=== PATIENT | female | born 1960 | race Caucasian/White ===

== ENCOUNTER 2020-04-25 13:35 | Outpatient (REF) | payer OTHER, SELFPAY ==
[2020-04-25 14:40] LABS: MANUAL DIFF FLAG NO
[2020-04-25 14:44] LABS: Basophils Percent Auto 0.4 % (0-2); Eosinophils Absolute Auto 0.6 X10*3/uL (0.0-0.4); Eosinophils Percent Auto 5.4 % (0-4); Hemoglobin 12.4 g/dl (12.0-16.0); Imm Gran Abs Auto 0.07 X10*3/uL (0.00-0.03); Imm Gran Pct Auto 0.7 % (0.0-0.4); Lymphocytes Absolute Auto 3.4 X10*3/uL (1.2-4.9); Lymphocytes Percent Auto 33.4 % (20-40); Mean Corpuscular HGB Conc 32.6 g/dl (31.0-35.0); Mean Corpuscular Hemoglobin 27.3 pg (27.0-33.0); Mean Corpuscular Volume 83.7 fL (80-98); Mean Platelet Volume 10.7 fL (9.4-12.3); Monocytes Absolute Auto 0.8 X10*3/uL (0.1-1.2); Monocytes Percent Auto 7.5 % (2-11); Neutrophils Absolute Auto 5.4 X10*3/uL (2.0-8.3); Neutrophils Percent Auto 52.6 % (45-73); Platelet Count 410 X10*3/uL (160-400); Red Blood Count 4.54 X10*6/uL (4.20-5.50); Red Cell Distribution Width 13.7 % (11.0-16.0); White Blood Count 10.3 X10*3/uL (4.8-10.8)
[2020-04-25 15:02] LABS: Alanine Aminotransferase 21 U/L (0-31); Albumin Level 4.3 g/dL (3.5-5.0); Alkaline Phosphatase 89 U/L (39-117); Anion Gap 12 (12-20); Aspartate Amino Transferase 20 U/L (5-31); Bilirubin Direct < 0.2 mg/dL (0.0-0.5); Bilirubin Total 0.3 mg/dL (0.0-1.0); Blood Urea Nitrogen 34 mg/dL (9-16); Calcium 9.6 mg/dL (8.4-10.2); Carbon Dioxide 27 mmol/L (22-29); Chloride 108 mmol/L (96-108); Estimated Glomerular Filt Rate 56; Glucose Random 94 mg/dL (60-115); Potassium 4.8 mmol/l (3.3-5.1); Sodium 142 mmol/L (135-145); Total Protein 6.9 g/dL (6.5-8.0)
[2020-04-25 15:09] LABS: Prothrombin Time 12.3 SEC (10.8-13.0)
== END 2020-04-25 13:36 | disposition home or self-care (01) ==
LOC: HO.LAB 13:35
PROVIDERS: PCP Internal Medicine; Visit Provider Physician Assistant
DX: Z01.818 Encounter for other preprocedural examination (principal); E11.65 Type 2 diabetes mellitus with hyperglycemia; I10 Essential (primary) hypertension
CPT/HCPCS: 36415; 80048; 80076; 85025; 85610

== ENCOUNTER 2020-08-11 13:20 | Emergency (ER) | payer OTHER, SELFPAY ==
[2020-08-11 13:28] VITALS: BP 154/72; PULSE 113; RESP 18; TEMP 37.5; O2SAT 97; BMI 32.5
--- NOTE | 2020-08-11 13:37 | XR_ITS ---
EXAMINATION: XR CHEST CLINICAL INFORMATION: COVID exposure COMPARISON: None TECHNIQUE: Frontal view of the chest was obtained. FINDINGS: No significant abnormality is noted involving the heart, lungs, mediastinum, bony thorax or soft tissues. XR/XR chest 1V IMPRESSION: No acute disease within the chest.
[2020-08-11 14:22] LABS: COVID-19 Test Positive (Negative); IDNOW Serial# 9DD0AD1C
--- NOTE | 2020-08-11 14:29 | ED.URI ---
HPI - URI/Sore Throat General Chief Complaint: General Medical Stated Complaint: body aches Time Seen by Provider: 08/11/20 13:36 Source: patient Mode of arrival: ambulatory Limitations: no limitations History of Present Illness HPI Narrative: Patient complaining of running nose body aches malaise tiredness no fever occasional dry cough no shortness of breath for last 3 days patient's brother was positive with COVID last week who visited their house at that time patient mother is also sick Related Data Home Medications Medication Instructions Recorded Confirmed fenofibrate 160 mg tablet 160 mg PO DAILY 05/27/20 05/27/20 folic acid 1 mg tablet 1 mg PO DAILY 05/27/20 05/27/20 gabapentin 600 mg tablet 600 mg PO TID 05/27/20 05/27/20 insulin glargine 100 unit/mL (3 60 unit SUBCUT QAM ml 05/27/20 05/27/20 mL) subcutaneous pen insulin lispro 100 unit/mL 8 unit SUBCUT TID 05/27/20 05/27/20 subcutaneous pen lidocaine HCl 4 % topical cream 1 applic TOPICAL TID 05/27/20 05/27/20 simvastatin 5 mg tablet 5 mg PO DAILY 05/27/20 05/27/20 sulfamethoxazole 800 1 tab PO .COMPLEX 05/27/20 05/27/20 mg-trimethoprim 160 mg tablet Previous Rx's Medication Instructions Recorded omeprazole 20 mg capsule,delayed 20 mg PO DAILY #90 cap 05/10/20 release dulaglutide 1.5 mg/0.5 mL 1.5 mg SUBCUT QWEEK 30 Days #2.5 ml 05/24/20 subcutaneous pen injector flash glucose sensor #2 ea 06/03/20 cholecalciferol (vitamin D3) 125 125 mcg PO DAILY 30 Days #30 cap 07/24/20 mcg (5,000 unit) capsule pregabalin 50 mg capsule 50 mg PO BID #60 cap 08/01/20 Allergies Allergy/AdvReac Type Severity Reaction Status Date / Time metformin [METFORMIN] Allergy Severe DIARRHEA, Verified 05/24/20 09:41 stomach intolerance lisinopril [LISINOPRIL] Allergy Intermediate COUGH Verified 05/24/20 09:41 Review of Systems Review of Systems: Constitutional : No Weight loss, No Fever, No Chills ENT/Mouth : + sore throat, + Rhinorrhea Eyes: No Eye Pain, No Swelling Cardiovascular : No Chest Pain, no palpitations Respiratory : No Cough, No Sputum, no shortness of breath Gastrointestinal : no Nausea, No Vomiting, No Diarrhea, No abdominal Pain, no black stools Genitourinary : No Dysuria, No Urinary Frequency Musculoskeletal : No joint pain, ++ Myalgias, No Joint Swelling Skin : No Skin Lesions, No rash Neuro : No Weakness, No Numbness, No Dizziness, No Headache Psych : No Anxiety/Panic, No Depression Heme/Lymph: No Bruising, No Lymphadenopathy Endocrine : No Polyuria, No Polydipsia All other systems reviewed and are negative [facility] Past Medical History Medical History Degenerative disc disease, lumbar Diabetes type 2, uncontrolled Diabetic neuropathy Fatty liver GERD (gastroesophageal reflux disease) History of seizures Hypercholesterolemia Hypertension Obesity (BMI 30-39.9) Peptic ulcer disease Seronegative rheumatoid arthritis Vitamin D deficiency Surgical History History of lumbar surgery History of tonsillectomy History of tubal ligation Family History Family History Father Diabetes Hypertension Mother Hypertension Cancer Maternal Uncle Myocardial infarction Social History Social History Smoking Status: Never smoker Advance Directives: No Advance Directives Information Provided: No Physical Exam Vital Signs: Vital Signs: Last Vital Signs Temp 99.5 F 08/11/20 13:28 Pulse 113 H 08/11/20 13:28 Resp 18 08/11/20 13:28 BP 154/72 H 08/11/20 13:28 Pulse Ox 97 08/11/20 13:28 Body Mass Index 32.5 Appearance: Alert. Oriented X3. No acute distress. Eyes: Pupils equal, round and reactive to light. ENT: Pharynx normal. Neck: Normal inspection. Neck supple. CVS: Normal heart rate and rhythm. Pulses normal. Respiratory: No respiratory distress. Breath sounds normal. Abdomen: Soft and nontender. Bowel sounds are present, no mass palpable, no CVA tenderness Skin: Skin warm and dry. Normal skin color. Normal skin turgor. Extremities: No lower extremity edema. Neuro: Oriented X 3. No motor deficit. No sensory deficit. MDM - URI/Sore Throat MDM Narrative Medical decision making narrative: Patient with COVID-19 positive chest x-ray negative saturating 97% at room air will discharge patient home on Decadron patient diabetic on insulin advised to keep an eye on the blood sugar Differential Diagnosis Differential diagnosis: Likely upper respiratory infection Medical Records Attestation: I reviewed the patient's medical records. Lab Data Attestation: I reviewed the patient's lab results. Labs: Lab Results 08/11/20 Range/Units 13:45 COVID-19 (TORI) Positive A (Negative) COVID-19 Clin Com See Note Discharge Plan Discharge Prescriptions: No Action omeprazole 20 mg capsule,delayed release(DR/EC) 20 mg PO DAILY Qty: 90 RF: 5 Trulicity 1.5 mg/0.5 mL pen injector 1.5 mg subcut QWEEK 30 Days Qty: 2.5 RF: 3 (DME) FreeStyle Yariel 14 Day Sensor Kit See Rx Instructions .MEDSUPPLY Qty: 2 RF: 6 cholecalciferol (vitamin D3) 125 mcg (5,000 unit) capsule 125 mcg PO DAILY 30 Days Qty: 30 RF: 6 pregabalin [Lyrica] 50 mg capsule 50 mg PO BID Qty: 60 RF: 5 lidocaine HCl 4 % cream 1 applic topical TID RF: 0 folic acid 1 mg tablet 1 mg PO DAILY RF: 0 gabapentin 600 mg tablet 600 mg PO TID RF: 0 Basaglar KwikPen U-100 Insulin 100 unit/mL (3 mL) insulin pen 60 unit subcut QAM RF: 0 simvastatin 5 mg tablet 5 mg PO DAILY RF: 0 fenofibrate 160 mg tablet 160 mg PO DAILY RF: 0 insulin lispro [Admelog SoloStar U-100 Insulin] 100 unit/mL insulin pen 8 unit subcut TID RF: 0 sulfamethoxazole-trimethoprim [Bactrim DS] 800-160 mg tablet 1 tab PO .COMPLEX RF: 0
[2020-08-11] MEDS: dexAMETHasone 2 MG TABLET 10 MG PO (14:50)
== END 2020-08-11 14:55 | disposition home or self-care (01) ==
PROVIDERS: Emergency Provider Internal Medicine; PCP Internal Medicine
DX: U07.1 COVID-19 (principal); M79.10 Myalgia, unspecified site; R09.89 Other specified symptoms and signs involving the circulatory and respiratory systems; Z79.899 Other long term (current) drug therapy; Z79.4 Long term (current) use of insulin
CPT/HCPCS: 36415; 71045; 87635; 99283; J8540

== ENCOUNTER 2020-08-16 10:05 | Inpatient (IN) | payer OTHER, SELFPAY ==
[2020-08-16] VITALS (7 sets, daily range): BP systolic 145–165; BP diastolic 59–74; PULSE 91–93; RESP 16–38; TEMP 36.8–37.2; O2SAT 79–95; BMI 32.9
--- NOTE | ~2020-08-16 | XR_ITS ---
EXAMINATION: XR CHEST CLINICAL INFORMATION: Shortness of breath COMPARISON: Shortness of breath TECHNIQUE: Frontal view of the chest was obtained. FINDINGS: The cardiac silhouette does not appear enlarged. There is lucency seen in the mediastinum questionable for pneumomediastinum. The lung volumes are low. There is diffuse increased attenuation of the lungs suggestive of pneumonitis. There is denser atelectasis or consolidation at the left lung base. This does not appear appreciably changed. There is no pleural effusion. No pneumothorax is seen. Bony structures are unremarkable. XR/XR chest 1V IMPRESSION: Increased lucency in the mediastinum questionable for pneumomediastinum. This could be better evaluated with chest CT if clinically indicated. Low lung volumes. Diffuse increased attenuation of the lungs suggestive of pneumonitis and denser atelectasis or airspace disease at the left lung base. Findings will be communicated by the [place] work flow breaker engineer Alisia Roland.
--- NOTE | ~2020-08-16 | XR_ITS ---
EXAMINATION: XR CHEST CLINICAL INFORMATION: COVID follow-up COMPARISON: Chest radiograph from 08/27/2020 TECHNIQUE: Frontal view of the chest was obtained. FINDINGS: Bilateral low lung volumes. Patchy radiopacities throughout the bilateral lung pow[place] greatest in the bilateral lower lobes, stable from prior imaging. There is bibasilar atelectasis. Cardiac mediastinal silhouette is stable. There is no pleural effusions. Osseous structures are intact. Soft tissues are unremarkable. XR/XR chest 1V IMPRESSION: 1. Bilateral low lung volumes. 2. Patchy radiopacities throughout the bilateral lung powell greatest in the bilateral lower lobes, stable from prior imaging. 3. Bibasilar atelectasis.
--- NOTE | ~2020-08-16 | XR_ITS ---
EXAMINATION: XR CHEST CLINICAL INFORMATION: Tube placement COMPARISON: Same day chest x-ray and chest CT TECHNIQUE: Frontal view of the chest was obtained. FINDINGS: Cardiac silhouette is normal in size. Endotracheal tube terminates approximately 3.9 cm above the level of carmen. Enteric tube projects over the expected location of the stomach. Right-sided jugular catheter is again noted with tip terminating within the right atrium. The lungs are adequately aerated. Patchy bilateral airspace disease is again noted. Pneumomediastinum and extensive subcutaneous emphysema are noted. Small right apical pneumothorax suspected. XR/XR chest 1V IMPRESSION: -Support apparatus in expected orientation. -Suspected small right apical pneumothorax. Evaluation is difficult given extensive pneumomediastinum and subcutaneous emphysema. This Critical Result was discussed with JACKI Leblanc at 8:30 PM on 09/11/2020 and it was ascertained that the content and urgency of the report was understood at the time of direct communication.
--- NOTE | ~2020-08-16 | XR_ITS ---
EXAMINATION: XR CHEST CLINICAL INFORMATION: Pneumomediastinum. COMPARISON: Same-day examination performed at 11:40 AM. TECHNIQUE: Frontal view of the chest was obtained. FINDINGS: Lungs are mildly hypoexpanded, unchanged. No consolidation or pulmonary edema. Streaky bibasilar opacities. No pneumothorax or pleural effusion. Cardiomediastinal silhouette within normal limits. Unchanged degree of pneumomediastinum relative to comparison same day examination. XR/XR chest 1V IMPRESSION: Similar appearance of pneumomediastinum. Streaky bibasilar opacities, likely atelectasis.
--- NOTE | ~2020-08-16 | CT_ITS ---
EXAMINATION: CT CHEST WITHOUT CONTRAST CLINICAL INFORMATION: Follow-up COVID pneumonia COMPARISON: Chest x-ray 09/11/2020, chest x-ray 09/07/2020, CT angiogram of the chest 08/16/2020 TECHNIQUE: Multidetector volumetric CT imaging of the chest was done. Axial MIP volume rendering provided. Sagittal and coronal reformatted images were obtained. This CT examination was performed using dose optimization techniques as appropriate, variously including the following: *Automated exposure control *Adjustment of mA and/or kV according to patient size (this includes techniques or standardized protocols for targeted exams where dose is matched to indication/reason for exam; i.e. extremities or head) *Use of iterative reconstruction technique DLP: 154 mGy-cm FINDINGS: CELL POURER: Endotracheal tube with tip 2 cm above the carmen. Enteric tube descends the esophagus into the stomach. Extensive subcutaneous emphysema seen, left greater than right. LUNGS: Diffuse hazy groundglass opacity is present with more confluent opacity at the lung bases. The findings are more extensive on the current exam, involving the lungs diffusely, with air was more patchy involvement on the prior CT scan 08/16/2020, although the degree of abnormal lung opacity is improved. MEDIASTINUM: There is extensive pneumomediastinum seen involving the anterior, posterior, and superior mediastinum, although this appeared improved between the chest x-rays 09/07/2020 and earlier today. No hilar or mediastinal lymphadenopathy. Normal heart size. PLEURA: There is no pleural effusion. No pleural mass or thickening. AXILLA: Extensive subcutaneous emphysema involving the left greater than right neck, left greater than right shoulders and axilla, anterior chest bilaterally, and left lateral chest wall. No axillary lymphadenopathy. UPPER ABDOMEN: No adrenal mass. OSSEOUS STRUCTURES: Unremarkable. CT/CT chest wo con IMPRESSION: Extensive pneumomediastinum, as described above. On earlier chest x-ray, this appeared improved from prior chest x-ray 09/07/2020. Diffuse groundglass opacity throughout the lungs with more confluent involvement in the lower lobes. The findings are more extensive on the current exams, essentially involving the entirety of the lungs bilaterally, with more patchy involvement on the prior CT 08/16/2020, although the degree of abnormal lung density is improved.
--- NOTE | ~2020-08-16 | XR_ITS ---
EXAMINATION: XR CHEST CLINICAL INFORMATION: Hypoxia COMPARISON: 08/23/2020 TECHNIQUE: Frontal view of the chest was obtained. FINDINGS: Compared with the prior study, there's been worsening of the airspace disease noted previously. The lungs remain hypoexpanded. The heart size is normal. No effusions are seen. XR/XR chest 1V IMPRESSION: Worsening of patchy airspace disease.
--- NOTE | ~2020-08-16 | XR_ITS ---
EXAMINATION: XR CHEST CLINICAL INFORMATION: Endotracheal tube, OG tube, triple-lumen catheter placement COMPARISON: 09/07/2020 TECHNIQUE: Frontal view of the chest was obtained. FINDINGS: The endotracheal tube terminates 2.5 cm above the carmen. Right internal jugular central venous catheter terminates near the cavoatrial junction. Enteric tube terminates in the stomach. Lung volumes are low. Bronchial wall thickening. Bibasilar opacities. No pleural effusion or pneumothorax. The cardiomediastinal silhouette is unchanged in size. Pneumomediastinum noted which decreased from prior. XR/XR chest 1V IMPRESSION: Endotracheal tube terminates 2.5 cm above the carmen. Additional tubes and lines in appropriate position. Decreasing pneumomediastinum. Increased bibasilar opacities which could represent atelectasis or pneumonia.
--- NOTE | ~2020-08-16 | US_ITS ---
EXAMINATION: US VENOUS ULTRASOUND WITH DOPPLER LOWER EXTREMITY, BILATERAL CLINICAL INFORMATION: Rule out DVT COMPARISON: 03/06/2020 TECHNIQUE: Ultrasound of the deep veins is performed from the hip to the calf with compression sonography and color and pulse Doppler assessment. Spectral analysis with color-flow imaging is performed. FINDINGS: RIGHT: There is normal venous compression and respiratory variation and augmented flow. The visualized common femoral vein, superficial femoral vein, profunda femoral vein, popliteal vein, and the trifurcation region shows no evidence of deep venous thrombosis. There is no significant popliteal fossa cyst. LEFT: There is normal venous compression and respiratory variation and augmented flow. The visualized common femoral vein, superficial femoral vein, profunda femoral vein, popliteal vein, and the trifurcation region shows no evidence of deep venous thrombosis. There is no significant popliteal fossa cyst. If the patient's symptoms persist, followup ultrasound in 5 days 7 days might be of value to exclude proximal propagation from a non-visualized calf vein. US/US venous duplex LE BI IMPRESSION: No DVT demonstrated in the bilateral lower extremity.
--- NOTE | ~2020-08-16 | XR_ITS ---
EXAMINATION: XR CHEST CLINICAL INFORMATION: Right apical pneumothorax COMPARISON: 09/11/2020 TECHNIQUE: Frontal view of the chest was obtained. FINDINGS: Endotracheal tube terminates approximately 3 cm above the carmen. Enteric tube terminates in the stomach. Right internal jugular central venous catheter extends near the cavoatrial junction. Cardiac leads overlie the chest. Extensive subcutaneous emphysema of the chest extending into the neck again noted. Lung volumes are low. There is a small right-sided pneumothorax which is decreased from prior. Hazy opacities with small pleural effusions bilaterally. The cardiomediastinal silhouette is unchanged with pneumomediastinum present. XR/XR chest 1V IMPRESSION: Endotracheal tube terminates 3 cm above the carmen. Small right pneumothorax is decreased from prior. Similar appearance of opacities throughout the lungs. Small pleural effusions. Similar pneumomediastinum and subcutaneous emphysema.
--- NOTE | ~2020-08-16 | XR_ITS ---
EXAMINATION: XR CHEST CLINICAL INFORMATION: 60-year-old female patient with Covid 19 pneumonia. COMPARISON: Chest x-rays from August 23 through 09/12/2020. CT the chest on 09/11/2020. (Diffuse lung disease. Pneumomediastinum. TECHNIQUE: AP portable supine view of the chest was obtained. The time of examination was 1:43 PM. FINDINGS: The tip of endotracheal tube is 3 cm above the carmen. The right internal jugular vein central venous catheter terminates near the cavoatrial junction. An enteric tube coils in the stomach. No pneumothorax is seen. The volume of pneumomediastinum and subcutaneous emphysema has decreased since 3 days ago. However, lung volumes are diminished and there is diffuse airspace disease of both lungs secondary to Covid pneumonia. XR/XR chest 1V IMPRESSION: 1. Decrease in the volume of the pneumomediastinum and subcutaneous emphysema. 2. Lungs are less expanded and continue to show diffuse disease due to COVID pneumonia.
--- NOTE | ~2020-08-16 | XR_ITS ---
EXAMINATION: XR CHEST CLINICAL INFORMATION: Covid Pneumonia. COMPARISON: Chest 08/11/2020 TECHNIQUE: Frontal view of the chest was obtained. FINDINGS: There is significant artifact overlying the chest. Recommend repeat chest exam. On this limited exam there are lungs are hypoexpanded with patchy opacity in the right upper lobe and left lower lobe. Heart size and pulmonary vascularity is normal. No gross bony abnormality seen. XR/XR chest 1V IMPRESSION: Limited exam with significant artifact overlying the anterior chest wall. Recommend repeat. Right upper lobe and left lower lobe infiltrates suspected, new since 08/11/2020.
--- NOTE | ~2020-08-16 | XR_ITS ---
EXAMINATION: XR CHEST CLINICAL INFORMATION: Worsening hypoxia. Follow-up pneumomediastinum COMPARISON: Previous chest x-rays most recent 09/04/2020 TECHNIQUE: Frontal view of the chest was obtained. FINDINGS: The cardiac silhouette does not appear enlarged. There is probable pneumomediastinum. This does not appear appreciably changed from most recent exam 09/04/2020. Hilar contours are unremarkable. The lung volumes are low. There is basilar airspace disease, left greater than right. This does not appear appreciably changed. There is no pleural effusion. There is no pneumothorax. Bony structures are unremarkable. XR/XR chest 1V IMPRESSION: No change in pneumomediastinum. Low lung volumes and bibasilar airspace disease, left greater than right.
--- NOTE | ~2020-08-16 | XR_ITS ---
EXAMINATION: XR CHEST CLINICAL INFORMATION: Right apical pneumothorax COMPARISON: Chest x-ray earlier today at 7:41 PM TECHNIQUE: Frontal view of the chest was obtained. FINDINGS: Small right apical pneumothorax appears stable in size. No appreciable interval change in bilateral airspace disease, excessive pneumomediastinum and subcutaneous emphysema. Stable support apparatus. XR/XR chest 1V IMPRESSION: Stable small right apical pneumothorax.
--- NOTE | 2020-08-16 10:19 | CT_ITS ---
EXAMINATION: CT ANGIOGRAM OF THE CHEST WITH AND WITHOUT CONTRAST (CT PULMONARY ANGIOGRAM FOR PE) CLINICAL INFORMATION: Reason for Exam SOB COMPARISON: None TECHNIQUE: Prior to contrast administration, noncontrast localization images were obtained. Subsequently, multidetector volumetric imaging was performed from the thoracic inlet to below the diaphragms following the administration of 80 mL Omnipaque 350 intravenous contrast. No contrast reaction reported Sagittal, coronal, and MIP oblique sagittal reformatted images were obtained on the CT workstation, uploaded to PACS, and reviewed. This CT examination was performed using dose optimization techniques as appropriate, variously including the following: *Automated exposure control *Adjustment of mA and/or kV according to patient size (this includes techniques or standardized protocols for targeted exams where dose is matched to indication/reason for exam; i.e. extremities or head) *Use of iterative reconstruction technique Total exam dose-length product 303 mGy-cm FINDINGS: QUALITY OF STUDY/CONTRAST BOLUS: Satisfactory. PULMONARY ARTERIES: No central or segmental pulmonary emboli. THORACIC AORTA: No aneurysm or dissection. LUNG: Extensive bilateral groundglass opacities seen throughout upper , lower lobes, right middle lobe and lingula likely related to: Infection. PLEURA: No pleural effusion or pneumothorax. MEDIASTINUM: Normal heart size. No pericardial effusion. No hilar or mediastinal lymphadenopathy. No evidence of septal bowing or right heart strain. CHEST WALL/AXILLA: No axillary or internal mammary lymphadenopathy. OSSEOUS STRUCTURES: No lytic or sclerotic process seen. UPPER ABDOMEN: The liver is diffusely attenuated. No focal lesion seen. Visualized spleen, pancreas and bilateral adrenal glands are unremarkable. Gallbladder is not completely visualized. No reflux of contrast into the hepatic veins to suggest elevated right heart pressures. CT/CT angio chest PE protocol IMPRESSION: No evidence of PE. No evidence of aortic dissection. Diffuse extensive bilateral infiltrates likely related to Covid disease. VTE: negative
--- NOTE | 2020-08-16 10:20 | ECG_ITS ---
Test Reason : SOB Blood Pressure : / mmHG Vent. Rate : 093 BPM Atrial Rate : 093 BPM P-R Int : 120 ms QRS Dur : 120 ms QT Int : 392 ms P-R-T Axes : 058 -44 100 degrees QTc Int : 487 ms Normal sinus rhythm Left axis deviation Left ventricular hypertrophy with QRS widening and repolarization abnormality Abnormal ECG When compared with ECG of 06-NOV-2016 14:34, QRS duration has increased Referred By: Mohan Sibley Electronically Signed By:Cheo Gaston
--- NOTE | 2020-08-16 10:30 | ED.SOB ---
HPI - SOB/Dyspnea General Chief Complaint: Dyspnea Stated Complaint: sob Time Seen by Provider: 08/16/20 10:19 Source: patient Mode of arrival: ambulatory Limitations: no limitations History of Present Illness HPI Narrative: Pleasant 60-year-old female with history of insulin-dependent diabetes, diabetic neuropathy, fatty liver, gastroesophageal reflux disease remote history of seizures, hypertension, hypercholesteremia RA and degenerative disc disease and surgical history of lumbar spine surgery, tonsillectomy, tubal ligation whom reports she was diagnosed with COVID-19 on 08/11/2020 here at this facility at this time she had mild URI symptoms she has been home on steroids on which she was placed on the last visit however she has had progressively worsening shortness of breath at home checked her oxygen and was 84%. She denies any history of respiratory problems in the past no diagnosis of asthma or COPD. She does report she is feels shortness of breath initially was just on exertion and now at rest as well. Upon arrival 87 % on room air improved to 92% on 3 L. MD elicited complaint: shortness of breath and cough Context: recent illness Severity: severe Exacerbating factors: exertion Relieving factors: rest Associated symptoms: cough Related Data Home oxygen amount: none Home Medications Medication Instructions Recorded Confirmed fenofibrate 160 mg tablet 160 mg PO DAILY 05/27/20 08/16/20 folic acid 1 mg tablet 5 mg PO DAILY 05/27/20 08/16/20 gabapentin 600 mg tablet 600 mg PO TID 05/27/20 08/16/20 insulin glargine 100 unit/mL (3 60 unit SUBCUT BEDTIME ml 05/27/20 08/16/20 mL) subcutaneous pen insulin lispro 100 unit/mL 5 unit SUBCUT TIDAC 05/27/20 08/16/20 subcutaneous pen simvastatin 5 mg tablet 5 mg PO BEDTIME 05/27/20 08/16/20 cyclobenzaprine 10 mg PO BID PRN 08/16/20 08/16/20 hydroxychloroquine 200 mg PO BID 08/16/20 08/16/20 omeprazole 20 mg PO DAILY@0630 08/16/20 08/16/20 sulfamethoxazole-trimethoprim 1 tab PO MOWEFR@1000 08/16/20 08/16/20 [Bactrim] Previous Rx's Medication Instructions Recorded dulaglutide 1.5 mg/0.5 mL 1.5 mg SUBCUT QWEEK 30 Days #2.5 ml 05/24/20 subcutaneous pen injector flash glucose sensor #2 ea 06/03/20 cholecalciferol (vitamin D3) 125 125 mcg PO DAILY 30 Days #30 cap 07/24/20 mcg (5,000 unit) capsule pregabalin 50 mg capsule 50 mg PO BID #60 cap 08/01/20 dexamethasone [Decadron] 6 mg PO DAILY #7 tab 08/11/20 Allergies Allergy/AdvReac Type Severity Reaction Status Date / Time metformin [METFORMIN] Allergy Severe DIARRHEA, Verified 05/24/20 09:41 stomach intolerance lisinopril [LISINOPRIL] Allergy Intermediate COUGH Verified 05/24/20 09:41 Review of Systems Review of Systems: Constitutional: No Weight loss, No Fever, + Chills, No Night Sweats ENT/Mouth: No Hearing loss, No Ear Pain, No Nasal Congestion, No Sinus Pain, No Hoarseness, No sore throat, No Rhinorrhea, No Swallowing Difficulty Eyes: No Eye Pain, No Swelling, No Redness, No Foreign Body, No Discharge, No Vision Changes Cardiovascular: No Chest Pain, No SOB, No Dyspnea on Exertion, No Orthopnea, No Edema, No Palpitations Respiratory: + Cough, No Sputum, + Wheezing, No Dyspnea Gastrointestinal: No Nausea, No Vomiting, No Diarrhea, No Constipation, No abdominal Pain, No Hematochezia, No Melena Genitourinary: no irregular bleeding, No Dysuria, No Urinary Frequency, No Hematuria, No Urinary Incontinence, No Urgency, No Flank Pain Musculoskeletal: No joint pain, + Myalgias, No Joint Swelling Skin: No Skin Lesions, No rash Neuro: No Weakness, No Numbness, No Paresthesias, No Loss of Consciousness, No Dizziness, No Headache Psych: No Social Issues Heme/Lymph: No Bruising, No Bleeding,No Lymphadenopathy Endocrine: No Polyuria, No Polydipsia, No Temperature Intolerance Yes all other systems are reviewed and are negative [facility] Past Medical History Medical History Degenerative disc disease, lumbar Diabetes type 2, uncontrolled Diabetic neuropathy Fatty liver GERD (gastroesophageal reflux disease) History of seizures Hypercholesterolemia Hypertension Obesity (BMI 30-39.9) Peptic ulcer disease Seronegative rheumatoid arthritis Vitamin D deficiency Surgical History History of lumbar surgery History of tonsillectomy History of tubal ligation Family History Family History Father Diabetes Hypertension Mother Hypertension Cancer Maternal Uncle Myocardial infarction Social History Social History Smoking Status: Never smoker Smoked in Last 30 Days: No Use of substances other than those prescribed or required for medical reasons: No Advance Directives: No Advance Directives Information Provided: No Physical Exam Vital Signs: Vital Signs: Last Vital Signs Temp 98.9 F 08/16/20 10:08 Pulse 91 08/16/20 13:46 Resp 20 08/16/20 10:08 BP 165/59 H 08/16/20 10:08 Pulse Ox 87 L 08/16/20 10:08 Body Mass Index 32.9 Reviewed Const: Other: Bedside due to 86% on room air improved almost immediately to 93% on 3 L Does not use oxygen at home General: cooperative, in distress mild and respiratory and anxious; No intoxicated appearing Nutritional Appearance: average body habitus Orientation/consciousness: patient oriented x3 HENMT: Head: Yes normal to inspection Ears: hearing grossly normal bilaterally Eyes: General: appearance normal, both eyes and all related structures Visual Hudson: normal visual hudson by confrontation Neck: Neck: Yes normal visual inspection, No positive Brudzinski's sign, No positive Kernig's sign and No tender Thyroid: Thyroid normal Chest: Chest palpation & inspection: normal inspection of the chest Resp: Effort & Inspection: normal respiratory effort Auscultation: wheezes right upper and posterior Cardio: Jugular venous distension: no JVD GI: Inspection: Yes normal to inspection Percussion: Yes normal to percussion Auscultation: normal bowel sounds : General: Yes no CVA tenderness Back/Spine/Pelvis: Back: no CVA tenderness Skin: General skin exam: no rashes or lesions noted Neuro: General: patient oriented x3 Extrem: General: Yes normal to inspection Course Course Course Narrative: 1030 In review 52-year-old female with extensive history as noted above diagnosed with COVID-19 on 08/11/2020 (4 days ago) at this time stable oxygen level at 97% chest x-ray negative was discharged home with Decadron has had progressively worsening symptoms now hypoxic reporting shortness of breath worsening with exertion. No complaint of chest pain does feel short of breath even at rest now. Pulse ox checked at home was in the low 80s here 87% upon arrival improved to 93% on 2 L. labs including COVID stratification labs EKG ordered. Will treat with nebs, dexamethasone and supplemental oxygen. Will require admission. Reevaluation(s) Reevaluation #1: UA positive nitrate however she is asymptomatic will hold off on antibiotics and sent for culture. MDM - SOB/Dyspnea MDM Narrative Medical decision making narrative: In review 52-year-old female with above history positive COVID diagnosis 4 days ago worsening symptoms positive hypoxia on Decadron at home resulting in the significant leukocytosis otherwise CTA is negative for acute pulmonary embolism findings consistent with COVID pneumonia. Requiring supplemental oxygen stable with nasal oxygen at this time. Case discussed with hospitalist for admission. Differential Diagnosis Differential diagnosis: Likely pneumonia (COVID-19) and pulmonary embolism; Unlikely acute exacerbation of chronic obstructive airways disease, congestive heart failure, asthma with exacerbation, pleural effusion, sleep apnea and anemia Medical Records Attestation: I reviewed the patient's medical records. Medical records narrative: Patient was seen in the emergency room on the 08/11/2020 (4 days ago) Lab Data Attestation: I reviewed the patient's lab results. Result diagrams: 08/16/20 11:07 08/16/20 11:07 Labs: Lab Results 08/16/20 08/16/20 08/16/20 Range/Units 11:07 11:07 11:07 WBC 23.5 H (4.8-10.8) X10*3/uL RBC 4.75 (4.20-5.50) X10*6/uL Hgb 12.9 (12.0-16.0) g/dl Hct 39.0 (37-47) % MCV 82.1 (80-98) fL MCH 27.2 (27.0-33.0) pg MCHC 33.1 (31.0-35.0) g/dl RDW 15.9 (11.0-16.0) % Plt Count 292 D (160-400) X10*3/uL MPV 11.0 (9.4-12.3) fL Immature Gran % (Auto) 1.0 H (0.0-0.4) % Neut % (Auto) 94.3 H (45-73) % Lymph % (Auto) 2.8 L (20-40) % [place] % (Auto) 1.5 L (2-11) % Eos % (Auto) 0.2 (0-4) % Baso % (Auto) 0.2 (0-2) % Lymph # (Auto) 0.7 L (1.2-4.9) X10*3/uL [place] # (Auto) 0.4 (0.1-1.2) X10*3/uL Eos # (Auto) 0.1 (0.0-0.4) X10*3/uL Baso # (Auto) 0.0 (0.0-0.2) X10*3/uL Abs Immat Gran (auto) 0.24 H (0.00-0.03) X10*3/uL Absolute Neuts (auto) 22.2 H (2.0-8.3) X10*3/uL Absolute Nucleated RBC 0.000 (0.0-0.012) X10*3/uL Nucleated RBC % (auto) 0.0 (0.0-0.2) /100WBC Smear Tech's Comments VERIFIED PT 13.6 H (10.8-13.0) SEC INR 1.1 (0.9-1.1) APTT 29.7 (24.1-38.0) SEC D-Dimer 637 NG/ML Sodium 139 (135-145) mmol/L Potassium 4.5 (3.3-5.1) mmol/L Chloride 103 (96-108) mmol/L Carbon Dioxide 25 (22-29) mmol/L Anion Gap 16 (12-20) BUN 34 H (9-16) mg/dL Creatinine 1.18 (0.5-1.4) mg/dL Estim Creat Clear Calc 51.4 Estimated GFR 47 Random Glucose 381 H* (60-115) mg/dL Lactic Acid (0.5-2.0) mmol/L Calcium 8.7 D (8.4-10.2) mg/dL Ferritin (10-250) ng/mL Total Bilirubin 0.6 (0.0-1.0) mg/dL AST 19 (5-31) U/L ALT 21 (0-31) U/L Alkaline Phosphatase 84 (39-117) U/L Lactate Dehydrogenase 330 H (122-220) U/L Troponin I High Sens (<3.5-17.0) ng/L C-Reactive Protein 32.05 H (< or = 0.50) mg/dL Total Protein 6.5 (6.5-8.0) g/dL Albumin 3.7 (3.5-5.0) g/dL Specimen Comment Urine Color Urine Appearance Urine pH (5.0-8.0) Ur Specific [place] (1.005-1.025) Urine Protein (NEG-TRACE) MG/DL Urine Glucose (UA) (NEG) MG/DL Urine Ketones (NEG) MG/DL Urine Blood (NEG) Urine Nitrite (NEG) Ur Leukocyte Esterase (NEG) Urine RBC (0) /HPF Urine WBC (0-4) /HPF Ur Squamous Epith Cells /LPF Urine Bacteria /LPF 08/16/20 08/16/20 08/16/20 Range/Units 11:07 11:07 11:07 WBC (4.8-10.8) X10*3/uL RBC (4.20-5.50) X10*6/uL Hgb (12.0-16.0) g/dl Hct (37-47) % MCV (80-98) fL MCH (27.0-33.0) pg MCHC (31.0-35.0) g/dl RDW (11.0-16.0) % Plt Count (160-400) X10*3/uL MPV (9.4-12.3) fL Immature Gran % (Auto) (0.0-0.4) % Neut % (Auto) (45-73) % Lymph % (Auto) (20-40) % [place] % (Auto) (2-11) % Eos % (Auto) (0-4) % Baso % (Auto) (0-2) % Lymph # (Auto) (1.2-4.9) X10*3/uL [place] # (Auto) (0.1-1.2) X10*3/uL Eos # (Auto) (0.0-0.4) X10*3/uL Baso # (Auto) (0.0-0.2) X10*3/uL Abs Immat Gran (auto) (0.00-0.03) X10*3/uL Absolute Neuts (auto) (2.0-8.3) X10*3/uL Absolute Nucleated RBC (0.0-0.012) X10*3/uL Nucleated RBC % (auto) (0.0-0.2) /100WBC Smear Tech's Comments PT (10.8-13.0) SEC INR (0.9-1.1) APTT (24.1-38.0) SEC D-Dimer NG/ML Sodium (135-145) mmol/L Potassium (3.3-5.1) mmol/L Chloride (96-108) mmol/L Carbon Dioxide (22-29) mmol/L Anion Gap (12-20) BUN (9-16) mg/dL Creatinine (0.5-1.4) mg/dL Estim Creat Clear Calc Estimated GFR Random Glucose (60-115) mg/dL Lactic Acid 1.7 (0.5-2.0) mmol/L Calcium (8.4-10.2) mg/dL Ferritin 438 H (10-250) ng/mL Total Bilirubin (0.0-1.0) mg/dL AST (5-31) U/L ALT (0-31) U/L Alkaline Phosphatase (39-117) U/L Lactate Dehydrogenase (122-220) U/L Troponin I High Sens 3.6 (<3.5-17.0) ng/L C-Reactive Protein (< or = 0.50) mg/dL Total Protein (6.5-8.0) g/dL Albumin (3.5-5.0) g/dL Specimen Comment Urine Color Urine Appearance Urine pH (5.0-8.0) Ur Specific [place] (1.005-1.025) Urine Protein (NEG-TRACE) MG/DL Urine Glucose (UA) (NEG) MG/DL Urine Ketones (NEG) MG/DL Urine Blood (NEG) Urine Nitrite (NEG) Ur Leukocyte Esterase (NEG) Urine RBC (0) /HPF Urine WBC (0-4) /HPF Ur Squamous Epith Cells /LPF Urine Bacteria /LPF 08/16/20 08/16/20 Range/Units 13:33 14:10 WBC (4.8-10.8) X10*3/uL RBC (4.20-5.50) X10*6/uL Hgb (12.0-16.0) g/dl Hct (37-47) % MCV (80-98) fL MCH (27.0-33.0) pg MCHC (31.0-35.0) g/dl RDW (11.0-16.0) % Plt Count (160-400) X10*3/uL MPV (9.4-12.3) fL Immature Gran % (Auto) (0.0-0.4) % Neut % (Auto) (45-73) % Lymph % (Auto) (20-40) % [place] % (Auto) (2-11) % Eos % (Auto) (0-4) % Baso % (Auto) (0-2) % Lymph # (Auto) (1.2-4.9) X10*3/uL [place] # (Auto) (0.1-1.2) X10*3/uL Eos # (Auto) (0.0-0.4) X10*3/uL Baso # (Auto) (0.0-0.2) X10*3/uL Abs Immat Gran (auto) (0.00-0.03) X10*3/uL Absolute Neuts (auto) (2.0-8.3) X10*3/uL Absolute Nucleated RBC (0.0-0.012) X10*3/uL Nucleated RBC % (auto) (0.0-0.2) /100WBC Smear Tech's Comments PT (10.8-13.0) SEC INR (0.9-1.1) APTT (24.1-38.0) SEC D-Dimer NG/ML Sodium (135-145) mmol/L Potassium (3.3-5.1) mmol/L Chloride (96-108) mmol/L Carbon Dioxide (22-29) mmol/L Anion Gap (12-20) BUN (9-16) mg/dL Creatinine (0.5-1.4) mg/dL Estim Creat Clear Calc Estimated GFR Random Glucose (60-115) mg/dL Lactic Acid (0.5-2.0) mmol/L Calcium (8.4-10.2) mg/dL Ferritin (10-250) ng/mL Total Bilirubin (0.0-1.0) mg/dL AST (5-31) U/L ALT (0-31) U/L Alkaline Phosphatase (39-117) U/L Lactate Dehydrogenase (122-220) U/L Troponin I High Sens (<3.5-17.0) ng/L C-Reactive Protein (< or = 0.50) mg/dL Total Protein (6.5-8.0) g/dL Albumin (3.5-5.0) g/dL Specimen Comment DELAY Urine Color YELLOW Urine Appearance HAZY Urine pH 6.0 (5.0-8.0) Ur Specific [place] 1.025 (1.005-1.025) Urine Protein TRACE (NEG-TRACE) MG/DL Urine Glucose (UA) >=1000 H (NEG) MG/DL Urine Ketones 15 (NEG) MG/DL Urine Blood 1+ H (NEG) Urine Nitrite POS H (NEG) Ur Leukocyte Esterase NEG (NEG) Urine RBC 0-2 (0) /HPF Urine WBC 1-4 (0-4) /HPF Ur Squamous Epith Cells TRACE /LPF Urine Bacteria 2+ /LPF Imaging Data CTA chest PE: Radiologist's impression: [address] Scan ReportSigned Patient: Nathalia No#: [id number]: 2Acct:[id number]/Sex: 60 / FADM Date: 08/16/20Loc: ED[facility] Dr: Ordering Physician: Mohan Sibley NP Date of Service: 08/16/20 Procedure(s): CT angio chest PE protocol Accession Number(s): [id number] cc: Mohan Sibley PUBLIC HEALTH SERVICE OFFICER~ EXAMINATION: CT ANGIOGRAM OF THE CHEST WITH AND WITHOUT CONTRAST (CT PULMONARY ANGIOGRAM FOR PE) CLINICAL INFORMATION: Reason for Exam SOB COMPARISON: None TECHNIQUE: Prior to contrast administration, noncontrast localization images were obtained. Subsequently, multidetector volumetric imaging was performed from the thoracic inlet to below the diaphragms following the administration of 80 mL Omnipaque 350 intravenous contrast. No contrast reaction reported Sagittal, coronal, and MIP oblique sagittal reformatted images were obtained on the CT workstation, uploaded to PACS, and reviewed. This CT examination was performed using dose optimization techniques as appropriate, variously including the following: *Automated exposure control *Adjustment of mA and/or kV according to patient size (this includes techniques or standardized protocols for targeted exams where dose is matched to indication/reason for exam; i.e. extremities or head) *Use of iterative reconstruction technique Total exam dose-length product 303 mGy-cm FINDINGS: QUALITY OF STUDY/CONTRAST BOLUS: Satisfactory. PULMONARY ARTERIES: No central or segmental pulmonary emboli. THORACIC AORTA: No aneurysm or dissection. LUNG: Extensive bilateral groundglass opacities seen throughout upper , lower lobes, right middle lobe and lingula likely related to: Infection. PLEURA: No pleural effusion or pneumothorax. MEDIASTINUM: Normal heart size. No pericardial effusion. No hilar or mediastinal lymphadenopathy. No evidence of septal bowing or right heart strain. CHEST WALL/AXILLA: No axillary or internal mammary lymphadenopathy. OSSEOUS STRUCTURES: No lytic or sclerotic process seen. UPPER ABDOMEN: The liver is diffusely attenuated. No focal lesion seen. Visualized spleen, pancreas and bilateral adrenal glands are unremarkable. Gallbladder is not completely visualized. No reflux of contrast into the hepatic veins to suggest elevated right heart pressures. CT/CT angio chest PE protocol IMPRESSION: No evidence of PE. No evidence of aortic dissection. Diffuse extensive bilateral infiltrates likely related to Covid disease. 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 Utility Operator: [facility] ECG Data Interpretation: Normal sinus rhythm Left axis deviation Left ventricular hypertrophy with QRS widening and repolarization abnormality Abnormal ECG When compared with ECG of 06-NOV-2016 14:34, QRS duration has increased Non-specific change in ST segment in Lateral leads Discharge Plan Discharge Clinical Impression: COVID-19, Respiratory failure with hypoxia Patient Disposition: Admitted As Inpatient Prescriptions: No Action Trulicity 1.5 mg/0.5 mL pen injector 1.5 mg subcut QWEEK 30 Days Qty: 2.5 RF: 3 (DME) FreeStyle Yariel 14 Day Sensor Kit See Rx Instructions .MEDSUPPLY Qty: 2 RF: 6 cholecalciferol (vitamin D3) 125 mcg (5,000 unit) capsule 125 mcg PO DAILY 30 Days Qty: 30 RF: 6 pregabalin [Lyrica] 50 mg capsule 50 mg PO BID Qty: 60 RF: 5 dexamethasone [Decadron] 6 mg tablet 6 mg PO DAILY Qty: 7 RF: 0 cyclobenzaprine 10 mg Tablet 10 mg PO BID PRN (Reason: Muscle Spasm) RF: 0 sulfamethoxazole-trimethoprim [Bactrim] 400-80 mg Tablet 1 tab PO MOWEFR@1000 RF: 0 hydroxychloroquine 200 mg Tablet 200 mg PO BID RF: 0 omeprazole 20 mg capsule,delayed release(DR/EC) 20 mg PO DAILY@0630 RF: 0 folic acid 1 mg tablet 5 mg PO DAILY RF: 0 gabapentin 600 mg tablet 600 mg PO TID RF: 0 Basaglar KwikPen U-100 Insulin 100 unit/mL (3 mL) insulin pen 60 unit subcut BEDTIME RF: 0 simvastatin 5 mg tablet 5 mg PO BEDTIME RF: 0 fenofibrate 160 mg tablet 160 mg PO DAILY RF: 0 insulin lispro [Admelog SoloStar U-100 Insulin] 100 unit/mL insulin pen 5 unit subcut TIDAC RF: 0
[2020-08-16] MEDS: Albuterol Sulfate 90 MCG 8 GM INHALER 4 PUFF INHALE (10:54)
[2020-08-16 11:15] LABS: Basophils Percent Auto 0.2 % (0-2); Eosinophils Absolute Auto 0.1 X10*3/uL (0.0-0.4); Eosinophils Percent Auto 0.2 % (0-4); Hemoglobin 12.9 g/dl (12.0-16.0); Imm Gran Abs Auto 0.24 X10*3/uL (0.00-0.03); Lymphocytes Absolute Auto 0.7 X10*3/uL (1.2-4.9); Lymphocytes Percent Auto 2.8 % (20-40); MANUAL DIFF FLAG SCAN; Mean Corpuscular HGB Conc 33.1 g/dl (31.0-35.0); Mean Corpuscular Hemoglobin 27.2 pg (27.0-33.0); Mean Corpuscular Volume 82.1 fL (80-98); Monocytes Absolute Auto 0.4 X10*3/uL (0.1-1.2); Monocytes Percent Auto 1.5 % (2-11); Neutrophils Absolute Auto 22.2 X10*3/uL (2.0-8.3); Neutrophils Percent Auto 94.3 % (45-73); Platelet Count 292 X10*3/uL (160-400); Red Blood Count 4.75 X10*6/uL (4.20-5.50); Red Cell Distribution Width 15.9 % (11.0-16.0); SCAN SMEAR FLAG 1; White Blood Count 23.5 X10*3/uL (4.8-10.8)
[2020-08-16] MEDS: 0.9 % Sodium Chloride 500 ML IV (11:16)
[2020-08-16] MEDS: dexAMETHasone sod phosphate 4 MG/ML VIAL 6 MG IVPUSH (11:16)
[2020-08-16] MEDS: Magnesium Sulfate/H2O 2 GM/50 ML PIGGYBACK IV (11:16)
--- NOTE | 2020-08-16 11:19 | PC.NURSE ---
Quoc crabtree at [phone] for updates.
[2020-08-16 11:27] LABS: INTERNATIONAL NORM RATIO 1.1 (0.9-1.1); Prothrombin Time 13.6 SEC (10.8-13.0)
[2020-08-16 11:30] LABS: D Dimer 637 NG/ML; Partial Thromboplastin Time 29.7 SEC (24.1-38.0)
[2020-08-16 11:35] LABS: SLIDE REVIEW VERIFIED
[2020-08-16 11:41] LABS: Lactic Acid 1.7 mmol/L (0.5-2.0)
[2020-08-16 11:53] LABS: Troponin-I High Sensitivity 3.6 ng/L (<3.5-17.0)
[2020-08-16 12:04] LABS: Alanine Aminotransferase 21 U/L (0-31); Albumin Level 3.7 g/dL (3.5-5.0); Alkaline Phosphatase 84 U/L (39-117); Anion Gap 16 (12-20); Aspartate Amino Transferase 19 U/L (5-31); Bilirubin Total 0.6 mg/dL (0.0-1.0); Blood Urea Nitrogen 34 mg/dL (9-16); C Reactive Protein 32.05 mg/dL (< or = 0.50); Calcium 8.7 mg/dL (8.4-10.2); Carbon Dioxide 25 mmol/L (22-29); Chloride 103 mmol/L (96-108); Creatinine Clr Calc Pharmacy 51.4; Estimated Glomerular Filt Rate 47; Glucose Random 381 mg/dL (60-115); Lactate Dehydrogenase 330 U/L (122-220); Potassium 4.5 mmol/L (3.3-5.1); Sodium 139 mmol/L (135-145); Total Protein 6.5 g/dL (6.5-8.0)
[2020-08-16 12:07] LABS: Ferritin 438 ng/mL (10-250)
[2020-08-16] MEDS: iohexoL 350 MG/ML 100 ML INFUS..BTL 65 ML IV (13:09)
[2020-08-16 13:41] LABS: Glucose Urine UA >=1000 MG/DL (NEG); Leukocyte Esterase Urine NEG (NEG); Nitrite Urine POS (NEG); Specific Gravity - Urine 1.025 (1.005-1.025); UACC Culture Trigger YES; Urine Blood 1+ (NEG); Urine Ketones 15 MG/DL (NEG); Urine Protein TRACE MG/DL (NEG-TRACE)
[2020-08-16] MEDS: Albuterol Sulfate (0.083%) 2.5 MG/3 ML VIAL.NEB 5 MG INHALE (13:42)
[2020-08-16 13:52] LABS: Appearance Urine HAZY; Color Urine YELLOW
[2020-08-16 13:53] LABS: Bacteria Urine 2+ /LPF; RBC Urine 0-2 /HPF (0); Squamous Epithelial Cell Urine TRACE /LPF; UACC CULT YES
[2020-08-16 14:11] LABS: Delay - Chemistry DELAY
--- NOTE | 2020-08-16 14:37 | PM.IMHP ---
History of Present Illness Date of Service: 08/16/20 <JACKI Han - Last Filed: 08/16/20 14:56> Chief Complaint: shortness of breath <JACKI Han - Last Filed: 08/16/20 14:56> This is a 60-year-old female with a history of diabetes, rheumatoid arthritis on hydroxychloroquine, recent diagnosis of coronavirus who presents to the emergency department with worsening shortness of breath. She began having symptoms of shortness of breath at rest 1 week ago. She was evaluated in the emergency department on August 11 and diagnosed with coronavirus. She was not hypoxic and therefore was discharged home with Decadron. She has been taking her decadron daily. She reports beginning to have shortness of breath on exertion yesterday. She has been having ongoing dry cough. Her daughter has been checking her oxygen saturation and today was in the 80s so she came to the emergency department. She was documented to be 87% on room air on arrival. Her CTA showed diffuse bilateral infiltrates. Given hypoxia, the deceision was made to admit her for further management. <JACKI Han - Last Filed: 08/16/20 14:56> Review of Systems Review of Systems: Yes all other systems are reviewed and are negative <JACKI Han - Last Filed: 08/16/20 14:56> Cardiovascular: Cardiovascular: Denies chest pain and Denies palpitations <JACKI Han - Last Filed: 08/16/20 14:56> Gastrointestinal: Gastrointestinal: Denies abdominal pain <JACKI Han - Last Filed: 08/16/20 14:56> Endocrine: Endocrine: Denies palpitations <JACKI Han - Last Filed: 08/16/20 14:56> [facility]LY [facility] Medical History: Medical History Degenerative disc disease, lumbar Diabetes type 2, uncontrolled Diabetic neuropathy Fatty liver GERD (gastroesophageal reflux disease) History of seizures Hypercholesterolemia Hypertension Obesity (BMI 30-39.9) Peptic ulcer disease Seronegative rheumatoid arthritis Vitamin D deficiency <JACKI Han Last Filed: 08/16/20 14:56> Functional capacity: independent ambulation <JACKI Han - Last Filed: 08/16/20 14:56> Family History: Family History Father Diabetes Hypertension Mother Hypertension Cancer Maternal Uncle Myocardial infarction <JACKI Han - Last Filed: 08/16/20 14:56> Surgical History: Surgical History History of lumbar surgery History of tonsillectomy History of tubal ligation <JACKI Han - Last Filed: 08/16/20 14:56> Social History: Social History Smoking Status: Never smoker Smoked in Last 30 Days: No Use of substances other than those prescribed or required for medical reasons: No Advance Directives: No Advance Directives Information Provided: No <JACKI Han - Last Filed: 08/16/20 14:56> Meds Allergies/Adverse reactions: Allergies Allergy/AdvReac Type Severity Reaction Status Date / Time metformin [METFORMIN] Allergy Severe DIARRHEA, Verified 05/24/20 09:41 stomach intolerance lisinopril [LISINOPRIL] Allergy Intermediate COUGH Verified 05/24/20 09:41 <JACKI Han - Last Filed: 08/16/20 14:56> Home medications: Home Medications Medication Instructions Recorded Confirmed Type fenofibrate 160 mg tablet 160 mg PO DAILY 05/27/20 08/16/20 History folic acid 1 mg tablet 5 mg PO DAILY 05/27/20 08/16/20 History gabapentin 600 mg tablet 600 mg PO TID 05/27/20 08/16/20 History insulin glargine 100 unit/mL (3 60 unit SUBCUT BEDTIME ml 05/27/20 08/16/20 History mL) subcutaneous pen insulin lispro 100 unit/mL 5 unit SUBCUT TIDAC 05/27/20 08/16/20 History subcutaneous pen simvastatin 5 mg tablet 5 mg PO BEDTIME 05/27/20 08/16/20 History cyclobenzaprine 10 mg PO BID PRN 08/16/20 08/16/20 History hydroxychloroquine 200 mg PO BID 08/16/20 08/16/20 History omeprazole 20 mg PO DAILY@0630 08/16/20 08/16/20 History sulfamethoxazole-trimethoprim 1 tab PO MOWEFR@1000 08/16/20 08/16/20 History [Bactrim] <JACKI Han - Last Filed: 08/16/20 14:56> Physical Exam Vital Signs and Narrative: Vital Signs: Last Vital Signs Temp 98.9 F 08/16/20 10:08 Pulse 91 08/16/20 13:46 Resp 20 08/16/20 10:08 BP 165/59 H 08/16/20 10:08 Pulse Ox 87 L 08/16/20 10:08 Body Mass Index 32.9 <JACKI Han - Last Filed: 08/16/20 14:56> Const: General: alert and awake <JACKI Han - Last Filed: 08/16/20 14:56> Nutritional Appearance: well nourished <JACKI Han - Last Filed: 08/16/20 14:56> Orientation/consciousness: patient oriented x3 <JACKI Han - Last Filed: 08/16/20 14:56> HENMT: Head: Yes normocephalic and Yes atraumatic <JACKI Han - Last Filed: 08/16/20 14:56> Eyes: Sclerae: sclerae normal <JACKI Han - Last Filed: 08/16/20 14:56> Chest: Chest palpation & inspection: normal inspection of the chest <JACKI Han Last Filed: 08/16/20 14:56> Resp: Effort & Inspection: tachypneic <JACKI Han - Last Filed: 08/16/20 14:56> Cardio: Rate: regular rate <JACKI Han Last Filed: 08/16/20 14:56> Rhythm: regular rhythm <JACKI Han Last Filed: 08/16/20 14:56> GI: Palpation (GI): Soft to palpation and nontender <JACKI Han - Last Filed: 08/16/20 14:56> Skin: General skin exam: no rashes or lesions noted <JACKI Han - Last Filed: 08/16/20 14:56> Neuro: General: patient oriented x3 <JACKI Han - Last Filed: 08/16/20 14:56> Cranial nerves: Yes CN's II-XII intact bilaterally and Yes Bilaterally intact EOM present <JACKI Han - Last Filed: 08/16/20 14:56> Extrem: General: Yes normal to inspection <JACKI Han - Last Filed: 08/16/20 14:56> Results Labs CBC and Chem 7: : 08/17/20 06:20 08/17/20 06:20 <JACKI Han - Last Filed: 08/16/20 14:56> Labs: Laboratory Results - last 24 hr 08/16/20 08/16/20 08/16/20 11:07 11:07 11:07 MCV 82.1 MCH 27.2 MCHC 33.1 RDW 15.9 Plt Count 292 D MPV 11.0 Immature Gran % (Auto) 1.0 H Neut % (Auto) 94.3 H Lymph % (Auto) 2.8 L [place] % (Auto) 1.5 L Eos % (Auto) 0.2 Baso % (Auto) 0.2 Lymph # (Auto) 0.7 L [place] # (Auto) 0.4 Eos # (Auto) 0.1 Baso # (Auto) 0.0 Abs Immat Gran (auto) 0.24 H Absolute Neuts (auto) 22.2 H Absolute Nucleated RBC 0.000 Nucleated RBC % (auto) 0.0 Smear Tech's Comments VERIFIED PT 13.6 H INR 1.1 APTT 29.7 D-Dimer 637 Anion Gap 16 Estim Creat Clear Calc 51.4 Estimated GFR 47 Random Glucose 381 H* Lactic Acid Calcium 8.7 D Ferritin Total Bilirubin 0.6 AST 19 ALT 21 Alkaline Phosphatase 84 Lactate Dehydrogenase 330 H Troponin I High Sens C-Reactive Protein 32.05 H Total Protein 6.5 Albumin 3.7 Specimen Comment Urine Color Urine Appearance Urine pH Ur Specific [place] Urine Protein Urine Glucose (UA) Urine Ketones Urine Blood Urine Nitrite Ur Leukocyte Esterase Urine RBC Urine WBC Ur Squamous Epith Cells Urine Bacteria 08/16/20 08/16/20 08/16/20 11:07 11:07 11:07 MCV MCH MCHC RDW Plt Count MPV Immature Gran % (Auto) Neut % (Auto) Lymph % (Auto) [place] % (Auto) Eos % (Auto) Baso % (Auto) Lymph # (Auto) [place] # (Auto) Eos # (Auto) Baso # (Auto) Abs Immat Gran (auto) Absolute Neuts (auto) Absolute Nucleated RBC Nucleated RBC % (auto) Smear Tech's Comments PT INR APTT D-Dimer Anion Gap Estim Creat Clear Calc Estimated GFR Random Glucose Lactic Acid 1.7 Calcium Ferritin 438 H Total Bilirubin AST ALT Alkaline Phosphatase Lactate Dehydrogenase Troponin I High Sens 3.6 C-Reactive Protein Total Protein Albumin Specimen Comment Urine Color Urine Appearance Urine pH Ur Specific [place] Urine Protein Urine Glucose (UA) Urine Ketones Urine Blood Urine Nitrite Ur Leukocyte Esterase Urine RBC Urine WBC Ur Squamous Epith Cells Urine Bacteria 08/16/20 08/16/20 13:33 14:10 MCV MCH MCHC RDW Plt Count MPV Immature Gran % (Auto) Neut % (Auto) Lymph % (Auto) [place] % (Auto) Eos % (Auto) Baso % (Auto) Lymph # (Auto) [place] # (Auto) Eos # (Auto) Baso # (Auto) Abs Immat Gran (auto) Absolute Neuts (auto) Absolute Nucleated RBC Nucleated RBC % (auto) Smear Tech's Comments PT INR APTT D-Dimer Anion Gap Estim Creat Clear Calc Estimated GFR Random Glucose Lactic Acid Calcium Ferritin Total Bilirubin AST ALT Alkaline Phosphatase Lactate Dehydrogenase Troponin I High Sens C-Reactive Protein Total Protein Albumin Specimen Comment DELAY Urine Color YELLOW Urine Appearance HAZY Urine pH 6.0 Ur Specific [place] 1.025 Urine Protein TRACE Urine Glucose (UA) >=1000 H Urine Ketones 15 Urine Blood 1+ H Urine Nitrite POS H Ur Leukocyte Esterase NEG Urine RBC 0-2 Urine WBC 1-4 Ur Squamous Epith Cells TRACE Urine Bacteria 2+ <JACKI Han - Last Filed: 08/16/20 14:56> Imaging Radiologist's Impressions: Impressions Chest CTA 08/16/20 10:19 IMPRESSION: No evidence of PE. No evidence of aortic dissection. Diffuse extensive bilateral infiltrates likely related to Covid disease. VTE: negative <JACKI Han - Last Filed: 08/16/20 14:56> Assessment and Plan (1) COVID-19: Problem details: July 2020 <JACKI Han - Last Filed: 08/16/20 14:56> Status: Acute <JACKI Han - Last Filed: 08/16/20 14:56> (2) Respiratory failure with hypoxia: Qualifiers: Chronicity: acute Qualified Code(s): J96.01 - Acute respiratory failure with hypoxia <JACKI Han - Last Filed: 08/16/20 14:56> Status: Acute <JACKI Han - Last Filed: 08/16/20 14:56> This is a 52-year-old with history of diabetes neuropathy hypertension, dyslipidemia rheumatoid arthritis on hydroxychloroquine, recently diagnosed with COVID-19 who presents with shortness of breath found to be hypoxic Acute respiratory failure with hypoxia COVID-19 pneumonia -supplemental oxygen as needed -dexamethasone -ID consult Diabetes BS uncontrolled, likely r/t dexamthasone Trulicity is non formulary Continue dose of Lantus -SSI, POCs RA Continue hydroxychloroquine h/o MRSA infection continue bactrim prophylaxis HLD Continue statin, Lofibra Neuropathy Continue pregabalin, gabapentin DVT prophylaxis-Lovenox Code status-full code This case was discussed with Dr. Sierra <JACKI Han - Last Filed: 08/16/20 14:56>
[2020-08-16 15:20] LABS: Procalcitonin 0.56 ng/mL
--- NOTE | 2020-08-16 17:08 | PM.EVENT ---
Event Note Date of Service: 08/17/20 Event Note: Patient seen and examined: Patient has respiration symptom 5-7 days as per patient, still feels short of breath and tired. Decided to come to the hospital. Denies any chest pain but still short of breath and cough. This patient is seen and examined with APC. Lab imaging, EKG reviewed. Patient has lymphopenia,ldh , crp elevated Chest imaging shows pulmonary infiltrates? COVID Procalcitonin level elevated. Physical exam: Cvs: rrr, [id number] , no murmur res: far air entry ,no rhonchii or wheezing abd: no rebound or guarding ,nt, bs present. ext pulses present , no cyanosis neuro: axo3 , nonfocal. assessment and plan coordinated in APCs note, Agree with the plan in addition: Acute hypoxemic respiratory failure secondary to COVID infection,? Elevated procalcitonin level question some superimposed bacterial infection Will start dexamethasone back IV, added azithromycin and ceftriaxone because elevated cup procalcitonin level Oxygen support Id evaluation-for need of remdesivir.
[2020-08-16] MEDS: cefTRIAXone sodium 1 GM in 0.9 % Sodium Chloride 50 ML IV (17:50)
[2020-08-16] MEDS: Gabapentin 600 MG TABLET PO ×2 (17:51→20:42)
[2020-08-16] MEDS: Azithromycin 500 MG in 0.9 % Sodium Chloride 250 ML 125 MG IV (17:51)
[2020-08-16] MEDS: Enoxaparin Sodium 40 MG/0.4 ML SYRINGE SUBCUT (17:51)
[2020-08-16 18:00] LABS: Glucose, Whole Blood 392 mg/dL (60-115)
[2020-08-16] MEDS: Insulin Lispro 100 UNIT/ML 3 ML VIAL SUBCUT ×3 (18:01→21:01)
[2020-08-16] MEDS: 0.9 % Sodium Chloride Flush 3 ML SYRINGE IVFLUSH (18:03)
--- NOTE | 2020-08-16 19:59 | PC.NURSE ---
Pt frequently desating to mid 80s on 4-5L via nasal cannula, RT at bedside to attempt venti mask, pt unable to bring sats up- non rebreather placed. Dr. Hess aware of pts current status. Also plan for IV hydration.
[2020-08-16] MEDS: Insulin Glargine,Hum.rec.anlog 100 UNIT/ML 10 ML VIAL 60 UNIT SUBCUT (20:06)
[2020-08-16] MEDS: Hydroxychloroquine Sulfate 200 MG TABLET PO (20:41)
[2020-08-16] MEDS: Pregabalin 50 MG CAPSULE PO (20:41)
[2020-08-16] MEDS: Atorvastatin Calcium 10 MG TABLET 5 MG PO (20:41)
--- NOTE | 2020-08-16 20:48 | PC.NURSE ---
Pt medicated per SEP. Pt noted to desat to 79% while taking medications. Pt reports SOB with an type of extertion, tachypneic @ 33-38 respirations/min. Pt recovering quickly, O2 increased to 96%. Continue to monitor.
--- NOTE | 2020-08-16 21:02 | PC.NURSE ---
POC 311, medicated with Humalog 8 units per sliding scale.
[2020-08-16 21:04] LABS: Glucose, Whole Blood 318 mg/dL (60-115)
[2020-08-16 21:04] LABS: Glucose, Whole Blood 311 mg/dL (60-115)
[2020-08-17] VITALS (23 sets, daily range): BP systolic 113–159; BP diastolic 39–76; PULSE 73–100; RESP 16–38; TEMP 36.7–37.9; O2SAT 84–95
[2020-08-17] MEDS: 0.9 % Sodium Chloride Flush 3 ML SYRINGE IVFLUSH ×3 (00:13→23:46)
[2020-08-17] MEDS: Acetaminophen 325 MG TABLET 650 MG PO ×2 (00:26→19:21)
[2020-08-17] MEDS: ondansetron HCL 4 MG/2 ML VIAL IVPUSH (00:26)
--- NOTE | 2020-08-17 02:40 | PC.NURSE ---
Addendum entered by Aisha Alfonso 08/17/20 02:50: pt repositioned and NRB placed on top of highflow. Original Note: witnessed desat on highflow to high 70's low 80s. Hospitalist aware. RT aware. plan for stat abg, possible bipap.
--- NOTE | 2020-08-17 03:03 | PC.NURSE ---
pt is now maxed out on highflow and NRB. Pt remains tachypenic with rate in 30s.
[2020-08-17 03:06] LABS: Pt Ventilation O2% 100%
--- NOTE | 2020-08-17 03:13 | PC.NURSE ---
pt repositioned again. per rt, monitor for spo2 to be consistently under 85%. Dried blood noted on rt nare.
[2020-08-17 03:36] LABS: ABG PCO2 34 mmHg (32-45); HCO3 ABG 24 mmol/L (22-26); PO2 ABG 56 mmHg (83-108)
[2020-08-17 03:37] LABS: Base Excess ABG 0.9; pH ABG 7.46 (7.35-7.45)
[2020-08-17 06:21] LABS: Glucose, Whole Blood 140 mg/dL (60-115)
[2020-08-17 06:25] LABS: Basophils Absolute Auto 0.1 X10*3/uL (0.0-0.2); Basophils Percent Auto 0.2 % (0-2); Eosinophils Absolute Auto 0.1 X10*3/uL (0.0-0.4); Eosinophils Percent Auto 0.2 % (0-4); Hematocrit 37.5 % (37-47); Hemoglobin 12.6 g/dl (12.0-16.0); Imm Gran Abs Auto 0.55 X10*3/uL (0.00-0.03); Imm Gran Pct Auto 2.4 % (0.0-0.4); Lymphocytes Absolute Auto 1.5 X10*3/uL (1.2-4.9); Lymphocytes Percent Auto 6.4 % (20-40); MANUAL DIFF FLAG SCAN; Mean Corpuscular HGB Conc 33.6 g/dl (31.0-35.0); Mean Corpuscular Hemoglobin 27.5 pg (27.0-33.0); Mean Corpuscular Volume 81.7 fL (80-98); Mean Platelet Volume 10.5 fL (9.4-12.3); Monocytes Absolute Auto 0.7 X10*3/uL (0.1-1.2); Monocytes Percent Auto 3.1 % (2-11); Neutrophils Absolute Auto 20.1 X10*3/uL (2.0-8.3); Neutrophils Percent Auto 87.7 % (45-73); Platelet Count 355 X10*3/uL (160-400); Red Blood Count 4.59 X10*6/uL (4.20-5.50); Red Cell Distribution Width 16.2 % (11.0-16.0); SCAN SMEAR FLAG 1
[2020-08-17 06:50] LABS: SLIDE REVIEW VERIFIED
[2020-08-17 06:51] LABS: Anion Gap 15 (12-20); Blood Urea Nitrogen 34 mg/dL (9-16); Calcium 8.2 mg/dL (8.4-10.2); Carbon Dioxide 22 mmol/L (22-29); Chloride 108 mmol/L (96-108); Creatinine Clr Calc Pharmacy 72.3; Estimated Glomerular Filt Rate > 60; Glucose Random 129 mg/dL (60-115); Potassium 4.7 mmol/L (3.3-5.1); Sodium 140 mmol/L (135-145)
[2020-08-17] MEDS: Cyclobenzaprine HCl 10 MG TABLET PO (07:26)
--- NOTE | 2020-08-17 07:30 | PC.NURSE ---
pt alert and oriented, skin pwd, respirations even and unlabored, ls clear. pt assisted on the bed michel and urinated a medium amount, pt does get winded with slight movement pt is currently running on high flow o2 and non-rebreather as well, satting at 93%, the high flow straps adjusted and the non-rebreather taken off pt is sating at 91% with just the kelly flow pt also reporting lower neck pain that travels to her back, given her flexeril prn, pain at 10/10, ns on the monitor
[2020-08-17] MEDS: Pregabalin 50 MG CAPSULE PO (08:26)
[2020-08-17] MEDS: Gabapentin 600 MG TABLET PO ×2 (08:26→15:53)
[2020-08-17] MEDS: Cholecalciferol (Vitamin D3) 25 MCG TABLET 125 MCG PO (08:26)
[2020-08-17] MEDS: Hydroxychloroquine Sulfate 200 MG TABLET PO (08:27)
[2020-08-17] MEDS: Folic Acid 1 MG TABLET 5 MG PO (08:27)
--- NOTE | 2020-08-17 11:33 | PC.NURSE ---
pt resting comfortably on the her left sided, satting anywhere form 91-95% on the high flow, pt also reports that her pain in the neck and back improved
[2020-08-17 11:41] LABS: Glucose, Whole Blood 213 mg/dL (60-115)
[2020-08-17] MEDS: Insulin Lispro 100 UNIT/ML 3 ML VIAL SUBCUT ×4 (11:54→22:22)
--- NOTE | 2020-08-17 11:58 | PC.NURSE ---
called [facility] to give report but awaiting a call back
[2020-08-17] MEDS: Remdesivir 200 MG in 0.9 % Sodium Chloride 210 ML 105 MG IV (13:28)
--- NOTE | 2020-08-17 13:55 | HO.PM.IMPN ---
Subjective Subjective Date of Service: 08/17/20 Interval History: Acute hypoxemic respiratory failure sec to COVID Review of Systems Patient is progressively short of breath and overnight oxygen demand went to 15 L, Denies any chest pain or abdominal pain or nausea vomiting or fever or chills Physical Exam Vital Signs: Vital Signs: Last Vital Signs Temp 98.2 F 08/17/20 06:23 Pulse 74 08/17/20 11:31 Resp 16 08/17/20 11:31 BP 113/39 L 08/17/20 11:31 Pulse Ox 95 08/17/20 11:31 Body Mass Index 32.9 Physical exam: Constitutional: Not in acute distress. Cvs: rrr, [id number] , no murmur res: diminshed breath sounds , no wheezin abd: no rebound or guarding ,nt, bs present. ext pulses present , no cyanosis neuro: axo3 , nonfocal. Objective Data Current Medications Generic Name Dose Route Start Last Admin Trade Name Freq PRN Reason Stop Dose Admin Acetaminophen 650 mg 08/16/20 17:07 08/17/20 00:26 Acetaminophen 325 Mg Tablet PO 650 mg Q6H PRN Administration Pain, Mild (Pain Scale 1-3) Atorvastatin Calcium 5 mg 08/16/20 21:00 08/16/20 20:41 Atorvastatin Calcium 10 Mg Tablet PO 5 mg BEDTIME MARTELL Administration Cyclobenzaprine HCl 10 mg 08/16/20 17:07 08/17/20 07:26 Cyclobenzaprine Hcl 10 Mg Tablet PO 10 mg BID PRN Administration Muscle Spasm Dexamethasone Sodium Phosphate 6 mg 08/17/20 09:00 08/17/20 08:25 Dexamethasone Sod Phosphate/Pf 10 Mg/Ml Vial IVPUSH 6 mg DAILY MARTELL Administration Docusate Sodium 100 mg 08/16/20 17:07 Docusate Sodium 100 Mg Capsule PO DAILY PRN Constipation Enoxaparin Sodium 40 mg 08/16/20 18:00 08/16/20 17:51 Enoxaparin Sodium 40 Mg/0.4 Ml Syringe SUBCUT 40 mg Q24H MARTELL Administration Fenofibrate 160 mg 08/17/20 09:00 Fenofibrate 160 Mg Tablet PO DAILY MARTELL Folic Acid 5 mg 08/17/20 09:00 08/17/20 08:27 Folic Acid 1 Mg Tablet PO 5 mg DAILY MARTELL Administration Gabapentin 600 mg 08/16/20 17:07 08/17/20 08:26 Gabapentin 600 Mg Tablet PO 600 mg TID [facility], [facility]1983 Administration Ceftriaxone Sodium 1 gm/ 50 mls @ 100 mls/hr 08/16/20 18:00 08/16/20 18:20 Sodium Chloride IV Infused Q24H MARTELL Infusion Azithromycin 500 mg/ Sodium 250 mls @ 125 mls/hr 08/16/20 18:00 08/16/20 20:04 Chloride IV Infused Q24H MARTELL Infusion Remdesivir 200 mg/ Sodium 210 mls @ 105 mls/hr 08/17/20 12:00 08/17/20 13:28 Chloride IV 08/17/20 13:59 105 mls/hr ONCE@1200 MARTELL Administration Remdesivir 100 mg/ Sodium 230 mls @ 115 mls/hr 08/18/20 12:00 Chloride IV 08/21/20 13:59 Q24H [facility], [facility]1983 Insulin Glargine 60 unit 08/16/20 21:00 08/16/20 20:06 Insulin Glargine,Hum.Rec.Anlog 100 Unit/Ml 10 Ml Vial SUBCUT 60 unit BEDTIME [facility]1983 Administration Insulin Human Lispro 5 unit 08/16/20 17:07 08/17/20 11:56 Insulin Lispro 100 Unit/Ml 3 Ml Vial SUBCUT Not Given TIDAC [facility]1983 Insulin Human Lispro 0 unit 08/16/20 17:07 08/17/20 11:54 Insulin Lispro 100 Unit/Ml 3 Ml Vial SUBCUT 4 unit QIDACHS [facility]1983 Administration Protocol Non-Formulary Medication 1.5 mg 08/16/20 17:07 Dulaglutide [Trulicity] SUBCUT Fr [facility] Omeprazole 20 mg 08/17/20 06:30 08/17/20 06:00 Omeprazole 20 Mg Capsule.Dr PO Not Given DAILY@0630 [facility] Ondansetron HCl 4 mg 08/16/20 17:07 08/17/20 00:26 Ondansetron Hcl 4 Mg/2 Ml Vial IVPUSH 4 mg Q8H PRN Administration Nausea and Vomiting Pharmacy Consult 1 each 08/16/20 10:22 Consult Rx Perform Med Rec MISCELLANE ONCE PRN Consult order Pharmacy Consult 1 each 08/16/20 13:46 Consult Rx Perform Med Rec MISCELLANE ONCE PRN Consult order Pregabalin 50 mg 08/16/20 21:00 08/17/20 08:26 Pregabalin 50 Mg Capsule PO 50 mg BID MARTELL Administration Sodium Chloride 3 ml 08/16/20 17:07 08/17/20 11:35 0.9 % Sodium Chloride Flush 3 Ml Syringe IVFLUSH Not Given QSHIFT [facility] Trimethoprim/Sulfamethoxazole 1 tab 08/19/20 10:00 Sulfamethox/Trimeth 400/80 1 Tab Tablet PO MOWEFR@1000 MARTELL Vitamin D 125 mcg 08/17/20 09:00 08/17/20 08:26 Cholecalciferol (Vitamin D3) 25 Mcg Tablet PO 125 mcg DAILY MARTELL Administration Labs CBC & Chem 7: 08/17/20 06:20 08/17/20 06:20 Microbiology Microbiology Results: Microbiology 08/16/20 11:07 Blood - Venous Blood Culture - Preliminary No growth after 24 hours. 08/16/20 Unknown Urine clean catch - Clean Catch Midstream Urine Culture - Preliminary Gram negative cathy Assessment and Plan (1) Respiratory failure with hypoxia: Status: Acute (2) COVID-19: Problem details: July 2020 Status: Acute Assessment and Plan: 52-year-old with history of diabetes neuropathy hypertension, dyslipidemia rheumatoid arthritis on hydroxychloroquine, recently diagnosed with COVID-19 who presents with shortness of breath found to be hypoxic 1.Acute respiratory failure with hypoxia COVID-19 pneumonia supplemental oxygen as needed,dexamethasone ID consult for remdesvir 2.Diabetes: fs 200's BS uncontrolled, likely r/t dexamthasone Trulicity is non formulary Continue dose of Lantus,SSI, POCs 3.RA:hold hydroxychloroquine, since on dexamethasone. 4.h/o MRSA infection:continue bactrim prophylaxis 5.HLD:Continue statin, Lofibra 6.Neuropathy:Continue pregabalin, gabapentin
--- NOTE | 2020-08-17 15:23 | PC.NURSE ---
PT ARRIVED ON UNIT AT 1410. ORIENTED TO UNIT. ALERT AND IN NO DISTRESS. HIFLO O2 MAINTAINED.
[2020-08-17 16:58] LABS: Glucose, Whole Blood 263 mg/dL (60-115)
[2020-08-17] MEDS: Enoxaparin Sodium 40 MG/0.4 ML SYRINGE SUBCUT (18:06)
[2020-08-17] MEDS: cefTRIAXone sodium 1 GM in 0.9 % Sodium Chloride 50 ML IV (18:06)
[2020-08-17] MEDS: Azithromycin 500 MG in 0.9 % Sodium Chloride 250 ML 125 MG IV (18:37)
[2020-08-17 20:22] LABS: Glucose, Whole Blood 298 mg/dL (60-115)
--- NOTE | 2020-08-17 21:10 | P.CNID_ITS ---
History of Present Illness Data of Consult Service Date: 08/17/20 Requesting physician: Darren Sierra Primary Care Provider: MD RADHIKA Mckenzie Reason for consult: shortness of breath She presents to hospital with shortnessof breath for last 3 days She had symptoms of URI and cough for last 7 days and diagnosed 08/11 COVID She was given Prednisone ,has shortness of breath and oxygen in 80s I had seen her before for spinal infection in past Review of Systems Cardiovascular: Cardiovascular: Reports dyspnea Respiratory: Respiratory: Reports dyspnea PMFSH Past Medical History Medical History Degenerative disc disease, lumbar Diabetes type 2, uncontrolled Diabetic neuropathy Fatty liver GERD (gastroesophageal reflux disease) History of seizures Hypercholesterolemia Hypertension Obesity (BMI 30-39.9) Peptic ulcer disease Seronegative rheumatoid arthritis Vitamin D deficiency Functional capacity: independent ambulation Family History Family History Father Diabetes Hypertension Mother Hypertension Cancer Maternal Uncle Myocardial infarction Surgical History Surgical History History of lumbar surgery History of tonsillectomy History of tubal ligation Social History Social History Household Members: Family Housing: Apartment Smoking Status: Never smoker Smoked in Last 30 Days: No Second Hand Smoke Exposure: No Use of substances other than those prescribed or required for medical reasons: No Currently Displaying Signs/Symptoms of Drug Intoxication Withdrawal: No Have you been hit, kicked, punched, or otherwise hurt by someone within the past year? If so, by whom?: No Do you feel safe in your current relationship?: Yes Is there a partner from a previous relationship who is making you feel unsafe now?: No Advance Directives: No Advance Directives Information Provided: No Do you have thoughts of harming others: None Do you have a plan to hurt others: No Plan Meds Allergies Allergy/AdvReac Type Severity Reaction Status Date / Time metformin [METFORMIN] Allergy Severe DIARRHEA, Verified 05/24/20 09:41 stomach intolerance lisinopril [LISINOPRIL] Allergy Intermediate COUGH Verified 05/24/20 09:41 Home Medications Medication Instructions Recorded Confirmed Type fenofibrate 160 mg tablet 160 mg PO DAILY 05/27/20 08/16/20 History folic acid 1 mg tablet 5 mg PO DAILY 05/27/20 08/16/20 History gabapentin 600 mg tablet 600 mg PO TID 05/27/20 08/16/20 History insulin glargine 100 unit/mL (3 60 unit SUBCUT BEDTIME ml 05/27/20 08/16/20 His tory mL) subcutaneous pen insulin lispro 100 unit/mL 5 unit SUBCUT TIDAC 05/27/20 08/16/20 History subcutaneous pen simvastatin 5 mg tablet 5 mg PO BEDTIME 05/27/20 08/16/20 History cyclobenzaprine 10 mg PO BID PRN 08/16/20 08/16/20 History hydroxychloroquine 200 mg PO BID 08/16/20 08/16/20 History omeprazole 20 mg PO DAILY@0630 08/16/20 08/16/20 History sulfamethoxazole-trimethoprim 1 tab PO MOWEFR@1000 08/16/20 08/16/20 History [Bactrim] Physical Exam Vital Signs: Vital Signs: Last Vital Signs Temp 98.6 F 08/17/20 21:03 Pulse 85 08/17/20 21:03 Resp 26 H 08/17/20 21:03 BP 150/76 H 08/17/20 21:03 Pulse Ox 90 L 08/17/20 19:13 Body Mass Index 32.9 Const: General: cooperative Orientation/consciousness: patient oriented x3 HENMT: Head: Yes normal to inspection Mouth: Normal oral and palatal mucosa present Resp: Effort & Inspection: normal respiratory effort Cardio: Rate: regular rate GI: Palpation (GI): Soft to palpation and nontender Skin: General skin exam: no rashes or lesions noted Neuro: General: patient oriented x3 Assessment and Plan (1) Respiratory failure with hypoxia: Qualifiers: Chronicity: acute Qualified Code(s): J96.01 - Acute respiratory failure with hypoxia Problem details: She has COVID diagnosed within a week She has some oxygen requirements and is now on high flow She has no signs of secondary infection Status: Acute Would continue Dexamethasone Remdesivir per protocol Supportive oxygen (2) COVID-19: Problem details: July 2020 Status: Acute Results Labs CBC & Chem 7: 08/17/20 06:20 08/17/20 06:20 Labs: Short CBC 08/17/20 Range/Units 06:20 WBC 23.0 H (4.8-10.8) X10*3/uL Hgb 12.6 (12.0-16.0) g/dl Hct 37.5 (37-47) % Plt Count 355 (160-400) X10*3/uL BMP 08/17/20 06:20 Sodium 140 Potassium 4.7 Chloride 108 Carbon Dioxide 22 BUN 34 H Creatinine 0.84 Calcium 8.2 L Microbiology Microbiology Results: Microbiology 08/16/20 11:11 Blood - Venous Blood Culture - Preliminary No growth after 24 hours. 08/16/20 11:07 Blood - Venous Blood Culture - Preliminary No growth after 24 hours. 08/16/20 Unknown Urine clean catch - Clean Catch Midstream Urine Culture - Preliminary Gram negative cathy
[2020-08-17] MEDS: Insulin Glargine,Hum.rec.anlog 100 UNIT/ML 10 ML VIAL 60 UNIT SUBCUT (22:21)
[2020-08-17] MEDS: Albuterol Sulfate 90 MCG 8 GM INHALER 1 PUFF INHALE (23:37)
[2020-08-18] VITALS (32 sets, daily range): BP systolic 132–171; BP diastolic 46–92; PULSE 53–89; RESP 19–40; TEMP 37.3–37.8; O2SAT 27–97
--- NOTE | 2020-08-18 00:10 | PC.NURSE ---
REMAINS HYPOXIC ON 100%NRB MASK AND HI-BALDEV CANNULA 100% O2/60 L/M...AWAKE...STATES I'M OK ...TACHYPNEIC..RR 36-38..LUNGS DIMINISHED...SAO2 82-83%..NSR...HOSPITALIST PAGED...RT PAGED PER AND PLACED ON BIPAP 100% O2..SAO2 IMPROVED TO 93-94%..REMAINS RR 34-38...TRANSFERRED TO ICU FOR BIPAP THERAPY
--- NOTE | 2020-08-18 00:23 | PC.RT ---
pt placed on cpap due to SATS decreasing throughout the night. pt was on HFNC maxed out with SATs 80-85%. transferred to icu placed on cpap of 10 , 100% with improvement
--- NOTE | 2020-08-18 00:26 | P.EN_ITS ---
Event Note Date of Service: 08/18/20 Event Note: The patient is 60-year-old female with a history of rheumatoid art hritis, insulin-dependent diabetes, diabetic neuropathy, fatty liver, gastroesophageal reflux disease remote history of seizures, hypertension, hypercholesteremia, and degenerative disc disease and surgical history of lumbar spine surgery, tonsillectomy, tubal ligation who was diagnosed on 08/11/2020 with COVID-19, later requiring hospitalization on 08/16/2020. She has been started on dexamethasone. ID following patient, she will be started on Remdesivir today. Since arrival to hospital oxygen requirement increasing, with overnight oxygenation dropping to high 70s and low 80s on 100% highflow/ nonrebreather. She required transfer to ICU for CPAP support Plan CPAP ABGs cont dexamethasone and remdesivir wean off high FI02 as tolerated
[2020-08-18 01:24] LABS: Pt Ventilation O2% 100%
[2020-08-18 01:28] LABS: ABG PCO2 39 mmHg (32-45); pH ABG 7.39 (7.35-7.45)
[2020-08-18 01:29] LABS: Base Excess ABG -0.4; HCO3 ABG 24 mmol/L (22-26)
[2020-08-18 01:30] LABS: PO2 ABG 48 mmHg (83-108)
[2020-08-18] MEDS: fentaNYL citrate/PF 100 MCG/2 ML VIAL 25 MCG IVPUSH (02:53)
--- NOTE | 2020-08-18 04:26 | PC.NURSE ---
PT TO ICU AT APPROX 0000. PT STARTED ON CPAP 10/100%. RR 30s. NO INCREASED WOB OR C/O SOB. FENTANYL IVP 25 MCG X1 WITH SOME EFFECT. STATES FEELS OK. PT A&OX4. TMAX 99.9 CORE. NSR ON TELE. HR 70-80s. SBP WNL. LS DIMINSHED. REVELES INSERTED. SKIN INTACT. PT AWARE OF PLAN OF CARE. WILL TITRATE CPAP TOLERATED.
[2020-08-18 05:17] LABS: MANUAL DIFF FLAG NO
[2020-08-18 05:19] LABS: Basophils Absolute Auto 0.1 X10*3/uL (0.0-0.2); Basophils Percent Auto 0.2 % (0-2); Hematocrit 36.3 % (37-47); Hemoglobin 12.2 g/dl (12.0-16.0); Imm Gran Abs Auto 0.58 X10*3/uL (0.00-0.03); Imm Gran Pct Auto 2.6 % (0.0-0.4); Lymphocytes Absolute Auto 1.6 X10*3/uL (1.2-4.9); Lymphocytes Percent Auto 6.9 % (20-40); Mean Corpuscular HGB Conc 33.6 g/dl (31.0-35.0); Mean Corpuscular Hemoglobin 27.1 pg (27.0-33.0); Mean Corpuscular Volume 80.5 fL (80-98); Mean Platelet Volume 10.5 fL (9.4-12.3); Monocytes Percent Auto 4.5 % (2-11); Neutrophils Absolute Auto 19.4 X10*3/uL (2.0-8.3); Neutrophils Percent Auto 85.8 % (45-73); Platelet Count 380 X10*3/uL (160-400); Red Blood Count 4.51 X10*6/uL (4.20-5.50); Red Cell Distribution Width 16.1 % (11.0-16.0); White Blood Count 22.5 X10*3/uL (4.8-10.8)
[2020-08-18 05:57] LABS: Alanine Aminotransferase 24 U/L (0-31); Albumin Level 3.3 g/dL (3.5-5.0); Alkaline Phosphatase 89 U/L (39-117); Anion Gap 16 (12-20); Aspartate Amino Transferase 43 U/L (5-31); Bilirubin Direct 0.2 mg/dL (0.0-0.5); Bilirubin Total 0.2 mg/dL (0.0-1.0); Blood Urea Nitrogen 34 mg/dL (9-16); Calcium 8.3 mg/dL (8.4-10.2); Carbon Dioxide 22 mmol/L (22-29); Chloride 105 mmol/L (96-108); Creatinine Clr Calc Pharmacy 75.8; Estimated Glomerular Filt Rate > 60; Glucose Random 100 mg/dL (60-115); Magnesium 2.5 mg/dL (1.6-2.6); Phosphorus 3.2 mg/dL (2.7-4.5); Potassium 4.8 mmol/L (3.3-5.1); Sodium 138 mmol/L (135-145); Total Protein 5.8 g/dL (6.5-8.0)
[2020-08-18 06:30] LABS: Base Excess VBG 4.4 mmol/L; HCO3 VBG 29 mmol/L; PCO2 VBG 43 mmHg; PO2 VBG 116 mmHg; pH VBG 7.43 (7.32-7.43)
[2020-08-18] MEDS: 0.9 % Sodium Chloride Flush 3 ML SYRINGE IVFLUSH ×3 (07:30→22:42)
[2020-08-18] MEDS: Pregabalin 50 MG CAPSULE PO ×2 (07:30→20:35)
[2020-08-18 07:44] LABS: Glucose, Whole Blood 111 mg/dL (60-115)
--- NOTE | 2020-08-18 10:44 | PM.CCPN ---
Subjective Subjective Date of Service: 08/18/20 Interval History: ICU day 1 for acute hypoxic respiratory failure. 60-year-old lady with underlying history of diabetes mellitus, rheumatoid arthritis on hydroxychloroquine, hypertension positive for coronavirus on 08/11/2020 requiring admission for dyspnea and hypoxia on 08/16/2020. Hospital course complicated by progressive hypoxic respiratory failure requiring initiation of CPAP support on 08/18/2020 and transfer to intensive care unit. Physical Exam Vital Signs: Vital Signs: Last Vital Signs Temp 99.9 F 08/18/20 07:59 Pulse 79 08/18/20 10:00 Resp 33 H 08/18/20 10:00 BP 164/82 H 08/18/20 10:00 Pulse Ox 95 08/18/20 10:00 Body Mass Index 32.9 Const: General: no acute distress, alert and awake Eyes: Sclerae: sclerae normal EOM: EOMs intact bilaterally Neck: Neck: Yes no lymphadenopathy, Yes trachea midline and Yes supple Resp: Effort & Inspection: normal respiratory effort (On CPAP) and no respiratory distress Auscultation: crackles (Mild diffuse bilateral) Cardio: Rate: regular rate Rhythm: regular rhythm Heart sounds: no gallops, no murmurs and no rubs GI: Palpation (GI): Soft to palpation and Other GI palpation findings present ( Nontender) Auscultation: normal bowel sounds Extrem: General: Yes no pedal edema, No clubbing and No cyanosis Objective Data Labs CBC & Chem 7: 08/18/20 05:10 08/18/20 05:10 Labs: Laboratory Results - last 24 hr 08/17/20 08/17/20 08/17/20 10:32 11:32 16:52 WBC RBC Hgb Hct MCV MCH MCHC RDW Plt Count MPV Immature Gran % (Auto) Neut % (Auto) Lymph % (Auto) [place] % (Auto) Eos % (Auto) Baso % (Auto) Lymph # (Auto) [place] # (Auto) Eos # (Auto) Baso # (Auto) Abs Immat Gran (auto) Absolute Neuts (auto) Absolute Nucleated RBC Nucleated RBC % (auto) ABG pH ABG pCO2 ABG pO2 ABG HCO3 ABG O2 Saturation ABG Base Excess VBG pH VBG pCO2 VBG pO2 VBG HCO3 VBG O2 Saturation VBG Base Excess Oxygen Given Sodium Potassium Chloride Carbon Dioxide Anion Gap BUN Creatinine Estim Creat Clear Calc Estimated GFR POC Glucose 213 H 263 H Random Glucose Calcium Phosphorus Magnesium Total Bilirubin Direct Bilirubin AST ALT Alkaline Phosphatase Total Protein Albumin Blood Type A Positive Antibody Screen NEGATIVE 08/17/20 08/18/20 08/18/20 20:17 01:16 05:10 WBC RBC Hgb Hct MCV MCH MCHC RDW Plt Count MPV Immature Gran % (Auto) Neut % (Auto) Lymph % (Auto) [place] % (Auto) Eos % (Auto) Baso % (Auto) Lymph # (Auto) [place] # (Auto) Eos # (Auto) Baso # (Auto) Abs Immat Gran (auto) Absolute Neuts (auto) Absolute Nucleated RBC Nucleated RBC % (auto) ABG pH 7.39 ABG pCO2 39 ABG pO2 48 L* ABG HCO3 24 ABG O2 Saturation 70.0 ABG Base Excess -0.4 VBG pH VBG pCO2 VBG pO2 VBG HCO3 VBG O2 Saturation VBG Base Excess Oxygen Given 100% Sodium 138 Potassium 4.8 Chloride 105 Carbon Dioxide 22 Anion Gap 16 BUN 34 H Creatinine 0.80 Estim Creat Clear Calc 75.8 Estimated GFR > 60 POC Glucose 298 H Random Glucose 100 Calcium 8.3 L Phosphorus 3.2 Magnesium 2.5 Total Bilirubin 0.2 Direct Bilirubin 0.2 AST 43 H D ALT 24 Alkaline Phosphatase 89 Total Protein 5.8 L Albumin 3.3 L Blood Type Antibody Screen 08/18/20 08/18/20 08/18/20 05:10 05:10 05:11 WBC 22.5 H RBC 4.51 Hgb 12.2 Hct 36.3 L MCV 80.5 MCH 27.1 MCHC 33.6 RDW 16.1 H Plt Count 380 MPV 10.5 Immature Gran % (Auto) 2.6 H Neut % (Auto) 85.8 H Lymph % (Auto) 6.9 L [place] % (Auto) 4.5 Eos % (Auto) 0.0 Baso % (Auto) 0.2 Lymph # (Auto) 1.6 [place] # (Auto) 1.0 Eos # (Auto) 0.0 Baso # (Auto) 0.1 Abs Immat Gran (auto) 0.58 H Absolute Neuts (auto) 19.4 H Absolute Nucleated RBC 0.000 Nucleated RBC % (auto) 0.0 ABG pH ABG pCO2 ABG pO2 ABG HCO3 ABG O2 Saturation ABG Base Excess VBG pH 7.43 VBG pCO2 43 VBG pO2 116 VBG HCO3 29 VBG O2 Saturation 97.0 VBG Base Excess 4.4 Oxygen Given Sodium Potassium Chloride Carbon Dioxide Anion Gap BUN Creatinine Estim Creat Clear Calc Estimated GFR POC Glucose Random Glucose Calcium Phosphorus Cancelled Magnesium Cancelled Total Bilirubin Direct Bilirubin AST ALT Alkaline Phosphatase Total Protein Albumin Blood Type Antibody Screen 08/18/20 07:33 WBC RBC Hgb Hct MCV MCH MCHC RDW Plt Count MPV Immature Gran % (Auto) Neut % (Auto) Lymph % (Auto) [place] % (Auto) Eos % (Auto) Baso % (Auto) Lymph # (Auto) [place] # (Auto) Eos # (Auto) Baso # (Auto) Abs Immat Gran (auto) Absolute Neuts (auto) Absolute Nucleated RBC Nucleated RBC % (auto) ABG pH ABG pCO2 ABG pO2 ABG HCO3 ABG O2 Saturation ABG Base Excess VBG pH VBG pCO2 VBG pO2 VBG HCO3 VBG O2 Saturation VBG Base Excess Oxygen Given Sodium Potassium Chloride Carbon Dioxide Anion Gap BUN Creatinine Estim Creat Clear Calc Estimated GFR POC Glucose 111 Random Glucose Calcium Phosphorus Magnesium Total Bilirubin Direct Bilirubin AST ALT Alkaline Phosphatase Total Protein Albumin Blood Type Antibody Screen Microbiology Microbiology Results: Microbiology 08/16/20 Unknown Urine clean catch - Clean Catch Midstream Urine Culture - Preliminary Escherichia coli 08/16/20 11:11 Blood - Venous Blood Culture - Preliminary No growth after 24 hours. 08/16/20 11:07 Blood - Venous Blood Culture - Preliminary No growth after 24 hours. Progress Note: A&P Assessment and plan (1) Respiratory failure with hypoxia: Status: Acute Assessment and Plan: Assessment: 60-year-old lady with underlying rheumatoid arthritis on hydroxychloroquine and diabetes mellitus admitted with acute hypoxic respiratory failure secondary to COVID-19 related ARDS now requiring CPAP support Plan: Neuro: No acute issues. Cardiac: No acute issues. Pulmonary: Acute hypoxic respiratory failure secondary to COVID-19 ARDS. Continue with CPAP support. Renal: No acute issues. Endo: No acute issues. Underlying history of diabetes mellitus. GI: No acute issues. ID: COVID-19 related viral sepsis with end-organ dysfunction present on admission. Continue with dexamethasone and remdesevir. Heme/Onc: No acute issues. Psych: No acute issues. Miscellaneous: No acute issues. Prophylaxis: Lovenox Diet: Diabetic Critical care time spent: 45 minutes (2) COVID-19: Status: Acute (3) Diabetes type 2, uncontrolled: Status: Acute (4) Hypertension: Status: Acute (5) ARDS (adult respiratory distress syndrome): Status: Acute Time Spent With Patient Total time spent with greater than 50% in coordination of care (as documented) at patient's floor/unit and/or counseling patient:: 0 Critical Care Time 45 minutes
[2020-08-18] MEDS: Insulin Lispro 100 UNIT/ML 3 ML VIAL SUBCUT ×3 (11:22→20:42)
[2020-08-18 11:28] LABS: Glucose, Whole Blood 202 mg/dL (60-115)
[2020-08-18] MEDS: Remdesivir 100 MG in 0.9 % Sodium Chloride 230 ML 115 MG IV (11:53)
[2020-08-18] MEDS: amLODIPine Besylate 10 MG TABLET PO (13:11)
--- NOTE | 2020-08-18 13:17 | MHC.CM.PN ---
Pt is in ICU on CPAP support and unable to participate in CM assessment. Calls placed to pt's spouse Eulogio at [phone] and dtr Mayelin at [phone] to obtain information: message left for both requesting call back. CM will await callback from family to assist with D/C planning needs
[2020-08-18] MEDS: Enoxaparin Sodium 40 MG/0.4 ML SYRINGE SUBCUT (16:56)
[2020-08-18] MEDS: Acetaminophen 325 MG TABLET 650 MG PO (16:56)
[2020-08-18 17:12] LABS: Glucose, Whole Blood 196 mg/dL (60-115)
[2020-08-18] MEDS: Insulin Glargine,Hum.rec.anlog 100 UNIT/ML 10 ML VIAL 60 UNIT SUBCUT (20:35)
[2020-08-18] MEDS: Atorvastatin Calcium 10 MG TABLET 5 MG PO (20:35)
[2020-08-18 20:46] LABS: Glucose, Whole Blood 284 mg/dL (60-115)
[2020-08-18] MEDS: Calcium Carbonate 750 MG TAB.CHEW PO (22:42)
[2020-08-19] VITALS (24 sets, daily range): BP systolic 110–154; BP diastolic 32–95; PULSE 75–96; RESP 20–35; TEMP 36.6–38; O2SAT 90–100; BMI 32.9
[2020-08-19 05:42] LABS: Hematocrit 39.5 % (37-47); Hemoglobin 13.3 g/dl (12.0-16.0); Mean Corpuscular HGB Conc 33.7 g/dl (31.0-35.0); Mean Corpuscular Hemoglobin 27.1 pg (27.0-33.0); Mean Corpuscular Volume 80.4 fL (80-98); Mean Platelet Volume 10.4 fL (9.4-12.3); Platelet Count 408 X10*3/uL (160-400); Red Blood Count 4.91 X10*6/uL (4.20-5.50); Red Cell Distribution Width 16.1 % (11.0-16.0); White Blood Count 18.5 X10*3/uL (4.8-10.8)
[2020-08-19 05:44] LABS: Base Excess VBG 8.4 mmol/L; HCO3 VBG 34 mmol/L; PCO2 VBG 52 mmHg; PO2 VBG 44 mmHg; pH VBG 7.42 (7.32-7.43)
[2020-08-19 06:00] LABS: Band Neutrophils Percent 3 % (3-5); Lymphocytes Absolute Manual 0.9 X10*3/uL (0.6-4.8); Lymphocytes Percent Manual 5 % (20-40); Metamyelocytes Absolute 0.2 X10*3/uL; Metamyelocytes Percent 1 %; Monocytes Absolute Manual 0.9 X10*3/uL (0.0-1.2); Monocytes Percent Manual 5 % (2-11); Neutrophils Absolute Manual 16.5 X10*3/uL (2.2-7.9); Neutrophils Percent Manual 86 % (45-73)
[2020-08-19 06:01] LABS: Toxic Granulation PRESENT; Toxic Vacuolation PRESENT
[2020-08-19 06:03] LABS: Microcytosis 1+; Platelet Estimate NORMAL (NORMAL); Platelet Morphology Comment NORMAL; RBC Morphology NOTED
[2020-08-19 06:14] LABS: Albumin Level 3.3 g/dL (3.5-5.0); Anion Gap 14 (12-20); Blood Urea Nitrogen 31 mg/dL (9-16); Calcium 8.8 mg/dL (8.4-10.2); Carbon Dioxide 27 mmol/L (22-29); Chloride 100 mmol/L (96-108); Creatinine Clr Calc Pharmacy 75.8; Estimated Glomerular Filt Rate > 60; Glucose Random 130 mg/dL (60-115); Magnesium 2.4 mg/dL (1.6-2.6); Potassium 4.8 mmol/L (3.3-5.1); Sodium 136 mmol/L (135-145)
[2020-08-19] MEDS: 0.9 % Sodium Chloride Flush 3 ML SYRINGE IVFLUSH ×2 (07:20→14:11)
[2020-08-19 07:26] LABS: Glucose, Whole Blood 126 mg/dL (60-115)
[2020-08-19] MEDS: amLODIPine Besylate 10 MG TABLET PO (08:00)
[2020-08-19] MEDS: Fenofibrate 160 MG TABLET PO (08:01)
[2020-08-19] MEDS: Pregabalin 50 MG CAPSULE PO (08:01)
[2020-08-19] MEDS: acetaZOLAMIDE sodium 500 MG VIAL IVPUSH (08:28)
[2020-08-19] MEDS: ondansetron HCL 4 MG/2 ML VIAL IVPUSH (08:28)
[2020-08-19] MEDS: Insulin Lispro 100 UNIT/ML 3 ML VIAL SUBCUT ×4 (11:16→22:18)
[2020-08-19] MEDS: Cholecalciferol (Vitamin D3) 25 MCG TABLET 50 MCG PO (11:19)
[2020-08-19] MEDS: Thiamine HCL 100 MG TABLET 200 MG PO ×2 (11:19→22:16)
[2020-08-19] MEDS: Famotidine 20 MG TABLET 40 MG PO ×2 (11:19→22:16)
[2020-08-19 11:21] LABS: Glucose, Whole Blood 245 mg/dL (60-115)
[2020-08-19] MEDS: Remdesivir 100 MG in 0.9 % Sodium Chloride 230 ML IV (11:32)
--- NOTE | 2020-08-19 13:19 | PM.CCPN ---
Subjective Subjective Date of Service: 08/19/20 Interval History: Mrs. No was admitted to the ICU yesterday for treatment of hypoxemic respiratory failure requiring CPAP because of COVID pneumonia. The patient is a 60-year-old female with history of insulin-dependent diabetes, diabetic neuropathy, fatty liver, gastroesophageal reflux disease, remote history of seizures, hypertension, hypercholesteremia, RA on hydroxychloroquine, degenerative disc disease, and surgical history of lumbar spine surgery, tonsillectomy, and tubal ligation. She has no prior history of respiratory disease. She was diagnosed with COVID-19 on 08/11/2020 at this facility after first becoming symptomatic on approximately August 08. She presented to the hospital on August 16 with shortness of breath and cough, with hypoxemia. Sat was 84% on room air. COVID biomarkers were mildly positive. Creatinine was 1.18. Chest CT showed bilateral ground-glass infiltrates classic for COVID pneumonia. She was admitted to Medicine and treated with Decadron. Her FiO2 requirement escalated rapidly to include high-flow and non-rebreather face mask. Her sats dropped further, and early yesterday morning she was placed on CPAP and transferred to the ICU. Her creatinine was down to 0.8. Remdesivir was added yesterday. Yesterday afternoon her FiO2 requirement came down, and early this morning her sats began to increase progressively. At 8am this morning, her sat was 100% on 80% CPAP, with a minute volume of about 14 L. peripheral venous blood gas this morning showed 7.42/52/+8. We switch her over to high-flow nasal cannula, and on 60L/65%, the sat is 95%. See vital signs below. She?s been having low grade temps throughout (99.9-100.3?). She?s sitting in the bedside chair and ate breakfast and lunch today. She?s engrossed in watching the television. She tells me that she much prefers the high-flow nasal cannula; the CPAP nasal pillows that she was on made her bloated. She has no JVD, a normal expiratory phase, and trivial peripheral edema, if any. LABORATORY DATA: As below. MICROBIOLOGY: Note that her urine culture was positive for E coli, but her urinalysis was negative, so her culture is regarded as a contaminant. IMPRESSION: 1. Bilateral COVID pneumonia. This morning I changed her Decadron to Solu-Medrol 40 mg bid, and added Pepcid, thiamine, vitamin-D, vitamin-C, and zinc to her tx regimen. She will continue on her course of remdesivir. I would suggest discussing with Dr. Bloom whether to give her 5 or 10 days. I will also order follow-up COVID biomarkers for tomorrow morning. 2. Hypoxemic respiratory failure. Secondary to above. We would suggest ordering a venous blood gas daily with her usual morning labs to follow her pCO2. 3. Acute kidney injury. Improved. 4. Diabetes. She?s on Lantus + sliding scale insulin. 5. Metabolic alkalosis. I?ve written her for three doses of Diamox. 6. Antibiotic prophylaxis. She regularly takes Bactrim 3x/week. We?ve continued that. 7. Anticoagulation: We have her on just standard dose Lovenox DVT prophylaxis. Time 342[address]. Physical Exam Vital Signs: Vital Signs: Last Vital Signs Temp 100.2 F 08/19/20 13:00 Pulse 88 08/19/20 13:00 Resp 29 H 08/19/20 13:00 BP 120/62 08/19/20 13:00 Pulse Ox 95 08/19/20 13:00 Body Mass Index 32.9 Objective Data Labs CBC & Chem 7: 08/19/20 05:26 08/19/20 05:26 Labs: Laboratory Results - last 24 hr 08/18/20 08/18/20 08/19/20 17:03 20:39 05:26 WBC 18.5 H RBC 4.91 Hgb 13.3 Hct 39.5 MCV 80.4 MCH 27.1 MCHC 33.7 RDW 16.1 H Plt Count 408 H MPV 10.4 Immature Gran % (Auto) Cancelled Neut % (Auto) Cancelled Lymph % (Auto) Cancelled Childress % (Auto) Cancelled Eos % (Auto) Cancelled Baso % (Auto) Cancelled Lymph # (Auto) Cancelled Childress # (Auto) Cancelled Eos # (Auto) Cancelled Baso # (Auto) Cancelled Abs Immat Gran (auto) Cancelled Absolute Neuts (auto) Cancelled Absolute Nucleated RBC 0.000 Nucleated RBC % (auto) 0.0 Neutrophils % (Manual) 86 H Band Neutrophils % 3 Lymphocytes % (Manual) 5 L Monocytes % (Manual) 5 Metamyelocytes % 1 Abs Neuts (Manual) 16.5 H Lymphocytes # (Manual) 0.9 Monocytes # (Manual) 0.9 Metamyelocytes # 0.2 Toxic Granulation PRESENT Toxic Vacuolation PRESENT Platelet Estimate NORMAL Plt Morphology Comment NORMAL RBC Morphology NOTED Microcytosis 1+ VBG pH VBG pCO2 VBG pO2 VBG HCO3 VBG O2 Saturation VBG Base Excess Sodium Potassium Chloride Carbon Dioxide Anion Gap BUN Creatinine Estim Creat Clear Calc Estimated GFR POC Glucose 196 H 284 H Random Glucose Calcium Phosphorus Magnesium Albumin 08/19/20 08/19/20 08/19/20 05:26 05:26 07:13 WBC RBC Hgb Hct MCV MCH MCHC RDW Plt Count MPV Immature Gran % (Auto) Neut % (Auto) Lymph % (Auto) Childress % (Auto) Eos % (Auto) Baso % (Auto) Lymph # (Auto) Childress # (Auto) Eos # (Auto) Baso # (Auto) Abs Immat Gran (auto) Absolute Neuts (auto) Absolute Nucleated RBC Nucleated RBC % (auto) Neutrophils % (Manual) Band Neutrophils % Lymphocytes % (Manual) Monocytes % (Manual) Metamyelocytes % Abs Neuts (Manual) Lymphocytes # (Manual) Monocytes # (Manual) Metamyelocytes # Toxic Granulation Toxic Vacuolation Platelet Estimate Plt Morphology Comment RBC Morphology Microcytosis VBG pH 7.42 VBG pCO2 52 VBG pO2 44 VBG HCO3 34 VBG O2 Saturation 67.0 VBG Base Excess 8.4 Sodium 136 Potassium 4.8 Chloride 100 Carbon Dioxide 27 Anion Gap 14 BUN 31 H Creatinine 0.80 Estim Creat Clear Calc 75.8 Estimated GFR > 60 POC Glucose 126 H Random Glucose 130 H Calcium 8.8 D Phosphorus 4.0 Magnesium 2.4 Albumin 3.3 L 08/19/20 11:14 WBC RBC Hgb Hct MCV MCH MCHC RDW Plt Count MPV Immature Gran % (Auto) Neut % (Auto) Lymph % (Auto) Childress % (Auto) Eos % (Auto) Baso % (Auto) Lymph # (Auto) Childress # (Auto) Eos # (Auto) Baso # (Auto) Abs Immat Gran (auto) Absolute Neuts (auto) Absolute Nucleated RBC Nucleated RBC % (auto) Neutrophils % (Manual) Band Neutrophils % Lymphocytes % (Manual) Monocytes % (Manual) Metamyelocytes % Abs Neuts (Manual) Lymphocytes # (Manual) Monocytes # (Manual) Metamyelocytes # Toxic Granulation Toxic Vacuolation Platelet Estimate Plt Morphology Comment RBC Morphology Microcytosis VBG pH VBG pCO2 VBG pO2 VBG HCO3 VBG O2 Saturation VBG Base Excess Sodium Potassium Chloride Carbon Dioxide Anion Gap BUN Creatinine Estim Creat Clear Calc Estimated GFR POC Glucose 245 H Random Glucose Calcium Phosphorus Magnesium Albumin Microbiology Microbiology Results: Microbiology 08/16/20 Unknown Urine clean catch - Clean Catch Midstream Urine Culture - Final Escherichia coli 08/16/20 11:11 Blood - Venous Blood Culture - Preliminary No growth after 48 hours. 08/16/20 11:07 Blood - Venous Blood Culture - Preliminary No growth after 48 hours. Progress Note: A&P Time Spent With Patient Time: Total time spent is greater than 50% in coordination of care (as documented) at patient's floor/unit and/or counseling patient: Total time spent with greater than 50% in coordination of care (as documented) at patient's floor/unit and/or counseling patient:: 0
[2020-08-19] MEDS: Gabapentin 600 MG TABLET PO ×2 (14:11→22:17)
[2020-08-19] MEDS: Zinc Sulfate 220 MG CAPSULE PO (14:11)
[2020-08-19] MEDS: Ascorbic Acid 500 MG TABLET 1000 MG PO ×2 (14:11→22:17)
[2020-08-19 17:06] LABS: Glucose, Whole Blood 331 mg/dL (60-115)
[2020-08-19] MEDS: Enoxaparin Sodium 40 MG/0.4 ML SYRINGE SUBCUT (17:14)
[2020-08-19 20:44] LABS: Glucose, Whole Blood 319 mg/dL (60-115)
[2020-08-19] MEDS: Atorvastatin Calcium 10 MG TABLET 5 MG PO (22:17)
[2020-08-19] MEDS: acetaZOLAMIDE 250 MG TABLET 500 MG PO (22:17)
[2020-08-19] MEDS: Insulin Glargine,Hum.rec.anlog 100 UNIT/ML 10 ML VIAL 60 UNIT SUBCUT (22:18)
[2020-08-20] VITALS (16 sets, daily range): BP systolic 128–166; BP diastolic 62–78; PULSE 81–88; RESP 18–20; TEMP 36.4–36.9; O2SAT 90–99
[2020-08-20] MEDS: 0.9 % Sodium Chloride Flush 3 ML SYRINGE IVFLUSH ×4 (00:11→21:03)
[2020-08-20] MEDS: ondansetron HCL 4 MG/2 ML VIAL IVPUSH (01:17)
[2020-08-20] MEDS: Calcium Carbonate 750 MG TAB.CHEW PO (06:22)
[2020-08-20 06:24] LABS: Base Excess VBG -2.3 mmol/L; HCO3 VBG 22 mmol/L; Hematocrit 40.9 % (37-47); Hemoglobin 13.4 g/dl (12.0-16.0); Mean Corpuscular HGB Conc 32.8 g/dl (31.0-35.0); Mean Corpuscular Hemoglobin 26.6 pg (27.0-33.0); Mean Corpuscular Volume 81.2 fL (80-98); Mean Platelet Volume 10.7 fL (9.4-12.3); PCO2 VBG 37 mmHg; PO2 VBG 53 mmHg; Platelet Count 428 X10*3/uL (160-400); Red Blood Count 5.04 X10*6/uL (4.20-5.50); Red Cell Distribution Width 16.3 % (11.0-16.0); pH VBG 7.37 (7.32-7.43)
[2020-08-20] MEDS: Docusate Sodium 100 MG CAPSULE PO (06:26)
[2020-08-20 06:32] LABS: D Dimer 834 NG/ML
[2020-08-20 06:59] LABS: Alanine Aminotransferase 21 U/L (0-31); Albumin Level 3.4 g/dL (3.5-5.0); Alkaline Phosphatase 100 U/L (39-117); Anion Gap 15 (12-20); Aspartate Amino Transferase 21 U/L (5-31); Bilirubin Total 0.3 mg/dL (0.0-1.0); Blood Urea Nitrogen 40 mg/dL (9-16); C Reactive Protein 7.54 mg/dL (< or = 0.50); Calcium 8.5 mg/dL (8.4-10.2); Carbon Dioxide 20 mmol/L (22-29); Chloride 103 mmol/L (96-108); Estimated Glomerular Filt Rate > 60; Glucose Random 177 mg/dL (60-115); Magnesium 2.4 mg/dL (1.6-2.6); Sodium 134 mmol/L (135-145); Total Protein 6.1 g/dL (6.5-8.0)
[2020-08-20 07:11] LABS: Ferritin 1210 ng/mL (10-250)
[2020-08-20 07:14] LABS: Procalcitonin 0.21 ng/mL
[2020-08-20 07:58] LABS: Atypical Lymph Absolute Manual 0.4 x10*3/uL; Atypical Lymphs Percent Manual 2 % (0-6); Band Neutrophils Percent 4 % (3-5); Lymphocytes Absolute Manual 1.8 X10*3/uL (0.6-4.8); Lymphocytes Percent Manual 9 % (20-40); Metamyelocytes Absolute 0.6 X10*3/uL; Metamyelocytes Percent 3 %; Monocytes Absolute Manual 0.6 X10*3/uL (0.0-1.2); Monocytes Percent Manual 3 % (2-11); Neutrophils Absolute Manual 16.4 X10*3/uL (2.2-7.9); Neutrophils Percent Manual 78 % (45-73); Promyelocytes Absolute 0.2 X10*3/uL; Promyelocytes Percent 1 %
[2020-08-20 08:00] LABS: Platelet Estimate INCREASED (NORMAL); Platelet Morphology Comment NORMAL; RBC Morphology NORMAL
[2020-08-20 08:02] LABS: Glucose, Whole Blood 173 mg/dL (60-115)
[2020-08-20] MEDS: Insulin Lispro 100 UNIT/ML 3 ML VIAL SUBCUT ×7 (08:17→21:04)
[2020-08-20] MEDS: Fenofibrate 160 MG TABLET PO (08:18)
[2020-08-20] MEDS: acetaZOLAMIDE 250 MG TABLET 500 MG PO ×2 (08:18→21:02)
[2020-08-20] MEDS: amLODIPine Besylate 10 MG TABLET PO (08:18)
[2020-08-20] MEDS: Famotidine 20 MG TABLET 40 MG PO ×2 (08:18→21:02)
[2020-08-20] MEDS: Folic Acid 1 MG TABLET 5 MG PO (08:18)
[2020-08-20] MEDS: Thiamine HCL 100 MG TABLET 200 MG PO ×2 (08:18→21:03)
[2020-08-20] MEDS: Ascorbic Acid 500 MG TABLET 1000 MG PO ×3 (08:18→21:01)
[2020-08-20] MEDS: Gabapentin 600 MG TABLET PO ×3 (08:19→21:01)
[2020-08-20] MEDS: Cholecalciferol (Vitamin D3) 25 MCG TABLET 50 MCG PO (08:19)
[2020-08-20] MEDS: Zinc Sulfate 220 MG CAPSULE PO (08:19)
--- NOTE | 2020-08-20 10:35 | MHC.CM.PN ---
CM spoke with patient's Eulogio r/t patient COVID+. Eulogio reports patient is independent, lives with him and patient's mom who she cares for. Patient does not have a HCP and declines filling one out today. Discussed discharge plan, home no services. will provide transport on discharge. CM will continue to follow patient for discharge needs.
[2020-08-20 11:34] LABS: Glucose, Whole Blood 204 mg/dL (60-115)
[2020-08-20 12:14] LABS: Estimated Average Glucose 235 mg/dL; Hemoglobin A1c % 9.8 %
[2020-08-20] MEDS: Remdesivir 100 MG in 0.9 % Sodium Chloride 230 ML 115 MG IV (12:30)
--- NOTE | 2020-08-20 13:22 | HO.PM.IMPN ---
Subjective Subjective Date of Service: 08/20/20 Interval History: less dyspneic but still requiring fiO2 100% @ 50 Lpm via HFNC T 100.4 yesterday afternoon; afebrile since no chest pain no CASTANEDA Physical Exam Vital Signs: Vital Signs: Last Vital Signs Temp 97.6 F 08/20/20 11:14 Pulse 86 08/20/20 11:14 Resp 20 08/20/20 11:48 BP 144/66 H 08/20/20 11:14 Pulse Ox 97 08/20/20 11:14 Body Mass Index 32.9 Gen: in no acute distress HEENT: sclera anicteric, moist mucus membranes Neck: supple Lungs: no respiratory distress, auscultation deferred due to COVID-19 Heart: normal peripheral pulses Abd: soft, non-tender, non-distended Ext: no cyanosis, clubbing, or edema Skin: warm/well-perfused Neuro: alert and oriented x3, no focal findings Psych: appropriate affect Objective Data Current Medications Generic Name Dose Route Start Last Admin Trade Name Freq PRN Reason Stop Dose Admin Acetaminophen 650 mg 08/16/20 17:07 08/18/20 16:56 Acetaminophen 325 Mg Tablet PO 650 mg Q6H PRN Administration Pain, Mild (Pain Scale 1-3) Acetazolamide 500 mg 08/19/20 21:00 08/20/20 08:18 Acetazolamide 250 Mg Tablet PO 08/20/20 21:01 500 mg BID MARTELL Administration Amlodipine Besylate 10 mg 08/18/20 13:15 08/20/20 08:18 Amlodipine Besylate 10 Mg Tablet PO 10 mg DAILY MARTELL Administration Protocol Ascorbic Acid 1,000 mg 08/19/20 15:00 08/20/20 08:18 Ascorbic Acid 500 Mg Tablet PO 1,000 mg TID MARTELL Administration Atorvastatin Calcium 5 mg 08/16/20 21:00 08/19/20 22:17 Atorvastatin Calcium 10 Mg Tablet PO 5 mg BEDTIME MARTELL Administration Calcium Carbonate 750 mg 08/18/20 22:04 08/20/20 06:22 Calcium Carbonate 750 Mg Tab.Chew PO 750 mg Q6H PRN Administration Heartburn Docusate Sodium 100 mg 08/16/20 17:07 08/20/20 06:26 Docusate Sodium 100 Mg Capsule PO 100 mg DAILY PRN Administration Constipation Enoxaparin Sodium 40 mg 08/16/20 18:00 08/19/20 17:14 Enoxaparin Sodium 40 Mg/0.4 Ml Syringe SUBCUT 40 mg Q24H MARTELL Administration Famotidine 40 mg 08/19/20 11:00 08/20/20 08:18 Famotidine 20 Mg Tablet PO 40 mg BID MARTELL Administration Fenofibrate 160 mg 08/17/20 09:00 08/20/20 08:18 Fenofibrate 160 Mg Tablet PO 160 mg DAILY MARTELL Administration Folic Acid 5 mg 08/17/20 09:00 08/20/20 08:18 Folic Acid 1 Mg Tablet PO 5 mg DAILY MARTELL Administration Gabapentin 600 mg 08/16/20 17:07 08/20/20 08:19 Gabapentin 600 Mg Tablet PO 600 mg TID MARTELL Administration Remdesivir 100 mg/ Sodium 230 mls @ 115 mls/hr 08/18/20 12:00 08/20/20 12:30 Chloride IV 08/21/20 13:59 115 mls/hr Q24H MARTELL Administration Insulin Glargine 60 unit 08/16/20 21:00 08/19/20 22:18 Insulin Glargine,Hum.Rec.Anlog 100 Unit/Ml 10 Ml Vial SUBCUT 60 unit BEDTIME MARTELL Administration Insulin Human Lispro 5 unit 08/16/20 17:07 08/20/20 11:53 Insulin Lispro 100 Unit/Ml 3 Ml Vial SUBCUT 5 unit TIDAC MARTELL Administration Insulin Human Lispro 0 unit 08/16/20 17:07 08/20/20 11:53 Insulin Lispro 100 Unit/Ml 3 Ml Vial SUBCUT 4 unit QIDACHS MARTELL Administration Protocol Methylprednisolone Sodium Succinate 40 mg 08/19/20 20:00 08/20/20 08:17 Methylprednisolone Sod Succ/Pf 40 Mg/Ml Vial IVPUSH 40 mg Q12H MARTELL Administration Ondansetron HCl 4 mg 08/16/20 17:07 08/20/20 01:17 Ondansetron Hcl 4 Mg/2 Ml Vial IVPUSH 4 mg Q8H PRN Administration Nausea and Vomiting Sodium Chloride 3 ml 08/16/20 17:07 08/20/20 08:17 0.9 % Sodium Chloride Flush 3 Ml Syringe IVFLUSH 3 ml QSHIFT MARTELL Administration Thiamine HCl 200 mg 08/19/20 11:00 08/20/20 08:18 Thiamine Hcl 100 Mg Tablet PO 200 mg BID MARTELL Administration Trimethoprim/Sulfamethoxazole 1 tab 08/19/20 10:00 08/19/20 08:03 Sulfamethox/Trimeth 400/80 1 Tab Tablet PO 1 tab MOWEFR@1000 MARTELL Administration Vitamin D 50 mcg 08/19/20 11:00 08/20/20 08:19 Cholecalciferol (Vitamin D3) 25 Mcg Tablet PO 50 mcg DAILY MARTELL Administration Zinc Sulfate 220 mg 08/19/20 14:05 08/20/20 08:19 Zinc Sulfate 220 Mg Capsule PO 220 mg DAILY MARTELL Administration Labs CBC & Chem 7: 08/20/20 06:11 08/20/20 06:11 Microbiology Microbiology Results: Microbiology 08/16/20 Unknown Urine clean catch - Clean Catch Midstream Urine Culture - Final Escherichia coli 08/16/20 11:11 Blood - Venous Blood Culture - Preliminary No growth after 48 hours. 08/16/20 11:07 Blood - Venous Blood Culture - Preliminary No growth after 48 hours. Assessment and Plan (1) Respiratory failure with hypoxia: Status: Acute (2) COVID-19: Status: Acute Assessment and Plan: hospital d#5 52yo F with DM2, HTN, dyslipidemia, RA on hydroxychloroquine diagosed with COVID-19 08/11/20, onset of symptoms 08/08/20 admitted for hypoxic respiratory failure, stepped up to ICU 08/17 and downgraded 08/19, did not require intubation # acute hypoxic resp failure - HFNC, wean O2 as tolerated # COVID-19 pneumonia - remdesivir d#09/20 - changed from dexamethasone to methylprednisolone 08/19/20 - on famotidine, thiamine, vit D, vit C, and Zn started in ICU as part of EVMS regimen # CATHY - resolved # ESBL in urine - colonizer, not infection (no pyuria) # metabolic alkalosis - acetazolamide # HTN - amlodipine # dyslipidemia - continue statin + fenofibrate # DM neuropathy - continue gabapentin # DM2 - Lantus + correction-dose Humalog # RA - hydroxychloroquine. # hx MRSA infection SMX/TMP tiw prophylaxis # VTE ppx - LMWH
[2020-08-20 16:31] LABS: Glucose, Whole Blood 225 mg/dL (60-115)
[2020-08-20] MEDS: Enoxaparin Sodium 40 MG/0.4 ML SYRINGE SUBCUT (16:53)
[2020-08-20 20:31] LABS: Glucose, Whole Blood 209 mg/dL (60-115)
[2020-08-20] MEDS: Atorvastatin Calcium 10 MG TABLET 5 MG PO (21:02)
[2020-08-20] MEDS: Insulin Glargine,Hum.rec.anlog 100 UNIT/ML 10 ML VIAL 60 UNIT SUBCUT (21:03)
[2020-08-21] VITALS (14 sets, daily range): BP systolic 117–147; BP diastolic 56–80; PULSE 77–102; RESP 18–20; TEMP 36.4–36.8; O2SAT 93–98
[2020-08-21 06:22] LABS: Base Excess VBG -5.8 mmol/L; HCO3 VBG 19 mmol/L; PCO2 VBG 39 mmHg; PO2 VBG 31 mmHg
[2020-08-21 07:10] LABS: Hemoglobin 13.5 g/dl (12.0-16.0); Mean Corpuscular HGB Conc 32.9 g/dl (31.0-35.0); Mean Corpuscular Hemoglobin 26.8 pg (27.0-33.0); Mean Corpuscular Volume 81.5 fL (80-98); Mean Platelet Volume 10.7 fL (9.4-12.3); Platelet Count 436 X10*3/uL (160-400); Red Blood Count 5.03 X10*6/uL (4.20-5.50); Red Cell Distribution Width 16.3 % (11.0-16.0); White Blood Count 25.6 X10*3/uL (4.8-10.8)
[2020-08-21 07:19] LABS: Blood Urea Nitrogen 38 mg/dL (9-16); Carbon Dioxide 18 mmol/L (22-29); Estimated Glomerular Filt Rate > 60; Glucose Random 161 mg/dL (60-115); Potassium 4.2 mmol/L (3.3-5.1); Sodium 136 mmol/L (135-145)
[2020-08-21 07:21] LABS: Anion Gap 16 (12-20); Chloride 106 mmol/L (96-108)
[2020-08-21 07:57] LABS: Glucose, Whole Blood 142 mg/dL (60-115)
[2020-08-21] MEDS: 0.9 % Sodium Chloride Flush 3 ML SYRINGE IVFLUSH ×3 (08:00→21:49)
[2020-08-21] MEDS: Cholecalciferol (Vitamin D3) 25 MCG TABLET 50 MCG PO (08:07)
[2020-08-21] MEDS: Fenofibrate 160 MG TABLET PO (08:07)
[2020-08-21] MEDS: Gabapentin 600 MG TABLET PO (08:07)
[2020-08-21] MEDS: amLODIPine Besylate 10 MG TABLET PO (08:07)
[2020-08-21] MEDS: Zinc Sulfate 220 MG CAPSULE PO (08:07)
[2020-08-21] MEDS: Folic Acid 1 MG TABLET 5 MG PO (08:08)
[2020-08-21] MEDS: Ascorbic Acid 500 MG TABLET 1000 MG PO (08:08)
[2020-08-21] MEDS: Famotidine 20 MG TABLET 40 MG PO ×2 (08:08→22:11)
[2020-08-21] MEDS: Thiamine HCL 100 MG TABLET 200 MG PO (08:08)
[2020-08-21 09:57] LABS: Band Neutrophils Percent 1 % (3-5); Lymphocytes Absolute Manual 0.8 X10*3/uL (0.6-4.8); Lymphocytes Percent Manual 3 % (20-40); Metamyelocytes Absolute 0.3 X10*3/uL; Metamyelocytes Percent 1 %; Monocytes Absolute Manual 1.5 X10*3/uL (0.0-1.2); Monocytes Percent Manual 6 % (2-11); Myelocytes Absolute 0.3 X10*/uL; Myelocytes Percent 1 %; Neutrophils Absolute Manual 22.8 X10*3/uL (2.2-7.9); Neutrophils Percent Manual 88 % (45-73)
[2020-08-21 09:58] LABS: RBC Morphology NORMAL; Toxic Granulation PRESENT
[2020-08-21 09:59] LABS: Platelet Estimate INCREASED (NORMAL); Platelet Morphology Comment NORMAL
--- NOTE | 2020-08-21 11:02 | PC.NURSE ---
PT HAVING TROUBLE SWALLOWING PILLS. PREFERS MEDS CRUSHED WITH PUDDING. DOES NOT HAVE ANY TISSUE WITH CHEWING OR SWALLOWING FOOD OR BEVERAGES. WILL CONTINUE TO MONITOR.
[2020-08-21 11:15] LABS: Glucose, Whole Blood 229 mg/dL (60-115)
[2020-08-21] MEDS: Insulin Lispro 100 UNIT/ML 3 ML VIAL SUBCUT ×5 (11:40→23:03)
[2020-08-21] MEDS: Remdesivir 100 MG in 0.9 % Sodium Chloride 230 ML 115 MG IV (11:40)
--- NOTE | 2020-08-21 12:37 | HO.PM.IMPN ---
Subjective Subjective Date of Service: 08/21/20 Interval History: fever resolved dyspnea improved at rest but still quite severe with minimal exertion no chest pain Physical Exam Vital Signs: Vital Signs: Last Vital Signs Temp 98.2 F 08/21/20 11:46 Pulse 90 08/21/20 11:46 Resp 18 08/21/20 11:46 BP 136/65 08/21/20 11:46 Pulse Ox 93 08/21/20 11:46 Body Mass Index 32.9 Gen: in no acute distress HEENT: sclera anicteric, moist mucus membranes Neck: supple Lungs: no respiratory distress, auscultation deferred due to COVID-19 Heart: normal peripheral pulses Abd: soft, non-tender, non-distended Ext: no cyanosis, clubbing, or edema Skin: warm/well-perfused Neuro: alert and oriented x3, no focal findings Psych: appropriate affect Objective Data Current Medications Generic Name Dose Route Start Last Admin Trade Name Freq PRN Reason Stop Dose Admin Acetaminophen 650 mg 08/16/20 17:07 08/18/20 16:56 Acetaminophen 325 Mg Tablet PO 650 mg Q6H PRN Administration Pain, Mild (Pain Scale 1-3) Amlodipine Besylate 10 mg 08/18/20 13:15 08/21/20 08:07 Amlodipine Besylate 10 Mg Tablet PO 10 mg DAILY MARTELL Administration Protocol Ascorbic Acid 1,000 mg 08/19/20 15:00 08/21/20 08:08 Ascorbic Acid 500 Mg Tablet PO 1,000 mg TID MARTELL Administration Atorvastatin Calcium 5 mg 08/16/20 21:00 08/20/20 21:02 Atorvastatin Calcium 10 Mg Tablet PO 5 mg BEDTIME MARTELL Administration Calcium Carbonate 750 mg 08/18/20 22:04 08/20/20 06:22 Calcium Carbonate 750 Mg Tab.Chew PO 750 mg Q6H PRN Administration Heartburn Docusate Sodium 100 mg 08/16/20 17:07 08/20/20 06:26 Docusate Sodium 100 Mg Capsule PO 100 mg DAILY PRN Administration Constipation Enoxaparin Sodium 40 mg 08/16/20 18:00 08/20/20 16:53 Enoxaparin Sodium 40 Mg/0.4 Ml Syringe SUBCUT 40 mg Q24H MARTELL Administration Famotidine 40 mg 08/19/20 11:00 08/21/20 08:08 Famotidine 20 Mg Tablet PO 40 mg BID MARTELL Administration Fenofibrate 160 mg 08/17/20 09:00 08/21/20 08:07 Fenofibrate 160 Mg Tablet PO 160 mg DAILY MARTELL Administration Folic Acid 5 mg 08/17/20 09:00 08/21/20 08:08 Folic Acid 1 Mg Tablet PO 5 mg DAILY MARTELL Administration Gabapentin 600 mg 08/16/20 17:07 08/21/20 08:07 Gabapentin 600 Mg Tablet PO 600 mg TID MARTELL Administration Remdesivir 100 mg/ Sodium 230 mls @ 115 mls/hr 08/18/20 12:00 08/21/20 11:40 Chloride IV 08/21/20 13:59 115 mls/hr Q24H MARTELL Administration Insulin Glargine 60 unit 08/16/20 21:00 08/20/20 21:03 Insulin Glargine,Hum.Rec.Anlog 100 Unit/Ml 10 Ml Vial SUBCUT 60 unit BEDTIME MARTELL Administration Insulin Human Lispro 5 unit 08/16/20 17:07 08/21/20 11:40 Insulin Lispro 100 Unit/Ml 3 Ml Vial SUBCUT 5 unit TIDAC MARTELL Administration Insulin Human Lispro 0 unit 08/16/20 17:07 08/21/20 11:40 Insulin Lispro 100 Unit/Ml 3 Ml Vial SUBCUT 4 unit QIDACHS [facility] Administration Protocol Methylprednisolone Sodium Succinate 40 mg 08/19/20 20:00 08/21/20 08:07 Methylprednisolone Sod Succ/Pf 40 Mg/Ml Vial IVPUSH 40 mg Q12H MARTELL Administration Ondansetron HCl 4 mg 08/16/20 17:07 08/20/20 01:17 Ondansetron Hcl 4 Mg/2 Ml Vial IVPUSH 4 mg Q8H PRN Administration Nausea and Vomiting Sodium Chloride 3 ml 08/16/20 17:07 08/21/20 08:00 0.9 % Sodium Chloride Flush 3 Ml Syringe IVFLUSH 3 ml QSHIFT [facility] Administration Thiamine HCl 200 mg 08/19/20 11:00 08/21/20 08:08 Thiamine Hcl 100 Mg Tablet PO 200 mg BID MARTELL Administration Trimethoprim/Sulfamethoxazole 1 tab 08/19/20 10:00 08/21/20 09:49 Sulfamethox/Trimeth 400/80 1 Tab Tablet PO 1 tab MOWEFR@1000 MARTELL Administration Vitamin D 50 mcg 08/19/20 11:00 08/21/20 08:07 Cholecalciferol (Vitamin D3) 25 Mcg Tablet PO 50 mcg DAILY MARTELL Administration Zinc Sulfate 220 mg 08/19/20 14:05 08/21/20 08:07 Zinc Sulfate 220 Mg Capsule PO 220 mg DAILY MARTELL Administration Labs CBC & Chem 7: 08/21/20 06:09 08/21/20 06:09 Labs: Laboratory Results - last 24 hr 08/20/20 08/20/20 08/21/20 16:22 20:18 06:09 WBC 25.6 H RBC 5.03 Hgb 13.5 Hct 41.0 MCV 81.5 MCH 26.8 L MCHC 32.9 RDW 16.3 H Plt Count 436 H MPV 10.7 Immature Gran % (Auto) Cancelled Neut % (Auto) Cancelled Lymph % (Auto) Cancelled Bell % (Auto) Cancelled Eos % (Auto) Cancelled Baso % (Auto) Cancelled Lymph # (Auto) Cancelled Bell # (Auto) Cancelled Eos # (Auto) Cancelled Baso # (Auto) Cancelled Abs Immat Gran (auto) Cancelled Absolute Neuts (auto) Cancelled Absolute Nucleated RBC 0.000 Nucleated RBC % (auto) 0.0 Neutrophils % (Manual) 88 H Band Neutrophils % 1 L Lymphocytes % (Manual) 3 L Monocytes % (Manual) 6 Metamyelocytes % 1 Myelocytes % 1 Abs Neuts (Manual) 22.8 H Lymphocytes # (Manual) 0.8 Monocytes # (Manual) 1.5 H Metamyelocytes # 0.3 Myelocytes # 0.3 Toxic Granulation PRESENT Platelet Estimate INCREASED Plt Morphology Comment NORMAL RBC Morphology NORMAL VBG pH VBG pCO2 VBG pO2 VBG HCO3 VBG O2 Saturation VBG Base Excess Sodium Potassium Chloride Carbon Dioxide Anion Gap BUN Creatinine Estim Creat Clear Calc Estimated GFR POC Glucose 225 H 209 H Random Glucose Calcium 08/21/20 08/21/20 08/21/20 06:09 06:09 07:44 WBC RBC Hgb Hct MCV MCH MCHC RDW Plt Count MPV Immature Gran % (Auto) Neut % (Auto) Lymph % (Auto) Bell % (Auto) Eos % (Auto) Baso % (Auto) Lymph # (Auto) Bell # (Auto) Eos # (Auto) Baso # (Auto) Abs Immat Gran (auto) Absolute Neuts (auto) Absolute Nucleated RBC Nucleated RBC % (auto) Neutrophils % (Manual) Band Neutrophils % Lymphocytes % (Manual) Monocytes % (Manual) Metamyelocytes % Myelocytes % Abs Neuts (Manual) Lymphocytes # (Manual) Monocytes # (Manual) Metamyelocytes # Myelocytes # Toxic Granulation Platelet Estimate Plt Morphology Comment RBC Morphology VBG pH 7.30 L VBG pCO2 39 VBG pO2 31 VBG HCO3 19 VBG O2 Saturation 38.0 VBG Base Excess -5.8 Sodium 136 Potassium 4.2 Chloride 106 Carbon Dioxide 18 L Anion Gap 16 BUN 38 H Creatinine 0.82 Estim Creat Clear Calc 74.0 Estimated GFR > 60 POC Glucose 142 H Random Glucose 161 H Calcium 8.0 L 08/21/20 11:09 WBC RBC Hgb Hct MCV MCH MCHC RDW Plt Count MPV Immature Gran % (Auto) Neut % (Auto) Lymph % (Auto) Bell % (Auto) Eos % (Auto) Baso % (Auto) Lymph # (Auto) Bell # (Auto) Eos # (Auto) Baso # (Auto) Abs Immat Gran (auto) Absolute Neuts (auto) Absolute Nucleated RBC Nucleated RBC % (auto) Neutrophils % (Manual) Band Neutrophils % Lymphocytes % (Manual) Monocytes % (Manual) Metamyelocytes % Myelocytes % Abs Neuts (Manual) Lymphocytes # (Manual) Monocytes # (Manual) Metamyelocytes # Myelocytes # Toxic Granulation Platelet Estimate Plt Morphology Comment RBC Morphology VBG pH VBG pCO2 VBG pO2 VBG HCO3 VBG O2 Saturation VBG Base Excess Sodium Potassium Chloride Carbon Dioxide Anion Gap BUN Creatinine Estim Creat Clear Calc Estimated GFR POC Glucose 229 H Random Glucose Calcium Microbiology Microbiology Results: Microbiology 08/16/20 Unknown Urine clean catch - Clean Catch Midstream Urine Culture - Final Escherichia coli 08/16/20 11:11 Blood - Venous Blood Culture - Preliminary No growth after 48 hours. 08/16/20 11:07 Blood - Venous Blood Culture - Preliminary No growth after 48 hours. Assessment and Plan (1) Respiratory failure with hypoxia: Status: Acute (2) COVID-19: Status: Acute Assessment and Plan: hospital d#6 52yo F with DM2, HTN, dyslipidemia, RA on hydroxychloroquine diagosed with COVID-19 08/11/20, onset of symptoms 08/08/20 admitted for hypoxic respiratory failure, stepped up to ICU 08/17 and downgraded 08/19, did not require intubation # acute hypoxic resp failure - HFNC currently on 60Lpm + fiO2 100%, wean O2 as tolerated, encouraged awake proning # COVID-19 pneumonia - remdesivir d#4/ - changed from dexamethasone to methylprednisolone 08/19/20, taper - on famotidine, thiamine, vit D, vit C, and Zn started in ICU as part of EVMS regimen # CATHY - resolved # ESBL in urine - colonizer, not infection (no pyuria) # metabolic alkalosis - resolved s/p acetazolamide # HTN - amlodipine # dyslipidemia - continue statin + fenofibrate # DM neuropathy - continue gabapentin # DM2 - Lantus + correction-dose Humalog # RA - hydroxychloroquine. # hx MRSA infection - continue SMX/TMP tiw prophylaxis from home # VTE ppx - LMWH I updated the pt's spouse Eulogio by phone [phone]
[2020-08-21 16:16] LABS: Glucose, Whole Blood 253 mg/dL (60-115)
[2020-08-21] MEDS: Enoxaparin Sodium 40 MG/0.4 ML SYRINGE SUBCUT (17:51)
[2020-08-21 17:53] LABS: Strep Pneumo Ag urine Not Detected (Not Detected)
[2020-08-21 20:41] LABS: Glucose, Whole Blood 183 mg/dL (60-115)
[2020-08-22] VITALS (12 sets, daily range): BP systolic 126–155; BP diastolic 65–84; PULSE 84–106; RESP 18–28; TEMP 36.6–37.2; O2SAT 90–98
[2020-08-22 06:12] LABS: Hematocrit 43.1 % (37-47); Hemoglobin 14.1 g/dl (12.0-16.0); Mean Corpuscular HGB Conc 32.7 g/dl (31.0-35.0); Mean Corpuscular Hemoglobin 26.8 pg (27.0-33.0); Mean Corpuscular Volume 81.8 fL (80-98); Mean Platelet Volume 11.1 fL (9.4-12.3); Platelet Count 353 X10*3/uL (160-400); Red Blood Count 5.27 X10*6/uL (4.20-5.50); White Blood Count 22.3 X10*3/uL (4.8-10.8)
[2020-08-22 06:20] LABS: D Dimer 922 NG/ML
[2020-08-22 06:37] LABS: Alanine Aminotransferase 19 U/L (0-31); Albumin Level 3.2 g/dL (3.5-5.0); Alkaline Phosphatase 95 U/L (39-117); Anion Gap 18 (12-20); Aspartate Amino Transferase 25 U/L (5-31); Bilirubin Total 0.5 mg/dL (0.0-1.0); Blood Urea Nitrogen 38 mg/dL (9-16); C Reactive Protein 8.81 mg/dL (< or = 0.50); Calcium 8.3 mg/dL (8.4-10.2); Carbon Dioxide 14 mmol/L (22-29); Chloride 109 mmol/L (96-108); Creatinine Clr Calc Pharmacy 80.9; Estimated Glomerular Filt Rate > 60; Glucose Random 142 mg/dL (60-115); Potassium 4.5 mmol/L (3.3-5.1); Sodium 136 mmol/L (135-145)
[2020-08-22 07:24] LABS: Band Neutrophils Percent 3 % (3-5); Lymphocytes Absolute Manual 1.8 X10*3/uL (0.6-4.8); Lymphocytes Percent Manual 8 % (20-40); Metamyelocytes Absolute 0.4 X10*3/uL; Metamyelocytes Percent 2 %; Monocytes Absolute Manual 1.1 X10*3/uL (0.0-1.2); Monocytes Percent Manual 5 % (2-11); Myelocytes Absolute 0.2 X10*/uL; Myelocytes Percent 1 %; Neutrophils Absolute Manual 18.7 X10*3/uL (2.2-7.9); Neutrophils Percent Manual 81 % (45-73)
[2020-08-22 07:25] LABS: Platelet Estimate NORMAL (NORMAL); Platelet Morphology Comment NORMAL; RBC Morphology NORMAL
[2020-08-22 08:18] LABS: Lactate Dehydrogenase 610 U/L (122-220)
[2020-08-22 08:36] LABS: Ferritin 687 ng/mL (10-250)
[2020-08-22 08:56] LABS: Glucose, Whole Blood 158 mg/dL (60-115)
--- NOTE | 2020-08-22 09:13 | HO.PM.IMPN ---
Subjective Subjective Date of Service: 08/22/20 Interval History: dyspnea slightly improved still on FiO2 100%, flow rate down to 40 Lpm no chest pain no fever Physical Exam Vital Signs: Vital Signs: Last Vital Signs Temp 97.9 F 08/22/20 08:00 Pulse 89 08/22/20 08:00 Resp 26 H 08/22/20 08:00 BP 136/66 08/22/20 08:00 Pulse Ox 96 08/22/20 08:00 Body Mass Index 32.9 Gen: in no acute distress HEENT: sclera anicteric, moist mucus membranes Neck: supple Lungs: no respiratory distress, auscultation deferred due to COVID-19 Heart: normal peripheral pulses Abd: soft, obese, non-tender, non-distended Ext: no cyanosis, clubbing, or edema Skin: warm/well-perfused Neuro: alert and oriented x3, no focal findings Psych: appropriate affect Objective Data Current Medications Generic Name Dose Route Start Last Admin Trade Name Freq PRN Reason Stop Dose Admin Acetaminophen 650 mg 08/16/20 17:07 08/18/20 16:56 Acetaminophen 325 Mg Tablet PO 650 mg Q6H PRN Administration Pain, Mild (Pain Scale 1-3) Amlodipine Besylate 10 mg 08/18/20 13:15 08/21/20 08:07 Amlodipine Besylate 10 Mg Tablet PO 10 mg DAILY MARTELL Administration Protocol Ascorbic Acid 1,000 mg 08/19/20 15:00 08/21/20 22:11 Ascorbic Acid 500 Mg Tablet PO Not Given TID MARTELL Atorvastatin Calcium 5 mg 08/16/20 21:00 08/21/20 22:11 Atorvastatin Calcium 10 Mg Tablet PO Not Given BEDTIME MARTELL Calcium Carbonate 750 mg 08/18/20 22:04 08/20/20 06:22 Calcium Carbonate 750 Mg Tab.Chew PO 750 mg Q6H PRN Administration Heartburn Docusate Sodium 100 mg 08/16/20 17:07 08/20/20 06:26 Docusate Sodium 100 Mg Capsule PO 100 mg DAILY PRN Administration Constipation Enoxaparin Sodium 40 mg 08/16/20 18:00 08/21/20 17:51 Enoxaparin Sodium 40 Mg/0.4 Ml Syringe SUBCUT 40 mg Q24H MARTELL Administration Famotidine 40 mg 08/19/20 11:00 08/21/20 22:11 Famotidine 20 Mg Tablet PO 40 mg BID MARTELL Administration Fenofibrate 160 mg 08/17/20 09:00 08/21/20 08:07 Fenofibrate 160 Mg Tablet PO 160 mg DAILY [facility] Administration Folic Acid 5 mg 08/17/20 09:00 08/21/20 08:08 Folic Acid 1 Mg Tablet PO 5 mg DAILY MARTELL Administration Gabapentin 600 mg 08/16/20 17:07 08/21/20 22:24 Gabapentin 600 Mg Tablet PO Not Given TID [facility] Insulin Glargine 60 unit 08/16/20 21:00 08/21/20 22:55 Insulin Glargine,Hum.Rec.Anlog 100 Unit/Ml 10 Ml Vial SUBCUT Not Given BEDTIME [facility] Insulin Human Lispro 5 unit 08/16/20 17:07 08/21/20 16:40 Insulin Lispro 100 Unit/Ml 3 Ml Vial SUBCUT 5 unit TIDAC [facility] Administration Insulin Human Lispro 0 unit 08/16/20 17:07 08/21/20 23:03 Insulin Lispro 100 Unit/Ml 3 Ml Vial SUBCUT 2 unit QIDACHS [facility] Administration Protocol Methylprednisolone Sodium Succinate 40 mg 08/19/20 20:00 08/21/20 21:48 Methylprednisolone Sod Succ/Pf 40 Mg/Ml Vial IVPUSH 40 mg Q12H MARTELL Administration Ondansetron HCl 4 mg 08/16/20 17:07 08/20/20 01:17 Ondansetron Hcl 4 Mg/2 Ml Vial IVPUSH 4 mg Q8H PRN Administration Nausea and Vomiting Sodium Chloride 3 ml 08/16/20 17:07 08/21/20 21:49 0.9 % Sodium Chloride Flush 3 Ml Syringe IVFLUSH 3 ml QSHIFT [facility] Administration Thiamine HCl 200 mg 08/19/20 11:00 08/21/20 22:24 Thiamine Hcl 100 Mg Tablet PO Not Given BID [facility] Trimethoprim/Sulfamethoxazole 1 tab 08/19/20 10:00 08/21/20 09:49 Sulfamethox/Trimeth 400/80 1 Tab Tablet PO 1 tab MOWEFR@1000 [facility] Administration Vitamin D 50 mcg 08/19/20 11:00 08/21/20 08:07 Cholecalciferol (Vitamin D3) 25 Mcg Tablet PO 50 mcg DAILY [facility] Administration Zinc Sulfate 220 mg 08/19/20 14:05 02/03/21 08:07 Zinc Sulfate 220 Mg Capsule PO 220 mg DAILY MARTELL Administration Labs CBC & Chem 7: 08/22/20 05:28 08/22/20 05:28 Labs: Laboratory Results - last 24 hr 08/16/20 08/21/20 08/21/20 13:33 06:09 11:09 WBC RBC Hgb Hct MCV MCH MCHC RDW Plt Count MPV Immature Gran % (Auto) Neut % (Auto) Lymph % (Auto) [place] % (Auto) Eos % (Auto) Baso % (Auto) Lymph # (Auto) [place] # (Auto) Eos # (Auto) Baso # (Auto) Abs Immat Gran (auto) Absolute Neuts (auto) Absolute Nucleated RBC Nucleated RBC % (auto) Neutrophils % (Manual) 88 H Band Neutrophils % 1 L Lymphocytes % (Manual) 3 L Monocytes % (Manual) 6 Metamyelocytes % 1 Myelocytes % 1 Abs Neuts (Manual) 22.8 H Lymphocytes # (Manual) 0.8 Monocytes # (Manual) 1.5 H Metamyelocytes # 0.3 Myelocytes # 0.3 Toxic Granulation PRESENT Platelet Estimate INCREASED Plt Morphology Comment NORMAL RBC Morphology NORMAL D-Dimer Sodium Potassium Chloride Carbon Dioxide Anion Gap BUN Creatinine Estim Creat Clear Calc Estimated GFR POC Glucose 229 H Random Glucose Calcium Ferritin Total Bilirubin AST ALT Alkaline Phosphatase Lactate Dehydrogenase C-Reactive Protein Total Protein Albumin Ur Strep pneumoniae Ag Not Detected 08/21/20 08/21/20 08/22/20 16:09 20:34 05:28 WBC 22.3 H RBC 5.27 Hgb 14.1 Hct 43.1 MCV 81.8 MCH 26.8 L MCHC 32.7 RDW 16.0 Plt Count 353 MPV 11.1 Immature Gran % (Auto) Cancelled Neut % (Auto) Cancelled Lymph % (Auto) Cancelled [place] % (Auto) Cancelled Eos % (Auto) Cancelled Baso % (Auto) Cancelled Lymph # (Auto) Cancelled [place] # (Auto) Cancelled Eos # (Auto) Cancelled Baso # (Auto) Cancelled Abs Immat Gran (auto) Cancelled Absolute Neuts (auto) Cancelled Absolute Nucleated RBC 0.000 Nucleated RBC % (auto) 0.0 Neutrophils % (Manual) 81 H Band Neutrophils % 3 Lymphocytes % (Manual) 8 L Monocytes % (Manual) 5 Metamyelocytes % 2 Myelocytes % 1 Abs Neuts (Manual) 18.7 H Lymphocytes # (Manual) 1.8 Monocytes # (Manual) 1.1 Metamyelocytes # 0.4 Myelocytes # 0.2 Toxic Granulation Platelet Estimate NORMAL Plt Morphology Comment NORMAL RBC Morphology NORMAL D-Dimer Sodium Potassium Chloride Carbon Dioxide Anion Gap BUN Creatinine Estim Creat Clear Calc Estimated GFR POC Glucose 253 H 183 H Random Glucose Calcium Ferritin Total Bilirubin AST ALT Alkaline Phosphatase Lactate Dehydrogenase C-Reactive Protein Total Protein Albumin Ur Strep pneumoniae Ag 08/22/20 08/22/20 08/22/20 05:28 05:28 08:22 WBC RBC Hgb Hct MCV MCH MCHC RDW Plt Count MPV Immature Gran % (Auto) Neut % (Auto) Lymph % (Auto) [place] % (Auto) Eos % (Auto) Baso % (Auto) Lymph # (Auto) [place] # (Auto) Eos # (Auto) Baso # (Auto) Abs Immat Gran (auto) Absolute Neuts (auto) Absolute Nucleated RBC Nucleated RBC % (auto) Neutrophils % (Manual) Band Neutrophils % Lymphocytes % (Manual) Monocytes % (Manual) Metamyelocytes % Myelocytes % Abs Neuts (Manual) Lymphocytes # (Manual) Monocytes # (Manual) Metamyelocytes # Myelocytes # Toxic Granulation Platelet Estimate Plt Morphology Comment RBC Morphology D-Dimer 922 Sodium 136 Potassium 4.5 Chloride 109 H Carbon Dioxide 14 L Anion Gap 18 BUN 38 H Creatinine 0.75 Estim Creat Clear Calc 80.9 Estimated GFR > 60 POC Glucose 158 H Random Glucose 142 H Calcium 8.3 L Ferritin 687 H Total Bilirubin 0.5 AST 25 ALT 19 Alkaline Phosphatase 95 Lactate Dehydrogenase 610 H C-Reactive Protein 8.81 H Total Protein 6.0 L Albumin 3.2 L Ur Strep pneumoniae Ag Microbiology Microbiology Results: Microbiology 08/16/20 11:11 Blood - Venous Blood Culture - Final No growth after 5 days. 08/16/20 11:07 Blood - Venous Blood Culture - Final No growth after 5 days. 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 diagnosed with COVID-19 08/11/20 [onset of symptoms 08/08] admitted 08/16 for hypoxic respiratory failure, stepped up to ICU 08/17 and downgraded 08/19, did not require intubation # acute hypoxic resp failure - HFNC- currently on 40Lpm + fiO2 100%, wean O2 as tolerated, encouraged awake proning # COVID-19 pneumonia - completed 5d of remdesivir - changed from dexamethasone to methylprednisolone 08/19/20, decrease 40mg q24h to 40mg q12h today - continue famotidine, thiamine, vit D, vit C, and Zn started in ICU [EVMS regimen] # metabolic acidosis - check ABG + urine anion gap; consult Nephrology; was likely due to the acetazolamide she got in ICU for metabolic alkalosis # CATHY - resolved, SCr 1.61->0.75 # ESBL in urine - colonizer, not infection (no pyuria) # HTN - amlodipine # dyslipidemia - continue statin + fenofibrate # DM neuropathy - continue gabapentin # DM2, A1c 9.8 - Lantus + correction-dose Humalog # RA - hydroxychloroquine. # hx MRSA infection - continue SMX/TMP tiw prophylaxis from home # VTE ppx - LMWH
[2020-08-22 09:19] LABS: Procalcitonin 0.06 ng/mL
[2020-08-22] MEDS: Insulin Lispro 100 UNIT/ML 3 ML VIAL SUBCUT ×7 (09:25→22:00)
[2020-08-22] MEDS: Gabapentin 600 MG TABLET PO ×2 (09:26→14:38)
[2020-08-22] MEDS: Famotidine 20 MG TABLET 40 MG PO ×2 (09:26→22:01)
[2020-08-22] MEDS: 0.9 % Sodium Chloride Flush 3 ML SYRINGE IVFLUSH ×3 (09:26→22:02)
[2020-08-22] MEDS: Ascorbic Acid 500 MG TABLET 1000 MG PO ×2 (09:26→14:38)
[2020-08-22] MEDS: Thiamine HCL 100 MG TABLET 200 MG PO (09:26)
[2020-08-22] MEDS: Cholecalciferol (Vitamin D3) 25 MCG TABLET 50 MCG PO (09:26)
[2020-08-22] MEDS: amLODIPine Besylate 10 MG TABLET PO (09:27)
[2020-08-22] MEDS: Fenofibrate 160 MG TABLET PO (09:27)
[2020-08-22] MEDS: Zinc Sulfate 220 MG CAPSULE PO (09:27)
[2020-08-22] MEDS: Folic Acid 1 MG TABLET 5 MG PO (09:28)
[2020-08-22 10:25] LABS: Base Excess VBG -7.7 mmol/L; HCO3 VBG 16 mmol/L; PCO2 VBG 30 mmHg; PO2 VBG 66 mmHg; pH VBG 7.34 (7.32-7.43)
[2020-08-22 11:34] LABS: Glucose, Whole Blood 229 mg/dL (60-115)
[2020-08-22 16:16] LABS: Creatinine Urine 94.59 mg/dL; Potassium Urine Random 58.8 mmol/L
[2020-08-22 16:22] LABS: Glucose, Whole Blood 254 mg/dL (60-115)
[2020-08-22] MEDS: Enoxaparin Sodium 40 MG/0.4 ML SYRINGE SUBCUT (17:12)
--- NOTE | 2020-08-22 17:53 | P.CONNP_ITS ---
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 Nephrology has been consulted to assist in her clinical care. Review of Systems Review of Systems Yes all other systems are reviewed and are negative PMFSH Past Medical History Medical History Degenerative disc disease, lumbar Diabetes type 2, uncontrolled Diabetic neuropathy Fatty liver GERD (gastroesophageal reflux disease) History of seizures Hypercholesterolemia Hypertension Obesity (BMI 30-39.9) Peptic ulcer disease Seronegative rheumatoid arthritis Vitamin D deficiency Functional capacity: independent ambulation Family History Family History Father Diabetes Hypertension Mother Hypertension Cancer Maternal Uncle Myocardial infarction Surgical History Surgical History History of lumbar surgery History of tonsillectomy History of tubal ligation Social History Social History Household Members: Family Housing: Apartment Smoking Status: Never smoker Smoked in Last 30 Days: No Second Hand Smoke Exposure: No Use of substances other than those prescribed or required for medical reasons: No Currently Displaying Signs/Symptoms of Drug Intoxication Withdrawal: No Have you been hit, kicked, punched, or otherwise hurt by someone within the past year? If so, by whom?: No Do you feel safe in your current relationship?: Yes Is there a partner from a previous relationship who is making you feel unsafe n ow?: No Advance Directives: No Advance Directives Information Provided: No Do you have thoughts of harming others: None Do you have a plan to hurt others: No Plan service: No Current occupational status: disabled Meds Allergies Allergy/AdvReac Type Severity Reaction Status Date / Time metformin [METFORMIN] Allergy Severe DIARRHEA, Verified 05/24/20 09:41 stomach intolerance lisinopril [LISINOPRIL] Allergy Intermediate COUGH Verified 05/24/20 09:41 Home Medications Medication Instructions Recorded Confirmed Type fenofibrate 160 mg tablet 160 mg PO DAILY 05/27/20 08/16/20 History folic acid 1 mg tablet 5 mg PO DAILY 05/27/20 08/16/20 History gabapentin 600 mg tablet 600 mg PO TID 05/27/20 08/16/20 History insulin glargine 100 unit/mL (3 60 unit SUBCUT BEDTIME ml 05/27/20 08/16/20 History mL) subcutaneous pen insulin lispro 100 unit/mL 5 unit SUBCUT TIDAC 05/27/20 08/16/20 History subcutaneous pen simvastatin 5 mg tablet 5 mg PO BEDTIME 05/27/20 08/16/20 History cyclobenzaprine 10 mg PO BID PRN 08/16/20 08/16/20 History hydroxychloroquine 200 mg PO BID 08/16/20 08/16/20 History omeprazole 20 mg PO DAILY@0630 08/16/20 08/16/20 History sulfamethoxazole-trimethoprim 1 tab PO MOWEFR@1000 08/16/20 08/16/20 History [Bactrim] Physical Exam Vital Signs: Last Vital Signs Temp 97.9 F 08/22/20 15:36 Pulse 95 08/22/20 15:36 Resp 22 H 08/22/20 15:36 BP 126/65 08/22/20 15:36 Pulse Ox 90 L 08/22/20 15:36 Body Mass Index 32.9 Const General: cooperative Neck Neck: Yes supple Resp Auscultation: diminished lung sounds Cardio Rate: regular rate GI Palpation (GI): Soft to palpation Neuro General: moves all extremities Results Lab Results Result Diagrams: 08/22/20 05:28 08/22/20 05:28 Lab results: Chemistry 08/20/20 08/21/20 08/22/20 06:11 06:09 05:28 Sodium 134 L 136 136 Potassium 4.0 4.2 4.5 Carbon Dioxide 20 L 18 L 14 L BUN 40 H 38 H 38 H Creatinine 0.92 0.82 0.75 Calcium 8.5 8.0 L 8.3 L Hematology 08/20/20 08/21/20 08/22/20 06:11 06:09 05:28 WBC 20.0 H 25.6 H 22.3 H Hgb 13.4 13.5 14.1 Plt Count 428 H 436 H 353 Urine Studies 08/22/20 Unknown Urine Creatinine 94.59 Assessment and Plan (1) Metabolic acidosis: Problem details: Likely multifactorial check Arterial Blood Gas likely due to the acetazolamide she got in ICU May need urine studies Continue supportive care for now Labs AM. Shall F/U closely Status: Acute
[2020-08-22 19:59] LABS: Glucose, Whole Blood 403 mg/dL (60-115)
[2020-08-22] MEDS: Insulin Glargine,Hum.rec.anlog 100 UNIT/ML 10 ML VIAL 60 UNIT SUBCUT (21:59)
[2020-08-22] MEDS: Atorvastatin Calcium 10 MG TABLET 5 MG PO (22:00)
[2020-08-23] VITALS (14 sets, daily range): BP systolic 131–169; BP diastolic 61–79; PULSE 85–120; RESP 20–36; TEMP 35.6–37.1; O2SAT 88–98
[2020-08-23] MEDS: Acetaminophen 325 MG TABLET 650 MG PO (04:02)
[2020-08-23 06:11] LABS: Basophils Absolute Auto 0.1 X10*3/uL (0.0-0.2); Basophils Percent Auto 0.3 % (0-2); Eosinophils Absolute Auto 0.1 X10*3/uL (0.0-0.4); Eosinophils Percent Auto 0.4 % (0-4); Hematocrit 43.6 % (37-47); Hemoglobin 14.4 g/dl (12.0-16.0); Imm Gran Abs Auto 1.03 X10*3/uL (0.00-0.03); Imm Gran Pct Auto 3.2 % (0.0-0.4); Lymphocytes Absolute Auto 2.6 X10*3/uL (1.2-4.9); Lymphocytes Percent Auto 8.2 % (20-40); MANUAL DIFF FLAG SCAN; Mean Corpuscular Hemoglobin 26.9 pg (27.0-33.0); Mean Corpuscular Volume 81.5 fL (80-98); Mean Platelet Volume 11.8 fL (9.4-12.3); Monocytes Absolute Auto 1.1 X10*3/uL (0.1-1.2); Monocytes Percent Auto 3.4 % (2-11); Neutrophils Absolute Auto 27.1 X10*3/uL (2.0-8.3); Neutrophils Percent Auto 84.5 % (45-73); Platelet Count 351 X10*3/uL (160-400); Red Blood Count 5.35 X10*6/uL (4.20-5.50); Red Cell Distribution Width 16.4 % (11.0-16.0); SCAN SMEAR FLAG 1
[2020-08-23 06:23] LABS: White Blood Count 32.1 X10*3/uL (4.8-10.8)
[2020-08-23 06:35] LABS: SLIDE REVIEW VERIFIED
[2020-08-23 06:42] LABS: Anion Gap 19 (12-20); Blood Urea Nitrogen 39 mg/dL (9-16); Calcium 8.6 mg/dL (8.4-10.2); Carbon Dioxide 18 mmol/L (22-29); Chloride 107 mmol/L (96-108); Creatinine Clr Calc Pharmacy 78.8; Estimated Glomerular Filt Rate > 60; Glucose Random 96 mg/dL (60-115); Potassium 4.1 mmol/L (3.3-5.1); Sodium 140 mmol/L (135-145)
[2020-08-23] MEDS: 0.9 % Sodium Chloride Flush 3 ML SYRINGE IVFLUSH ×3 (07:53→23:49)
[2020-08-23] MEDS: Famotidine 20 MG TABLET 40 MG PO (08:00)
[2020-08-23 08:11] LABS: Glucose, Whole Blood 56 mg/dL (60-115)
[2020-08-23 08:15] LABS: Glucose, Whole Blood 48 mg/dL (60-115)
[2020-08-23 08:55] LABS: Glucose, Whole Blood 124 mg/dL (60-115)
--- NOTE | 2020-08-23 11:30 | PM.PNNEP ---
Subjective Subjective Date of Service: 08/23/20 Interval history: Events noted; All recent data reviewed Physical Exam Vital Signs: Vital Signs: Last Vital Signs Temp 96.8 F 08/23/20 08:00 Pulse 106 H 08/23/20 08:00 Resp 24 H 08/23/20 08:48 BP 149/72 H 08/23/20 08:00 Pulse Ox 98 08/23/20 08:00 Body Mass Index 32.9 Const: General: cooperative Neck: Neck: Yes supple Resp: Auscultation: diminished lung sounds Cardio: Rate: regular rate GI: Palpation (GI): Soft to palpation Neuro: General: moves all extremities Objective Data Labs CBC & Chem 7: 08/23/20 05:31 08/23/20 05:31 Labs: Laboratory Results - last 24 hr 08/22/20 08/22/20 08/22/20 11:25 15:40 19:42 WBC RBC Hgb Hct MCV MCH MCHC RDW Plt Count MPV Immature Gran % (Auto) Neut % (Auto) Lymph % (Auto) [place] % (Auto) Eos % (Auto) Baso % (Auto) Lymph # (Auto) [place] # (Auto) Eos # (Auto) Baso # (Auto) Abs Immat Gran (auto) Absolute Neuts (auto) Absolute Nucleated RBC Nucleated RBC % (auto) Smear Tech's Comments Sodium Potassium Chloride Carbon Dioxide Anion Gap BUN Creatinine Estim Creat Clear Calc Estimated GFR POC Glucose 229 H 254 H 403 H* Random Glucose Calcium Ur Random Sodium Ur Random Potassium Urine Creatinine 08/22/20 08/23/20 08/23/20 Unknown 05:31 05:31 WBC 32.1 H* RBC 5.35 Hgb 14.4 Hct 43.6 MCV 81.5 MCH 26.9 L MCHC 33.0 RDW 16.4 H Plt Count 351 MPV 11.8 Immature Gran % (Auto) 3.2 H Neut % (Auto) 84.5 H Lymph % (Auto) 8.2 L [place] % (Auto) 3.4 Eos % (Auto) 0.4 Baso % (Auto) 0.3 Lymph # (Auto) 2.6 [place] # (Auto) 1.1 Eos # (Auto) 0.1 Baso # (Auto) 0.1 Abs Immat Gran (auto) 1.03 H Absolute Neuts (auto) 27.1 H Absolute Nucleated RBC 0.000 Nucleated RBC % (auto) 0.0 Smear Tech's Comments VERIFIED Sodium 140 Potassium 4.1 Chloride 107 Carbon Dioxide 18 L Anion Gap 19 BUN 39 H Creatinine 0.77 Estim Creat Clear Calc 78.8 Estimated GFR > 60 POC Glucose Random Glucose 96 Calcium 8.6 Ur Random Sodium 68.0 Ur Random Potassium 58.8 Urine Creatinine 94.59 08/23/20 08/23/20 08/23/20 07:36 08:07 08:51 WBC RBC Hgb Hct MCV MCH MCHC RDW Plt Count MPV Immature Gran % (Auto) Neut % (Auto) Lymph % (Auto) [place] % (Auto) Eos % (Auto) Baso % (Auto) Lymph # (Auto) [place] # (Auto) Eos # (Auto) Baso # (Auto) Abs Immat Gran (auto) Absolute Neuts (auto) Absolute Nucleated RBC Nucleated RBC % (auto) Smear Tech's Comments Sodium Potassium Chloride Carbon Dioxide Anion Gap BUN Creatinine Estim Creat Clear Calc Estimated GFR POC Glucose 48 L* 56 L* 124 H Random Glucose Calcium Ur Random Sodium Ur Random Potassium Urine Creatinine Microbiology Microbiology Results: Microbiology 08/16/20 11:11 Blood - Venous Blood Culture - Final No growth after 5 days. 08/16/20 11:07 Blood - Venous Blood Culture - Final No growth after 5 days. 08/16/20 Unknown Urine clean catch - Clean Catch Midstream Urine Culture - Final Escherichia coli Assessment & Plan Assessment and plan (1) Metabolic acidosis: Problem details: Likely multifactorial likely due to the acetazolamide she got in ICU Acidosis improving Continue supportive care for now Shall sign off follow up Status: Acute Time Spent With Patient Time: Total time spent is greater than 50% in coordination of care (as documented) at patient's floor/unit and/or counseling patient:
[2020-08-23] MEDS: Insulin Lispro 100 UNIT/ML 3 ML VIAL SUBCUT ×3 (11:48→21:00)
[2020-08-23 12:22] LABS: Glucose, Whole Blood 201 mg/dL (60-115)
[2020-08-23 15:45] LABS: Estimated Average Glucose 232 mg/dL; Hemoglobin A1c % 9.7 %
[2020-08-23 16:36] LABS: Glucose, Whole Blood 313 mg/dL (60-115)
[2020-08-23] MEDS: Enoxaparin Sodium 40 MG/0.4 ML SYRINGE SUBCUT (17:09)
--- NOTE | 2020-08-23 18:26 | HO.PM.IMPN ---
Subjective Subjective Date of Service: 08/24/20 Interval History: Respiratory failure secondary to COVID Review of Systems Still short of breath high-flow Denies any nausea vomiting or abdominal pain or any complaints fever chills Physical Exam Vital Signs: Vital Signs: Last Vital Signs Temp 97.7 F 08/23/20 15:56 Pulse 91 08/23/20 15:56 Resp 22 H 08/23/20 15:56 BP 156/72 H 08/23/20 15:56 Pulse Ox 90 L 08/23/20 15:56 Body Mass Index 32.9 Physical exam: Cvs: rrr, [id number] , no murmur res: Fair air entry, slightly diminished at bases ,no rhonchii or wheezing abd: no rebound or guarding ,nt, bs present. ext pulses present , no cyanosis neuro: axo3 , nonfocal. Objective Data Current Medications Generic Name Dose Route Start Last Admin Trade Name Freq PRN Reason Stop Dose Admin Acetaminophen 650 mg 08/16/20 17:07 08/23/20 04:02 Acetaminophen 325 Mg Tablet PO 650 mg Q6H PRN Administration Pain, Mild (Pain Scale 1-3) Amlodipine Besylate 10 mg 08/18/20 13:15 08/23/20 07:54 Amlodipine Besylate 10 Mg Tablet PO Not Given DAILY [facility] Protocol Ascorbic Acid 1,000 mg 08/19/20 15:00 08/23/20 13:54 Ascorbic Acid 500 Mg Tablet PO Not Given TID [facility] Atorvastatin Calcium 5 mg 08/16/20 21:00 08/22/20 22:00 Atorvastatin Calcium 10 Mg Tablet PO 5 mg BEDTIME MARTELL Administration Calcium Carbonate 750 mg 08/18/20 22:04 08/20/20 06:22 Calcium Carbonate 750 Mg Tab.Chew PO 750 mg Q6H PRN Administration Heartburn Docusate Sodium 100 mg 08/16/20 17:07 08/20/20 06:26 Docusate Sodium 100 Mg Capsule PO 100 mg DAILY PRN Administration Constipation Enoxaparin Sodium 40 mg 08/16/20 18:00 08/23/20 17:09 Enoxaparin Sodium 40 Mg/0.4 Ml Syringe SUBCUT 40 mg Q24H MARTELL Administration Famotidine 40 mg 08/19/20 11:00 08/23/20 08:00 Famotidine 20 Mg Tablet PO 40 mg BID MARTELL Administration Fenofibrate 160 mg 08/17/20 09:00 08/23/20 07:55 Fenofibrate 160 Mg Tablet PO Not Given DAILY [facility] Folic Acid 5 mg 08/17/20 09:00 08/23/20 07:55 Folic Acid 1 Mg Tablet PO Not Given DAILY [facility] Gabapentin 600 mg 08/16/20 17:07 08/23/20 13:54 Gabapentin 600 Mg Tablet PO Not Given TID [facility] Insulin Glargine 60 unit 08/16/20 21:00 08/22/20 21:59 Insulin Glargine,Hum.Rec.Anlog 100 Unit/Ml 10 Ml Vial SUBCUT 60 unit BEDTIME [facility] Administration Insulin Human Lispro 0 unit 08/16/20 17:07 08/23/20 17:08 Insulin Lispro 100 Unit/Ml 3 Ml Vial SUBCUT 8 unit QIDACHS [facility] Administration Protocol Methylprednisolone Sodium Succinate 40 mg 08/22/20 09:30 08/23/20 08:00 Methylprednisolone Sod Succ/Pf 40 Mg/Ml Vial IVPUSH 40 mg Q24H MARTELL Administration Ondansetron HCl 4 mg 08/16/20 17:07 08/20/20 01:17 Ondansetron Hcl 4 Mg/2 Ml Vial IVPUSH 4 mg Q8H PRN Administration Nausea and Vomiting Sodium Chloride 3 ml 08/16/20 17:07 08/23/20 17:08 0.9 % Sodium Chloride Flush 3 Ml Syringe IVFLUSH 3 ml QSHIFT [facility] Administration Thiamine HCl 200 mg 08/19/20 11:00 08/23/20 07:55 Thiamine Hcl 100 Mg Tablet PO Not Given BID [facility] Trimethoprim/Sulfamethoxazole 1 tab 08/19/20 10:00 08/23/20 07:56 Sulfamethox/Trimeth 400/80 1 Tab Tablet PO Not Given MOWEFR@1000 [facility] Vitamin D 50 mcg 08/19/20 11:00 08/23/20 07:55 Cholecalciferol (Vitamin D3) 25 Mcg Tablet PO Not Given DAILY [facility] Zinc Sulfate 220 mg 08/19/20 14:05 08/23/20 07:55 Zinc Sulfate 220 Mg Capsule PO Not Given DAILY [facility] Labs CBC & Chem 7: 08/24/20 09:18 08/23/20 05:31 Microbiology Microbiology Results: Microbiology 08/16/20 11:11 Blood - Venous Blood Culture - Final No growth after 5 days. 08/16/20 11:07 Blood - Venous Blood Culture - Final No growth after 5 days. 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 acute hypoxic resp failure - HFNC- currently on 40Lpm + fiO2 100%, wean O2 as tolerated, encouraged awake proning Chest x-ray shows some infiltrates on right side/left lower lobe Added Percocet on a level Patient has elevated leukocytosis question since the beginning probably related to steroids use now getting more higher level leukocytosis was 32 today but no fever no other new events Add procalcitonin level d/w Id -recomended to add zosyn until procalcitonin results 2.COVID-19 pneumonia - completed 5d of remdesivir - changed from dexamethasone to methylprednisolone 08/19/20, decrease 40mg q24h to 40mg q12h today - continue famotidine, thiamine, vit D, vit C, and Zn started in ICU [EVMS regimen] 3. metabolic acidosis - check ABG + urine anion gap; consult Nephrology; was likely due to the acetazolamide she got in ICU for metabolic alkalosis # CATHY - resolved, SCr 1.61->0.75 # ESBL in urine - colonizer, not infection (no pyuria) # HTN - amlodipine # dyslipidemia - continue statin + fenofibrate # DM neuropathy - continue gabapentin # DM2, A1c 9.8 - Lantus + correction-dose Humalog # RA - hydroxychloroquine. # hx MRSA infection - continue SMX/TMP tiw prophylaxis from home # VTE ppx - LMWH (2) Respiratory failure with hypoxia: Status: Acute
[2020-08-23 20:16] LABS: Glucose, Whole Blood 232 mg/dL (60-115)
[2020-08-23] MEDS: Piperacillin Sodium/Tazobactam 3.375 GM in 0.9 % Sodium Chloride 50 ML IV (20:56)
[2020-08-23 22:14] LABS: Procalcitonin 0.15 ng/mL
[2020-08-24] VITALS (12 sets, daily range): BP systolic 136–166; BP diastolic 66–74; PULSE 75–109; RESP 18–22; TEMP 36.1–36.9; O2SAT 87–97
[2020-08-24] MEDS: Piperacillin Sodium/Tazobactam 3.375 GM in 0.9 % Sodium Chloride 50 ML IV ×4 (03:10→20:02)
[2020-08-24 07:22] LABS: Glucose, Whole Blood 107 mg/dL (60-115)
[2020-08-24] MEDS: Cholecalciferol (Vitamin D3) 25 MCG TABLET 50 MCG PO (08:13)
[2020-08-24] MEDS: Folic Acid 1 MG TABLET 5 MG PO (08:14)
[2020-08-24] MEDS: Famotidine 20 MG TABLET 40 MG PO ×2 (08:16→20:01)
[2020-08-24] MEDS: Zinc Sulfate 220 MG CAPSULE PO (08:16)
[2020-08-24] MEDS: Gabapentin 600 MG TABLET PO ×3 (08:16→20:01)
[2020-08-24] MEDS: Thiamine HCL 100 MG TABLET 200 MG PO ×2 (08:17→19:59)
[2020-08-24] MEDS: Fenofibrate 160 MG TABLET PO (08:17)
[2020-08-24] MEDS: amLODIPine Besylate 10 MG TABLET PO (08:18)
[2020-08-24] MEDS: 0.9 % Sodium Chloride Flush 3 ML SYRINGE IVFLUSH ×3 (08:19→20:05)
[2020-08-24 09:44] LABS: Hematocrit 35.4 % (37-47); Hemoglobin 12.3 g/dl (12.0-16.0); Mean Corpuscular HGB Conc 34.7 g/dl (31.0-35.0); Mean Corpuscular Hemoglobin 27.5 pg (27.0-33.0); Mean Platelet Volume 10.5 fL (9.4-12.3); Platelet Count 426 X10*3/uL (160-400); Red Blood Count 4.48 X10*6/uL (4.20-5.50); Red Cell Distribution Width 15.8 % (11.0-16.0)
[2020-08-24 10:07] LABS: White Blood Count 30.8 X10*3/uL (4.8-10.8)
[2020-08-24 11:16] LABS: Glucose, Whole Blood 219 mg/dL (60-115)
[2020-08-24] MEDS: Ascorbic Acid 500 MG TABLET 1000 MG PO ×3 (11:16→20:12)
[2020-08-24] MEDS: Insulin Lispro 100 UNIT/ML 3 ML VIAL SUBCUT ×3 (13:00→21:17)
[2020-08-24] MEDS: Calcium Carbonate 750 MG TAB.CHEW PO (15:00)
--- NOTE | 2020-08-24 15:10 | P.PNIM_ITS ---
Subjective Subjective Date of Service: 08/25/20 Interval History: Acute hypoxemic respiratory failure secondary to COVID infection Review of Systems Patient sats are lingering around 90s, but still speaking fine and denies any new complaints No chest pain or abdominal pain or urinary complaints. Physical Exam Vital Signs: Vital Signs: Last Vital Signs Temp 97.6 F 08/24/20 12:00 Pulse 102 H 08/24/20 12:00 Resp 20 08/24/20 12:00 BP 141/66 H 08/24/20 12:00 Pulse Ox 90 L 08/24/20 12:00 Body Mass Index 32.9 Physical exam: Constitutional: Not in good distress Cvs: rrr, [id number] , no murmur res: fair air netry , slightly diminshed at bases ,no rhonchii or wheezing abd: no rebound or guarding ,nt, bs present. ext pulses present , no cyanosis neuro: axo3 , nonfocal. Objective Data Current Medications Generic Name Dose Route Start Last Admin Trade Name Freq PRN Reason Stop Dose Admin Acetaminophen 650 mg 08/16/20 17:07 08/23/20 04:02 Acetaminophen 325 Mg Tablet PO 650 mg Q6H PRN Administration Pain, Mild (Pain Scale 1-3) Amlodipine Besylate 10 mg 08/18/20 13:15 08/24/20 08:18 Amlodipine Besylate 10 Mg Tablet PO 10 mg DAILY [facility]TE[facility] Administration Protocol Ascorbic Acid 1,000 mg 08/19/20 15:00 08/24/20 11:16 Ascorbic Acid 500 Mg Tablet PO 1,000 mg TID [facility]TE[facility] Administration Atorvastatin Calcium 5 mg 08/16/20 21:00 08/23/20 21:04 Atorvastatin Calcium 10 Mg Tablet PO Not Given BEDTIME MARTELL Calcium Carbonate 750 mg 08/18/20 22:04 08/24/20 15:00 Calcium Carbonate 750 Mg Tab.Chew PO 750 mg Q6H PRN Administration Heartburn Docusate Sodium 100 mg 08/16/20 17:07 08/20/20 06:26 Docusate Sodium 100 Mg Capsule PO 100 mg DAILY PRN Administration Constipation Enoxaparin Sodium 40 mg 08/16/20 18:00 08/23/20 17:09 Enoxaparin Sodium 40 Mg/0.4 Ml Syringe SUBCUT 40 mg Q24H [facility] Administration Famotidine 40 mg 08/19/20 11:00 08/24/20 08:16 Famotidine 20 Mg Tablet PO 40 mg BID MARTE[facility] Administration Fenofibrate 160 mg 08/17/20 09:00 08/24/20 08:17 Fenofibrate 160 Mg Tablet PO 160 mg DAILY MARTE[facility] Administration Folic Acid 5 mg 08/17/20 09:00 08/24/20 08:14 Folic Acid 1 Mg Tablet PO 5 mg DAILY MARTE[facility] Administration Gabapentin 600 mg 08/16/20 17:07 08/24/20 08:16 Gabapentin 600 Mg Tablet PO 600 mg TID [facility] Administration Piperacillin Sod/Tazobactam 50 mls @ 100 mls/hr 08/23/20 21:00 08/24/20 12:40 Sod 3.375 gm/ Sodium Chloride IV Infused Q6H [facility] Infusion Insulin Glargine 60 unit 08/16/20 21:00 08/22/20 21:59 Insulin Glargine,Hum.Rec.Anlog 100 Unit/Ml 10 Ml Vial SUBCUT 60 unit BEDTIME [facility] Administration Insulin Human Lispro 0 unit 08/16/20 17:07 08/24/20 13:00 Insulin Lispro 100 Unit/Ml 3 Ml Vial SUBCUT 2 unit QIDACHS [facility] Administration Protocol Methylprednisolone Sodium Succinate 40 mg 08/22/20 09:30 08/24/20 08:17 Methylprednisolone Sod Succ/Pf 40 Mg/Ml Vial IVPUSH 40 mg Q24H MARTELL Administration Ondansetron HCl 4 mg 08/16/20 17:07 08/20/20 01:17 Ondansetron Hcl 4 Mg/2 Ml Vial IVPUSH 4 mg Q8H PRN Administration Nausea and Vomiting Sodium Chloride 3 ml 08/16/20 17:07 08/24/20 08:19 0.9 % Sodium Chloride Flush 3 Ml Syringe IVFLUSH 3 ml QSHIFT [facility] Administration Thiamine HCl 200 mg 08/19/20 11:00 08/24/20 08:17 Thiamine Hcl 100 Mg Tablet PO 200 mg BID [facility] Administration Trimethoprim/Sulfamethoxazole 1 tab 08/19/20 10:00 08/23/20 07:56 Sulfamethox/Trimeth 400/80 1 Tab Tablet PO Not Given MOWEFR@1000 [facility] Vitamin D 50 mcg 08/19/20 11:00 08/24/20 08:13 Cholecalciferol (Vitamin D3) 25 Mcg Tablet PO 50 mcg DAILY MARTELL Administration Zinc Sulfate 220 mg 08/19/20 14:05 08/24/20 08:16 Zinc Sulfate 220 Mg Capsule PO 220 mg DAILY MARTELL Administration Labs CBC & Chem 7: 08/25/20 06:25 08/25/20 06:25 Microbiology Microbiology Results: Microbiology 08/16/20 11:11 Blood - Venous Blood Culture - Final No growth after 5 days. 08/16/20 11:07 Blood - Venous Blood Culture - Final No growth after 5 days. 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 acute hypoxic resp failure HFNC- currently on 40Lpm + fiO2 100%, wean O2 as tolerated, encouraged awake proning 08/23/20:Chest x-ray shows some infiltrates on right side/left lower lobe Patient has elevated leukocytosis question since the beginning probably related to steroids use now getting more higher level leukocytosis was 32 today but no fever no other new events Procalcitonin level is 0.15 leucocytosis seems improving slowly to 27 d/w Id -recomended to continue zosyn until Id follow up. 2.COVID-19 pneumonia completed 5d of remdesivir,changed from dexamethasone to methylprednisolone 08/19/20- 40mg q24h continue famotidine, thiamine, vit D, vit C, and Zn started in ICU [EVMS regimen] 3. metabolic acidosis: check ABG + urine anion gap which is resolved -was likely due to the acetazolamide she got in ICU for metabolic alkalosis 4. CATHY- resolved, SCr 1.61->0.75 4. ESBL in urine thought to be - colonizer, not infection (no pyuria) 5.HTN- continue amlodipine. 6. dyslipidemia- continue statin + fenofibrate 7. DM neuropathy- continue gabapentin 8. DM2, A1c 9.8- Lantus + correction-dose Humalog 9. RA:- hydroxychloroquine. 10. hx MRSA infection- continue SMX/TMP tiw prophylaxis from home
[2020-08-24 16:48] LABS: Glucose, Whole Blood 306 mg/dL (60-115)
[2020-08-24] MEDS: Enoxaparin Sodium 40 MG/0.4 ML SYRINGE SUBCUT (17:12)
[2020-08-24 19:07] LABS: Legionella Ag Urine Not Detected (Not Detected)
[2020-08-24] MEDS: Atorvastatin Calcium 10 MG TABLET 5 MG PO (19:59)
[2020-08-24 20:45] LABS: Glucose, Whole Blood 308 mg/dL (60-115)
[2020-08-25] VITALS (15 sets, daily range): BP systolic 132–159; BP diastolic 61–72; PULSE 82–96; RESP 12–26; TEMP 36.1–36.6; O2SAT 88–95
[2020-08-25] MEDS: Piperacillin Sodium/Tazobactam 3.375 GM in 0.9 % Sodium Chloride 50 ML IV ×4 (03:15→20:53)
[2020-08-25 06:56] LABS: Hematocrit 37.4 % (37-47); Hemoglobin 12.4 g/dl (12.0-16.0); Mean Corpuscular HGB Conc 33.2 g/dl (31.0-35.0); Mean Corpuscular Hemoglobin 27.1 pg (27.0-33.0); Mean Corpuscular Volume 81.7 fL (80-98); Platelet Count 401 X10*3/uL (160-400); Red Blood Count 4.58 X10*6/uL (4.20-5.50); Red Cell Distribution Width 15.8 % (11.0-16.0); White Blood Count 27.1 X10*3/uL (4.8-10.8)
[2020-08-25 07:24] LABS: Anion Gap 15 (12-20); Blood Urea Nitrogen 40 mg/dL (9-16); Carbon Dioxide 25 mmol/L (22-29); Chloride 104 mmol/L (96-108); Creatinine Clr Calc Pharmacy 76.8; Estimated Glomerular Filt Rate > 60; Glucose Random 153 mg/dL (60-115); Potassium 4.2 mmol/L (3.3-5.1); Sodium 140 mmol/L (135-145)
[2020-08-25 08:27] LABS: Glucose, Whole Blood 134 mg/dL (60-115)
[2020-08-25] MEDS: Gabapentin 600 MG TABLET PO ×3 (09:07→20:54)
[2020-08-25] MEDS: Folic Acid 1 MG TABLET 5 MG PO (09:07)
[2020-08-25] MEDS: Famotidine 20 MG TABLET 40 MG PO ×2 (09:07→20:54)
[2020-08-25] MEDS: Cholecalciferol (Vitamin D3) 25 MCG TABLET 50 MCG PO (09:07)
[2020-08-25] MEDS: Thiamine HCL 100 MG TABLET 200 MG PO ×2 (09:07→20:53)
[2020-08-25] MEDS: 0.9 % Sodium Chloride Flush 3 ML SYRINGE IVFLUSH ×2 (09:07→15:40)
[2020-08-25] MEDS: Ascorbic Acid 500 MG TABLET 1000 MG PO ×3 (09:07→20:54)
[2020-08-25] MEDS: Zinc Sulfate 220 MG CAPSULE PO (09:07)
[2020-08-25] MEDS: amLODIPine Besylate 10 MG TABLET PO (09:07)
[2020-08-25] MEDS: Fenofibrate 160 MG TABLET PO (09:09)
[2020-08-25 11:50] LABS: Glucose, Whole Blood 259 mg/dL (60-115)
[2020-08-25] MEDS: Insulin Lispro 100 UNIT/ML 3 ML VIAL SUBCUT ×3 (11:56→20:54)
--- NOTE | 2020-08-25 14:34 | P.PNIM_ITS ---
Subjective Subjective Date of Service: 08/25/20 Interval History: Acute hypoxemic respiratory failure secondary to COVID infection. Review of Systems Says shortness of breath is slowly improving day-by-day. Denies any chest pain or nausea or vomiting or fever chills Physical Exam Vital Signs: Vital Signs: Last Vital Signs Temp 97.2 F 08/25/20 11:25 Pulse 96 08/25/20 11:25 Resp 12 08/25/20 11:25 BP 136/65 08/25/20 11:25 Pulse Ox 88 L 08/25/20 11:25 Body Mass Index 32.9 Physical exam: Constitutional: Not in good distress Cvs: rrr, [id number] , no murmur res: fair air netry , slightly diminshed at bases ,no rhonchii or wheezing abd: no rebound or guarding ,nt, bs present. ext pulses present , no cyanosis neuro: axo3 , nonfocal. Objective Data Current Medications Generic Name Dose Route Start Last Admin Trade Name Freq PRN Reason Stop Dose Admin Acetaminophen 650 mg 08/16/20 17:07 08/23/20 04:02 Acetaminophen 325 Mg Tablet PO 650 mg Q6H PRN Administration Pain, Mild (Pain Scale 1-3) Amlodipine Besylate 10 mg 08/18/20 13:15 08/25/20 09:07 Amlodipine Besylate 10 Mg Tablet PO 10 mg DAILY MARTELL Administration Protocol Ascorbic Acid 1,000 mg 08/19/20 15:00 08/25/20 09:07 Ascorbic Acid 500 Mg Tablet PO 1,000 mg TID MARTELL Administration Atorvastatin Calcium 5 mg 08/16/20 21:00 08/24/20 19:59 Atorvastatin Calcium 10 Mg Tablet PO 5 mg BEDTIME MARTELL Administration Calcium Carbonate 750 mg 08/18/20 22:04 08/24/20 15:00 Calcium Carbonate 750 Mg Tab.Chew PO 750 mg Q6H PRN Administration Heartburn Docusate Sodium 100 mg 08/16/20 17:07 08/20/20 06:26 Docusate Sodium 100 Mg Capsule PO 100 mg DAILY PRN Administration Constipation Enoxaparin Sodium 40 mg 08/16/20 18:00 08/24/20 17:12 Enoxaparin Sodium 40 Mg/0.4 Ml Syringe SUBCUT 40 mg Q24H MARTELL Administration Famotidine 40 mg 08/19/20 11:00 08/25/20 09:07 Famotidine 20 Mg Tablet PO 40 mg BID MARTELL Administration Fenofibrate 160 mg 08/17/20 09:00 08/25/20 09:09 Fenofibrate 160 Mg Tablet PO 160 mg DAILY MARTELL Administration Folic Acid 5 mg 08/17/20 09:00 08/25/20 09:07 Folic Acid 1 Mg Tablet PO 5 mg DAILY [facility] Administration Gabapentin 600 mg 08/16/20 17:07 08/25/20 09:07 Gabapentin 600 Mg Tablet PO 600 mg TID [facility] Administration Piperacillin Sod/Tazobactam 50 mls @ 100 mls/hr 08/23/20 21:00 08/25/20 10:25 Sod 3.375 gm/ Sodium Chloride IV Infused Q6H [facility] Infusion Insulin Glargine 60 unit 08/16/20 21:00 08/22/20 21:59 Insulin Glargine,Hum.Rec.Anlog 100 Unit/Ml 10 Ml Vial SUBCUT 60 unit BEDTIME [facility] Administration Insulin Human Lispro 0 unit 08/16/20 17:07 08/25/20 11:56 Insulin Lispro 100 Unit/Ml 3 Ml Vial SUBCUT 6 unit QIDACHS [facility] Administration Protocol Methylprednisolone Sodium Succinate 40 mg 08/22/20 09:30 08/25/20 09:06 Methylprednisolone Sod Succ/Pf 40 Mg/Ml Vial IVPUSH 40 mg Q24H [facility]TE[facility] Administration Ondansetron HCl 4 mg 08/16/20 17:07 08/20/20 01:17 Ondansetron Hcl 4 Mg/2 Ml Vial IVPUSH 4 mg Q8H PRN Administration Nausea and Vomiting Sodium Chloride 3 ml 08/16/20 17:07 08/25/20 09:07 0.9 % Sodium Chloride Flush 3 Ml Syringe IVFLUSH 3 ml QSHIFT [facility] Administration Thiamine HCl 200 mg 08/19/20 11:00 08/25/20 09:07 Thiamine Hcl 100 Mg Tablet PO 200 mg BID [facility] Administration Trimethoprim/Sulfamethoxazole 1 tab 08/19/20 10:00 08/23/20 07:56 Sulfamethox/Trimeth 400/80 1 Tab Tablet PO Not Given MOWEFR@1000 [facility] Vitamin D 50 mcg 08/19/20 11:00 08/25/20 09:07 Cholecalciferol (Vitamin D3) 25 Mcg Tablet PO 50 mcg DAILY [facility] Administration Zinc Sulfate 220 mg 08/19/20 14:05 08/25/20 09:07 Zinc Sulfate 220 Mg Capsule PO 220 mg DAILY [facility]TELL Administration Labs CBC & Chem 7: 08/25/20 06:25 08/25/20 06:25 Microbiology Microbiology Results: Microbiology 08/16/20 11:11 Blood - Venous Blood Culture - Final No growth after 5 days. 08/16/20 11:07 Blood - Venous Blood Culture - Final No growth after 5 days. 08/16/20 Unknown Urine clean catch - Clean Catch Midstream Urine Culture - Final Escherichia coli Assessment and Plan (1) Respiratory failure with hypoxia: Status: Acute (2) COVID-19: Status: Acute Assessment and Plan: hospital day#10. 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 acute hypoxic resp failure HFNC- currently on 40Lpm + fiO2 100%, wean O2 as tolerated, encouraged awake proning 08/23/20:Chest x-ray shows some infiltrates on right side/left lower lobe Patient has elevated leukocytosis question since the beginning probably related to steroids use now getting more higher level leukocytosis was 32 today but no fever no other new events Procalcitonin level is 0.15 leucocytosis seems improving slowly d/w Id -recomended to continue zosyn until Id follow up. 2.COVID-19 pneumonia completed 5d of remdesivir,changed from dexamethasone to methylprednisolone 08/19/20- 40mg q24h continue famotidine, thiamine, vit D, vit C, and Zn started in ICU [EVMS regimen] 3. metabolic acidosis: check ABG + urine anion gap which is resolved -was likely due to the acetazolamide she got in ICU for metabolic alkalosis 4. CATHY- resolved, SCr 1.61->0.75 4. ESBL in urine thought to be - colonizer, not infection (no pyuria) 5.HTN- continue amlodipine. 6. dyslipidemia- continue statin + fenofibrate 7. DM neuropathy- continue gabapentin 8. DM2, A1c 9.8- Lantus + correction-dose Humalog 9. RA:- hydroxychloroquine. 10. hx MRSA infection- continue SMX/TMP tiw prophylaxis from home
[2020-08-25 16:32] LABS: Glucose, Whole Blood 270 mg/dL (60-115)
[2020-08-25] MEDS: Enoxaparin Sodium 40 MG/0.4 ML SYRINGE SUBCUT (17:06)
[2020-08-25 20:28] LABS: Glucose, Whole Blood 367 mg/dL (60-115)
[2020-08-25] MEDS: Atorvastatin Calcium 10 MG TABLET 5 MG PO (20:53)
[2020-08-26] VITALS (13 sets, daily range): BP systolic 120–158; BP diastolic 56–71; PULSE 79–93; RESP 18–22; TEMP 36.1–37.1; O2SAT 90–96
[2020-08-26] MEDS: 0.9 % Sodium Chloride Flush 3 ML SYRINGE IVFLUSH ×3 (00:33→17:45)
[2020-08-26] MEDS: Acetaminophen 325 MG TABLET 650 MG PO (04:23)
[2020-08-26] MEDS: Piperacillin Sodium/Tazobactam 3.375 GM in 0.9 % Sodium Chloride 50 ML IV ×4 (04:24→22:27)
[2020-08-26 07:19] LABS: Glucose, Whole Blood 164 mg/dL (60-115)
[2020-08-26] MEDS: Cholecalciferol (Vitamin D3) 25 MCG TABLET 50 MCG PO (09:34)
[2020-08-26] MEDS: Folic Acid 1 MG TABLET 5 MG PO (09:34)
[2020-08-26] MEDS: Ascorbic Acid 500 MG TABLET 1000 MG PO ×3 (09:34→22:19)
[2020-08-26] MEDS: Fenofibrate 160 MG TABLET PO (09:34)
[2020-08-26] MEDS: Famotidine 20 MG TABLET 40 MG PO ×2 (09:34→22:29)
[2020-08-26] MEDS: Gabapentin 600 MG TABLET PO ×3 (09:35→22:28)
[2020-08-26] MEDS: Zinc Sulfate 220 MG CAPSULE PO (09:35)
[2020-08-26] MEDS: Thiamine HCL 100 MG TABLET 200 MG PO ×2 (09:35→22:20)
[2020-08-26] MEDS: amLODIPine Besylate 10 MG TABLET PO (09:36)
[2020-08-26 11:15] LABS: Glucose, Whole Blood 281 mg/dL (60-115)
[2020-08-26] MEDS: Insulin Lispro 100 UNIT/ML 3 ML VIAL SUBCUT ×3 (12:01→22:27)
--- NOTE | 2020-08-26 14:22 | MHC.CLN ---
F/U PO INTAKE 75% AVG DIET RX: 1500DM-APPOPRIATE PT RECEIVES GLUCERNA BID TO INCREASE KCALS FOLLOWING
[2020-08-26 16:52] LABS: Glucose, Whole Blood 289 mg/dL (60-115)
--- NOTE | 2020-08-26 17:01 | HO.PM.IMPN ---
Subjective Subjective Date of Service: 08/26/20 Interval History: Acute hypoxemic respiratory failure secondary to COVID infection. Review of Systems Still feels somewhat short of breath but with little exertion or movement sats are fluctuating in 80s Denies any denies any chest pain or abdominal pain or nausea or vomiting or fever or chills. Physical Exam Vital Signs: Vital Signs: Last Vital Signs Temp 98 F 08/26/20 10:52 Pulse 86 08/26/20 10:52 Resp 22 H 08/26/20 16:04 BP 127/64 08/26/20 16:00 Pulse Ox 94 08/26/20 16:00 Body Mass Index 32.9 Physical exam: Constitutional: Not in acute distress HEENT: Eyes: Anicteric, no discharge. Neck: Supple. Cvs: rrr, [id number] , no murmur res: Diminished breath sounds at bases, few rhonchi otherwise no wheezing or rales abd: no rebound or guarding ,nt, bs present. ext pulses present , no cyanosis neuro: axo3 , nonfocal. Objective Data Current Medications Generic Name Dose Route Start Last Admin Trade Name Freq PRN Reason Stop Dose Admin Acetaminophen 650 mg 08/16/20 17:07 08/26/20 04:23 Acetaminophen 325 Mg Tablet PO 650 mg Q6H PRN Administration Pain, Mild (Pain Scale 1-3) Amlodipine Besylate 10 mg 08/18/20 13:15 08/26/20 09:36 Amlodipine Besylate 10 Mg Tablet PO 10 mg DAILY MARTELL Administration Protocol Ascorbic Acid 1,000 mg 08/19/20 15:00 08/26/20 09:34 Ascorbic Acid 500 Mg Tablet PO 1,000 mg TID MARTELL Administration Atorvastatin Calcium 5 mg 08/16/20 21:00 08/25/20 20:53 Atorvastatin Calcium 10 Mg Tablet PO 5 mg BEDTIME MARTELL Administration Calcium Carbonate 750 mg 08/18/20 22:04 08/24/20 15:00 Calcium Carbonate 750 Mg Tab.Chew PO 750 mg Q6H PRN Administration Heartburn Docusate Sodium 100 mg 08/16/20 17:07 08/20/20 06:26 Docusate Sodium 100 Mg Capsule PO 100 mg DAILY PRN Administration Constipation Enoxaparin Sodium 40 mg 08/16/20 18:00 08/25/20 17:06 Enoxaparin Sodium 40 Mg/0.4 Ml Syringe SUBCUT 40 mg Q24H MARTELL Administration Famotidine 40 mg 08/19/20 11:00 08/26/20 09:34 Famotidine 20 Mg Tablet PO 40 mg BID MARTELL Administration Fenofibrate 160 mg 08/17/20 09:00 08/26/20 09:34 Fenofibrate 160 Mg Tablet PO 160 mg DAILY MARTELL Administration Folic Acid 5 mg 08/17/20 09:00 08/26/20 09:34 Folic Acid 1 Mg Tablet PO 5 mg DAILY MARTELL Administration Gabapentin 600 mg 08/16/20 17:07 08/26/20 09:35 Gabapentin 600 Mg Tablet PO 600 mg TID MARTELL Administration Piperacillin Sod/Tazobactam 50 mls @ 100 mls/hr 08/23/20 21:00 08/26/20 10:05 Sod 3.375 gm/ Sodium Chloride IV Infused Q6H [facility] Infusion Insulin Glargine 60 unit 08/16/20 21:00 08/22/20 21:59 Insulin Glargine,Hum.Rec.Anlog 100 Unit/Ml 10 Ml Vial SUBCUT 60 unit BEDTIME [facility] Administration Insulin Human Lispro 0 unit 08/16/20 17:07 08/26/20 12:01 Insulin Lispro 100 Unit/Ml 3 Ml Vial SUBCUT 6 unit QIDACHS [facility]TELL Administration Protocol Methylprednisolone Sodium Succinate 40 mg 08/22/20 09:30 08/26/20 09:34 Methylprednisolone Sod Succ/Pf 40 Mg/Ml Vial IVPUSH 40 mg Q24H [facility]TELL Administration Ondansetron HCl 4 mg 08/16/20 17:07 08/20/20 01:17 Ondansetron Hcl 4 Mg/2 Ml Vial IVPUSH 4 mg Q8H PRN Administration Nausea and Vomiting Sodium Chloride 3 ml 08/16/20 17:07 08/26/20 09:33 0.9 % Sodium Chloride Flush 3 Ml Syringe IVFLUSH 3 ml QSHIFT [facility]TELL Administration Thiamine HCl 200 mg 08/19/20 11:00 08/26/20 09:35 Thiamine Hcl 100 Mg Tablet PO 200 mg BID MARTELL Administration Vitamin D 50 mcg 08/19/20 11:00 08/26/20 09:34 Cholecalciferol (Vitamin D3) 25 Mcg Tablet PO 50 mcg DAILY [facility]TELL Administration Zinc Sulfate 220 mg 08/19/20 14:05 08/26/20 09:35 Zinc Sulfate 220 Mg Capsule PO 220 mg DAILY [facility]TELL Administration Labs CBC & Chem 7: 08/25/20 06:25 08/25/20 06:25 Microbiology Microbiology Results: Microbiology 08/16/20 11:11 Blood - Venous Blood Culture - Final No growth after 5 days. 08/16/20 11:07 Blood - Venous Blood Culture - Final No growth after 5 days. 08/16/20 Unknown Urine clean catch - Clean Catch Midstream Urine Culture - Final Escherichia coli Assessment and Plan (1) Respiratory failure with hypoxia: Status: Acute (2) COVID-19: Status: Acute Assessment and Plan: hospital day#10. 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 acute hypoxic resp failure: 08/23/20:Chest x-ray shows some infiltrates on right side/left lower lobe Patient has elevated leukocytosis question since the beginning probably related to steroids use now getting more higher level leukocytosis was 32 today but no fever no other new events Procalcitonin level is 0.15 leucocytosis seems improving slowly also on zosyn -due to above new infiltrate ID following. Patient saturation was still fluctuating low in 80s so will check ABG -icu is aware 2.COVID-19 pneumonia completed 5d of remdesivir,changed from dexamethasone to methylprednisolone 08/19/20- 40mg q24h continue famotidine, thiamine, vit D, vit C, and Zn started in ICU [EVMS regimen] Icu saw -will add abg /venous dupplex added . 3. CATHY- resolved, SCr 1.61->0.75 4. ESBL in urine thought to be - colonizer, not infection (no pyuria) 5.HTN- continue amlodipine. 6. dyslipidemia- continue statin + fenofibrate 7. DM neuropathy- continue gabapentin 8. DM2, A1c 9.8- Lantus + correction-dose Humalog 9. RA:- hydroxychloroquine. 10. hx MRSA infection- continue SMX/TMP tiw prophylaxis from home
[2020-08-26 17:30] LABS: Pt Ventilation O2% 100%
[2020-08-26 17:36] LABS: ABG PCO2 35 mmHg (32-45); Base Excess ABG 5.4; HCO3 ABG 28 mmol/L (22-26); PO2 ABG 58 mmHg (83-108)
[2020-08-26] MEDS: Enoxaparin Sodium 40 MG/0.4 ML SYRINGE SUBCUT (17:46)
[2020-08-26 20:44] LABS: Glucose, Whole Blood 296 mg/dL (60-115)
[2020-08-26] MEDS: Atorvastatin Calcium 10 MG TABLET 5 MG PO (22:20)
[2020-08-27] VITALS (15 sets, daily range): BP systolic 131–139; BP diastolic 61–68; PULSE 75–99; RESP 18–24; TEMP 35.9–36.9; O2SAT 88–95
[2020-08-27] MEDS: 0.9 % Sodium Chloride Flush 3 ML SYRINGE IVFLUSH ×3 (02:28→15:38)
[2020-08-27] MEDS: Piperacillin Sodium/Tazobactam 3.375 GM in 0.9 % Sodium Chloride 50 ML IV ×4 (04:32→20:59)
[2020-08-27] MEDS: Enoxaparin Sodium 40 MG/0.4 ML SYRINGE SUBCUT ×2 (04:34→16:59)
[2020-08-27 08:26] LABS: Glucose, Whole Blood 128 mg/dL (60-115)
[2020-08-27] MEDS: Folic Acid 1 MG TABLET 5 MG PO (09:39)
[2020-08-27] MEDS: amLODIPine Besylate 10 MG TABLET PO (09:39)
[2020-08-27] MEDS: Thiamine HCL 100 MG TABLET 200 MG PO ×2 (09:39→21:00)
[2020-08-27] MEDS: Cholecalciferol (Vitamin D3) 25 MCG TABLET 50 MCG PO (09:39)
[2020-08-27] MEDS: Ascorbic Acid 500 MG TABLET 1000 MG PO ×3 (09:39→21:00)
[2020-08-27] MEDS: Fenofibrate 160 MG TABLET PO (09:39)
[2020-08-27] MEDS: Zinc Sulfate 220 MG CAPSULE PO (09:39)
[2020-08-27] MEDS: Gabapentin 600 MG TABLET PO ×3 (09:39→21:00)
[2020-08-27] MEDS: Famotidine 20 MG TABLET 40 MG PO ×2 (09:54→21:00)
[2020-08-27] MEDS: methylPREDNISolone Sod Succ/PF 125 MG/2 ML VIAL IVPUSH (09:55)
[2020-08-27 11:34] LABS: Glucose, Whole Blood 314 mg/dL (60-115)
[2020-08-27] MEDS: Insulin Lispro 100 UNIT/ML 3 ML VIAL SUBCUT ×3 (12:00→21:00)
--- NOTE | 2020-08-27 15:50 | HO.PM.IMPN ---
Subjective Subjective Date of Service: 08/27/20 Interval History: Acute hypoxemic respiratory failure secondary to COVID infection. Review of Systems Patient is still short intermittent, but still can speak in full sentences, Denies any cough or fever or nausea or vomiting or abdominal pain. Denies any diarrhea Physical Exam Vital Signs: Vital Signs: Last Vital Signs Temp 98.1 F 08/27/20 12:00 Pulse 98 08/27/20 12:00 Resp 20 08/27/20 15:09 BP 139/65 08/27/20 12:00 Pulse Ox 92 08/27/20 12:00 Body Mass Index 32.9 Physical exam: Constitutional: Seems comfortable, some short of sob but still answer questions. Cvs: rrr, [id number] , no murmur res: clear to auscultation ,no rhonchii or wheezing abd: no rebound or guarding ,nt, bs present. ext pulses present , no cyanosis neuro: axo3 , nonfocal. Objective Data Current Medications Generic Name Dose Route Start Last Admin Trade Name Freq PRN Reason Stop Dose Admin Acetaminophen 650 mg 08/16/20 17:07 08/26/20 04:23 Acetaminophen 325 Mg Tablet PO 650 mg Q6H PRN Administration Pain, Mild (Pain Scale 1-3) Amlodipine Besylate 10 mg 08/18/20 13:15 08/27/20 09:39 Amlodipine Besylate 10 Mg Tablet PO 10 mg DAILY MARTELL Administration Protocol Ascorbic Acid 1,000 mg 08/19/20 15:00 08/27/20 14:05 Ascorbic Acid 500 Mg Tablet PO 1,000 mg TID MARTELL Administration Atorvastatin Calcium 5 mg 08/16/20 21:00 08/26/20 22:20 Atorvastatin Calcium 10 Mg Tablet PO 5 mg BEDTIME [facility]TELL Administration Calcium Carbonate 750 mg 08/18/20 22:04 08/24/20 15:00 Calcium Carbonate 750 Mg Tab.Chew PO 750 mg Q6H PRN Administration Heartburn Docusate Sodium 100 mg 08/16/20 17:07 08/20/20 06:26 Docusate Sodium 100 Mg Capsule PO 100 mg DAILY PRN Administration Constipation Doxycycline Hyclate 100 mg 08/27/20 10:00 08/27/20 09:56 Doxycycline Hyclate 100 Mg Tablet PO 100 mg Q12H MARTELL Administration Enoxaparin Sodium 40 mg 08/26/20 18:00 08/27/20 04:34 Enoxaparin Sodium 40 Mg/0.4 Ml Syringe SUBCUT 40 mg Q12H MARTELL Administration Famotidine 40 mg 08/19/20 11:00 08/27/20 09:54 Famotidine 20 Mg Tablet PO 40 mg BID MARTELL Administration Fenofibrate 160 mg 08/17/20 09:00 08/27/20 09:39 Fenofibrate 160 Mg Tablet PO 160 mg DAILY MARTELL Administration Folic Acid 5 mg 08/17/20 09:00 08/27/20 09:39 Folic Acid 1 Mg Tablet PO 5 mg DAILY MARTELL Administration Gabapentin 600 mg 08/16/20 17:07 08/27/20 14:05 Gabapentin 600 Mg Tablet PO 600 mg TID MARTELL Administration Guaifenesin/Dextromethorphan 2 tab 08/27/20 09:45 08/27/20 09:55 Guaifenesin Dm 600/30 1 Tab Tab.Er.12h PO Not Given BID MARTELL Piperacillin Sod/Tazobactam 50 mls @ 100 mls/hr 08/23/20 21:00 08/27/20 14:38 Sod 3.375 gm/ Sodium Chloride IV Infused Q6H [facility] Infusion Insulin Glargine 60 unit 08/16/20 21:00 08/22/20 21:59 Insulin Glargine,Hum.Rec.Anlog 100 Unit/Ml 10 Ml Vial SUBCUT 60 unit BEDTIME [facility] Administration Insulin Human Lispro 0 unit 08/16/20 17:07 08/27/20 12:00 Insulin Lispro 100 Unit/Ml 3 Ml Vial SUBCUT 8 unit QIDACHS [facility] Administration Protocol Methylprednisolone Sodium Succinate 40 mg 08/22/20 09:30 08/27/20 09:40 Methylprednisolone Sod Succ/Pf 40 Mg/Ml Vial IVPUSH 40 mg Q24H [facility] Administration Ondansetron HCl 4 mg 08/16/20 17:07 08/20/20 01:17 Ondansetron Hcl 4 Mg/2 Ml Vial IVPUSH 4 mg Q8H PRN Administration Nausea and Vomiting Sodium Chloride 3 ml 08/16/20 17:07 08/27/20 15:38 0.9 % Sodium Chloride Flush 3 Ml Syringe IVFLUSH 3 ml QSHIFT [facility]TE[facility] Administration Thiamine HCl 200 mg 08/19/20 11:00 08/27/20 09:39 Thiamine Hcl 100 Mg Tablet PO 200 mg BID [facility] Administration Vitamin D 50 mcg 08/19/20 11:00 08/27/20 09:39 Cholecalciferol (Vitamin D3) 25 Mcg Tablet PO 50 mcg DAILY [facility] Administration Zinc Sulfate 220 mg 08/19/20 14:05 08/27/20 09:39 Zinc Sulfate 220 Mg Capsule PO 220 mg DAILY [facility] Administration Labs CBC & Chem 7: 08/25/20 06:25 08/25/20 06:25 Microbiology Microbiology Results: Microbiology 08/16/20 11:11 Blood - Venous Blood Culture - Final No growth after 5 days. 08/16/20 11:07 Blood - Venous Blood Culture - Final No growth after 5 days. 08/16/20 Unknown Urine clean catch - Clean Catch Midstream Urine Culture - Final Escherichia coli Assessment and Plan (1) COVID-19: Status: Acute Assessment and Plan: hospital day#11. 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 acute hypoxic resp failure/covid. 08/23/20:Chest x-ray shows some infiltrates on right side/left lower lobe Patient has elevated leukocytosis question since the beginning probably related to steroids use now getting more higher level leukocytosis was 32 today but no fever no other new events Procalcitonin level is 0.15 leucocytosis seems improving slowly venous dupplex lower ext neg also on zosyn day 4 ,added dxyxyline ,moniter procalcitonin levels pulm and Id following Discussed with ICU- we will continue to monitor -under recommended to continue current management, if patient condition worsen we will recall ICU. 2.COVID-19 pneumonia completed 5d of remdesivir,changed from dexamethasone to methylprednisolone 08/19/20- 40mg q24h continue famotidine, thiamine, vit D, vit C, and Zn started in ICU [EVMS regimen], lovenox 40 mg q12. 3. CATHY- resolved, SCr 1.61->0.75 4. ESBL in urine thought to be - colonizer, not infection (no pyuria) 5.HTN- continue amlodipine. 6. dyslipidemia- continue statin + fenofibrate 7. DM neuropathy- continue gabapentin 8. DM2, A1c 9.8- Lantus + correction-dose Humalog 9. RA:- hydroxychloroquine. 10. hx MRSA infection- continue SMX/TMP tiw prophylaxis from home (2) Respiratory failure with hypoxia: Status: Acute
[2020-08-27 16:53] LABS: Glucose, Whole Blood 285 mg/dL (60-115)
--- NOTE | 2020-08-27 19:14 | CONS_ITS ---
DATE OF SERVICE: 08/27/2020 CHIEF COMPLAINT: Shortness of breath. HISTORY OF PRESENT ILLNESS: Mrs. No is a 60-year-old woman with a known history of diabetes, rheumatoid arthritis, on hydroxychloroquine, who apparently was in her usual state of health until recently when she started developing worsening shortness of breath sometime in the end of July. Therefore, she came to the ER and she was tested for COVID back in August 11, which was positive for COVID-19 infection. The patient was able to be discharged home with supportive care. However, she continued getting worse. She had been taking Decadron at home. She presented back to the ER with more shortness of breath and cough, and was found to be hypoxic on arrival. CT scan of the chest demonstrated extensive bilateral airspace disease. The patient was requiring high doses of oxygen via high-flow and also non-rebreather. Infectious Disease did evaluate the patient. She was treated with remdesivir and was given 1 unit of convalescent plasma. However, her oxygen requirements continued to be high. She was evaluated by the Intensive Care Unit and she was subsequently transferred, requiring CPAP support. She completed the dexamethasone, remdesivir, and was subsequently transferred back to the floor on high-flow and also non-rebreather. The patient is still with minimal activity. The patient has significant shortness of breath. Significant hypoxia. She did have a D-dimer that was elevated in the 800s. Therefore, her Lovenox was increased to twice a day . The patient also was placed on Zosyn for suspicion of a superimposed bacterial infection. She continues to have a cough, difficult to expectorate the phlegm. REVIEW OF SYSTEMS: Ten systems reviewed. The patient is feeling very short of breath, complains of a cough. Denies any cardiac symptoms. Denies any GI or symptoms. Complains of musculoskeletal weakness. Denies any rashes. The rest of the 10-organ system is negative. She is sad with all the circumstances. PAST MEDICAL HISTORY: Diabetes, fatty liver, GERD, history of seizures, hypercholesterolemia, hypertension, obesity, peptic ulcer disease, rheumatoid arthritis, vitamin D deficiency. ALLERGIES: PLEASE REFER TO THE [facility] FOR THE FULL LIST, WHICH INCLUDES METFORMIN AND LISINOPRIL. MEDICATIONS: She again completed Decadron, completed remdesivir, and received 1 dose of convalescent plasma. Currently, she is on Zosyn, gabapentin, lisinopril, Zofran, Lipitor, folate, thiamine, zinc, Solu-Medrol 40 mg q.24, Lovenox 40 mg b.i.d. PHYSICAL EXAMINATION: VITAL SIGNS: Stable, saturating 94% on high-flow and also non-rebreather. GENERAL: Pleasant lady, in no acute distress. She is sad at times. HEENT: Pupils equal and react to light. Oropharynx clear. NECK: Supple. LUNGS: Fine crackles bilaterally. Clarence up consistent with some degree of pulmonary fibrosis. CARDIAC: Regular rhythm and regular rate. ABDOMEN: Positive bowel sounds. Soft. EXTREMITIES: No clubbing or cyanosis. LABORATORY DATA: Her white count is increased to 27.1, platelet count 401. Microbiology, E coli from the urine. IMAGING STUDIES: Last chest x-ray was from August 23, 2020, which I personally reviewed, demonstrating what appears to be very fine reticulonodular opacities consistent with pulmonary fibrosis, and lower extremity Dopplers are negative. CTA also reviewed demonstrating airspace disease, and her blood gas was last done 08/26/2020 with a pH 7.5, pCO2 of 35, pO2 of 58 consistent with hypoxic respiratory failure along with hyperventilation secondary to her hypoxia. ASSESSMENT: Mrs. No is a 60-year-old woman, now with acute respiratory failure after a bout with COVID-19 infection. IMPRESSION: 1. Acute hypoxic respiratory failure as stated above, now appears to be developing more of a pulmonary fibrosis which is more like proliferative phase of the acute respiratory distress syndrome. Mainly affecting her lower lung zones primarily where gas exchange occurs. This is causing significant V/Q mismatch and significant physiological space. 2. Pneumonia. 3. COVID-19 infection, status post remdesivir, Decadron, and convalescent plasma. Unfortunately, she has developed significant complications due to the severe inflammation of the lung parenchyma. RECOMMENDATIONS: 1. Give 1 dose of Solu-Medrol 125 mg IV x1. Continue with Solu-Medrol 40 mg daily. 2. We will add doxycycline for post viral bacterial infections to cover staph and strep a little better. She is being treated with Zosyn for the E coli. 3. Mucinex for cough expectorant and also for suppression. 4. We will check SARS CoV-2 antibiotics to see if she is already mounting a response, got to be careful especially since she has received so much steroids that it may have hindered her ability to mount the immune response. We will continue monitoring her progress closely. Further recommendations based on forthcoming data. MD RANDI Witt/CORNEL / [phone]
[2020-08-27] MEDS: Atorvastatin Calcium 10 MG TABLET 5 MG PO (21:00)
[2020-08-27] MEDS: guaiFENesin DM 600/30 1 TAB TAB.ER.12H 2 TAB PO (21:00)
[2020-08-27] MEDS: Nystatin Powder 15 GM BOTTLE 1 APPL TOPICAL (21:00)
[2020-08-27] MEDS: Insulin Glargine,Hum.rec.anlog 100 UNIT/ML 10 ML VIAL 60 UNIT SUBCUT (21:01)
[2020-08-27 21:18] LABS: Glucose, Whole Blood 348 mg/dL (60-115)
[2020-08-28] VITALS (12 sets, daily range): BP systolic 135–147; BP diastolic 61–70; PULSE 74–122; RESP 15–28; TEMP 36.2–37; O2SAT 90–97
[2020-08-28] MEDS: 0.9 % Sodium Chloride Flush 3 ML SYRINGE IVFLUSH ×4 (01:02→20:56)
[2020-08-28] MEDS: Piperacillin Sodium/Tazobactam 3.375 GM in 0.9 % Sodium Chloride 50 ML IV ×2 (03:23→09:40)
[2020-08-28] MEDS: Enoxaparin Sodium 40 MG/0.4 ML SYRINGE SUBCUT (05:15)
[2020-08-28 06:25] LABS: Hemoglobin 12.4 g/dl (12.0-16.0); Mean Corpuscular HGB Conc 32.6 g/dl (31.0-35.0); Mean Corpuscular Hemoglobin 27.2 pg (27.0-33.0); Mean Corpuscular Volume 83.3 fL (80-98); Mean Platelet Volume 11.2 fL (9.4-12.3); Platelet Count 330 X10*3/uL (160-400); Red Blood Count 4.56 X10*6/uL (4.20-5.50); Red Cell Distribution Width 14.8 % (11.0-16.0); White Blood Count 16.8 X10*3/uL (4.8-10.8)
[2020-08-28] MEDS: Acetaminophen 325 MG TABLET 650 MG PO (06:28)
[2020-08-28 06:54] LABS: Anion Gap 17 (12-20); Blood Urea Nitrogen 37 mg/dL (9-16); Calcium 8.3 mg/dL (8.4-10.2); Carbon Dioxide 27 mmol/L (22-29); Chloride 100 mmol/L (96-108); Creatinine Clr Calc Pharmacy 89.3; Estimated Glomerular Filt Rate > 60; Glucose Random 138 mg/dL (60-115); Potassium 4.8 mmol/L (3.3-5.1); Sodium 139 mmol/L (135-145)
--- NOTE | 2020-08-28 07:30 | CA_ITS ---
Transthoracic Echocardiogram Patient (Last, First, Middle): Leidy No, Gender: Female Date of : 1960 Age: 60 Procedure Date: 08/28/2020 Procedure Type: Transthoracic Echocardiogram Location: [facility] Height: 152.4 cm Weight: 81.65 kg BSA: 1.78 m2 Heart Rate: bpm BP: 143 / 67 mmHg Half Sole Fitter: Referring MD: Puneet Lincoln MD Symptoms: PE ?pulmonary hypertyension Study Quality: Technically Difficult due to limited window ECG Rhythm: Sinus Conclusions: - The left ventricular systolic function is normal. The visually estimated ejection fraction is between 55-60%. - No obvious valvular pathology seen on this study. - The right ventricular systolic pressure is 36 mmHg. Mild pulmonary hypertension is present. Findings Left Ventricle Normal left ventricular cavity size. There is normal left ventricular wall thickness. The left ventricular systolic function is normal. The visually estimated ejection fraction is between 55-60%. There is no evidence of regional wall motion abnormalities. Diastolic function is normal for age. Right Ventricle Normal right ventricular cavity size and systolic function. Atria Both atria are normal in size. Aortic Valve The aortic valve was not well visualized. There is no aortic valve stenosis. There is no aortic valve regurgitation. Mitral Valve The mitral valve appears normal. There is trace mitral valve regurgitation. There is no mitral valve stenosis. Pulmonic Valve The pulmonic valve was not well visualized. Tricuspid Valve There is trace tricuspid valve regurgitation. The right ventricular systolic pressure is 36 mmHg. Mild pulmonary hypertension is present. Great Vessels The aorta was not well visualized. Venous The inferior vena cava is normal in size and collapses greater than 50% with inspiration. Pericardium/Pleural There is no evidence of pericardial effusion. Prior Study Comparison No prior study available for comparison. Recommendations, Care & Conclusions No obvious valvular pathology seen on this study. Measurements 2D Linear Measurements IVSd: 0.83 0.6-0.9/0.6-1.0 cm LVIDd: 3.51 3.9-5.3/4.2-5.9 cm LVIDd Index: 1.97 2.4-3.2/2.2-3.1 cm/m2 LVIDs: 2.32 2.0-3.6 cm LVPWd: 0.80 0.7-1.1 cm LA Diam: 2.50 2.7-3.8/3.0-4.0 cm LAIDs Index: 1.40 1.5-2.3 cm/m2 LV Mass: 96.17 67-162/88-224 g LV Mass Index: 54.03 43-95/49-115 g/m2 LVOT Diam: 2.00 3.0+(-)1.3 cm Mitral Valve MV Pk E: 0.79 MV PK A: 0.71 MV Decel Time: 151.00 E/A: 1.10 E'Lateral: 7.25 E'Medial: 9.77 E/E' Med: 8.00 E/E' Lat: 10.80 PHT: 44.00 MVA PHT: 5.00 Decel [place]: 5.19 Aortic Valve AoV Pk [place]: 1.42 AoV Mn [place]: 0.93 AoV VTI: 0.30 AoV Pk Grad: 8.00 Aov Mn Grad: 4.00 MARTINEZ Cont.VTI: 1.89 LVOT LVOT Pk [place]: 0.89 LVOT Mn [place]: 0.57 LVOT VTI: 0.18 LVOT Pk Grad: 3.00 LVOT Mn Grad: 2.00 LVOT Diam: 2.00 LVOT Area: 3.14 Diastolic Function MV Pk E: 0.79 MV Pk A: 0.71 E/A: 1.10 E'Medial: 9.77 E/E' Med: 8.00 E' Laterial: 7.25 E/E' Lat: 10.80 Tricuspid Valve TR Pk [place]: 2.81 TR Pk Grad: 32.00 RA Press: 3.00 RVSP: 36.00 Updated in Other Vendor System with Status of Final David Escudero MD electronically signed on 08/28/2020 12:39:34 PM with status of Final
[2020-08-28 08:35] LABS: SARS COV2 IgG Positive (Negative)
[2020-08-28 08:37] LABS: Glucose, Whole Blood 158 mg/dL (60-115)
[2020-08-28] MEDS: Folic Acid 1 MG TABLET 5 MG PO (09:36)
[2020-08-28] MEDS: Famotidine 20 MG TABLET 40 MG PO (09:37)
[2020-08-28] MEDS: Cholecalciferol (Vitamin D3) 25 MCG TABLET 50 MCG PO (09:37)
[2020-08-28] MEDS: guaiFENesin DM 600/30 1 TAB TAB.ER.12H 2 TAB PO ×2 (09:37→20:56)
[2020-08-28] MEDS: Thiamine HCL 100 MG TABLET 200 MG PO (09:37)
[2020-08-28] MEDS: Fenofibrate 160 MG TABLET PO (09:37)
[2020-08-28] MEDS: Zinc Sulfate 220 MG CAPSULE PO (09:37)
[2020-08-28] MEDS: Gabapentin 600 MG TABLET PO ×3 (09:38→20:57)
[2020-08-28] MEDS: amLODIPine Besylate 10 MG TABLET PO (09:38)
[2020-08-28] MEDS: Nystatin Powder 15 GM BOTTLE 1 APPL TOPICAL ×2 (09:40→21:01)
--- NOTE | 2020-08-28 09:53 | PM.PNPUL ---
Subjective Subjective Date of Service: 08/28/20 Interval history: The patient was seen on exam. Using the high-flow in addition to the non-rebreather. Still having issues with expectoration. She is going to try to keep the non-rebreather off to avoid dryness of the mucous. The patient was started on Mucinex. Her chest x-ray demonstrated some airspace disease but also some areas of lucency bringing up the question of pneumomediastinum. Therefore waiting for the final read on the x-ray. If is still not clear then a follow-up CT scan of the chest should be done. In addition to that we will wait for an echocardiogram. The patient has antibodies are present suggesting that she now has the neutralize antibodies. She is currently on Solu-Medrol 40 mg in received pulse dose yesterday of 125 mg. Objective Data Labs CBC & Chem 7: 08/28/20 05:17 08/28/20 05:17 Labs: Laboratory Results - last 24 hr 08/27/20 08/27/20 08/27/20 09:45 11:26 16:45 WBC RBC Hgb Hct MCV MCH MCHC RDW Plt Count MPV Absolute Nucleated RBC Nucleated RBC % (auto) Sodium Potassium Chloride Carbon Dioxide Anion Gap BUN Creatinine Estim Creat Clear Calc Estimated GFR POC Glucose 314 H 285 H Random Glucose Calcium SARS-CoV-2 IgG Ab Positive 08/27/20 08/28/20 08/28/20 20:33 05:17 05:17 WBC 16.8 H RBC 4.56 Hgb 12.4 Hct 38.0 MCV 83.3 MCH 27.2 MCHC 32.6 RDW 14.8 Plt Count 330 MPV 11.2 Absolute Nucleated RBC 0.000 Nucleated RBC % (auto) 0.0 Sodium 139 Potassium 4.8 Chloride 100 Carbon Dioxide 27 Anion Gap 17 BUN 37 H Creatinine 0.68 Estim Creat Clear Calc 89.3 Estimated GFR > 60 POC Glucose 348 H Random Glucose 138 H Calcium 8.3 L SARS-CoV-2 IgG Ab 08/28/20 08:30 WBC RBC Hgb Hct MCV MCH MCHC RDW Plt Count MPV Absolute Nucleated RBC Nucleated RBC % (auto) Sodium Potassium Chloride Carbon Dioxide Anion Gap BUN Creatinine Estim Creat Clear Calc Estimated GFR POC Glucose 158 H Random Glucose Calcium SARS-CoV-2 IgG Ab Microbiology Microbiology Results: Microbiology 08/16/20 11:11 Blood - Venous Blood Culture - Final No growth after 5 days. 08/16/20 11:07 Blood - Venous Blood Culture - Final No growth after 5 days. 08/16/20 Unknown Urine clean catch - Clean Catch Midstream Urine Culture - Final Escherichia coli Review of Systems Constitutional: Denies night sweats Denies change in voice, Denies mouth pain, Reports nasal congestion, Reports nasal discharge and Denies tongue swelling Cardiovascular: Denies chest pain and Reports dyspnea on exertion Respiratory: Reports chest congestion, Reports cough and Reports dyspnea on exertion Gastrointestinal: Denies abdominal pain Musculoskeletal: Denies no additional musculoskeletal complaints Hematologic/Lymphatic: Denies easy bleeding Allergic/Immunologic: Denies tongue swelling Physical Exam Vital Signs: Vital Signs: Last Vital Signs Temp 98.6 F 08/28/20 08:00 Pulse 122 H 08/28/20 08:00 Resp 20 08/28/20 08:00 BP 135/61 08/28/20 08:00 Pulse Ox 94 08/28/20 08:00 Body Mass Index 32.9 Const: General: alert HENMT: General nose exam: Abnormal external nose present and Nasal discharge present Neck: Neck: Yes normal visual inspection, Yes full ROM and Yes no lymphadenopathy Chest: Chest palpation & inspection: normal inspection of the chest Resp: Auscultation: rales and diminished lung sounds Cardio: Rate: regular rate Rhythm: regular rhythm Heart sounds: S1 normal heart sound present and S2 normal heart sound present GI: Palpation (GI): Soft to palpation and nontender Auscultation: normal bowel sounds Assessment and Plan Assessment and plan (1) ARDS (adult respiratory distress syndrome): Status: Acute (2) Respiratory failure with hypoxia: Status: Acute (3) COVID-19: Status: Acute Assessment and Plan: Switch to p.o. prednisone 40 mg daily Awaiting echocardiogram I waiting chest x-ray read. Consider CT scan of the chest to assess for no mediastinal Complete 10 days of doxycycline. Did talk to Respiratory regarding getting her a flutter valve for CPT. Wean off from the non-rebreather continue high-flow to minimize dryness of mucus. Consider bronchoscopy for therapeutic cleaning if no better. Time Spent With Patient Time: Total time spent is greater than 50% in coordination of care (as documented) at patient's floor/unit and/or counseling patient: Time with patient: 15 - 24 minutes
--- NOTE | 2020-08-28 10:47 | HO.PM.IMPN ---
Subjective Subjective Date of Service: 08/28/20 Interval History: seen and examined slight improvement, but still significant NICOLE ROS General - no fevers or chills Cardiovascular - no chest pain Respiratory - +SOB, +COUGH Abdominal- no abdominal pain, nausea, vomiting, diarrhea Physical Exam Vital Signs: Vital Signs: Last Vital Signs Temp 98.6 F 08/28/20 08:00 Pulse 122 H 08/28/20 08:00 Resp 20 08/28/20 08:00 BP 135/61 08/28/20 08:00 Pulse Ox 94 08/28/20 08:00 Body Mass Index 32.9 Const: Other: General - ill appearing Cardiovascular - regular rate and rhythm, S1-S2 Lungs - dim sounds, tachypnea with min exertion, o2 stable on HFNC + 100% NRBM Abdomen - soft, nontender, no rebound or guarding Extremities - no edema bilaterally Neuro - awake and alert, no focal deficits Objective Data Current Medications Generic Name Dose Route Start Last Admin Trade Name Freq PRN Reason Stop Dose Admin Acetaminophen 650 mg 08/16/20 17:07 08/28/20 06:28 Acetaminophen 325 Mg Tablet PO 650 mg Q6H PRN Administration Pain, Mild (Pain Scale 1-3) Amlodipine Besylate 10 mg 08/18/20 13:15 08/28/20 09:38 Amlodipine Besylate 10 Mg Tablet PO 10 mg DAILY MARTELL Administration Protocol Ascorbic Acid 1,000 mg 08/19/20 15:00 08/28/20 09:41 Ascorbic Acid 500 Mg Tablet PO Not Given TID MARTELL Atorvastatin Calcium 5 mg 08/16/20 21:00 08/27/20 21:00 Atorvastatin Calcium 10 Mg Tablet PO 5 mg BEDTIME MARTELL Administration Calcium Carbonate 750 mg 08/18/20 22:04 08/24/20 15:00 Calcium Carbonate 750 Mg Tab.Chew PO 750 mg Q6H PRN Administration Heartburn Docusate Sodium 100 mg 08/16/20 17:07 08/20/20 06:26 Docusate Sodium 100 Mg Capsule PO 100 mg DAILY PRN Administration Constipation Doxycycline Hyclate 100 mg 08/27/20 10:00 08/28/20 09:38 Doxycycline Hyclate 100 Mg Tablet PO 100 mg Q12H MARTELL Administration Enoxaparin Sodium 40 mg 08/26/20 18:00 08/28/20 05:15 Enoxaparin Sodium 40 Mg/0.4 Ml Syringe SUBCUT 40 mg Q12H MARTELL Administration Famotidine 40 mg 08/19/20 11:00 08/28/20 09:37 Famotidine 20 Mg Tablet PO 40 mg BID MARTELL Administration Fenofibrate 160 mg 08/17/20 09:00 08/28/20 09:37 Fenofibrate 160 Mg Tablet PO 160 mg DAILY MARTELL Administration Folic Acid 5 mg 08/17/20 09:00 08/28/20 09:36 Folic Acid 1 Mg Tablet PO 5 mg DAILY MARTELL Administration Gabapentin 600 mg 08/16/20 17:07 08/28/20 09:38 Gabapentin 600 Mg Tablet PO 600 mg TID MARTELL Administration Guaifenesin/Dextromethorphan 2 tab 08/27/20 09:45 08/28/20 09:37 Guaifenesin Dm 600/30 1 Tab Tab.Er.12h PO 2 tab BID MARTELL Administration Piperacillin Sod/Tazobactam 50 mls @ 100 mls/hr 08/23/20 21:00 08/28/20 10:11 Sod 3.375 gm/ Sodium Chloride IV Infused Q6H MARTELL Infusion Insulin Glargine 60 unit 08/16/20 21:00 08/27/20 21:01 Insulin Glargine,Hum.Rec.Anlog 100 Unit/Ml 10 Ml Vial SUBCUT 60 unit BEDTIME MARTELL Administration Insulin Human Lispro 0 unit 08/16/20 17:07 08/28/20 09:14 Insulin Lispro 100 Unit/Ml 3 Ml Vial SUBCUT Not Given QIDACHS [facility] Protocol Methylprednisolone Sodium Succinate 40 mg 08/22/20 09:30 08/28/20 09:40 Methylprednisolone Sod Succ/Pf 40 Mg/Ml Vial IVPUSH 40 mg Q24H MARTELL Administration Nystatin 1 appl 08/27/20 21:00 08/28/20 09:40 Nystatin Powder 15 Gm Bottle TOPICAL 1 appl BID MARTELL Administration Ondansetron HCl 4 mg 08/16/20 17:07 08/20/20 01:17 Ondansetron Hcl 4 Mg/2 Ml Vial IVPUSH 4 mg Q8H PRN Administration Nausea and Vomiting Sodium Chloride 3 ml 08/16/20 17:07 08/28/20 09:38 0.9 % Sodium Chloride Flush 3 Ml Syringe IVFLUSH 3 ml QSHIFT MARTELL Administration Thiamine HCl 200 mg 08/19/20 11:00 08/28/20 09:37 Thiamine Hcl 100 Mg Tablet PO 200 mg BID MARTELL Administration Vitamin D 50 mcg 08/19/20 11:00 08/28/20 09:37 Cholecalciferol (Vitamin D3) 25 Mcg Tablet PO 50 mcg DAILY MARTELL Administration Zinc Sulfate 220 mg 08/19/20 14:05 08/28/20 09:37 Zinc Sulfate 220 Mg Capsule PO 220 mg DAILY MARTELL Administration Labs CBC & Chem 7: 08/28/20 05:17 08/28/20 05:17 Microbiology Microbiology Results: Microbiology 08/16/20 11:11 Blood - Venous Blood Culture - Final No growth after 5 days. 08/16/20 11:07 Blood - Venous Blood Culture - Final No growth after 5 days. 08/16/20 Unknown Urine clean catch - Clean Catch Midstream Urine Culture - Final Escherichia coli Assessment and Plan (1) COVID-19: Status: Acute Assessment and Plan: This is a 60-year-old female who is admitted for 1. Severe COVID-19 causing acute respiratory failure with hypoxia Completed course of remdesivir. On Solu-Medrol 40 mg daily On empiric doxycycline - day#2, for superimposed bacterial (per Pulm recs), cmpleted 5d of zosyn, will d/c zoysn 2. CATHY with Metabolic Acidosis resolved 3. ESBL in Urine colonized, no symptoms / infection 4. HTN norvasc 5. DM sliding scale + lantus 6.HLD statin 7. 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
--- NOTE | 2020-08-28 11:45 | PC.NURSE ---
Patient oxygen sat reading 40-50% with NRB and HFNC, patient found to have HFNC tubing detached from nasal piece. Tubing reconnected and oxygen sat slowly increasing to mid to high 80s, speaking full sentences with MD at bedside. Respiratory care contacted for new HFNC piece.
[2020-08-28 12:11] LABS: Glucose, Whole Blood 251 mg/dL (60-115)
[2020-08-28] MEDS: Insulin Lispro 100 UNIT/ML 3 ML VIAL SUBCUT ×3 (12:24→20:58)
--- NOTE | 2020-08-28 13:47 | MHC.CM.PN ---
Patient is on IV solu-medrol and O2 at 60 liters with FIO2 of 100% high flow and NRB mask for +COVID. Discharge plan is home no services. will provide transport.
[2020-08-28 16:11] LABS: Glucose, Whole Blood 248 mg/dL (60-115)
[2020-08-28 19:56] LABS: Glucose, Whole Blood 283 mg/dL (60-115)
[2020-08-28] MEDS: Atorvastatin Calcium 10 MG TABLET 5 MG PO (20:57)
[2020-08-28] MEDS: Insulin Glargine,Hum.rec.anlog 100 UNIT/ML 10 ML VIAL 60 UNIT SUBCUT (20:59)
[2020-08-29] VITALS (11 sets, daily range): BP systolic 132–156; BP diastolic 66–78; PULSE 93–114; RESP 18–24; TEMP 36.1–36.9; O2SAT 88–95
[2020-08-29 07:17] LABS: Glucose, Whole Blood 49 mg/dL (60-115)
[2020-08-29 07:44] LABS: Glucose, Whole Blood 61 mg/dL (60-115)
[2020-08-29 08:45] LABS: Glucose, Whole Blood 95 mg/dL (60-115)
--- NOTE | 2020-08-29 09:25 | PM.PNPUL ---
Subjective Subjective Date of Service: 08/29/20 Interval history: The patient was seen on exam. This morning she did have a hypoglycemic episode. She did get her flutter valve and she has been using the CPT. She had a good day yesterday. Her oxygen requirements are still high. Her echo demonstrated mild pulmonary hypertension. She will be given Lasix today. If no improvement her respiratory status and hypoxia will trial sildenafil. Objective Data Labs CBC & Chem 7: 08/28/20 05:17 08/28/20 05:17 Labs: Laboratory Results - last 24 hr 08/28/20 08/28/20 08/28/20 12:08 16:04 19:47 POC Glucose 251 H 248 H 283 H 08/29/20 08/29/20 08/29/20 07:05 07:36 08:37 POC Glucose 49 L* 61 95 Microbiology Microbiology Results: Microbiology 08/16/20 11:11 Blood - Venous Blood Culture - Final No growth after 5 days. 08/16/20 11:07 Blood - Venous Blood Culture - Final No growth after 5 days. 08/16/20 Unknown Urine clean catch - Clean Catch Midstream Urine Culture - Final Escherichia coli Review of Systems Constitutional: Denies night sweats Denies change in voice, Denies mouth pain, Reports nasal congestion, Reports nasal discharge and Denies tongue swelling Cardiovascular: Denies chest pain and Reports dyspnea on exertion Respiratory: Reports chest congestion, Reports cough and Reports dyspnea on exertion Gastrointestinal: Denies abdominal pain Musculoskeletal: Denies no additional musculoskeletal complaints Hematologic/Lymphatic: Denies easy bleeding Allergic/Immunologic: Denies tongue swelling Physical Exam Vital Signs: Vital Signs: Last Vital Signs Temp 98 F 08/29/20 07:03 Pulse 94 08/29/20 07:03 Resp 22 H 08/29/20 07:39 BP 156/73 H 08/29/20 07:03 Pulse Ox 94 08/29/20 07:03 Body Mass Index 32.9 Const: General: alert HENMT: General nose exam: Abnormal external nose present and Nasal discharge present Neck: Neck: Yes normal visual inspection, Yes full ROM and Yes no lymphadenopathy Chest: Chest palpation & inspection: normal inspection of the chest Resp: Auscultation: rales and diminished lung sounds Cardio: Rate: regular rate and tachycardic Rhythm: regular rhythm Heart sounds: S1 normal heart sound present and S2 normal heart sound present GI: Palpation (GI): Soft to palpation and nontender Auscultation: normal bowel sounds Assessment and Plan Assessment and plan (1) ARDS (adult respiratory distress syndrome): Status: Acute (2) Respiratory failure with hypoxia: Status: Acute (3) COVID-19: Status: Acute (4) Pulmonary hypertension: Status: Acute Assessment and Plan: Switch Solu-Medrol to prednisone CPT with flutter valve Lasix as tolerated Consider sildenafil if no better with hypoxia Time Spent With Patient Time: Total time spent is greater than 50% in coordination of care (as documented) at patient's floor/unit and/or counseling patient: Time with patient: 15 - 24 minutes
[2020-08-29] MEDS: 0.9 % Sodium Chloride Flush 3 ML SYRINGE IVFLUSH ×3 (09:43→21:03)
[2020-08-29] MEDS: Enoxaparin Sodium 40 MG/0.4 ML SYRINGE SUBCUT (09:43)
[2020-08-29] MEDS: guaiFENesin DM 600/30 1 TAB TAB.ER.12H 2 TAB PO (09:44)
[2020-08-29] MEDS: Famotidine 20 MG TABLET 40 MG PO (09:44)
[2020-08-29] MEDS: Fenofibrate 160 MG TABLET PO (09:45)
[2020-08-29] MEDS: Folic Acid 1 MG TABLET 5 MG PO (09:46)
[2020-08-29] MEDS: Gabapentin 600 MG TABLET PO ×2 (09:46→21:01)
[2020-08-29] MEDS: amLODIPine Besylate 10 MG TABLET PO (09:46)
[2020-08-29] MEDS: Furosemide 20 MG/2 ML VIAL IVPUSH (09:47)
[2020-08-29] MEDS: Nystatin Powder 15 GM BOTTLE 1 APPL TOPICAL ×2 (09:47→21:03)
--- NOTE | 2020-08-29 10:22 | HO.PM.IMPN ---
Subjective Subjective Date of Service: 08/29/20 Interval History: seen and examined tired today reports she was feeling better yesterday ROS General - no fevers or chills Cardiovascular - no chest pain Respiratory - +SOB, +COUGH Abdominal- no abdominal pain, nausea, vomiting, diarrhea Physical Exam Vital Signs: Vital Signs: Last Vital Signs Temp 98 F 08/29/20 07:03 Pulse 94 08/29/20 09:46 Resp 22 H 08/29/20 07:39 BP 156/73 H 08/29/20 09:46 Pulse Ox 94 08/29/20 07:03 Body Mass Index 32.9 Const: Other: General - ill appearing Cardiovascular - regular rate and rhythm, S1-S2 Lungs - dim sounds, tachypnea with min exertion, o2 stable on HFNC + 100% NRBM Abdomen - soft, nontender, no rebound or guarding Extremities - no edema bilaterally Neuro - awake and alert, no focal deficits Objective Data Current Medications Generic Name Dose Route Start Last Admin Trade Name Freq PRN Reason Stop Dose Admin Acetaminophen 650 mg 08/16/20 17:07 08/28/20 06:28 Acetaminophen 325 Mg Tablet PO 650 mg Q6H PRN Administration Pain, Mild (Pain Scale 1-3) Amlodipine Besylate 10 mg 08/18/20 13:15 08/29/20 09:46 Amlodipine Besylate 10 Mg Tablet PO 10 mg DAILY [facility] Administration Protocol Atorvastatin Calcium 5 mg 08/16/20 21:00 08/28/20 20:57 Atorvastatin Calcium 10 Mg Tablet PO 5 mg BEDTIME [facility] Administration Calcium Carbonate 750 mg 08/18/20 22:04 08/24/20 15:00 Calcium Carbonate 750 Mg Tab.Chew PO 750 mg Q6H PRN Administration Heartburn Docusate Sodium 100 mg 08/16/20 17:07 08/20/20 06:26 Docusate Sodium 100 Mg Capsule PO 100 mg DAILY PRN Administration Constipation Doxycycline Hyclate 100 mg 08/27/20 10:00 08/29/20 09:45 Doxycycline Hyclate 100 Mg Tablet PO 100 mg Q12H [facility] Administration Enoxaparin Sodium 40 mg 08/29/20 09:00 08/29/20 09:43 Enoxaparin Sodium 40 Mg/0.4 Ml Syringe SUBCUT 40 mg Q24H [facility] Administration Famotidine 40 mg 08/29/20 09:00 08/29/20 09:44 Famotidine 20 Mg Tablet PO 40 mg DAILY [facility] Administration Fenofibrate 160 mg 08/17/20 09:00 08/29/20 09:45 Fenofibrate 160 Mg Tablet PO 160 mg DAILY [facility] Administration Folic Acid 5 mg 08/17/20 09:00 08/29/20 09:46 Folic Acid 1 Mg Tablet PO 5 mg DAILY [facility] Administration Gabapentin 600 mg 08/16/20 17:07 08/29/20 09:46 Gabapentin 600 Mg Tablet PO 600 mg TID [facility] Administration Guaifenesin/Dextromethorphan 2 tab 08/27/20 09:45 08/29/20 09:44 Guaifenesin Dm 600/30 1 Tab Tab.Er.12h PO 2 tab BID [facility] Administration Insulin Glargine 40 unit 08/29/20 21:00 Insulin Glargine,Hum.Rec.Anlog 100 Unit/Ml 10 Ml Vial SUBCUT BEDTIME [facility] Insulin Human Lispro 0 unit 08/16/20 17:07 08/29/20 07:47 Insulin Lispro 100 Unit/Ml 3 Ml Vial SUBCUT Not Given QIDACHS [facility] Protocol Methylprednisolone Sodium Succinate 40 mg 08/22/20 09:30 08/29/20 09:47 Methylprednisolone Sod Succ/Pf 40 Mg/Ml Vial IVPUSH 40 mg Q24H [facility] Administration Nystatin 1 appl 08/27/20 21:00 08/29/20 09:47 Nystatin Powder 15 Gm Bottle TOPICAL 1 appl BID [facility] Administration Ondansetron HCl 4 mg 08/16/20 17:07 08/20/20 01:17 Ondansetron Hcl 4 Mg/2 Ml Vial IVPUSH 4 mg Q8H PRN Administration Nausea and Vomiting Sodium Chloride 3 ml 08/16/20 17:07 08/29/20 09:43 0.9 % Sodium Chloride Flush 3 Ml Syringe IVFLUSH 3 ml QSHIFT [facility] Administration Labs CBC & Chem 7: 08/28/20 05:17 08/28/20 05:17 Microbiology Microbiology Results: Microbiology 08/16/20 11:11 Blood - Venous Blood Culture - Final No growth after 5 days. 08/16/20 11:07 Blood - Venous Blood Culture - Final No growth after 5 days. 08/16/20 Unknown Urine clean catch - Clean Catch Midstream Urine Culture - Final Escherichia coli Assessment and Plan (1) COVID-19: Status: Acute Assessment and Plan: This is a 60-year-old female who is admitted for 1. Severe COVID-19 causing acute respiratory failure with hypoxia O2 requirements still significant -- Max settings on HFNC + 100% NRMB Completed course of remdesivir change to po prenidonse On empiric doxycycline - day#3, for superimposed bacterial (per Pulm recs) will give empiric lasix and if no improvement, may need sildenafil Pulm input appreciated 2. CATHY with Metabolic Acidosis resolved 3. ESBL in Urine colonized, no symptoms / infection 4. HTN norvasc 5. DM sliding scale + lantus 6.HLD statin 7. History of MRSA infection on bactrim pptx, continue Full Code DVT pptx, lovenox
[2020-08-29 11:16] LABS: Glucose, Whole Blood 115 mg/dL (60-115)
[2020-08-29 16:28] LABS: Glucose, Whole Blood 153 mg/dL (60-115)
[2020-08-29 20:31] LABS: Glucose, Whole Blood 306 mg/dL (60-115)
[2020-08-29] MEDS: Atorvastatin Calcium 10 MG TABLET 5 MG PO (21:01)
[2020-08-29] MEDS: Calcium Carbonate 750 MG TAB.CHEW PO (21:01)
[2020-08-29] MEDS: guaiFENesin DM 100/10/5 ML 5 ML SYRUP PO (21:01)
[2020-08-29] MEDS: Insulin Glargine,Hum.rec.anlog 100 UNIT/ML 10 ML VIAL 40 UNIT SUBCUT (21:03)
[2020-08-30] VITALS (15 sets, daily range): BP systolic 127–153; BP diastolic 63–83; PULSE 67–118; RESP 18–24; TEMP 36–37.4; O2SAT 86–98
[2020-08-30 06:05] LABS: Glucose, Whole Blood 153 mg/dL (60-115)
[2020-08-30 06:19] LABS: Hematocrit 40.8 % (37-47); Hemoglobin 13.5 g/dl (12.0-16.0); Mean Corpuscular HGB Conc 33.1 g/dl (31.0-35.0); Mean Corpuscular Hemoglobin 27.3 pg (27.0-33.0); Mean Corpuscular Volume 82.6 fL (80-98); Mean Platelet Volume 11.8 fL (9.4-12.3); Platelet Count 315 X10*3/uL (160-400); Red Blood Count 4.94 X10*6/uL (4.20-5.50); White Blood Count 16.1 X10*3/uL (4.8-10.8)
[2020-08-30 06:35] LABS: Anion Gap 16 (12-20); Blood Urea Nitrogen 36 mg/dL (9-16); Calcium 8.7 mg/dL (8.4-10.2); Carbon Dioxide 28 mmol/L (22-29); Chloride 99 mmol/L (96-108); Estimated Glomerular Filt Rate > 60; Glucose Random 171 mg/dL (60-115); Potassium 4.7 mmol/L (3.3-5.1); Sodium 138 mmol/L (135-145)
[2020-08-30] MEDS: predniSONE 20 MG TABLET 40 MG PO (08:55)
[2020-08-30] MEDS: Calcium Carbonate 750 MG TAB.CHEW PO (08:56)
[2020-08-30] MEDS: amLODIPine Besylate 10 MG TABLET PO (08:56)
[2020-08-30] MEDS: Famotidine 20 MG TABLET 40 MG PO (08:56)
[2020-08-30] MEDS: Nystatin Powder 15 GM BOTTLE 1 APPL TOPICAL ×2 (08:57→20:19)
[2020-08-30] MEDS: 0.9 % Sodium Chloride Flush 3 ML SYRINGE IVFLUSH ×3 (08:57→23:49)
[2020-08-30 09:32] LABS: Glucose, Whole Blood 122 mg/dL (60-115)
--- NOTE | 2020-08-30 09:48 | PM.PNPUL ---
Subjective Subjective Date of Service: 08/30/20 Interval history: The patient was seen on exam. She responded well to the diuretic yesterday. She still having some dyspepsia issues. Seems like her oxygen is a little better today. She was able to be off the non-rebreather and on the 100% high-flow she maintain a pulse ox between 89-85%. Objective Data Labs CBC & Chem 7: 08/30/20 05:19 08/30/20 05:19 Labs: Laboratory Results - last 24 hr 08/29/20 08/29/20 08/29/20 11:02 16:20 19:54 WBC RBC Hgb Hct MCV MCH MCHC RDW Plt Count MPV Absolute Nucleated RBC Nucleated RBC % (auto) Sodium Potassium Chloride Carbon Dioxide Anion Gap BUN Creatinine Estim Creat Clear Calc Estimated GFR POC Glucose 115 153 H 306 H Random Glucose Calcium 08/30/20 08/30/20 08/30/20 05:19 05:19 05:59 WBC 16.1 H RBC 4.94 Hgb 13.5 Hct 40.8 MCV 82.6 MCH 27.3 MCHC 33.1 RDW 15.0 Plt Count 315 MPV 11.8 Absolute Nucleated RBC 0.000 Nucleated RBC % (auto) 0.0 Sodium 138 Potassium 4.7 Chloride 99 Carbon Dioxide 28 Anion Gap 16 BUN 36 H Creatinine 0.66 Estim Creat Clear Calc 92.0 Estimated GFR > 60 POC Glucose 153 H Random Glucose 171 H Calcium 8.7 08/30/20 08:10 WBC RBC Hgb Hct MCV MCH MCHC RDW Plt Count MPV Absolute Nucleated RBC Nucleated RBC % (auto) Sodium Potassium Chloride Carbon Dioxide Anion Gap BUN Creatinine Estim Creat Clear Calc Estimated GFR POC Glucose 122 H Random Glucose Calcium Microbiology Microbiology Results: Microbiology 08/16/20 11:11 Blood - Venous Blood Culture - Final No growth after 5 days. 08/16/20 11:07 Blood - Venous Blood Culture - Final No growth after 5 days. 08/16/20 Unknown Urine clean catch - Clean Catch Midstream Urine Culture - Final Escherichia coli Review of Systems Constitutional: Denies night sweats Denies change in voice, Denies mouth pain, Reports nasal congestion and Reports nasal discharge Cardiovascular: Denies chest pain Respiratory: Reports cough Gastrointestinal: Denies abdominal pain Musculoskeletal: Denies no additional musculoskeletal complaints Denies Neuro-related abnormal movements Physical Exam Vital Signs: Vital Signs: Last Vital Signs Temp 98.7 F 08/30/20 08:00 Pulse 101 H 08/30/20 08:56 Resp 24 H 08/30/20 08:43 BP 127/65 08/30/20 08:56 Pulse Ox 92 08/30/20 08:00 Body Mass Index 32.9 Const: General: alert HENMT: General nose exam: Abnormal external nose present and Nasal discharge present Eyes: Pupils: Equal, round and reactive pupils present Neck: Neck: Yes normal visual inspection, Yes full ROM and Yes no lymphadenopathy Chest: Chest palpation & inspection: normal inspection of the chest Resp: Auscultation: diminished lung sounds Cardio: Rate: regular rate Rhythm: regular rhythm Heart sounds: S1 normal heart sound present and S2 normal heart sound present GI: Palpation (GI): Soft to palpation and nontender Auscultation: normal bowel sounds : General: Yes no CVA tenderness Back/Spine/Pelvis: Back: no CVA tenderness Skin: General skin exam: rashes and/or lesions noted Neuro: Cranial nerves: Yes Equal, round and reactive pupils present Assessment and Plan Assessment and plan (1) Pulmonary hypertension: Status: Acute (2) ARDS (adult respiratory distress syndrome): Status: Acute (3) Respiratory failure with hypoxia: Status: Acute (4) COVID-19: Status: Acute Assessment and Plan: Titrate Oxygen down to keep pox >87% Additional lasix today PO prednisone CPT with flutter valve Consider Sildenafil Time Spent With Patient Time: Total time spent is greater than 50% in coordination of care (as documented) at patient's floor/unit and/or counseling patient: Time with patient: 15 - 24 minutes
[2020-08-30] MEDS: Furosemide 20 MG/2 ML VIAL IVPUSH (10:22)
[2020-08-30] MEDS: Enoxaparin Sodium 40 MG/0.4 ML SYRINGE SUBCUT (10:28)
[2020-08-30 11:15] LABS: Glucose, Whole Blood 188 mg/dL (60-115)
--- NOTE | 2020-08-30 13:02 | HO.PM.IMPN ---
Subjective Subjective Date of Service: 08/30/20 Interval History: seen and examined better this AM, less tired ROS General - no fevers or chills Cardiovascular - no chest pain Respiratory - +SOB, +COUGH Abdominal- no abdominal pain, nausea, vomiting, diarrhea Physical Exam Vital Signs: Vital Signs: Last Vital Signs Temp 99.3 F 08/30/20 11:54 Pulse 112 H 08/30/20 11:54 Resp 20 08/30/20 12:24 BP 141/69 H 08/30/20 11:54 Pulse Ox 92 08/30/20 11:54 Body Mass Index 32.9 Const: Other: General - ill appearing although less so compared to yesterday Cardiovascular - regular rate and rhythm, S1-S2 Lungs - rales at bases, no tachypnea at rest; sats high 80s on HFNC Abdomen - soft, nontender, no rebound or guarding Extremities - no edema bilaterally Neuro - awake and alert, no focal deficits Objective Data Current Medications Generic Name Dose Route Start Last Admin Trade Name Freq PRN Reason Stop Dose Admin Acetaminophen 650 mg 08/16/20 17:07 08/28/20 06:28 Acetaminophen 325 Mg Tablet PO 650 mg Q6H PRN Administration Pain, Mild (Pain Scale 1-3) Amlodipine Besylate 10 mg 08/18/20 13:15 08/30/20 08:56 Amlodipine Besylate 10 Mg Tablet PO 10 mg DAILY [facility] Administration Protocol Atorvastatin Calcium 5 mg 08/16/20 21:00 08/29/20 21:01 Atorvastatin Calcium 10 Mg Tablet PO 5 mg BEDTIME [facility] Administration Calcium Carbonate 750 mg 08/18/20 22:04 08/30/20 08:56 Calcium Carbonate 750 Mg Tab.Chew PO 750 mg Q6H PRN Administration Heartburn Docusate Sodium 100 mg 08/16/20 17:07 08/20/20 06:26 Docusate Sodium 100 Mg Capsule PO 100 mg DAILY PRN Administration Constipation Doxycycline Hyclate 100 mg 08/27/20 10:00 08/30/20 08:55 Doxycycline Hyclate 100 Mg Tablet PO 100 mg Q12H [facility] Administration Enoxaparin Sodium 40 mg 08/29/20 09:00 08/30/20 10:28 Enoxaparin Sodium 40 Mg/0.4 Ml Syringe SUBCUT 40 mg Q24H [facility] Administration Famotidine 40 mg 08/29/20 09:00 08/30/20 08:56 Famotidine 20 Mg Tablet PO 40 mg DAILY [facility] Administration Fenofibrate 160 mg 08/17/20 09:00 08/30/20 09:17 Fenofibrate 160 Mg Tablet PO Not Given DAILY [facility] Folic Acid 5 mg 08/17/20 09:00 08/30/20 09:17 Folic Acid 1 Mg Tablet PO Not Given DAILY [facility] Gabapentin 600 mg 08/16/20 17:07 08/30/20 09:18 Gabapentin 600 Mg Tablet PO Not Given TID [facility] Guaifenesin/Dextromethorphan 5 ml 08/29/20 20:31 08/29/20 21:01 Guaifenesin Dm 100/10/5 Ml 5 Ml Syrup PO 5 ml Q6H PRN Administration Cough Insulin Glargine 40 unit 08/29/20 21:00 08/29/20 21:03 Insulin Glargine,Hum.Rec.Anlog 100 Unit/Ml 10 Ml Vial SUBCUT 40 unit BEDTIME [facility] Administration Insulin Human Lispro 0 unit 08/16/20 17:07 08/30/20 11:33 Insulin Lispro 100 Unit/Ml 3 Ml Vial SUBCUT Not Given QIDACHS [facility] Protocol Nystatin 1 appl 08/27/20 21:00 08/30/20 08:57 Nystatin Powder 15 Gm Bottle TOPICAL 1 appl BID [facility] Administration Ondansetron HCl 4 mg 08/16/20 17:07 08/20/20 01:17 Ondansetron Hcl 4 Mg/2 Ml Vial IVPUSH 4 mg Q8H PRN Administration Nausea and Vomiting Prednisone 40 mg 08/30/20 09:00 08/30/20 08:55 Prednisone 20 Mg Tablet PO 40 mg DAILY [facility] Administration Sodium Chloride 3 ml 08/16/20 17:07 08/30/20 08:57 0.9 % Sodium Chloride Flush 3 Ml Syringe IVFLUSH 3 ml QSHIFT [facility] Administration Labs CBC & Chem 7: 08/30/20 05:19 08/30/20 05:19 Microbiology Microbiology Results: Microbiology 08/16/20 11:11 Blood - Venous Blood Culture - Final No growth after 5 days. 08/16/20 11:07 Blood - Venous Blood Culture - Final No growth after 5 days. 08/16/20 Unknown Urine clean catch - Clean Catch Midstream Urine Culture - Final Escherichia coli Assessment and Plan (1) COVID-19: Status: Acute Assessment and Plan: This is a 60-year-old female who is admitted for 1. Severe COVID-19 causing acute respiratory failure with hypoxia O2 requirements still significant but improved; off NRMB, tolerating 100% HFNC Completed course of remdesivir Steriods: decadron initailly, then IV solu-medrol for about a week, now on prednisone po 40mg day #1 On empiric doxycycline - day#4, for superimposed bacterial (per Pulm recs) IV lasix 20mg x 1 Pulm input appreciated 2. CATHY with Metabolic Acidosis resolved 3. ESBL in Urine colonized, no symptoms / infection 4. HTN norvasc 5. DM sliding scale + lantus 6.HLD statin 7. History of MRSA infection on bactrim pptx - on hold for now Full Code DVT pptx, lovenox
--- NOTE | 2020-08-30 13:50 | MHC.CM.PN ---
Patient continues to require O2 at 55 liters with FIO2 of 100% via NRB mask for +COVID. Echo shows mild pulmonary HTN. Discharge plan is home no services. will provide transport.
[2020-08-30 16:52] LABS: Glucose, Whole Blood 271 mg/dL (60-115)
[2020-08-30] MEDS: Insulin Lispro 100 UNIT/ML 3 ML VIAL SUBCUT ×2 (17:14→20:18)
[2020-08-30 20:12] LABS: Glucose, Whole Blood 299 mg/dL (60-115)
[2020-08-30] MEDS: Atorvastatin Calcium 10 MG TABLET 5 MG PO (20:17)
[2020-08-30] MEDS: Gabapentin 600 MG TABLET PO (20:17)
[2020-08-30] MEDS: Insulin Glargine,Hum.rec.anlog 100 UNIT/ML 10 ML VIAL 40 UNIT SUBCUT (20:18)
[2020-08-31] VITALS (11 sets, daily range): BP systolic 129–142; BP diastolic 66–68; PULSE 97–118; RESP 18–24; TEMP 35.9–36.6; O2SAT 90–97
[2020-08-31 07:39] LABS: Glucose, Whole Blood 64 mg/dL (60-115)
[2020-08-31] MEDS: Famotidine 20 MG TABLET 40 MG PO (07:39)
[2020-08-31] MEDS: Fenofibrate 160 MG TABLET PO (07:39)
[2020-08-31] MEDS: predniSONE 20 MG TABLET 40 MG PO (07:39)
[2020-08-31] MEDS: Gabapentin 600 MG TABLET PO ×3 (07:40→20:39)
[2020-08-31] MEDS: Folic Acid 1 MG TABLET 5 MG PO (07:41)
[2020-08-31] MEDS: amLODIPine Besylate 10 MG TABLET PO (07:42)
[2020-08-31] MEDS: 0.9 % Sodium Chloride Flush 3 ML SYRINGE IVFLUSH ×2 (07:49→15:14)
[2020-08-31] MEDS: Enoxaparin Sodium 40 MG/0.4 ML SYRINGE SUBCUT (07:49)
[2020-08-31] MEDS: Nystatin Powder 15 GM BOTTLE 1 APPL TOPICAL ×2 (09:21→20:47)
[2020-08-31 11:24] LABS: Glucose, Whole Blood 166 mg/dL (60-115)
[2020-08-31] MEDS: polyethylene glycoL 3350 17 GM POWD.PACK PO (11:25)
--- NOTE | 2020-08-31 14:41 | HO.PM.IMPN ---
Subjective Subjective Date of Service: 08/31/20 Interval History: seen and examined feels about the same reports constipation ROS General - no fevers or chills Cardiovascular - no chest pain Respiratory - +SOB, +COUGH Abdominal- no abdominal pain, nausea, vomiting, diarrhea Physical Exam Vital Signs: Vital Signs: Last Vital Signs Temp 97.3 F 08/31/20 12:00 Pulse 107 H 08/31/20 12:00 Resp 24 H 08/31/20 12:00 BP 134/68 08/31/20 12:00 Pulse Ox 91 L 08/31/20 12:00 Body Mass Index 32.9 Const: Other: General - ill appearing although less so compared to yesterday Cardiovascular - regular rate and rhythm, S1-S2 Lungs - rales at bases, no tachypnea at rest; sats high 80s on HFNC Abdomen - soft, nontender, no rebound or guarding Extremities - no edema bilaterally Neuro - awake and alert, no focal deficits Objective Data Current Medications Generic Name Dose Route Start Last Admin Trade Name Freq PRN Reason Stop Dose Admin Acetaminophen 650 mg 08/16/20 17:07 08/28/20 06:28 Acetaminophen 325 Mg Tablet PO 650 mg Q6H PRN Administration Pain, Mild (Pain Scale 1-3) Amlodipine Besylate 10 mg 08/18/20 13:15 08/31/20 07:42 Amlodipine Besylate 10 Mg Tablet PO 10 mg DAILY [facility] Administration Protocol Atorvastatin Calcium 5 mg 08/16/20 21:00 08/30/20 20:17 Atorvastatin Calcium 10 Mg Tablet PO 5 mg BEDTIME [facility] Administration Calcium Carbonate 750 mg 08/18/20 22:04 08/30/20 08:56 Calcium Carbonate 750 Mg Tab.Chew PO 750 mg Q6H PRN Administration Heartburn Docusate Sodium 100 mg 08/16/20 17:07 08/20/20 06:26 Docusate Sodium 100 Mg Capsule PO 100 mg DAILY PRN Administration Constipation Doxycycline Hyclate 100 mg 08/27/20 10:00 08/31/20 07:47 Doxycycline Hyclate 100 Mg Tablet PO 100 mg Q12H [facility] Administration Enoxaparin Sodium 40 mg 08/29/20 09:00 08/31/20 07:49 Enoxaparin Sodium 40 Mg/0.4 Ml Syringe SUBCUT 40 mg Q24H [facility] Administration Famotidine 40 mg 08/29/20 09:00 08/31/20 07:39 Famotidine 20 Mg Tablet PO 40 mg DAILY [facility] Administration Fenofibrate 160 mg 08/17/20 09:00 08/31/20 07:39 Fenofibrate 160 Mg Tablet PO 160 mg DAILY [facility] Administration Folic Acid 5 mg 08/17/20 09:00 08/31/20 07:41 Folic Acid 1 Mg Tablet PO 5 mg DAILY [facility] Administration Gabapentin 600 mg 08/16/20 17:07 08/31/20 07:40 Gabapentin 600 Mg Tablet PO 600 mg TID [facility] Administration Guaifenesin/Dextromethorphan 5 ml 08/29/20 20:31 08/29/20 21:01 Guaifenesin Dm 100/10/5 Ml 5 Ml Syrup PO 5 ml Q6H PRN Administration Cough Insulin Glargine 40 unit 08/29/20 21:00 08/30/20 20:18 Insulin Glargine,Hum.Rec.Anlog 100 Unit/Ml 10 Ml Vial SUBCUT 40 unit BEDTIME [facility] Administration Insulin Human Lispro 0 unit 08/16/20 17:07 08/31/20 11:23 Insulin Lispro 100 Unit/Ml 3 Ml Vial SUBCUT Not Given QIDACHS [facility] Protocol Nystatin 1 appl 08/27/20 21:00 08/31/20 09:21 Nystatin Powder 15 Gm Bottle TOPICAL 1 appl BID [facility] Administration Ondansetron HCl 4 mg 08/16/20 17:07 08/20/20 01:17 Ondansetron Hcl 4 Mg/2 Ml Vial IVPUSH 4 mg Q8H PRN Administration Nausea and Vomiting Polyethylene Glycol 17 gm 08/31/20 11:15 08/31/20 11:25 Polyethylene Glycol 3350 17 Gm Powd.Pack PO 17 gm DAILY [facility] Administration Prednisone 40 mg 08/30/20 09:00 08/31/20 07:39 Prednisone 20 Mg Tablet PO 40 mg DAILY [facility] Administration Sodium Chloride 3 ml 08/16/20 17:07 08/31/20 07:49 0.9 % Sodium Chloride Flush 3 Ml Syringe IVFLUSH 3 ml QSHIFT [facility] Administration Labs CBC & Chem 7: 08/30/20 05:19 08/30/20 05:19 Microbiology Microbiology Results: Microbiology 08/16/20 11:11 Blood - Venous Blood Culture - Final No growth after 5 days. 08/16/20 11:07 Blood - Venous Blood Culture - Final No growth after 5 days. 08/16/20 Unknown Urine clean catch - Clean Catch Midstream Urine Culture - Final Escherichia coli Assessment and Plan (1) COVID-19: Status: Acute Assessment and Plan: This is a 60-year-old female who is admitted for 1. Severe COVID-19 causing acute respiratory failure with hypoxia O2 requirements still significant but improved; off NRMB - requires it for exertion, tolerating 100% HFNC Completed course of remdesivir Steroids: decadron initailly (? 1-2 days), then IV solu-medrol for about a week, now on prednisone po 40mg day #2 On empiric doxycycline - day#5, for superimposed bacterial (per Pulm recs) Pulm input appreciated repeat cxr tomorrow with labs 2. CATHY with Metabolic Acidosis resolved 3. ESBL in Urine colonized, no symptoms / infection 4. HTN norvasc 5. DM sliding scale + lantus 6.HLD statin 7. History of MRSA infection on bactrim pptx - on hold for now Full Code DVT pptx, lovenox
[2020-08-31] MEDS: Nystatin Oral Susp 500,000 UNIT/5 ML ORAL.SUSP 500000 UNIT PO ×2 (16:05→20:39)
[2020-08-31 16:09] LABS: Glucose, Whole Blood 298 mg/dL (60-115)
[2020-08-31] MEDS: Insulin Lispro 100 UNIT/ML 3 ML VIAL SUBCUT ×2 (16:41→20:39)
[2020-08-31 20:07] LABS: Glucose, Whole Blood 302 mg/dL (60-115)
[2020-08-31] MEDS: Atorvastatin Calcium 10 MG TABLET 5 MG PO (20:38)
[2020-08-31] MEDS: Insulin Glargine,Hum.rec.anlog 100 UNIT/ML 10 ML VIAL 40 UNIT SUBCUT (20:39)
[2020-09-01] VITALS (12 sets, daily range): BP systolic 122–142; BP diastolic 61–80; PULSE 104–123; RESP 18–24; TEMP 36.2–37.2; O2SAT 89–96
[2020-09-01] MEDS: 0.9 % Sodium Chloride Flush 3 ML SYRINGE IVFLUSH ×3 (00:42→16:00)
[2020-09-01 06:38] LABS: Hematocrit 42.1 % (37-47); Hemoglobin 13.7 g/dl (12.0-16.0); Mean Corpuscular HGB Conc 32.5 g/dl (31.0-35.0); Mean Corpuscular Hemoglobin 27.3 pg (27.0-33.0); Mean Platelet Volume 10.4 fL (9.4-12.3); Platelet Count 525 X10*3/uL (160-400); Red Blood Count 5.01 X10*6/uL (4.20-5.50); Red Cell Distribution Width 15.1 % (11.0-16.0); White Blood Count 20.1 X10*3/uL (4.8-10.8)
[2020-09-01 07:19] LABS: Anion Gap 17 (12-20); Blood Urea Nitrogen 39 mg/dL (9-16); C Reactive Protein 7.35 mg/dL (< or = 0.50); Calcium 9.2 mg/dL (8.4-10.2); Carbon Dioxide 31 mmol/L (22-29); Chloride 99 mmol/L (96-108); Creatinine Clr Calc Pharmacy 86.7; Estimated Glomerular Filt Rate > 60; Glucose Random 52 mg/dL (60-115); Potassium 4.4 mmol/L (3.3-5.1); Sodium 143 mmol/L (135-145)
[2020-09-01 07:28] LABS: Glucose, Whole Blood 64 mg/dL (60-115)
--- NOTE | 2020-09-01 09:08 | HO.PM.IMPN ---
Subjective Subjective Date of Service: 09/01/20 Interval History: seen and examined reports she had a good day yesterday but complaining of sore throat / dysphagia from trus ROS General - no fevers or chills Cardiovascular - no chest pain Respiratory - +SOB, +COUGH Abdominal- no abdominal pain, nausea, vomiting, diarrhea Physical Exam Vital Signs: Vital Signs: Last Vital Signs Temp 98 F 09/01/20 04:00 Pulse 123 H 09/01/20 04:00 Resp 18 09/01/20 07:37 BP 130/66 09/01/20 04:00 Pulse Ox 93 09/01/20 04:00 Body Mass Index 32.9 Const: Other: General - ill appearing although less so compared to yesterday HEENT - trush on tounge, posterior pharynx unable to be visualized Cardiovascular - regular rate and rhythm, S1-S2 Lungs - rales at bases, no tachypnea at rest; sats high 80s on HFNC Abdomen - soft, nontender, no rebound or guarding Extremities - no edema bilaterally Neuro - awake and alert, no focal deficits Objective Data Current Medications Generic Name Dose Route Start Last Admin Trade Name Freq PRN Reason Stop Dose Admin Acetaminophen 650 mg 08/16/20 17:07 08/28/20 06:28 Acetaminophen 325 Mg Tablet PO 650 mg Q6H PRN Administration Pain, Mild (Pain Scale 1-3) Amlodipine Besylate 10 mg 08/18/20 13:15 08/31/20 07:42 Amlodipine Besylate 10 Mg Tablet PO 10 mg DAILY [facility] Administration Protocol Atorvastatin Calcium 5 mg 08/16/20 21:00 08/31/20 20:38 Atorvastatin Calcium 10 Mg Tablet PO 5 mg BEDTIME [facility] Administration Calcium Carbonate 750 mg 08/18/20 22:04 08/30/20 08:56 Calcium Carbonate 750 Mg Tab.Chew PO 750 mg Q6H PRN Administration Heartburn Docusate Sodium 100 mg 08/16/20 17:07 08/20/20 06:26 Docusate Sodium 100 Mg Capsule PO 100 mg DAILY PRN Administration Constipation Doxycycline Hyclate 100 mg 08/27/20 10:00 08/31/20 20:46 Doxycycline Hyclate 100 Mg Tablet PO 09/06/20 09:59 100 mg Q12H [facility] Administration Enoxaparin Sodium 40 mg 08/29/20 09:00 08/31/20 07:49 Enoxaparin Sodium 40 Mg/0.4 Ml Syringe SUBCUT 40 mg Q24H [facility] Administration Famotidine 40 mg 08/29/20 09:00 08/31/20 07:39 Famotidine 20 Mg Tablet PO 40 mg DAILY [facility] Administration Fenofibrate 160 mg 08/17/20 09:00 08/31/20 07:39 Fenofibrate 160 Mg Tablet PO 160 mg DAILY [facility] Administration Folic Acid 5 mg 08/17/20 09:00 08/31/20 07:41 Folic Acid 1 Mg Tablet PO 5 mg DAILY [facility] Administration Gabapentin 600 mg 08/16/20 17:07 08/31/20 20:39 Gabapentin 600 Mg Tablet PO 600 mg TID [facility] Administration Guaifenesin/Dextromethorphan 5 ml 08/29/20 20:31 08/29/20 21:01 Guaifenesin Dm 100/10/5 Ml 5 Ml Syrup PO 5 ml Q6H PRN Administration Cough Insulin Glargine 40 unit 08/29/20 21:00 08/31/20 20:39 Insulin Glargine,Hum.Rec.Anlog 100 Unit/Ml 10 Ml Vial SUBCUT 40 unit BEDTIME [facility] Administration Insulin Human Lispro 0 unit 08/16/20 17:07 08/31/20 20:39 Insulin Lispro 100 Unit/Ml 3 Ml Vial SUBCUT 8 unit QIDACHS [facility] Administration Protocol Nystatin 1 appl 08/27/20 21:00 08/31/20 20:47 Nystatin Powder 15 Gm Bottle TOPICAL 1 appl BID [facility] Administration Nystatin 500,000 unit 08/31/20 17:00 08/31/20 20:39 Nystatin Oral Susp 500,000 Unit/5 Ml Oral.Susp PO 500,000 unit QID [facility] Administration Protocol Ondansetron HCl 4 mg 08/16/20 17:07 08/20/20 01:17 Ondansetron Hcl 4 Mg/2 Ml Vial IVPUSH 4 mg Q8H PRN Administration Nausea and Vomiting Polyethylene Glycol 17 gm 08/31/20 11:15 08/31/20 11:25 Polyethylene Glycol 3350 17 Gm Powd.Pack PO 17 gm DAILY [facility] Administration Prednisone 40 mg 08/30/20 09:00 08/31/20 07:39 Prednisone 20 Mg Tablet PO 40 mg DAILY [facility] Administration Sodium Chloride 3 ml 08/16/20 17:07 09/01/20 00:42 0.9 % Sodium Chloride Flush 3 Ml Syringe IVFLUSH 3 ml QSHIFT [facility] Administration Labs CBC & Chem 7: 09/01/20 05:43 09/01/20 05:43 Microbiology Microbiology Results: Microbiology 08/16/20 11:11 Blood - Venous Blood Culture - Final No growth after 5 days. 08/16/20 11:07 Blood - Venous Blood Culture - Final No growth after 5 days. 08/16/20 Unknown Urine clean catch - Clean Catch Midstream Urine Culture - Final Escherichia coli Assessment and Plan (1) COVID-19: Status: Acute Assessment and Plan: This is a 60-year-old female who is admitted for 1. Severe COVID-19 causing acute respiratory failure with hypoxia O2: Tolerating HFNC at max setting at rest. Requires NRMB with exertion. Will decrease FiO2 on the HFNC down to 90% this AM and see how she does. Completed course of remdesivir Steroids: decadron initailly (? 1-2 days), then IV solu-medrol for about a week, now on prednisone po 40mg day #3 -- will start taper 30mg x 3 day starting tomorrow Doxy day 12/26 Pulm input appreciated repeat cxr this AM stable 2. CATHY with Metabolic Acidosis resolved 3. ESBL in Urine colonized, no symptoms / infection 4. HTN norvasc 5. DM sliding scale + lantus 6.HLD statin 7. History of MRSA infection on bactrim pptx - on hold for now 8. Oropharyngeal candidiasis some improvement with nystatin -- continue po/iv fluconazole if not improved Full Code DVT pptx, lovenox
[2020-09-01 09:44] LABS: Procalcitonin 0.05 ng/mL
[2020-09-01] MEDS: Gabapentin 600 MG TABLET PO (10:14)
[2020-09-01] MEDS: Nystatin Oral Susp 500,000 UNIT/5 ML ORAL.SUSP 500000 UNIT PO ×4 (10:14→20:54)
[2020-09-01] MEDS: Enoxaparin Sodium 40 MG/0.4 ML SYRINGE SUBCUT (10:14)
[2020-09-01] MEDS: amLODIPine Besylate 10 MG TABLET PO (10:14)
[2020-09-01] MEDS: Folic Acid 1 MG TABLET 5 MG PO (10:14)
[2020-09-01 10:15] LABS: B Type Natriuretic Peptide < 10 pg/mL (<100)
[2020-09-01] MEDS: Nystatin Powder 15 GM BOTTLE 1 APPL TOPICAL ×2 (10:15→21:01)
[2020-09-01] MEDS: polyethylene glycoL 3350 17 GM POWD.PACK PO (10:15)
[2020-09-01] MEDS: Famotidine 20 MG TABLET 40 MG PO (10:15)
[2020-09-01] MEDS: predniSONE 20 MG TABLET 40 MG PO (10:15)
[2020-09-01] MEDS: Fenofibrate 160 MG TABLET PO (10:15)
[2020-09-01 10:45] LABS: Glucose, Whole Blood 109 mg/dL (60-115)
[2020-09-01 11:42] LABS: Glucose, Whole Blood 131 mg/dL (60-115)
[2020-09-01] MEDS: Mag&Al/Sim/Diphenhyd/Lidocaine 10 ML ORAL.SUSP PO (16:00)
[2020-09-01] MEDS: Fluconazole in NaCl,Iso-Osm 400 MG/200 ML PIGGYBACK 100 MG IV (16:00)
[2020-09-01 16:08] LABS: Glucose, Whole Blood 250 mg/dL (60-115)
[2020-09-01] MEDS: Insulin Lispro 100 UNIT/ML 3 ML VIAL SUBCUT ×2 (16:46→20:54)
[2020-09-01 20:21] LABS: Glucose, Whole Blood 330 mg/dL (60-115)
[2020-09-01] MEDS: Insulin Glargine,Hum.rec.anlog 100 UNIT/ML 10 ML VIAL 40 UNIT SUBCUT (20:54)
[2020-09-02] VITALS (11 sets, daily range): BP systolic 128–153; BP diastolic 69–80; PULSE 98–112; RESP 17–24; TEMP 36.1–36.9; O2SAT 89–97
[2020-09-02] MEDS: 0.9 % Sodium Chloride Flush 3 ML SYRINGE IVFLUSH ×5 (00:08→22:00)
[2020-09-02 06:48] LABS: D Dimer 497 NG/ML
[2020-09-02 06:53] LABS: Hematocrit 39.2 % (37-47); Hemoglobin 12.7 g/dl (12.0-16.0); Mean Corpuscular HGB Conc 32.4 g/dl (31.0-35.0); Mean Corpuscular Hemoglobin 27.3 pg (27.0-33.0); Mean Corpuscular Volume 84.1 fL (80-98); Mean Platelet Volume 10.3 fL (9.4-12.3); Platelet Count 451 X10*3/uL (160-400); Red Blood Count 4.66 X10*6/uL (4.20-5.50); White Blood Count 14.3 X10*3/uL (4.8-10.8)
[2020-09-02 07:12] LABS: Glucose, Whole Blood 62 mg/dL (60-115)
[2020-09-02 07:22] LABS: Alanine Aminotransferase 24 U/L (0-31); Albumin Level 3.2 g/dL (3.5-5.0); Alkaline Phosphatase 98 U/L (39-117); Anion Gap 14 (12-20); Aspartate Amino Transferase 22 U/L (5-31); Bilirubin Direct 0.3 mg/dL (0.0-0.5); Bilirubin Total 0.6 mg/dL (0.0-1.0); Blood Urea Nitrogen 31 mg/dL (9-16); Calcium 8.8 mg/dL (8.4-10.2); Carbon Dioxide 31 mmol/L (22-29); Chloride 101 mmol/L (96-108); Creatinine Clr Calc Pharmacy 90.6; Estimated Glomerular Filt Rate > 60; Potassium 4.2 mmol/L (3.3-5.1); Sodium 142 mmol/L (135-145); Total Protein 5.7 g/dL (6.5-8.0)
[2020-09-02 07:51] LABS: Glucose Random 57 mg/dL (60-115)
[2020-09-02] MEDS: polyethylene glycoL 3350 17 GM POWD.PACK PO (09:01)
[2020-09-02] MEDS: Enoxaparin Sodium 40 MG/0.4 ML SYRINGE SUBCUT (09:01)
[2020-09-02] MEDS: Gabapentin 600 MG TABLET PO (09:02)
[2020-09-02] MEDS: Famotidine 20 MG TABLET 40 MG PO (09:02)
[2020-09-02] MEDS: amLODIPine Besylate 10 MG TABLET PO (09:02)
[2020-09-02] MEDS: Nystatin Oral Susp 500,000 UNIT/5 ML ORAL.SUSP 500000 UNIT PO ×2 (09:02→13:16)
[2020-09-02] MEDS: predniSONE 10 MG TABLET 30 MG PO (09:02)
[2020-09-02] MEDS: Fenofibrate 160 MG TABLET PO (09:03)
[2020-09-02] MEDS: Nystatin Powder 15 GM BOTTLE 1 APPL TOPICAL (09:18)
[2020-09-02 11:04] LABS: Glucose, Whole Blood 111 mg/dL (60-115)
[2020-09-02] MEDS: Fluconazole in NaCl,Iso-Osm 200 MG/100 ML PIGGYBACK 100 MG IV (13:16)
[2020-09-02] MEDS: Mag&Al/Sim/Diphenhyd/Lidocaine 10 ML ORAL.SUSP PO ×2 (13:17→19:36)
--- NOTE | 2020-09-02 13:53 | P.PNIM_ITS ---
Subjective Subjective Date of Service: 09/02/20 Interval History: seen and examined respiratory issues stable now with mouth / throat pain ROS General - no fevers or chills Cardiovascular - no chest pain Respiratory - +SOB, +COUGH Abdominal- no abdominal pain, nausea, vomiting, diarrhea Physical Exam Vital Signs: Vital Signs: Last Vital Signs Temp 98.4 F 09/02/20 11:49 Pulse 103 H 09/02/20 11:49 Resp 19 09/02/20 11:49 BP 132/80 09/02/20 11:49 Pulse Ox 89 L 09/02/20 11:49 Body Mass Index 32.9 Const: Other: General - ill appearing although less so compared to yesterday HEENT - trush on tounge, posterior pharynx unable to be visualized Cardiovascular - regular rate and rhythm, S1-S2 Lungs - rales at bases, no tachypnea at rest; sats high 80s on HFNC Abdomen - soft, nontender, no rebound or guarding Extremities - no edema bilaterally Neuro - awake and alert, no focal deficits HENMT: Other: Objective Data Current Medications Generic Name Dose Route Start Last Admin Trade Name Freq PRN Reason Stop Dose Admin Acetaminophen 650 mg 08/16/20 17:07 08/28/20 06:28 Acetaminophen 325 Mg Tablet PO 650 mg Q6H PRN Administration Pain, Mild (Pain Scale 1-3) Amlodipine Besylate 10 mg 08/18/20 13:15 09/02/20 09:02 Amlodipine Besylate 10 Mg Tablet PO 10 mg DAILY MARTELL Administration Protocol Atorvastatin Calcium 5 mg 08/16/20 21:00 09/01/20 20:57 Atorvastatin Calcium 10 Mg Tablet PO Not Given BEDTIME MARTELL Calcium Carbonate 750 mg 08/18/20 22:04 08/30/20 08:56 Calcium Carbonate 750 Mg Tab.Chew PO 750 mg Q6H PRN Administration Heartburn Docusate Sodium 100 mg 08/16/20 17:07 08/20/20 06:26 Docusate Sodium 100 Mg Capsule PO 100 mg DAILY PRN Administration Constipation Doxycycline Hyclate 100 mg 08/27/20 10:00 09/02/20 09:03 Doxycycline Hyclate 100 Mg Tablet PO 09/06/20 09:59 100 mg Q12H MARTELL Administration Enoxaparin Sodium 40 mg 08/29/20 09:00 09/02/20 09:01 Enoxaparin Sodium 40 Mg/0.4 Ml Syringe SUBCUT 40 mg Q24H MARTELL Administration Famotidine 40 mg 08/29/20 09:00 09/02/20 09:02 Famotidine 20 Mg Tablet PO 40 mg DAILY MARTELL Administration Fenofibrate 160 mg 08/17/20 09:00 09/02/20 09:03 Fenofibrate 160 Mg Tablet PO 160 mg DAILY MARTELL Administration Folic Acid 5 mg 08/17/20 09:00 09/02/20 09:15 Folic Acid 1 Mg Tablet PO Not Given DAILY MARTELL Gabapentin 600 mg 08/16/20 17:07 09/02/20 09:02 Gabapentin 600 Mg Tablet PO 600 mg TID MARTELL Administration Guaifenesin/Dextromethorphan 5 ml 08/29/20 20:31 08/29/20 21:01 Guaifenesin Dm 100/10/5 Ml 5 Ml Syrup PO 5 ml Q6H PRN Administration Cough Fluconazole 200 mg in 100 mls @ 100 mls/hr 09/02/20 13:00 09/02/20 13:16 Diflucan IV 100 mls/hr Q24H MARTELL Administration Insulin Glargine 40 unit 08/29/20 21:00 09/01/20 20:54 Insulin Glargine,Hum.Rec.Anlog 100 Unit/Ml 10 Ml Vial SUBCUT 40 unit BEDTIME MARTELL Administration Insulin Human Lispro 0 unit 08/16/20 17:07 09/02/20 13:26 Insulin Lispro 100 Unit/Ml 3 Ml Vial SUBCUT Not Given QIDACHS [facility] Protocol Lidocaine/Diphenhydr/Alum/Mg/Simeth 10 ml 09/01/20 13:02 09/02/20 13:17 Mag&Al/Sim/Diphenhyd/Lidocaine 10 Ml Oral.Susp PO 10 ml Q4H PRN Administration mouth pain Protocol Nystatin 1 appl 08/27/20 21:00 09/02/20 09:18 Nystatin Powder 15 Gm Bottle TOPICAL 1 appl BID MARTELL Administration Ondansetron HCl 4 mg 08/16/20 17:07 08/20/20 01:17 Ondansetron Hcl 4 Mg/2 Ml Vial IVPUSH 4 mg Q8H PRN Administration Nausea and Vomiting Polyethylene Glycol 17 gm 08/31/20 11:15 09/02/20 09:01 Polyethylene Glycol 3350 17 Gm Powd.Pack PO 17 gm DAILY MARTELL Administration Prednisone 30 mg 09/02/20 09:00 09/02/20 09:02 Prednisone 10 Mg Tablet PO 09/04/20 09:01 30 mg DAILY MARTELL Administration Sodium Chloride 3 ml 08/16/20 17:07 09/02/20 09:01 0.9 % Sodium Chloride Flush 3 Ml Syringe IVFLUSH 3 ml QSHIFT MARTELL Administration Labs CBC & Chem 7: 09/02/20 05:29 09/02/20 05:29 Microbiology Microbiology Results: Microbiology 08/16/20 11:11 Blood - Venous Blood Culture - Final No growth after 5 days. 08/16/20 11:07 Blood - Venous Blood Culture - Final No growth after 5 days. 08/16/20 Unknown Urine clean catch - Clean Catch Midstream Urine Culture - Final Escherichia coli Assessment and Plan (1) COVID-19: Status: Acute Assessment and Plan: This is a 60-year-old female who is admitted for 1. Severe COVID-19 causing acute respiratory failure with hypoxia O2: Tolerating HFNC at max setting at rest. Requires NRMB with exertion. Will decrease FiO2 on the HFNC down to 90% this AM and see how she does. Completed course of remdesivir Steroids: decadron initially (? 1-2 days), then IV solu-medrol for about a week, started 40mg -- tapering by 10mg q3d (currently on 30mg - day #1) Doxy day 7/10 Pulm input appreciated repeat cxr this AM stable 2. Oropharyngeal candidiasis has dysphagia -- suspect has esophgeal Fluonzole IV day 2 empiric acyclovir for herpes coverage - acyclovir IV 5mg/kg -- day #1 d/w ID 3. CATHY with Metabolic Acidosis resolved 4. ESBL in Urine colonized, no symptoms / infection 5. HTN norvasc 6. DM sliding scale + lantus 7.HLD statin 8. History of MRSA infection on bactrim pptx - on hold for now (on doxy) Full Code DVT pptx, lovenox
--- NOTE | 2020-09-02 14:14 | MHC.CLN ---
F/U PO INTAKE 25-50% DIET RX: 1500DM-APPOPRIATE PT RECEIVES GLUCERNA BID TO INCREASE KCALS FOLLOWING
[2020-09-02 16:12] LABS: Glucose, Whole Blood 187 mg/dL (60-115)
[2020-09-02] MEDS: DEXTROSE 5% IV (19:36)
[2020-09-02] MEDS: ACYCLOVIR SODIUM IV (19:36)
[2020-09-02 20:20] LABS: Glucose, Whole Blood 206 mg/dL (60-115)
[2020-09-02] MEDS: guaiFENesin DM 100/10/5 ML 5 ML SYRUP PO (22:00)
[2020-09-03] VITALS (13 sets, daily range): BP systolic 133–149; BP diastolic 64–103; PULSE 102–121; RESP 18–26; TEMP 36.1–37.2; O2SAT 91–98
[2020-09-03 05:28] LABS: Glucose, Whole Blood 163 mg/dL (60-115)
[2020-09-03] MEDS: DEXTROSE 5% IV ×4 (05:32→22:38)
[2020-09-03] MEDS: ACYCLOVIR SODIUM IV ×4 (05:32→22:38)
--- NOTE | 2020-09-03 05:39 | PC.NURSE ---
THIS LUGGAGE LINER ASSIGNED TO ASSIST WITH PATIENT MEDICATION PASS, ACYCLOVIR IV ORDERED FOR 0400, HOWEVER, PROMPT COMES UP OF BEING DISCONTINUED AND DO YOU WANT TO CONTINUE. ORDER IS STILL ACTIVE AND PREVIOUS DAY 1600 DOSE OMITTED AND GIVEN AT 2049, PHARMACY WAS CALLED TO ADJUST TIMES AND NOW SHOWING WITH OLD BARCODE ITS PREMIXED BUT STILL ACTIVE. NIGHT PHARMACY WAS CALLED BY THIS LUGGAGE LINER AND FEMALE WORKER CLARIFIED STILL ACTIVE, DOSE VERIFIED , AND OKAY TO ADMINISTER AT THIS TIME. MAY APPEAR SCHEDULED AND ALSO UNSCHEDULED BUT ONLY ONE DOSE OF 250MG ADMINISTERED. NIGHT PHARMACIST WILL WORK TO CORRECT FOR NEXT SCAN
[2020-09-03 07:11] LABS: Glucose, Whole Blood 184 mg/dL (60-115)
[2020-09-03] MEDS: Folic Acid 1 MG TABLET 5 MG PO (08:52)
[2020-09-03] MEDS: amLODIPine Besylate 10 MG TABLET PO (08:53)
[2020-09-03] MEDS: Fenofibrate 160 MG TABLET PO (08:53)
[2020-09-03] MEDS: Gabapentin 600 MG TABLET PO ×3 (08:54→19:43)
[2020-09-03] MEDS: Famotidine 20 MG TABLET 40 MG PO (08:54)
[2020-09-03] MEDS: Enoxaparin Sodium 40 MG/0.4 ML SYRINGE SUBCUT (08:55)
[2020-09-03] MEDS: predniSONE 10 MG TABLET 30 MG PO (08:58)
[2020-09-03] MEDS: polyethylene glycoL 3350 17 GM POWD.PACK PO (08:58)
--- NOTE | 2020-09-03 09:56 | HO.PM.IMPN ---
Subjective Subjective Date of Service: 09/03/20 Interval History: Seen in follow-up focal related respiratory failure, prolonged hospitalization and remained hypoxic on high-flow as well as non-rebreather. Her primary concern at this point however is a soreness in the mouth therapy to be Alana. Review of Systems Gen: no fever HEENT: Mouth soreness Resp: no sob, no cough CV: no chest, no NICOLE, no leg edema GI: No n/v, no abd pain Neuro: No confusion Physical Exam Vital Signs: Vital Signs: Last Vital Signs Temp 97.1 F 09/03/20 07:37 Pulse 112 H 09/03/20 08:53 Resp 22 H 09/03/20 08:21 BP 137/64 09/03/20 08:53 Pulse Ox 97 09/03/20 07:37 Body Mass Index 32.9 Const: Other: General - ill appearing although less so compared to yesterday HEENT - trush on tounge, posterior pharynx unable to be visualized--see pictures from 09/02--Dr. rea note Cardiovascular - regular rate and rhythm, S1-S2 Lungs - rales at bases, no tachypnea at rest; sats high 80s on HFNC Abdomen - soft, nontender, no rebound or guarding Extremities - no edema bilaterally Neuro - awake and alert, no focal deficits Orientation/consciousness: patient oriented x3 Neuro: General: patient oriented x3 Objective Data Current Medications Generic Name Dose Route Start Last Admin Trade Name Freq PRN Reason Stop Dose Admin Acetaminophen 650 mg 08/16/20 17:07 08/28/20 06:28 Acetaminophen 325 Mg Tablet PO 650 mg Q6H PRN Administration Pain, Mild (Pain Scale 1-3) Amlodipine Besylate 10 mg 08/18/20 13:15 09/03/20 08:53 Amlodipine Besylate 10 Mg Tablet PO 10 mg DAILY MARTELL Administration Protocol Atorvastatin Calcium 5 mg 08/16/20 21:00 09/02/20 22:06 Atorvastatin Calcium 10 Mg Tablet PO Not Given BEDTIME [facility] Calcium Carbonate 750 mg 08/18/20 22:04 08/30/20 08:56 Calcium Carbonate 750 Mg Tab.Chew PO 750 mg Q6H PRN Administration Heartburn Docusate Sodium 100 mg 08/16/20 17:07 08/20/20 06:26 Docusate Sodium 100 Mg Capsule PO 100 mg DAILY PRN Administration Constipation Doxycycline Hyclate 100 mg 08/27/20 10:00 09/03/20 08:55 Doxycycline Hyclate 100 Mg Tablet PO 09/06/20 09:59 100 mg Q12H MARTELL Administration Enoxaparin Sodium 40 mg 08/29/20 09:00 09/03/20 08:55 Enoxaparin Sodium 40 Mg/0.4 Ml Syringe SUBCUT 40 mg Q24H MARTELL Administration Famotidine 40 mg 08/29/20 09:00 09/03/20 08:54 Famotidine 20 Mg Tablet PO 40 mg DAILY MARTELL Administration Fenofibrate 160 mg 08/17/20 09:00 09/03/20 08:53 Fenofibrate 160 Mg Tablet PO 160 mg DAILY MARTELL Administration Folic Acid 5 mg 08/17/20 09:00 09/03/20 08:52 Folic Acid 1 Mg Tablet PO 5 mg DAILY MARTELL Administration Gabapentin 600 mg 08/16/20 17:07 09/03/20 08:54 Gabapentin 600 Mg Tablet PO 600 mg TID [facility] Administration Guaifenesin/Dextromethorphan 5 ml 08/29/20 20:31 09/02/20 22:00 Guaifenesin Dm 100/10/5 Ml 5 Ml Syrup PO 5 ml Q6H PRN Administration Cough Fluconazole 200 mg in 100 mls @ 100 mls/hr 09/02/20 13:00 09/02/20 14:29 Diflucan IV Infused Q24H [facility] Infusion Acyclovir Sodium 250 mg/ 105 mls @ 110.012 mls/hr 09/03/20 04:00 09/03/20 06:44 Dextrose IV Infused Q8H [facility] Infusion Insulin Glargine 40 unit 08/29/20 21:00 09/02/20 22:00 Insulin Glargine,Hum.Rec.Anlog 100 Unit/Ml 10 Ml Vial SUBCUT Not Given BEDTIME [facility] Insulin Human Lispro 0 unit 08/16/20 17:07 09/03/20 08:52 Insulin Lispro 100 Unit/Ml 3 Ml Vial SUBCUT Not Given QIDACHS [facility] Protocol Lidocaine/Diphenhydr/Alum/Mg/Simeth 10 ml 09/01/20 13:02 09/02/20 19:36 Mag&Al/Sim/Diphenhyd/Lidocaine 10 Ml Oral.Susp PO 10 ml Q4H PRN Administration mouth pain Protocol Nystatin 1 appl 08/27/20 21:00 09/02/20 22:23 Nystatin Powder 15 Gm Bottle TOPICAL Not Given BID MARTELL Ondansetron HCl 4 mg 08/16/20 17:07 08/20/20 01:17 Ondansetron Hcl 4 Mg/2 Ml Vial IVPUSH 4 mg Q8H PRN Administration Nausea and Vomiting Polyethylene Glycol 17 gm 08/31/20 11:15 09/03/20 08:58 Polyethylene Glycol 3350 17 Gm Powd.Pack PO 17 gm DAILY MARTELL Administration Prednisone 30 mg 09/02/20 09:00 09/03/20 08:58 Prednisone 10 Mg Tablet PO 09/04/20 09:01 30 mg DAILY MARTELL Administration Sodium Chloride 3 ml 08/16/20 17:07 09/02/20 22:00 0.9 % Sodium Chloride Flush 3 Ml Syringe IVFLUSH 3 ml QSHIFT MARTELL Administration Labs CBC & Chem 7: 09/02/20 05:29 09/02/20 05:29 Microbiology Microbiology Results: Microbiology 08/16/20 11:11 Blood - Venous Blood Culture - Final No growth after 5 days. 08/16/20 11:07 Blood - Venous Blood Culture - Final No growth after 5 days. 08/16/20 Unknown Urine clean catch - Clean Catch Midstream Urine Culture - Final Escherichia coli Assessment and Plan (1) COVID-19: Status: Acute Assessment and Plan: Hosp D#18, 60-year-old female here with acute hypoxic respiratory failure due to Covid-19 1. Severe COVID-19 with persistent acute hypoxic resp failure and remains on high flow, and NRB O2: Tolerating HFNC at max setting at rest. Requires NRMB with exertion. [place] off O2 as much as possible and tolerable. Completed course of remdesivir Steroids: decadron initially ( 1-2 days), then IV solu-medrol for about a week, started 40mg -- tapering by 10mg q3d (currently on 30mg - day #2) Doxy day 8 Pulm input appreciated repeat cxr this AM stabl 2. Oropharyngeal candidiasis has dysphagia -- suspect has esophgeal Fluonzole IV day 2 empiric acyclovir for herpes coverage - acyclovir IV 5mg/kg -- day #2 Magic mouth wash for comfort d/w ID 3. CATHY with Metabolic Acidosis--Resolved resolved 4. ESBL in Urine colonized, no symptoms / infection 5. HTN--controlled Continue Norvasc 6. DM sliding scale + lantus 7.HLD statin 8. Stage 2, pressure Ulcer, frequent turning discuus with RN 8. History of MRSA infection on bactrim pptx - on hold for now (on doxy) Full Code DVT pptx, lovenox
[2020-09-03] MEDS: Nystatin Powder 15 GM BOTTLE 1 APPL TOPICAL ×2 (10:26→19:44)
[2020-09-03 11:04] LABS: Glucose, Whole Blood 197 mg/dL (60-115)
[2020-09-03] MEDS: Mag&Al/Sim/Diphenhyd/Lidocaine 10 ML ORAL.SUSP PO ×2 (12:33→19:42)
[2020-09-03] MEDS: Fluconazole in NaCl,Iso-Osm 200 MG/100 ML PIGGYBACK 100 MG IV (12:33)
[2020-09-03] MEDS: 0.9 % Sodium Chloride Flush 3 ML SYRINGE IVFLUSH ×2 (16:11→19:43)
[2020-09-03 16:23] LABS: Glucose, Whole Blood 320 mg/dL (60-115)
[2020-09-03] MEDS: Insulin Lispro 100 UNIT/ML 3 ML VIAL SUBCUT (16:36)
[2020-09-03] MEDS: Atorvastatin Calcium 10 MG TABLET 5 MG PO (19:43)
[2020-09-03 19:45] LABS: Glucose, Whole Blood 236 mg/dL (60-115)
[2020-09-04] VITALS (16 sets, daily range): BP systolic 134–166; BP diastolic 66–79; PULSE 113–121; RESP 18–24; TEMP 36.1–36.8; O2SAT 85–92
[2020-09-04 07:31] LABS: Glucose, Whole Blood 251 mg/dL (60-115)
[2020-09-04] MEDS: ACYCLOVIR SODIUM IV ×3 (07:33→22:09)
[2020-09-04] MEDS: DEXTROSE 5% IV ×3 (07:33→22:09)
[2020-09-04] MEDS: Enoxaparin Sodium 40 MG/0.4 ML SYRINGE SUBCUT (08:13)
[2020-09-04] MEDS: polyethylene glycoL 3350 17 GM POWD.PACK PO (08:13)
[2020-09-04] MEDS: predniSONE 10 MG TABLET 30 MG PO (08:14)
[2020-09-04] MEDS: Nystatin Powder 15 GM BOTTLE 1 APPL TOPICAL ×2 (08:15→22:10)
[2020-09-04] MEDS: Folic Acid 1 MG TABLET 5 MG PO (08:15)
[2020-09-04] MEDS: amLODIPine Besylate 10 MG TABLET PO (08:15)
[2020-09-04] MEDS: Famotidine 20 MG TABLET 40 MG PO (08:16)
[2020-09-04] MEDS: Fenofibrate 160 MG TABLET PO (08:16)
[2020-09-04] MEDS: Gabapentin 600 MG TABLET PO ×2 (08:16→22:08)
[2020-09-04] MEDS: 0.9 % Sodium Chloride Flush 3 ML SYRINGE IVFLUSH ×3 (08:17→22:11)
[2020-09-04] MEDS: Insulin Lispro 100 UNIT/ML 3 ML VIAL SUBCUT ×4 (08:18→22:09)
[2020-09-04 11:48] LABS: Glucose, Whole Blood 249 mg/dL (60-115)
[2020-09-04] MEDS: Fluconazole in NaCl,Iso-Osm 200 MG/100 ML PIGGYBACK 100 MG IV (12:12)
--- NOTE | 2020-09-04 12:15 | HO.PM.IMPN ---
Subjective Subjective Date of Service: 11/16/20 Interval History: Seen in follow-up focal related respiratory failure, prolonged hospitalization and remained hypoxic on high-flow as well as non-rebreather. Her oxygenation has worsened and CXR is suggesting possible Pneumomediastinum--getting pulmonary to reassess her Review of Systems Gen: no fever HEENT: Mouth soreness Resp: no sob, no cough CV: no chest, no NICOLE, no leg edema GI: No n/v, no abd pain Neuro: No confusion Physical Exam Vital Signs: Vital Signs: Last Vital Signs Temp 97.6 F 09/04/20 11:38 Pulse 114 H 09/04/20 11:38 Resp 20 09/04/20 11:38 BP 134/66 09/04/20 11:38 Pulse Ox 90 L 09/04/20 11:38 Body Mass Index 32.9 Const: Other: General - ill appearing although less so compared to yesterday HEENT - tongue lesion ? herpetic vs thursh pain--better Cardiovascular - regular rate and rhythm, S1-S2 Lungs - rales at bases, no tachypnea at rest; sats high 80s on HFNC Abdomen - soft, nontender, no rebound or guarding Extremities - no edema bilaterally Neuro - awake and alert, no focal deficits Orientation/consciousness: patient oriented x3 Neuro: General: patient oriented x3 Objective Data Current Medications Generic Name Dose Route Start Last Admin Trade Name Freq PRN Reason Stop Dose Admin Acetaminophen 650 mg 08/16/20 17:07 08/28/20 06:28 Acetaminophen 325 Mg Tablet PO 650 mg Q6H PRN Administration Pain, Mild (Pain Scale 1-3) Amlodipine Besylate 10 mg 08/18/20 13:15 09/04/20 08:15 Amlodipine Besylate 10 Mg Tablet PO 10 mg DAILY MARTELL Administration Protocol Atorvastatin Calcium 5 mg 08/16/20 21:00 09/03/20 19:43 Atorvastatin Calcium 10 Mg Tablet PO 5 mg BEDTIME MARTELL Administration Calcium Carbonate 750 mg 08/18/20 22:04 08/30/20 08:56 Calcium Carbonate 750 Mg Tab.Chew PO 750 mg Q6H PRN Administration Heartburn Docusate Sodium 100 mg 08/16/20 17:07 08/20/20 06:26 Docusate Sodium 100 Mg Capsule PO 100 mg DAILY PRN Administration Constipation Doxycycline Hyclate 100 mg 09/03/20 21:00 09/04/20 08:17 Doxycycline Hyclate 100 Mg Tablet PO 09/05/20 21:01 100 mg Q12H MARTELL Administration Enoxaparin Sodium 40 mg 08/29/20 09:00 09/04/20 08:13 Enoxaparin Sodium 40 Mg/0.4 Ml Syringe SUBCUT 40 mg Q24H MARTELL Administration Famotidine 40 mg 08/29/20 09:00 09/04/20 08:16 Famotidine 20 Mg Tablet PO 40 mg DAILY MARTELL Administration Fenofibrate 160 mg 08/17/20 09:00 09/04/20 08:16 Fenofibrate 160 Mg Tablet PO 160 mg DAILY MARTELL Administration Folic Acid 5 mg 08/17/20 09:00 09/04/20 08:15 Folic Acid 1 Mg Tablet PO 5 mg DAILY MARTELL Administration Gabapentin 600 mg 08/16/20 17:07 09/04/20 08:16 Gabapentin 600 Mg Tablet PO 600 mg TID [facility] Administration Guaifenesin/Dextromethorphan 5 ml 08/29/20 20:31 09/02/20 22:00 Guaifenesin Dm 100/10/5 Ml 5 Ml Syrup PO 5 ml Q6H PRN Administration Cough Fluconazole 200 mg in 100 mls @ 100 mls/hr 09/02/20 13:00 09/04/20 12:12 Diflucan IV 100 mls/hr Q24H MARTELL Administration Acyclovir Sodium 250 mg/ 105 mls @ 110.012 mls/hr 09/03/20 14:00 09/04/20 11:00 Dextrose IV Infused Q8H [facility] Infusion Insulin Glargine 40 unit 08/29/20 21:00 09/03/20 20:23 Insulin Glargine,Hum.Rec.Anlog 100 Unit/Ml 10 Ml Vial SUBCUT Not Given BEDTIME [facility] Insulin Human Lispro 0 unit 08/16/20 17:07 09/04/20 12:11 Insulin Lispro 100 Unit/Ml 3 Ml Vial SUBCUT 2 unit QIDACHS MARTELL Administration Protocol Lidocaine/Diphenhydr/Alum/Mg/Simeth 10 ml 09/01/20 13:02 09/03/20 19:42 Mag&Al/Sim/Diphenhyd/Lidocaine 10 Ml Oral.Susp PO 10 ml Q4H PRN Administration mouth pain Protocol Lidocaine/Diphenhydr/Alum/Mg/Simeth 10 ml 09/03/20 09:58 Mag&Al/Sim/Diphenhyd/Lidocaine 10 Ml Oral.Susp PO Q4H PRN Mouth soreness Protocol Nystatin 1 appl 08/27/20 21:00 09/04/20 08:15 Nystatin Powder 15 Gm Bottle TOPICAL 1 appl BID MARTELL Administration Ondansetron HCl 4 mg 08/16/20 17:07 08/20/20 01:17 Ondansetron Hcl 4 Mg/2 Ml Vial IVPUSH 4 mg Q8H PRN Administration Nausea and Vomiting Polyethylene Glycol 17 gm 08/31/20 11:15 09/04/20 08:13 Polyethylene Glycol 3350 17 Gm Powd.Pack PO 17 gm DAILY MARTELL Administration Sodium Chloride 3 ml 08/16/20 17:07 09/04/20 08:17 0.9 % Sodium Chloride Flush 3 Ml Syringe IVFLUSH 3 ml QSHIFT MARTELL Administration Labs CBC & Chem 7: 09/15/20 05:28 09/15/20 05:28 Microbiology Microbiology Results: Microbiology 08/16/20 11:11 Blood - Venous Blood Culture - Final No growth after 5 days. 08/16/20 11:07 Blood - Venous Blood Culture - Final No growth after 5 days. 08/16/20 Unknown Urine clean catch - Clean Catch Midstream Urine Culture - Final Escherichia coli Assessment and Plan (1) COVID-19: Status: Acute Assessment and Plan: Hosp D#18, 60-year-old female here with acute hypoxic respiratory failure due to Covid-19 1. Severe COVID-19 with persistent acute hypoxic resp failure and remains on high flow, and NRB O2: Oxygenation is worse Concern about CXR finding of this mornig with possible pneumomediastinum, withy this much oxygen requirement, I don't think she can tolerate CT Get ABG, next step could be mechanical ventilation Will reconsult pulmonary Completed course of remdesivir Steroids: decadron initially ( 1-2 days), then IV solu-medrol for about a week, started 40mg -- tapering by 10mg q3d (currently on 30mg - day #3) to 20 starting tomorrow Doxy day 9/10 2. Oropharyngeal lesion, more likely herpetic Continue both Diflucan and Acyclovir D3, ID following. d/w ID 3. CATHY with Metabolic Acidosis--Resolved resolved 4. ESBL in Urine colonized, no symptoms / infection 5. HTN--controlled Continue Norvasc 6. DM sliding scale + lantus 7.HLD statin 8. Stage 2, pressure Ulcer, frequent turning discuus with RN 8. History of MRSA infection on bactrim pptx - on hold for now (on doxy) Full Code DVT pptx, lovenox
--- NOTE | 2020-09-04 12:57 | MHC.CM.PN ---
Patient continues on IV Acyclovir, IV Diflucan for ?herpes/thrush to mouth. Also on PO Doxy for UTI. On 60 liters O2 high flow with FIO2 at 100% NRB mask for +COVID. Discharge plan is home no services. will provide transpot. CM will continue to follow patient for discharge needs.
[2020-09-04 13:35] LABS: Basophils Percent Auto 0.1 % (0-2); Eosinophils Percent Auto 0.1 % (0-4); Hematocrit 38.2 % (37-47); Hemoglobin 12.4 g/dl (12.0-16.0); Imm Gran Abs Auto 0.03 X10*3/uL (0.00-0.03); Imm Gran Pct Auto 0.3 % (0.0-0.4); Lymphocytes Absolute Auto 0.5 X10*3/uL (1.2-4.9); Lymphocytes Percent Auto 5.2 % (20-40); MANUAL DIFF FLAG SCAN; Mean Corpuscular HGB Conc 32.5 g/dl (31.0-35.0); Mean Corpuscular Hemoglobin 27.1 pg (27.0-33.0); Mean Corpuscular Volume 83.4 fL (80-98); Mean Platelet Volume 10.1 fL (9.4-12.3); Monocytes Absolute Auto 0.2 X10*3/uL (0.1-1.2); Monocytes Percent Auto 2.1 % (2-11); Neutrophils Absolute Auto 8.4 X10*3/uL (2.0-8.3); Neutrophils Percent Auto 92.2 % (45-73); Platelet Count 466 X10*3/uL (160-400); Red Blood Count 4.58 X10*6/uL (4.20-5.50); Red Cell Distribution Width 14.7 % (11.0-16.0); SCAN SMEAR FLAG 1; White Blood Count 9.1 X10*3/uL (4.8-10.8)
[2020-09-04 14:01] LABS: SLIDE REVIEW VERIFIED
[2020-09-04 14:03] LABS: Anion Gap 14 (12-20); Blood Urea Nitrogen 37 mg/dL (9-16); Calcium 8.4 mg/dL (8.4-10.2); Carbon Dioxide 27 mmol/L (22-29); Chloride 103 mmol/L (96-108); Creatinine Clr Calc Pharmacy 89.3; Estimated Glomerular Filt Rate > 60; Glucose Random 193 mg/dL (60-115); Potassium 4.4 mmol/L (3.3-5.1); Sodium 140 mmol/L (135-145)
[2020-09-04 14:07] LABS: B Type Natriuretic Peptide 36 pg/mL (<100)
--- NOTE | 2020-09-04 14:40 | P.PNPL_ITS ---
Subjective Subjective Date of Service: 09/04/20 Principal diagnosis: COVID-19 ARDS Interval history: 60-year-old lady with underlying history of diabetes mellitus, rheumatoid arthritis on hydroxychloroquine, hypertension positive for coronavirus on 08/11/2020 requiring admission for dyspnea and hypoxia on 08/16/2020. Hospital course complicated by progressive hypoxic respiratory failure requiring initiation of CPAP support on 08/18/2020 and transfer to intensive care unit, patient with moderate improvement transferred back to general medical horn on 08/19/2020. Unfortunately, her hospital course is notable for slowly progressive hypoxemia and now again requiring essentially maximum support with high-flow nasal cannula. Objective Data Labs CBC & Chem 7: 09/04/20 13:27 09/04/20 13:27 Labs: Laboratory Results - last 24 hr 09/03/20 09/03/20 09/04/20 16:19 19:37 07:17 WBC RBC Hgb Hct MCV MCH MCHC RDW Plt Count MPV Immature Gran % (Auto) Neut % (Auto) Lymph % (Auto) [place] % (Auto) Eos % (Auto) Baso % (Auto) Lymph # (Auto) [place] # (Auto) Eos # (Auto) Baso # (Auto) Abs Immat Gran (auto) Absolute Neuts (auto) Absolute Nucleated RBC Nucleated RBC % (auto) Smear Tech's Comments ABG pH ABG pCO2 ABG pO2 ABG HCO3 ABG O2 Saturation ABG Base Excess Oxygen Given Sodium Potassium Chloride Carbon Dioxide Anion Gap BUN Creatinine Estim Creat Clear Calc Estimated GFR POC Glucose 320 H 236 H 251 H Random Glucose Calcium B-Natriuretic Peptide 09/04/20 09/04/20 09/04/20 11:20 13:09 13:27 WBC 9.1 RBC 4.58 Hgb 12.4 Hct 38.2 MCV 83.4 MCH 27.1 MCHC 32.5 RDW 14.7 Plt Count 466 H MPV 10.1 Immature Gran % (Auto) 0.3 Neut % (Auto) 92.2 H Lymph % (Auto) 5.2 L [place] % (Auto) 2.1 Eos % (Auto) 0.1 Baso % (Auto) 0.1 Lymph # (Auto) 0.5 L [place] # (Auto) 0.2 Eos # (Auto) 0.0 Baso # (Auto) 0.0 Abs Immat Gran (auto) 0.03 Absolute Neuts (auto) 8.4 H Absolute Nucleated RBC 0.000 Nucleated RBC % (auto) 0.0 Smear Tech's Comments VERIFIED ABG pH Cancelled ABG pCO2 Cancelled ABG pO2 Cancelled ABG HCO3 Cancelled ABG O2 Saturation Cancelled ABG Base Excess Cancelled Oxygen Given Cancelled Sodium Potassium Chloride Carbon Dioxide Anion Gap BUN Creatinine Estim Creat Clear Calc Estimated GFR POC Glucose 249 H Random Glucose Calcium B-Natriuretic Peptide 09/04/20 09/04/20 13:27 13:27 WBC RBC Hgb Hct MCV MCH MCHC RDW Plt Count MPV Immature Gran % (Auto) Neut % (Auto) Lymph % (Auto) [place] % (Auto) Eos % (Auto) Baso % (Auto) Lymph # (Auto) [place] # (Auto) Eos # (Auto) Baso # (Auto) Abs Immat Gran (auto) Absolute Neuts (auto) Absolute Nucleated RBC Nucleated RBC % (auto) Smear Tech's Comments ABG pH ABG pCO2 ABG pO2 ABG HCO3 ABG O2 Saturation ABG Base Excess Oxygen Given Sodium 140 Potassium 4.4 Chloride 103 Carbon Dioxide 27 Anion Gap 14 BUN 37 H Creatinine 0.68 Estim Creat Clear Calc 89.3 Estimated GFR > 60 POC Glucose Random Glucose 193 H D Calcium 8.4 B-Natriuretic Peptide 36 Microbiology Microbiology Results: Microbiology 08/16/20 11:11 Blood - Venous Blood Culture - Final No growth after 5 days. 08/16/20 11:07 Blood - Venous Blood Culture - Final No growth after 5 days. 08/16/20 Unknown Urine clean catch - Clean Catch Midstream Urine Culture - Final Escherichia coli Review of Systems Cardiovascular: Denies chest pain, Reports pedal edema and Reports dyspnea Respiratory: Denies cough, Denies hemoptysis, Denies excessive phlegm production and Reports dyspnea Psychiatric: Denies anxiety Physical Exam Vital Signs: Vital Signs: Last Vital Signs Temp 97.6 F 09/04/20 11:38 Pulse 114 H 09/04/20 11:38 Resp 20 09/04/20 11:38 BP 134/66 09/04/20 11:38 Pulse Ox 90 L 09/04/20 11:38 Body Mass Index 32.9 Const: General: no acute distress and lethargic (Arousable) Orientation/consciousness: lethargic (Arousable) Eyes: Sclerae: sclerae normal Neck: Neck: Yes trachea midline and Yes supple Resp: Effort & Inspection: normal respiratory effort Auscultation: crackles (Diffuse bilateral) Cardio: Rate: tachycardic Rhythm: regular rhythm Heart sounds: no gallops, no murmurs and no rubs Extrem: General: No clubbing, No cyanosis and Yes edema (1+ bilateral) Assessment and Plan Assessment and plan (1) COVID-19: Status: Acute Assessment and Plan: Impression: 60-year-old lady admitted with acute hypoxic respiratory failure secondary to COVID-19 ARDS, unfortunately slowly progressive despite available treatment modalities. Now with a component of pulmonary edema. Recommendation: Would suggest empiric diuresis. Continue high-flow nasal cannula support. (2) ARDS (adult respiratory distress syndrome): Status: Acute (3) Pulmonary edema: Status: Acute Time Spent With Patient Time with patient: 25 - 35 minutes
[2020-09-04] MEDS: Furosemide 40 MG/4 ML VIAL IVPUSH (15:28)
[2020-09-04 15:57] LABS: Anion Gap 15 (12-20); Blood Urea Nitrogen 40 mg/dL (9-16); Calcium 8.8 mg/dL (8.4-10.2); Carbon Dioxide 29 mmol/L (22-29); Chloride 102 mmol/L (96-108); Creatinine Clr Calc Pharmacy 86.7; Estimated Glomerular Filt Rate > 60; Glucose Random 237 mg/dL (60-115); Potassium 4.5 mmol/L (3.3-5.1); Sodium 141 mmol/L (135-145)
[2020-09-04 16:23] LABS: Glucose, Whole Blood 254 mg/dL (60-115)
[2020-09-04 16:40] LABS: Pt Ventilation O2% 100%
[2020-09-04 16:45] LABS: ABG PCO2 34 mmHg (32-45); Base Excess ABG 4.1; HCO3 ABG 27 mmol/L (22-26); PO2 ABG 57 mmHg (83-108)
[2020-09-04 20:51] LABS: Glucose, Whole Blood 239 mg/dL (60-115)
[2020-09-04] MEDS: Atorvastatin Calcium 10 MG TABLET 5 MG PO (22:08)
[2020-09-04] MEDS: Insulin Glargine,Hum.rec.anlog 100 UNIT/ML 10 ML VIAL 40 UNIT SUBCUT (22:09)
[2020-09-05] VITALS (12 sets, daily range): BP systolic 137–151; BP diastolic 63–75; PULSE 101–120; RESP 18–26; TEMP 36.3–37.1; O2SAT 90–96
--- NOTE | 2020-09-05 00:31 | PC.NURSE ---
At 09/04/20 @ 2330 pt was having a heart rate of 120. Her Bp was elevated as well in the 160's systolic. was made aware. suggested to monitor pt levels for now
[2020-09-05] MEDS: DEXTROSE 5% IV ×3 (06:05→22:48)
[2020-09-05] MEDS: ACYCLOVIR SODIUM IV ×3 (06:05→22:48)
[2020-09-05 07:14] LABS: Glucose, Whole Blood 234 mg/dL (60-115)
[2020-09-05] MEDS: Enoxaparin Sodium 40 MG/0.4 ML SYRINGE SUBCUT (08:06)
[2020-09-05] MEDS: Famotidine 20 MG TABLET 40 MG PO (08:07)
[2020-09-05] MEDS: Folic Acid 1 MG TABLET 5 MG PO (08:07)
[2020-09-05] MEDS: amLODIPine Besylate 10 MG TABLET PO (08:07)
[2020-09-05] MEDS: Gabapentin 600 MG TABLET PO ×3 (08:07→20:51)
[2020-09-05] MEDS: Fenofibrate 160 MG TABLET PO (08:08)
[2020-09-05] MEDS: Nystatin Powder 15 GM BOTTLE 1 APPL TOPICAL ×2 (08:08→22:48)
[2020-09-05] MEDS: 0.9 % Sodium Chloride Flush 3 ML SYRINGE IVFLUSH ×3 (08:08→20:52)
[2020-09-05] MEDS: polyethylene glycoL 3350 17 GM POWD.PACK PO (08:08)
[2020-09-05] MEDS: Insulin Lispro 100 UNIT/ML 3 ML VIAL SUBCUT ×3 (08:09→20:51)
[2020-09-05 11:19] LABS: Glucose, Whole Blood 331 mg/dL (60-115)
[2020-09-05] MEDS: Fluconazole in NaCl,Iso-Osm 200 MG/100 ML PIGGYBACK 100 MG IV (11:40)
--- NOTE | 2020-09-05 14:38 | P.PNIM_ITS ---
Subjective Subjective Date of Service: 09/05/20 Interval History: Patient continues to require high-flow oxygen and non- rebreather patient reported thrush Review of Systems Gen: no fever HEENT: Mouth soreness Resp: no sob, no cough CV: no chest, no NICOLE, no leg edema GI: No n/v, no abd pain Neuro: No confusion Cardiovascular Cardiovascular: Denies chest pain and Denies palpitations Gastrointestinal Gastrointestinal: Denies abdominal pain Endocrine Endocrine: Denies palpitations Physical Exam Vital Signs: Vital Signs: Last Vital Signs Temp 98.2 F 09/05/20 11:38 Pulse 118 H 09/05/20 11:38 Resp 20 09/05/20 11:51 BP 145/66 H 09/05/20 11:38 Pulse Ox 92 09/05/20 11:38 Body Mass Index 32.9 Const: Other: General - ill appearing although less so compared to yesterday HEENT - tongue lesion ? herpetic vs thursh pain--better Cardiovascular - regular rate and rhythm, S1-S2 Lungs - rales at bases, no tachypnea at rest; sats high 80s on HFNC Abdomen - soft, nontender, no rebound or guarding Extremities - no edema bilaterally Neuro - awake and alert, no focal deficits General: alert and awake Nutritional Appearance: well nourished Orientation/consciousness: patient oriented x3 HENMT: Other: Head: Yes normocephalic and Yes atraumatic Eyes: Sclerae: sclerae normal Chest: Chest palpation & inspection: normal inspection of the chest Resp: Effort & Inspection: tachypneic Cardio: Other: General - ill appearing although less so compared to yesterday HEENT - tongue lesion ? herpetic vs thursh pain--better Cardiovascular - regular rate and rhythm, S1-S2 Lungs - rales at bases, no tachypnea at rest; sats high 80s on HFNC Abdomen - soft, nontender, no rebound or guarding Extremities - no edema bilaterally Neuro - awake and alert, no focal deficits Rate: regular rate Rhythm: regular rhythm GI: Palpation (GI): Soft to palpation and nontender Skin: General skin exam: no rashes or lesions noted Neuro: General: patient oriented x3 Cranial nerves: Yes CN's II-XII intact bilaterally and Yes Bilaterally intact EOM present Extrem: General: Yes normal to inspection Objective Data Current Medications Generic Name Dose Route Start Last Admin Trade Name Freq PRN Reason Stop Dose Admin Acetaminophen 650 mg 08/16/20 17:07 08/28/20 06:28 Acetaminophen 325 Mg Tablet PO 650 mg Q6H PRN Administration Pain, Mild (Pain Scale 1-3) Amlodipine Besylate 10 mg 08/18/20 13:15 09/05/20 08:07 Amlodipine Besylate 10 Mg Tablet PO 10 mg DAILY [facility] Administration Protocol Atorvastatin Calcium 5 mg 08/16/20 21:00 09/04/20 22:08 Atorvastatin Calcium 10 Mg Tablet PO 5 mg BEDTIME [facility] Administration Calcium Carbonate 750 mg 08/18/20 22:04 08/30/20 08:56 Calcium Carbonate 750 Mg Tab.Chew PO 750 mg Q6H PRN Administration Heartburn Docusate Sodium 100 mg 08/16/20 17:07 08/20/20 06:26 Docusate Sodium 100 Mg Capsule PO 100 mg DAILY PRN Administration Constipation Doxycycline Hyclate 100 mg 09/03/20 21:00 09/05/20 08:08 Doxycycline Hyclate 100 Mg Tablet PO 09/05/20 21:01 100 mg Q12H [facility] Administration Enoxaparin Sodium 40 mg 08/29/20 09:00 09/05/20 08:06 Enoxaparin Sodium 40 Mg/0.4 Ml Syringe SUBCUT 40 mg Q24H [facility] Administration Famotidine 40 mg 08/29/20 09:00 09/05/20 08:07 Famotidine 20 Mg Tablet PO 40 mg DAILY MARTE[facility] Administration Fenofibrate 160 mg 08/17/20 09:00 09/05/20 08:08 Fenofibrate 160 Mg Tablet PO 160 mg DAILY MARTELL Administration Folic Acid 5 mg 08/17/20 09:00 09/05/20 08:07 Folic Acid 1 Mg Tablet PO 5 mg DAILY MARTE[facility] Administration Gabapentin 600 mg 08/16/20 17:07 09/05/20 08:07 Gabapentin 600 Mg Tablet PO 600 mg TID MARTELL Administration Guaifenesin/Dextromethorphan 5 ml 08/29/20 20:31 09/02/20 22:00 Guaifenesin Dm 100/10/5 Ml 5 Ml Syrup PO 5 ml Q6H PRN Administration Cough Fluconazole 200 mg in 100 mls @ 100 mls/hr 09/02/20 13:00 09/05/20 13:18 Diflucan IV Infused Q24H [facility] Infusion Acyclovir Sodium 250 mg/ 105 mls @ 110.012 mls/hr 09/03/20 14:00 09/05/20 08:04 Dextrose IV Infused Q8H [facility] Infusion Insulin Glargine 40 unit 08/29/20 21:00 09/04/20 22:09 Insulin Glargine,Hum.Rec.Anlog 100 Unit/Ml 10 Ml Vial SUBCUT 40 unit BEDTIME MARTE[facility] Administration Insulin Human Lispro 0 unit 08/16/20 17:07 09/05/20 11:39 Insulin Lispro 100 Unit/Ml 3 Ml Vial SUBCUT 8 unit QIDACHS [facility]TE[facility] Administration Protocol Lidocaine/Diphenhydr/Alum/Mg/Simeth 10 ml 09/01/20 13:02 09/03/20 19:42 Mag&Al/Sim/Diphenhyd/Lidocaine 10 Ml Oral.Susp PO 10 ml Q4H PRN Administration mouth pain Protocol Lidocaine/Diphenhydr/Alum/Mg/Simeth 10 ml 09/03/20 09:58 Mag&Al/Sim/Diphenhyd/Lidocaine 10 Ml Oral.Susp PO Q4H PRN Mouth soreness Protocol Nystatin 1 appl 08/27/20 21:00 09/05/20 08:08 Nystatin Powder 15 Gm Bottle TOPICAL 1 appl BID MARTELL Administration Ondansetron HCl 4 mg 08/16/20 17:07 08/20/20 01:17 Ondansetron Hcl 4 Mg/2 Ml Vial IVPUSH 4 mg Q8H PRN Administration Nausea and Vomiting Polyethylene Glycol 17 gm 08/31/20 11:15 09/05/20 08:08 Polyethylene Glycol 3350 17 Gm Powd.Pack PO 17 gm DAILY [facility] Administration Sodium Chloride 3 ml 08/16/20 17:07 09/05/20 08:08 0.9 % Sodium Chloride Flush 3 Ml Syringe IVFLUSH 3 ml QSHIFT [facility] Administration Labs CBC & Chem 7: 09/04/20 13:27 09/04/20 15:21 Microbiology Microbiology Results: Microbiology 08/16/20 11:11 Blood - Venous Blood Culture - Final No growth after 5 days. 08/16/20 11:07 Blood - Venous Blood Culture - Final No growth after 5 days. 08/16/20 Unknown Urine clean catch - Clean Catch Midstream Urine Culture - Final Escherichia coli Assessment and Plan (1) COVID-19: Status: Acute Assessment and Plan: Hosp D#18, 60-year-old female here with acute hypoxic respiratory failure due to Covid-19 1. Severe COVID-19 with persistent acute hypoxic resp failure and remains on high flow, and NRB chest x-ray 09/04 prep shows possible small pneumomediastinum seen by pulmonology recommended continue current treatment, if patient's oxygen deteriorates Will repeat x-ray pulmonology following Completed course of remdesivir Steroids: decadron initially ( 1-2 days), then IV solu-medrol for about a week, now on prednisone tapering dose Doxy day 03/28 2. Oropharyngeal lesion, more likely herpetic Continue both Diflucan and Acyclovir D3, ID following. 3. CATHY with Metabolic Acidosis--Resolved resolved 4. ESBL in Urine colonized, no symptoms / infection 5. HTN--controlled Continue Norvasc 6. DM sliding scale + lantus 7.HLD statin 8. Stage 2, pressure Ulcer, frequent turning discuus with RN 8. History of MRSA infection on bactrim pptx - on hold for now (on doxy) Full Code DVT pptx, lovenox
[2020-09-05] MEDS: predniSONE 10 MG TABLET 30 MG PO (15:07)
[2020-09-05 16:16] LABS: Glucose, Whole Blood 181 mg/dL (60-115)
[2020-09-05 20:08] LABS: Glucose, Whole Blood 215 mg/dL (60-115)
[2020-09-05] MEDS: Atorvastatin Calcium 10 MG TABLET 5 MG PO (20:51)
[2020-09-06] VITALS (13 sets, daily range): BP systolic 119–152; BP diastolic 65–72; PULSE 108–116; RESP 18–26; TEMP 36.2–36.7; O2SAT 91–96
[2020-09-06 08:00] LABS: Glucose, Whole Blood 211 mg/dL (60-115)
[2020-09-06] MEDS: ACYCLOVIR SODIUM IV ×2 (08:46→15:10)
[2020-09-06] MEDS: DEXTROSE 5% IV ×2 (08:46→15:10)
[2020-09-06] MEDS: Insulin Lispro 100 UNIT/ML 3 ML VIAL SUBCUT ×3 (08:46→17:35)
[2020-09-06] MEDS: 0.9 % Sodium Chloride Flush 3 ML SYRINGE IVFLUSH ×3 (08:47→21:34)
[2020-09-06] MEDS: Gabapentin 600 MG TABLET PO ×2 (08:47→15:10)
[2020-09-06] MEDS: Famotidine 20 MG TABLET 40 MG PO (08:47)
[2020-09-06] MEDS: Fenofibrate 160 MG TABLET PO (08:47)
[2020-09-06] MEDS: predniSONE 10 MG TABLET 30 MG PO (08:47)
[2020-09-06] MEDS: amLODIPine Besylate 10 MG TABLET PO (08:47)
[2020-09-06] MEDS: Folic Acid 1 MG TABLET 5 MG PO (08:47)
[2020-09-06] MEDS: Enoxaparin Sodium 40 MG/0.4 ML SYRINGE SUBCUT (08:48)
[2020-09-06] MEDS: polyethylene glycoL 3350 17 GM POWD.PACK PO (08:48)
[2020-09-06] MEDS: Nystatin Powder 15 GM BOTTLE 1 APPL TOPICAL ×2 (10:05→21:36)
[2020-09-06 11:22] LABS: Glucose, Whole Blood 366 mg/dL (60-115)
[2020-09-06] MEDS: Fluconazole in NaCl,Iso-Osm 200 MG/100 ML PIGGYBACK 100 MG IV (12:31)
--- NOTE | 2020-09-06 12:51 | MHC.CM.PN ---
Patient's O2 sat is 96% with 60 liters high flow with FIO2 at 100% NRB mask. Patient is on IV Diflucan and IV Acyclovir for thrush/herpes in mouth. Discharge plan is home no services when medically stable. will provide transport. CM will continue to follow patient for discharge needs.
--- NOTE | 2020-09-06 14:55 | P.PNIM_ITS ---
Subjective Subjective Date of Service: 09/06/20 Interval History: Patient continues to require high-flow oxygen and non- rebreather patient reported weakness Review of Systems Gen: no fever HEENT: Mouth soreness Resp: no sob, no cough CV: no chest, no NICOLE, no leg edema GI: No n/v, no abd pain Neuro: No confusion Cardiovascular Cardiovascular: Denies chest pain and Denies palpitations Gastrointestinal Gastrointestinal: Denies abdominal pain Endocrine Endocrine: Denies palpitations Physical Exam Vital Signs: Vital Signs: Last Vital Signs Temp 97.4 F 09/06/20 11:17 Pulse 112 H 09/06/20 11:17 Resp 22 H 09/06/20 11:17 BP 143/72 H 09/06/20 11:17 Pulse Ox 92 09/06/20 11:17 Body Mass Index 32.9 Const: Other: General - ill appearing although less so compared to yesterday HEENT - tongue lesion ? herpetic vs thursh pain--better Cardiovascular - regular rate and rhythm, S1-S2 Lungs - rales at bases, no tachypnea at rest; sats high 80s on HFNC Abdomen - soft, nontender, no rebound or guarding Extremities - no edema bilaterally Neuro - awake and alert, no focal deficits General: alert and awake Nutritional Appearance: well nourished Orientation/consciousness: patient oriented x3 Resp: Effort & Inspection: tachypneic Cardio: Other: General - ill appearing although less so compared to yesterday HEENT - tongue lesion ? herpetic vs thursh pain--better Cardiovascular - regular rate and rhythm, S1-S2 Lungs - rales at bases, no tachypnea at rest; sats high 80s on HFNC Abdomen - soft, nontender, no rebound or guarding Extremities - no edema bilaterally Neuro - awake and alert, no focal deficits Rate: regular rate Rhythm: regular rhythm GI: Palpation (GI): Soft to palpation and nontender Skin: General skin exam: no rashes or lesions noted Neuro: General: patient oriented x3 Cranial nerves: Yes CN's II-XII intact bilaterally and Yes Bilaterally intact EOM present Extrem: General: Yes normal to inspection Objective Data Current Medications Generic Name Dose Route Start Last Admin Trade Name Freq PRN Reason Stop Dose Admin Acetaminophen 650 mg 08/16/20 17:07 08/28/20 06:28 Acetaminophen 325 Mg Tablet PO 650 mg Q6H PRN Administration Pain, Mild (Pain Scale 1-3) Amlodipine Besylate 10 mg 08/18/20 13:15 09/06/20 08:47 Amlodipine Besylate 10 Mg Tablet PO 10 mg DAILY MARTELL Administration Protocol Atorvastatin Calcium 5 mg 08/16/20 21:00 09/05/20 20:51 Atorvastatin Calcium 10 Mg Tablet PO 5 mg BEDTIME MARTELL Administration Calcium Carbonate 750 mg 08/18/20 22:04 08/30/20 08:56 Calcium Carbonate 750 Mg Tab.Chew PO 750 mg Q6H PRN Administration Heartburn Docusate Sodium 100 mg 08/16/20 17:07 08/20/20 06:26 Docusate Sodium 100 Mg Capsule PO 100 mg DAILY PRN Administration Constipation Enoxaparin Sodium 40 mg 08/29/20 09:00 09/06/20 08:48 Enoxaparin Sodium 40 Mg/0.4 Ml Syringe SUBCUT 40 mg Q24H MARTELL Administration Famotidine 40 mg 08/29/20 09:00 09/06/20 08:47 Famotidine 20 Mg Tablet PO 40 mg DAILY MARTELL Administration Fenofibrate 160 mg 08/17/20 09:00 09/06/20 08:47 Fenofibrate 160 Mg Tablet PO 160 mg DAILY MARTELL Administration Folic Acid 5 mg 08/17/20 09:00 09/06/20 08:47 Folic Acid 1 Mg Tablet PO 5 mg DAILY MARTELL Administration Gabapentin 600 mg 08/16/20 17:07 09/06/20 08:47 Gabapentin 600 Mg Tablet PO 600 mg TID MARTELL Administration Guaifenesin/Dextromethorphan 5 ml 08/29/20 20:31 09/02/20 22:00 Guaifenesin Dm 100/10/5 Ml 5 Ml Syrup PO 5 ml Q6H PRN Administration Cough Fluconazole 200 mg in 100 mls @ 100 mls/hr 09/02/20 13:00 09/06/20 14:08 Diflucan IV Infused Q24H [facility] Infusion Acyclovir Sodium 250 mg/ 105 mls @ 110.012 mls/hr 09/03/20 14:00 09/06/20 10:05 Dextrose IV Infused Q8H [facility] Infusion Insulin Glargine 40 unit 08/29/20 21:00 09/05/20 21:18 Insulin Glargine,Hum.Rec.Anlog 100 Unit/Ml 10 Ml Vial SUBCUT Not Given BEDTIME [facility] Insulin Human Lispro 0 unit 08/16/20 17:07 09/06/20 12:31 Insulin Lispro 100 Unit/Ml 3 Ml Vial SUBCUT 10 unit QIDACHS MARTELL Administration Protocol Lidocaine/Diphenhydr/Alum/Mg/Simeth 10 ml 09/01/20 13:02 09/03/20 19:42 Mag&Al/Sim/Diphenhyd/Lidocaine 10 Ml Oral.Susp PO 10 ml Q4H PRN Administration mouth pain Protocol Lidocaine/Diphenhydr/Alum/Mg/Simeth 10 ml 09/03/20 09:58 Mag&Al/Sim/Diphenhyd/Lidocaine 10 Ml Oral.Susp PO Q4H PRN Mouth soreness Protocol Nystatin 1 appl 08/27/20 21:00 09/06/20 10:05 Nystatin Powder 15 Gm Bottle TOPICAL 1 appl BID MARTELL Administration Ondansetron HCl 4 mg 08/16/20 17:07 08/20/20 01:17 Ondansetron Hcl 4 Mg/2 Ml Vial IVPUSH 4 mg Q8H PRN Administration Nausea and Vomiting Polyethylene Glycol 17 gm 08/31/20 11:15 09/06/20 08:48 Polyethylene Glycol 3350 17 Gm Powd.Pack PO 17 gm DAILY MARTELL Administration Prednisone 30 mg 09/05/20 15:00 09/06/20 08:47 Prednisone 10 Mg Tablet PO 09/07/20 15:00 30 mg DAILY MARTELL Administration Sodium Chloride 3 ml 08/16/20 17:07 09/06/20 08:47 0.9 % Sodium Chloride Flush 3 Ml Syringe IVFLUSH 3 ml QSHIFT MARTELL Administration Labs CBC & Chem 7: 09/04/20 13:27 09/04/20 15:21 Microbiology Microbiology Results: Microbiology 08/16/20 11:11 Blood - Venous Blood Culture - Final No growth after 5 days. 08/16/20 11:07 Blood - Venous Blood Culture - Final No growth after 5 days. 08/16/20 Unknown Urine clean catch - Clean Catch Midstream Urine Culture - Final Escherichia coli Assessment and Plan (1) COVID-19: Status: Acute Assessment and Plan: Hosp D#18, 60-year-old female here with acute hypoxic respiratory failure due to Covid-19 1. Severe COVID-19 with persistent acute hypoxic resp failure and remains on high flow, and NRB chest x-ray 09/04 prep shows possible small pneumomediastinum seen by pulmonology recommended continue current treatment, if patient's oxygen deteriorates Will repeat x-ray pulmonology following Completed course of remdesivir Steroids: decadron initially ( 1-2 days), then IV solu-medrol for about a week, now on prednisone tapering dose Doxy 10 days completed 2. Oropharyngeal lesion, more likely herpetic Continue both Diflucan and Acyclovir D4, ID following. 3. CATHY with Metabolic Acidosis--Resolved resolved 4. ESBL in Urine colonized, no symptoms / infection 5. HTN--controlled Continue Norvasc 6. DM sliding scale + lantus 7.HLD statin 8. Stage 2, pressure Ulcer, frequent turning discuus with RN 8. History of MRSA infection on bactrim pptx - on hold for now (on doxy) Full Code DVT pptx, lovenox
[2020-09-06 16:28] LABS: Glucose, Whole Blood 247 mg/dL (60-115)
[2020-09-06 20:25] LABS: Glucose, Whole Blood 241 mg/dL (60-115)
[2020-09-06] MEDS: Mag&Al/Sim/Diphenhyd/Lidocaine 10 ML ORAL.SUSP PO (21:34)
[2020-09-07] VITALS (12 sets, daily range): BP systolic 124–148; BP diastolic 59–82; PULSE 113–120; RESP 18–24; TEMP 36.1–36.7; O2SAT 86–94
[2020-09-07 06:01] LABS: Glucose, Whole Blood 221 mg/dL (60-115)
[2020-09-07 08:04] LABS: Glucose, Whole Blood 266 mg/dL (60-115)
[2020-09-07] MEDS: polyethylene glycoL 3350 17 GM POWD.PACK PO (09:20)
[2020-09-07] MEDS: Insulin Lispro 100 UNIT/ML 3 ML VIAL SUBCUT ×2 (09:21→12:47)
[2020-09-07] MEDS: 0.9 % Sodium Chloride Flush 3 ML SYRINGE IVFLUSH ×3 (09:21→21:17)
[2020-09-07] MEDS: Famotidine 20 MG TABLET 40 MG PO (09:22)
[2020-09-07] MEDS: predniSONE 10 MG TABLET 30 MG PO (09:22)
[2020-09-07] MEDS: Fenofibrate 160 MG TABLET PO (09:22)
[2020-09-07] MEDS: Enoxaparin Sodium 40 MG/0.4 ML SYRINGE SUBCUT (09:22)
[2020-09-07] MEDS: Folic Acid 1 MG TABLET 5 MG PO (09:23)
[2020-09-07] MEDS: Gabapentin 600 MG TABLET PO (09:23)
[2020-09-07] MEDS: amLODIPine Besylate 10 MG TABLET PO (09:23)
[2020-09-07] MEDS: Nystatin Powder 15 GM BOTTLE 1 APPL TOPICAL (09:24)
[2020-09-07] MEDS: Mag&Al/Sim/Diphenhyd/Lidocaine 10 ML ORAL.SUSP PO (09:42)
[2020-09-07 11:29] LABS: Glucose, Whole Blood 335 mg/dL (60-115)
--- NOTE | 2020-09-07 13:26 | P.PNIM_ITS ---
Subjective Subjective Date of Service: 09/07/20 Interval History: Patient continues to require high-flow oxygen and non- rebreather patient reported weakness shortness of breath patient was made to sit on chair became more hypoxic was placed back to bed Review of Systems Gen: no fever HEENT: Mouth soreness Resp: no sob, no cough CV: no chest, no NICOLE, no leg edema GI: No n/v, no abd pain Neuro: No confusion Cardiovascular Cardiovascular: Denies chest pain and Denies palpitations Gastrointestinal Gastrointestinal: Denies abdominal pain Endocrine Endocrine: Denies palpitations Physical Exam Vital Signs: Vital Signs: Last Vital Signs Temp 97.9 F 09/07/20 11:25 Pulse 118 H 09/07/20 11:25 Resp 20 09/07/20 11:30 BP 147/70 H 09/07/20 11:25 Pulse Ox 89 L 09/07/20 11:25 Body Mass Index 32.9 Const: Other: General - ill appearing although less so compared to yesterday HEENT - tongue lesion ? herpetic vs thursh pain--better Cardiovascular - regular rate and rhythm, S1-S2 Lungs - rales at bases, no tachypnea at rest; sats high 80s on HFNC Abdomen - soft, nontender, no rebound or guarding Extremities - no edema bilaterally Neuro - awake and alert, no focal deficits General: alert and awake Nutritional Appearance: well nourished Orientation/consciousness: patient oriented x3 Chest: Chest palpation & inspection: normal inspection of the chest Resp: Effort & Inspection: tachypneic Cardio: Other: General - ill appearing HEENT - tongue lesion ? herpetic vs thursh pain--better Cardiovascular - regular rate and rhythm, S1-S2 Lungs - rales at bases, no tachypnea at rest Abdomen - soft, nontender, no rebound or guarding Extremities - no edema bilaterally Neuro - awake and alert, no focal deficits Rate: regular rate Rhythm: regular rhythm Neuro: General: patient oriented x3 Objective Data Current Medications Generic Name Dose Route Start Last Admin Trade Name Freq PRN Reason Stop Dose Admin Acetaminophen 650 mg 08/16/20 17:07 08/28/20 06:28 Acetaminophen 325 Mg Tablet PO 650 mg Q6H PRN Administration Pain, Mild (Pain Scale 1-3) Amlodipine Besylate 10 mg 08/18/20 13:15 09/07/20 09:23 Amlodipine Besylate 10 Mg Tablet PO 10 mg DAILY MARTELL Administration Protocol Atorvastatin Calcium 5 mg 08/16/20 21:00 09/06/20 21:36 Atorvastatin Calcium 10 Mg Tablet PO Not Given BEDTIME MARTELL Calcium Carbonate 750 mg 08/18/20 22:04 08/30/20 08:56 Calcium Carbonate 750 Mg Tab.Chew PO 750 mg Q6H PRN Administration Heartburn Docusate Sodium 100 mg 08/16/20 17:07 08/20/20 06:26 Docusate Sodium 100 Mg Capsule PO 100 mg DAILY PRN Administration Constipation Enoxaparin Sodium 40 mg 08/29/20 09:00 09/07/20 09:22 Enoxaparin Sodium 40 Mg/0.4 Ml Syringe SUBCUT 40 mg Q24H MARTELL Administration Famotidine 40 mg 08/29/20 09:00 09/07/20 09:22 Famotidine 20 Mg Tablet PO 40 mg DAILY MARTELL Administration Fenofibrate 160 mg 08/17/20 09:00 09/07/20 09:22 Fenofibrate 160 Mg Tablet PO 160 mg DAILY MARTELL Administration Folic Acid 5 mg 08/17/20 09:00 09/07/20 09:23 Folic Acid 1 Mg Tablet PO 5 mg DAILY MARTELL Administration Gabapentin 600 mg 08/16/20 17:07 09/07/20 09:23 Gabapentin 600 Mg Tablet PO 600 mg TID MARTELL Administration Guaifenesin/Dextromethorphan 5 ml 08/29/20 20:31 09/02/20 22:00 Guaifenesin Dm 100/10/5 Ml 5 Ml Syrup PO 5 ml Q6H PRN Administration Cough Insulin Glargine 40 unit 08/29/20 21:00 09/06/20 21:35 Insulin Glargine,Hum.Rec.Anlog 100 Unit/Ml 10 Ml Vial SUBCUT Not Given BEDTIME [facility] Insulin Human Lispro 0 unit 08/16/20 17:07 09/07/20 12:47 Insulin Lispro 100 Unit/Ml 3 Ml Vial SUBCUT 8 unit QIDACHS [facility] Administration Protocol Lidocaine/Diphenhydr/Alum/Mg/Simeth 10 ml 09/01/20 13:02 09/07/20 09:42 Mag&Al/Sim/Diphenhyd/Lidocaine 10 Ml Oral.Susp PO 10 ml Q4H PRN Administration mouth pain Protocol Lidocaine/Diphenhydr/Alum/Mg/Simeth 10 ml 09/03/20 09:58 Mag&Al/Sim/Diphenhyd/Lidocaine 10 Ml Oral.Susp PO Q4H PRN Mouth soreness Protocol Nystatin 1 appl 08/27/20 21:00 09/07/20 09:24 Nystatin Powder 15 Gm Bottle TOPICAL 1 appl BID MARTELL Administration Ondansetron HCl 4 mg 08/16/20 17:07 08/20/20 01:17 Ondansetron Hcl 4 Mg/2 Ml Vial IVPUSH 4 mg Q8H PRN Administration Nausea and Vomiting Polyethylene Glycol 17 gm 08/31/20 11:15 09/07/20 09:20 Polyethylene Glycol 3350 17 Gm Powd.Pack PO 17 gm DAILY MARTELL Administration Prednisone 30 mg 09/05/20 15:00 09/07/20 09:22 Prednisone 10 Mg Tablet PO 09/07/20 15:00 30 mg DAILY MARTELL Administration Sodium Chloride 3 ml 08/16/20 17:07 09/07/20 09:21 0.9 % Sodium Chloride Flush 3 Ml Syringe IVFLUSH 3 ml QSHIFT [facility] Administration Labs CBC & Chem 7: 09/04/20 13:27 09/04/20 15:21 Microbiology Microbiology Results: Microbiology 08/16/20 11:11 Blood - Venous Blood Culture - Final No growth after 5 days. 08/16/20 11:07 Blood - Venous Blood Culture - Final No growth after 5 days. 08/16/20 Unknown Urine clean catch - Clean Catch Midstream Urine Culture - Final Escherichia coli Assessment and Plan (1) COVID-19: Status: Acute Assessment and Plan: Hosp D#18, 60-year-old female here with acute hypoxic respiratory failure due to Covid-19 1. Severe COVID-19 with persistent acute hypoxic resp failure continues to remains on high flow, and NRB chest x-ray 09/04 prep shows possible small pneumomediastinum seen by pulmonology recommended continue current treatment, repeat x-ray today shows no significant change pulmonology following Completed course of remdesivir Steroids: decadron initially ( 1-2 days), then IV solu-medrol for about a week, now on prednisone tapering dose Doxy 10 days completed 2. Oropharyngeal lesion, more likely herpetic Continue both Diflucan and Acyclovir D4, ID following. 3. CATHY with Metabolic Acidosis--Resolved resolved 4. ESBL in Urine colonized, no symptoms / infection 5. HTN--controlled Continue Norvasc 6. DM sliding scale + lantus 7.HLD statin 8. Stage 2, pressure Ulcer, frequent turning discuus with RN 8. History of MRSA infection on bactrim pptx - on hold for now (on doxy) Full Code DVT pptx, lovenox
[2020-09-07 16:36] LABS: Glucose, Whole Blood 217 mg/dL (60-115)
[2020-09-07] MEDS: Furosemide 40 MG/4 ML VIAL IVPUSH (20:23)
[2020-09-07 20:46] LABS: Glucose, Whole Blood 244 mg/dL (60-115)
[2020-09-07 20:53] LABS: Pt Ventilation O2% 100%
[2020-09-07 20:56] LABS: ABG PCO2 30 mmHg (32-45); Base Excess ABG 4.5; HCO3 ABG 26 mmol/L (22-26); PO2 ABG 57 mmHg (83-108); pH ABG 7.54 (7.35-7.45)
[2020-09-08] VITALS (13 sets, daily range): BP systolic 122–161; BP diastolic 70–82; PULSE 108–122; RESP 16–24; TEMP 36.3–36.6; O2SAT 89–96
--- NOTE | 2020-09-08 01:10 | PC.NURSE ---
Pt noted to having difficulty deep breathing and coughing, unable to clear mucus. Crackles bilaterally to auscultation. Hospitalist notified, respiratory and ICU at bedside for transfer eval. 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 Order placed by hospitalist. IV lasix given, will continue to monitor.
[2020-09-08] MEDS: 0.9 % Sodium Chloride Flush 3 ML SYRINGE IVFLUSH ×2 (07:59→14:09)
[2020-09-08] MEDS: Enoxaparin Sodium 40 MG/0.4 ML SYRINGE SUBCUT (07:59)
[2020-09-08] MEDS: Insulin Lispro 100 UNIT/ML 3 ML VIAL SUBCUT ×3 (08:00→21:28)
[2020-09-08] MEDS: amLODIPine Besylate 10 MG TABLET PO (08:01)
[2020-09-08] MEDS: Gabapentin 600 MG TABLET PO ×3 (08:01→21:27)
[2020-09-08] MEDS: Fenofibrate 160 MG TABLET PO (08:01)
[2020-09-08] MEDS: Nystatin Powder 15 GM BOTTLE 1 APPL TOPICAL ×2 (08:02→21:28)
[2020-09-08] MEDS: Mag&Al/Sim/Diphenhyd/Lidocaine 10 ML ORAL.SUSP PO ×2 (08:02→17:20)
[2020-09-08] MEDS: polyethylene glycoL 3350 17 GM POWD.PACK PO (08:02)
[2020-09-08 08:10] LABS: Glucose, Whole Blood 346 mg/dL (60-115)
[2020-09-08 10:13] LABS: Anion Gap 27 (12-20); Blood Urea Nitrogen 52 mg/dL (9-16); Calcium 9.3 mg/dL (8.4-10.2); Carbon Dioxide 21 mmol/L (22-29); Chloride 100 mmol/L (96-108); Creatinine Clr Calc Pharmacy 70.6; Estimated Glomerular Filt Rate > 60; Glucose Random 409 mg/dL (60-115); Potassium 4.5 mmol/L (3.3-5.1); Sodium 143 mmol/L (135-145)
[2020-09-08 11:54] LABS: Glucose, Whole Blood 279 mg/dL (60-115)
--- NOTE | 2020-09-08 12:47 | HO.PM.IMPN ---
Subjective Subjective Date of Service: 09/08/20 Interval History: Patient continues to require high-flow oxygen and non-rebreather patient reported weakness shortness of breath patient was made to sit on chair became more hypoxic was placed back to bed Review of Systems Gen: no fever HEENT: Mouth soreness Resp: no sob, no cough CV: no chest, no NICOLE, no leg edema GI: No n/v, no abd pain Neuro: No confusion Cardiovascular Cardiovascular: Denies chest pain and Denies palpitations Gastrointestinal Gastrointestinal: Denies abdominal pain Endocrine Endocrine: Denies palpitations Physical Exam Vital Signs: Vital Signs: Last Vital Signs Temp 97.9 F 09/08/20 11:36 Pulse 122 H 09/08/20 11:36 Resp 19 09/08/20 11:36 BP 135/82 09/08/20 11:36 Pulse Ox 94 09/08/20 11:36 Body Mass Index 32.9 Const: Other: General - ill appearing HEENT - tongue lesion ? herpetic vs thursh pain--better Cardiovascular - regular rate and rhythm, S1-S2 Lungs - rales at bases, no tachypnea at rest Abdomen - soft, nontender, no rebound or guarding Extremities - no edema bilaterally Neuro - awake and alert, no focal deficits General: alert and awake Nutritional Appearance: well nourished Orientation/consciousness: patient oriented x3 Eyes: Sclerae: sclerae normal Chest: Chest palpation & inspection: normal inspection of the chest Resp: Effort & Inspection: tachypneic Cardio: Rate: regular rate Rhythm: regular rhythm GI: Palpation (GI): Soft to palpation and nontender Skin: General skin exam: no rashes or lesions noted Neuro: General: patient oriented x3 Cranial nerves: Yes CN's II-XII intact bilaterally and Yes Bilaterally intact EOM present Extrem: General: Yes normal to inspection Objective Data Current Medications Generic Name Dose Route Start Last Admin Trade Name Freq PRN Reason Stop Dose Admin Acetaminophen 650 mg 08/16/20 17:07 08/28/20 06:28 Acetaminophen 325 Mg Tablet PO 650 mg Q6H PRN Administration Pain, Mild (Pain Scale 1-3) Amlodipine Besylate 10 mg 08/18/20 13:15 09/08/20 08:01 Amlodipine Besylate 10 Mg Tablet PO 10 mg DAILY MARTELL Administration Protocol Atorvastatin Calcium 5 mg 08/16/20 21:00 09/07/20 20:34 Atorvastatin Calcium 10 Mg Tablet PO Not Given BEDTIME MARTELL Calcium Carbonate 750 mg 08/18/20 22:04 08/30/20 08:56 Calcium Carbonate 750 Mg Tab.Chew PO 750 mg Q6H PRN Administration Heartburn Docusate Sodium 100 mg 08/16/20 17:07 08/20/20 06:26 Docusate Sodium 100 Mg Capsule PO 100 mg DAILY PRN Administration Constipation Enoxaparin Sodium 40 mg 08/29/20 09:00 09/08/20 07:59 Enoxaparin Sodium 40 Mg/0.4 Ml Syringe SUBCUT 40 mg Q24H MARTELL Administration Famotidine 40 mg 08/29/20 09:00 09/08/20 08:01 Famotidine 20 Mg Tablet PO Not Given DAILY MARTELL Fenofibrate 160 mg 08/17/20 09:00 09/08/20 08:01 Fenofibrate 160 Mg Tablet PO 160 mg DAILY MARTELL Administration Folic Acid 1 mg 09/09/20 09:00 Folic Acid 1 Mg Tablet PO DAILY [facility] Gabapentin 600 mg 08/16/20 17:07 09/08/20 08:01 Gabapentin 600 Mg Tablet PO 600 mg TID MARTELL Administration Guaifenesin/Dextromethorphan 5 ml 08/29/20 20:31 09/02/20 22:00 Guaifenesin Dm 100/10/5 Ml 5 Ml Syrup PO 5 ml Q6H PRN Administration Cough Insulin Glargine 40 unit 08/29/20 21:00 09/07/20 21:14 Insulin Glargine,Hum.Rec.Anlog 100 Unit/Ml 10 Ml Vial SUBCUT Not Given BEDTIME [facility] Insulin Human Lispro 0 unit 08/16/20 17:07 09/08/20 12:10 Insulin Lispro 100 Unit/Ml 3 Ml Vial SUBCUT 6 unit QIDACHS MARTELL Administration Protocol Lidocaine/Diphenhydr/Alum/Mg/Simeth 10 ml 09/01/20 13:02 09/08/20 08:02 Mag&Al/Sim/Diphenhyd/Lidocaine 10 Ml Oral.Susp PO 10 ml Q4H PRN Administration mouth pain Protocol Nystatin 1 appl 08/27/20 21:00 09/08/20 08:02 Nystatin Powder 15 Gm Bottle TOPICAL 1 appl BID MARTELL Administration Ondansetron HCl 4 mg 08/16/20 17:07 02/02/21 01:17 Ondansetron Hcl 4 Mg/2 Ml Vial IVPUSH 4 mg Q8H PRN Administration Nausea and Vomiting Polyethylene Glycol 17 gm 08/31/20 11:15 09/08/20 08:02 Polyethylene Glycol 3350 17 Gm Powd.Pack PO 17 gm DAILY MARTELL Administration Prednisone 20 mg 09/08/20 12:30 Prednisone 20 Mg Tablet PO DAILY MARTELL Sodium Chloride 3 ml 08/16/20 17:07 09/08/20 07:59 0.9 % Sodium Chloride Flush 3 Ml Syringe IVFLUSH 3 ml QSHIFT MARTELL Administration Labs CBC & Chem 7: 09/04/20 13:27 09/08/20 08:42 Microbiology Microbiology Results: Microbiology 08/16/20 11:11 Blood - Venous Blood Culture - Final No growth after 5 days. 08/16/20 11:07 Blood - Venous Blood Culture - Final No growth after 5 days. 08/16/20 Unknown Urine clean catch - Clean Catch Midstream Urine Culture - Final Escherichia coli Assessment and Plan (1) COVID-19: Status: Acute Assessment and Plan: Hosp D#18, 60-year-old female here with acute hypoxic respiratory failure due to Covid-19 1. Severe COVID-19 with persistent acute hypoxic resp failure continues to remains on high flow, and NRB chest x-ray 09/04 prep shows possible small pneumomediastinum seen by pulmonology recommended continue current treatment, repeat x-ray today shows no significant change pulmonology following Completed course of remdesivir Steroids: decadron initially ( 1-2 days), then IV solu-medrol for about a week, now on prednisone tapering dose Doxy 10 days completed 2. Oropharyngeal lesion, more likely herpetic Continue both Diflucan and Acyclovir D4, ID following. 3. CATHY with Metabolic Acidosis--Resolved resolved 4. ESBL in Urine colonized, no symptoms / infection 5. HTN--controlled Continue Norvasc 6. DM blood glucose on higher side continue Lantus and sliding scale insulin 7.HLD statin 8. Stage 2, pressure Ulcer, frequent turning discuus with RN 8. History of MRSA infection on bactrim pptx Full Code DVT pptx, lovenox
[2020-09-08] MEDS: predniSONE 20 MG TABLET PO (14:00)
[2020-09-08 20:14] LABS: Glucose, Whole Blood 196 mg/dL (60-115)
[2020-09-08 20:27] LABS: Glucose, Whole Blood 239 mg/dL (60-115)
[2020-09-08] MEDS: Atorvastatin Calcium 10 MG TABLET 5 MG PO (21:27)
[2020-09-09] VITALS (13 sets, daily range): BP systolic 118–144; BP diastolic 69–81; PULSE 89–115; RESP 20–28; TEMP 36–36.6; O2SAT 89–97
[2020-09-09] MEDS: 0.9 % Sodium Chloride Flush 3 ML SYRINGE IVFLUSH ×4 (00:15→21:42)
[2020-09-09 07:37] LABS: Glucose, Whole Blood 352 mg/dL (60-115)
[2020-09-09] MEDS: polyethylene glycoL 3350 17 GM POWD.PACK PO (08:04)
[2020-09-09] MEDS: Insulin Lispro 100 UNIT/ML 3 ML VIAL SUBCUT ×4 (08:04→21:40)
[2020-09-09] MEDS: Fenofibrate 160 MG TABLET PO (08:04)
[2020-09-09] MEDS: Enoxaparin Sodium 40 MG/0.4 ML SYRINGE SUBCUT (08:04)
[2020-09-09] MEDS: predniSONE 20 MG TABLET PO (08:05)
[2020-09-09] MEDS: amLODIPine Besylate 10 MG TABLET PO (08:05)
[2020-09-09] MEDS: Folic Acid 1 MG TABLET PO (08:05)
[2020-09-09] MEDS: Gabapentin 600 MG TABLET PO ×3 (08:05→21:39)
[2020-09-09] MEDS: Nystatin Powder 15 GM BOTTLE 1 APPL TOPICAL ×2 (08:05→21:54)
[2020-09-09] MEDS: Famotidine 20 MG TABLET 40 MG PO (08:05)
[2020-09-09] MEDS: LORazepam 2 MG/ML VIAL 0.5 MG IVPUSH (10:19)
[2020-09-09 11:28] LABS: Glucose, Whole Blood 345 mg/dL (60-115)
--- NOTE | 2020-09-09 11:38 | MHC.CM.PN ---
Patient's O2 sat is 90% on 60 liters high flow with FIO2 at 100% NRB mask. Discharge plan is home no services, will provide transport. CM will continue to follow patient for discharge needs.
--- NOTE | 2020-09-09 13:49 | MHC.CLN ---
F/U PO INTAKE 0-25% DIET RX: 1500DM-APPOPRIATE PT RECEIVES GLUCERNA BID TO INCREASE KCALS PROVIDES 474KCALS, 20G PROTEIN MONITOR PO CLOSELY
--- NOTE | 2020-09-09 15:37 | HO.PM.IMPN ---
Subjective Subjective Date of Service: 09/09/20 Interval History: Patient continues to require high-flow oxygen and non-rebreather patient reported weakness shortness of breath being tired Review of Systems Gen: no fever HEENT: Mouth soreness Resp: no sob, no cough CV: no chest, no NICOLE, no leg edema GI: No n/v, no abd pain Neuro: No confusion Cardiovascular Cardiovascular: Denies chest pain and Denies palpitations Gastrointestinal Gastrointestinal: Denies abdominal pain Endocrine Endocrine: Denies palpitations Physical Exam Vital Signs: Vital Signs: Last Vital Signs Temp 97.9 F 09/09/20 12:00 Pulse 112 H 09/09/20 12:00 Resp 26 H 09/09/20 12:00 BP 128/75 09/09/20 12:00 Pulse Ox 93 09/09/20 12:00 Body Mass Index 32.9 Const: Other: General - ill appearing HEENT - tongue lesion ? herpetic vs thursh pain--better Cardiovascular - regular rate and rhythm, S1-S2 Lungs - rales at bases, no tachypnea at rest Abdomen - soft, nontender, no rebound or guarding Extremities - no edema bilaterally Neuro - awake and alert, no focal deficits General: alert and awake Nutritional Appearance: well nourished Orientation/consciousness: patient oriented x3 Eyes: Sclerae: sclerae normal Chest: Chest palpation & inspection: normal inspection of the chest Resp: Effort & Inspection: tachypneic Cardio: Other: General - ill appearing HEENT - tongue lesion ? herpetic vs thursh pain--better Cardiovascular - regular rate and rhythm, S1-S2 Lungs - rales at bases, no tachypnea at rest Abdomen - soft, nontender, no rebound or guarding Extremities - no edema bilaterally Neuro - awake and alert, no focal deficits Rate: regular rate Rhythm: regular rhythm GI: Palpation (GI): Soft to palpation and nontender Skin: General skin exam: no rashes or lesions noted Neuro: General: patient oriented x3 Cranial nerves: Yes CN's II-XII intact bilaterally and Yes Bilaterally intact EOM present Extrem: General: Yes normal to inspection Objective Data Current Medications Generic Name Dose Route Start Last Admin Trade Name Freq PRN Reason Stop Dose Admin Acetaminophen 650 mg 08/16/20 17:07 08/28/20 06:28 Acetaminophen 325 Mg Tablet PO 650 mg Q6H PRN Administration Pain, Mild (Pain Scale 1-3) Amlodipine Besylate 10 mg 08/18/20 13:15 09/09/20 08:05 Amlodipine Besylate 10 Mg Tablet PO 10 mg DAILY MARTELL Administration Protocol Atorvastatin Calcium 5 mg 08/16/20 21:00 09/08/20 21:27 Atorvastatin Calcium 10 Mg Tablet PO 5 mg BEDTIME MARTELL Administration Calcium Carbonate 750 mg 08/18/20 22:04 08/30/20 08:56 Calcium Carbonate 750 Mg Tab.Chew PO 750 mg Q6H PRN Administration Heartburn Docusate Sodium 100 mg 08/16/20 17:07 08/20/20 06:26 Docusate Sodium 100 Mg Capsule PO 100 mg DAILY PRN Administration Constipation Enoxaparin Sodium 40 mg 08/29/20 09:00 09/09/20 08:04 Enoxaparin Sodium 40 Mg/0.4 Ml Syringe SUBCUT 40 mg Q24H MARTELL Administration Famotidine 40 mg 08/29/20 09:00 09/09/20 08:05 Famotidine 20 Mg Tablet PO 40 mg DAILY MARTELL Administration Fenofibrate 160 mg 08/17/20 09:00 09/09/20 08:04 Fenofibrate 160 Mg Tablet PO 160 mg DAILY MARTELL Administration Folic Acid 1 mg 09/09/20 09:00 09/09/20 08:05 Folic Acid 1 Mg Tablet PO 1 mg DAILY MARTELL Administration Gabapentin 600 mg 08/16/20 17:07 09/09/20 15:15 Gabapentin 600 Mg Tablet PO 600 mg TID MARTELL Administration Guaifenesin/Dextromethorphan 5 ml 08/29/20 20:31 09/02/20 22:00 Guaifenesin Dm 100/10/5 Ml 5 Ml Syrup PO 5 ml Q6H PRN Administration Cough Insulin Glargine 50 unit 09/09/20 21:00 Insulin Glargine,Hum.Rec.Anlog 100 Unit/Ml 10 Ml Vial SUBCUT BEDTIME [facility] Insulin Human Lispro 0 unit 08/16/20 17:07 09/09/20 11:24 Insulin Lispro 100 Unit/Ml 3 Ml Vial SUBCUT 8 unit QIDACHS MARTELL Administration Protocol Lidocaine/Diphenhydr/Alum/Mg/Simeth 10 ml 09/01/20 13:02 09/08/20 17:20 Mag&Al/Sim/Diphenhyd/Lidocaine 10 Ml Oral.Susp PO 10 ml Q4H PRN Administration mouth pain Protocol Lorazepam 0.5 mg 09/09/20 09:49 09/09/20 10:19 Lorazepam 2 Mg/Ml Vial IVPUSH 0.5 mg Q6H PRN Administration anxiety/restlessness Nystatin 1 appl 08/27/20 21:00 09/09/20 08:05 Nystatin Powder 15 Gm Bottle TOPICAL 1 appl BID MARTELL Administration Ondansetron HCl 4 mg 08/16/20 17:07 08/20/20 01:17 Ondansetron Hcl 4 Mg/2 Ml Vial IVPUSH 4 mg Q8H PRN Administration Nausea and Vomiting Polyethylene Glycol 17 gm 08/31/20 11:15 09/09/20 08:04 Polyethylene Glycol 3350 17 Gm Powd.Pack PO 17 gm DAILY MARTELL Administration Prednisone 20 mg 09/08/20 12:30 09/09/20 08:05 Prednisone 20 Mg Tablet PO 20 mg DAILY MARTELL Administration Sodium Chloride 3 ml 08/16/20 17:07 09/09/20 15:16 0.9 % Sodium Chloride Flush 3 Ml Syringe IVFLUSH 3 ml QSHIFT MARTELL Administration Labs CBC & Chem 7: 09/04/20 13:27 09/08/20 08:42 Microbiology Microbiology Results: Microbiology 08/16/20 11:11 Blood - Venous Blood Culture - Final No growth after 5 days. 08/16/20 11:07 Blood - Venous Blood Culture - Final No growth after 5 days. 08/16/20 Unknown Urine clean catch - Clean Catch Midstream Urine Culture - Final Escherichia coli Assessment and Plan (1) COVID-19: Status: Acute Assessment and Plan: Hosp D#18, 60-year-old female here with acute hypoxic respiratory failure due to Covid-19 1. Severe COVID-19 with persistent acute hypoxic resp failure continues to remains on high flow, and NRB able to wean down high-flow 50 L today chest x-ray 09/04 prep shows possible small pneumomediastinum seen by pulmonology recommended continue current treatment, repeat x-ray shows no significant change pulmonology following Completed course of remdesivir Steroids: decadron initially ( 1-2 days), then IV solu-medrol for about a week, now on prednisone tapering dose Doxy 10 days completed 2. Oropharyngeal lesion, more likely herpetic Continue both Diflucan and Acyclovir D8, ID following. 3. CATHY with Metabolic Acidosis--Resolved resolved 4. ESBL in Urine colonized, no symptoms / infection 5. HTN--controlled Continue Norvasc 6. DM blood glucose on higher side continue Lantus and sliding scale insulin 7.HLD statin 8. Stage 2, pressure Ulcer, frequent turning discuus with RN 8. History of MRSA infection on bactrim pptx Full Code DVT pptx, lovenox
[2020-09-09 16:53] LABS: Glucose, Whole Blood 228 mg/dL (60-115)
[2020-09-09 19:32] LABS: Glucose, Whole Blood 260 mg/dL (60-115)
[2020-09-09] MEDS: Atorvastatin Calcium 10 MG TABLET 5 MG PO (21:39)
[2020-09-09] MEDS: Insulin Glargine,Hum.rec.anlog 100 UNIT/ML 10 ML VIAL 50 UNIT SUBCUT (21:41)
[2020-09-10] VITALS (12 sets, daily range): BP systolic 121–145; BP diastolic 68–93; PULSE 105–115; RESP 18–24; TEMP 36.2–36.7; O2SAT 87–97
[2020-09-10 07:58] LABS: Glucose, Whole Blood 141 mg/dL (60-115)
[2020-09-10] MEDS: Fenofibrate 160 MG TABLET PO (08:36)
[2020-09-10] MEDS: Gabapentin 600 MG TABLET PO ×3 (08:36→21:11)
[2020-09-10] MEDS: amLODIPine Besylate 10 MG TABLET PO (08:36)
[2020-09-10] MEDS: Famotidine 20 MG TABLET 40 MG PO (08:36)
[2020-09-10] MEDS: predniSONE 20 MG TABLET PO (08:36)
[2020-09-10] MEDS: Folic Acid 1 MG TABLET PO (08:36)
[2020-09-10] MEDS: Nystatin Powder 15 GM BOTTLE 1 APPL TOPICAL ×2 (08:37→22:44)
[2020-09-10] MEDS: 0.9 % Sodium Chloride Flush 3 ML SYRINGE IVFLUSH ×3 (08:37→21:12)
[2020-09-10] MEDS: polyethylene glycoL 3350 17 GM POWD.PACK PO (08:37)
[2020-09-10] MEDS: Enoxaparin Sodium 40 MG/0.4 ML SYRINGE SUBCUT (08:37)
--- NOTE | 2020-09-10 09:36 | P.PNPL_ITS ---
Subjective Subjective Date of Service: 09/10/20 Principal diagnosis: COVID-19 ARDS Interval history: Pt seen and examined. Still on high oxygen requirements. CXR with pneumomediastinum. ECHO with pulmonary HTN. Could not get CTA. Recommend starting Sildanefil Objective Data Labs CBC & Chem 7: 09/04/20 13:27 09/08/20 08:42 Labs: Laboratory Results - last 24 hr 09/09/20 09/09/20 09/09/20 11:14 16:23 19:26 POC Glucose 345 H 228 H 260 H 09/10/20 07:37 POC Glucose 141 H Microbiology Microbiology Results: Microbiology 08/16/20 11:11 Blood - Venous Blood Culture - Final No growth after 5 days. 08/16/20 11:07 Blood - Venous Blood Culture - Final No growth after 5 days. 08/16/20 Unknown Urine clean catch - Clean Catch Midstream Urine Culture - Final Escherichia coli Review of Systems Cardiovascular: Denies chest pain, Reports pedal edema and Reports dyspnea Respiratory: Denies cough, Denies hemoptysis, Denies excessive phlegm production and Reports dyspnea Psychiatric: Denies anxiety Physical Exam Vital Signs: Vital Signs: Last Vital Signs Temp 98.0 F 09/10/20 08:00 Pulse 108 H 09/10/20 08:00 Resp 24 H 09/10/20 08:00 BP 133/79 09/10/20 08:00 Pulse Ox 90 L 09/10/20 08:00 Body Mass Index 32.9 Const: General: ill appearing and lethargic Orientation/consciousness: lethargic HENMT: General nose exam: Abnormal external nose present and Nasal discharge present Neck: Neck: Yes normal visual inspection, Yes full ROM and Yes no lymphad enopathy Chest: Chest palpation & inspection: normal inspection of the chest Resp: Auscultation: diminished lung sounds Cardio: Rate: regular rate and tachycardic Rhythm: regular rhythm Heart sounds: S1 normal heart sound present and S2 normal heart sound present GI: Palpation (GI): Soft to palpation and nontender Auscultation: normal bowel sounds Procedures Date of Service Date of Service: 09/09/20 Assessment and Plan Assessment and plan (1) Pulmonary hypertension: Status: Acute (2) ARDS (adult respiratory distress syndrome): Status: Acute (3) Respiratory failure with hypoxia: Status: Acute Assessment and Plan: Continue oxygen HF/NRB Start trial of Sildenafil 20mg TID Time Spent With Patient Time: Total time spent is greater than 50% in coordination of care (as documented) at patient's floor/unit and/or counseling patient: Time with patient: 15 - 24 minutes
[2020-09-10 12:12] LABS: Glucose, Whole Blood 225 mg/dL (60-115)
[2020-09-10] MEDS: Insulin Lispro 100 UNIT/ML 3 ML VIAL SUBCUT ×3 (12:28→21:12)
[2020-09-10] MEDS: ondansetron HCL 4 MG/2 ML VIAL IVPUSH (12:58)
--- NOTE | 2020-09-10 15:44 | P.PNIM_ITS ---
Subjective Subjective Date of Service: 09/10/20 Interval History: Patient continues to require high-flow oxygen and non- rebreather Able to weaned off high-flow 50 L Reporting some improvement in shortness of breath Review of Systems Gen: no fever HEENT: Mouth soreness Resp: no sob, no cough CV: no chest, no NICOLE, no leg edema GI: No n/v, no abd pain Neuro: No confusion Cardiovascular Cardiovascular: Denies chest pain and Denies palpitations Gastrointestinal Gastrointestinal: Denies abdominal pain Endocrine Endocrine: Denies palpitations Physical Exam Vital Signs: Vital Signs: Last Vital Signs Temp 97.3 F 09/10/20 15:23 Pulse 111 H 09/10/20 15:23 Resp 24 H 09/10/20 15:23 BP 140/70 H 09/10/20 15:23 Pulse Ox 93 09/10/20 15:23 Body Mass Index 32.9 Const: Other: General - ill appearing HEENT - tongue lesion ? herpetic vs thursh pain--better Cardiovascular - regular rate and rhythm, S1-S2 Lungs - rales at bases, no tachypnea at rest Abdomen - soft, nontender, no rebound or guarding Extremities - no edema bilaterally Neuro - awake and alert, no focal deficits General: alert and awake Nutritional Appearance: well nourished Orientation/consciousness: patient oriented x3 HENMT: Other: Head: Yes normocephalic and Yes atraumatic Eyes: Sclerae: sclerae normal Chest: Chest palpation & inspection: normal inspection of the chest Resp: Effort & Inspection: tachypneic Cardio: Other: General - ill appearing HEENT - tongue lesion ? herpetic vs thursh pain--better Cardiovascular - regular rate and rhythm, S1-S2 Lungs - rales at bases, no tachypnea at rest Abdomen - soft, nontender, no rebound or guarding Extremities - no edema bilaterally Neuro - awake and alert, no focal deficits Rate: regular rate Rhythm: regular rhythm GI: Palpation (GI): Soft to palpation and nontender Skin: General skin exam: no rashes or lesions noted Neuro: General: patient oriented x3 Cranial nerves: Yes CN's II-XII intact bilaterally and Yes Bilaterally intact EOM present Extrem: General: Yes normal to inspection Objective Data Current Medications Generic Name Dose Route Start Last Admin Trade Name Freq PRN Reason Stop Dose Admin Acetaminophen 650 mg 08/16/20 17:07 08/28/20 06:28 Acetaminophen 325 Mg Tablet PO 650 mg Q6H PRN Administration Pain, Mild (Pain Scale 1-3) Amlodipine Besylate 10 mg 08/18/20 13:15 09/10/20 08:36 Amlodipine Besylate 10 Mg Tablet PO 10 mg DAILY MARTELL Administration Protocol Atorvastatin Calcium 5 mg 08/16/20 21:00 09/09/20 21:39 Atorvastatin Calcium 10 Mg Tablet PO 5 mg BEDTIME MARTELL Administration Calcium Carbonate 750 mg 08/18/20 22:04 08/30/20 08:56 Calcium Carbonate 750 Mg Tab.Chew PO 750 mg Q6H PRN Administration Heartburn Docusate Sodium 100 mg 08/16/20 17:07 08/20/20 06:26 Docusate Sodium 100 Mg Capsule PO 100 mg DAILY PRN Administration Constipation Enoxaparin Sodium 40 mg 08/29/20 09:00 09/10/20 08:37 Enoxaparin Sodium 40 Mg/0.4 Ml Syringe SUBCUT 40 mg Q24H MARTELL Administration Famotidine 40 mg 08/29/20 09:00 09/10/20 08:36 Famotidine 20 Mg Tablet PO 40 mg DAILY MARTELL Administration Fenofibrate 160 mg 08/17/20 09:00 09/10/20 08:36 Fenofibrate 160 Mg Tablet PO 160 mg DAILY MARTELL Administration Folic Acid 1 mg 09/09/20 09:00 09/10/20 08:36 Folic Acid 1 Mg Tablet PO 1 mg DAILY MARTELL Administration Gabapentin 600 mg 08/16/20 17:07 09/10/20 08:36 Gabapentin 600 Mg Tablet PO 600 mg TID MARTELL Administration Guaifenesin/Dextromethorphan 5 ml 08/29/20 20:31 09/02/20 22:00 Guaifenesin Dm 100/10/5 Ml 5 Ml Syrup PO 5 ml Q6H PRN Administration Cough Insulin Glargine 50 unit 09/09/20 21:00 09/09/20 21:41 Insulin Glargine,Hum.Rec.Anlog 100 Unit/Ml 10 Ml Vial SUBCUT 50 unit BEDTIME MARTELL Administration Insulin Human Lispro 0 unit 08/16/20 17:07 09/10/20 12:28 Insulin Lispro 100 Unit/Ml 3 Ml Vial SUBCUT 2 unit QIDACHS MARTELL Administration Protocol Lidocaine/Diphenhydr/Alum/Mg/Simeth 10 ml 09/01/20 13:02 09/08/20 17:20 Mag&Al/Sim/Diphenhyd/Lidocaine 10 Ml Oral.Susp PO 10 ml Q4H PRN Administration mouth pain Protocol Lorazepam 0.5 mg 09/09/20 09:49 09/09/20 10:19 Lorazepam 2 Mg/Ml Vial IVPUSH 0.5 mg Q6H PRN Administration anxiety/restlessness Nystatin 1 appl 08/27/20 21:00 09/10/20 08:37 Nystatin Powder 15 Gm Bottle TOPICAL 1 appl BID MARTELL Administration Ondansetron HCl 4 mg 08/16/20 17:07 09/10/20 12:58 Ondansetron Hcl 4 Mg/2 Ml Vial IVPUSH 4 mg Q8H PRN Administration Nausea and Vomiting Polyethylene Glycol 17 gm 08/31/20 11:15 09/10/20 08:37 Polyethylene Glycol 3350 17 Gm Powd.Pack PO 17 gm DAILY MARTELL Administration Prednisone 20 mg 09/08/20 12:30 09/10/20 08:36 Prednisone 20 Mg Tablet PO 20 mg DAILY MARTELL Administration Sildenafil Citrate 20 mg 09/10/20 09:45 09/10/20 12:58 Sildenafil Citrate 20 Mg Tablet PO Not Given TID MARTELL Sodium Chloride 3 ml 08/16/20 17:07 09/10/20 08:37 0.9 % Sodium Chloride Flush 3 Ml Syringe IVFLUSH 3 ml QSHIFT MARTELL Administration Labs CBC & Chem 7: 09/04/20 13:27 09/08/20 08:42 Microbiology Microbiology Results: Microbiology 08/16/20 11:11 Blood - Venous Blood Culture - Final No growth after 5 days. 08/16/20 11:07 Blood - Venous Blood Culture - Final No growth after 5 days. 08/16/20 Unknown Urine clean catch - Clean Catch Midstream Urine Culture - Final Escherichia coli Assessment and Plan (1) COVID-19: Status: Acute Assessment and Plan: Hosp D#18, 60-year-old female here with acute hypoxic respiratory failure due to Covid-19 1. Severe COVID-19 with persistent acute hypoxic resp failure continues to remains on high flow, and NRB able to wean down high-flow 50 L chest x-ray 09/04 prep shows possible small pneumomediastinum seen by pulmonology recommended continue current treatment, repeat x-ray shows no significant change pulmonology following Completed course of remdesivir Steroids: decadron initially ( 1-2 days), then IV solu-medrol for about a week, now on prednisone tapering dose Doxy 10 days completed Noted to be have crackles patient tried low-dose Lasix 2. Oropharyngeal lesion, more likely herpetic improving Continue both Diflucan and Acyclovir D8, ID following. 3. CATHY with Metabolic Acidosis--Resolved resolved 4. ESBL in Urine colonized, no symptoms / infection 5. HTN--controlled Continue Norvasc 6. DM blood glucose on higher side continue Lantus and sliding scale insulin 7.HLD statin 8. Stage 2, pressure Ulcer, frequent turning discuus with RN 8. History of MRSA infection on bactrim pptx Full Code DVT pptx, lovenox
[2020-09-10] MEDS: Sildenafil Citrate 20 MG TABLET PO ×2 (16:00→21:11)
[2020-09-10] MEDS: Furosemide 40 MG/4 ML VIAL 20 MG IVPUSH (16:00)
[2020-09-10 16:11] LABS: Glucose, Whole Blood 247 mg/dL (60-115)
[2020-09-10 19:58] LABS: Glucose, Whole Blood 237 mg/dL (60-115)
[2020-09-10] MEDS: LORazepam 2 MG/ML VIAL 0.5 MG IVPUSH (21:10)
[2020-09-10] MEDS: Insulin Glargine,Hum.rec.anlog 100 UNIT/ML 10 ML VIAL 50 UNIT SUBCUT (21:11)
[2020-09-10] MEDS: Atorvastatin Calcium 10 MG TABLET 5 MG PO (21:11)
[2020-09-11] VITALS (27 sets, daily range): BP systolic 80–157; BP diastolic 51–79; PULSE 83–122; RESP 17–28; TEMP 35.9–37.1; O2SAT 91–100; BMI 32.9
--- NOTE | 2020-09-11 03:43 | PM.EVENT ---
Event Note Date of Service: 09/11/20 Event Note: At around 3:30 a.m. a code blue was called on this patient due to inability to find pulse, hypoxia, and patient on responding. On my arrival patient had a very faint pulse, she also had few seconds of positive her and according to the nurse patient was satting in the low 90s, she was on high flow as well as 100% non-rebreather but patient had taken off her high-flow as well as non-rebreather mask and was desatting to the 60s by time the nurse got to the bedside patient had already found to be pulseless as well as unresponsive and therefore she called the code. One dose of epinephrine was given, patient had a pulse, she was intubated and transferred to the ICU Unclear if she patient had complete cardiac arrest but she was resuscitated appropriately and family was informed
[2020-09-11 03:46] LABS: Glucose, Whole Blood 203 mg/dL (60-115)
[2020-09-11] MEDS: propofoL 1,000 MG/100 ML VIAL 14.7 MG IVCONT (04:00)
--- NOTE | 2020-09-11 04:03 | W.PM.CCCN ---
History of Present Illness Data of Consult Service Date: 09/11/20 Requesting physician: Elida Wright Primary Care Provider: Maria Luz Jordan MD HPI Reason for consult: Status post respiratory arrest on COVID 19 patient HPI: 60-year-old female with history of diabetes, hyperlipidemia, hypertension, diabetic neuropathy, fatty liver, remote history of seizures, rheumatoid arthritis, degenerative disc disease, GERD pulmonary edema, pulmonary hypertension, who was diagnosed with COVID 08/11/2020 and initially treated at home. Subsequently patient was admitted to this hospital on 08/16/2020 due to hypoxic respiratory failure, at the time of admission, her O2 sat was 84% on room air. Patient has been treated on the floor and has been requiring high-flow oxygen and non-rebreather as of yesterday, she was weaned down to high-flow 50 L with some improvements on her shortness of breath. This am however, the patient's nurse reported the patient had complained of some shortness of breath, she had been however satting in the 90s and suddenly richardson austin was called at 3:30 a.m.. The patient's doctor was in the room who reported the patient had a faint pulse but she clearly was no breathing properly. ER provider intubated the patient after etomidate and rocuronium were administered. On the monitor, patient has sinus tachycardia rate of 120s. Patient will be transferred to ICU. ROS: Unable to obtain. Past Medical History: As above Past Surgical History: Tonsillectomy Lumbar spine surgery Tubal ligation Family history: Per chart her father had diabetes and hypertension, mother had some type of cancer in hypertension, her uncle had an AR. Social History: Please at home with family, reportedly never smoked. CODE STATUS: Full code Allergies: Metformin causes diarrhea, lisinopril cough Home Medications: Please see med rec PHYSICAL EXAM: VS: 137/90 115, 23, 96% on a vent with the following settings VENT SETTINGS : AC 20; VT 350; peep 5, 100% FiO2 ?General: Intubated and sedated. ?Skin: Erythematous dermatitis under the breast. ?HEENT: Head is normocephalic, atraumatic, pupils equal round reactive to light accommodation bilaterally. Extraocular movements appear intact. Buccal mucosa is dry. Multiple ulcers on the tongue. Friction ulcer noted at the tip of the nose. ?Cardiac: Clear S1-S2, no murmurs rubs or gallops. ?Pulmonary: Diminished and coarse bilaterally. ?Abdomen: Protuberant, positive bowel sounds in all 4 quadrants. Soft, nontender, no rebound or guarding. ?Musculoskeletal: On passive range of motion no cogwheeling noted, no stiffness at the major joints of all 4 extremities. ?Neurologic: Sedated and intubated. Unable to further assess. Vascular: 2+ pulses upper and lower extremities distally. ? SIGNIFICANT LABORATORY DATA: This was reviewed and there is no laboratory data in several days. REVIEW OF IMAGES: Chest x-ray from 09/07/2013 IMPRESSION: Similar appearance of pneumomediastinum. Streaky bibasilar opacities, likely atelectasis. ASSESSMENT AND PLAN: 1.Status post respiratory arrest 2.Hypoxic respiratory failure in the setting of COVID pneumonia NO SEPSIS evidence at this point 3.Oral ulcers 4.Type 2 diabetes 5.Reactive tachycardia 6.Essential hypertension 7.Pneumomediastinum unchaged from previous X Ray Patient has primarily a respiratory issue, patient was successfully intubated and placed on a ventilator, transferred to the ICU. Full set of laboratories including lactic acid, venous blood gas, D-dimer, CRP, ferritin, procalcitonin levels will be ordered. Continue with H2 corie and statin. Patient not candidate for remdesivir. Continue with steroids. Will place a central line. GI PROPHYLAXIS: Famotidine p.o. DVT PROPHYLAXIS: Lovenox Critical care time used for critical evaluation of this patient, diagnosis, treatment and coordination of care, review her records and documentation TOTAL CRITICAL CARE TIME 90 MIN . Patient's care was discussed in detail with Dr. Youngblood. He is aware of all the above as well as the plan of care for this patient. [facility] Past Medical History Medical History (Updated 09/04/20 @ 14:45 by Tom Mancera MD) Degenerative disc disease, lumbar Diabetes type 2, uncontrolled Diabetic neuropathy Fatty liver GERD (gastroesophageal reflux disease) History of seizures Hypercholesterolemia Hypertension Obesity (BMI 30-39.9) Peptic ulcer disease Pulmonary hypertension Seronegative rheumatoid arthritis Vitamin D deficiency Functional capacity: independent ambulation Family History Family History Father Diabetes Hypertension Mother Hypertension Cancer Maternal Uncle Myocardial infarction Surgical History Surgical History History of lumbar surgery History of tonsillectomy History of tubal ligation Social History Social History Household Members: Family Housing: Apartment Smoking Status: Never smoker Smoked in Last 30 Days: No Second Hand Smoke Exposure: No Use of substances other than those prescribed or required for medical reasons: No Currently Displaying Signs/Symptoms of Drug Intoxication Withdrawal: No Have you been hit, kicked, punched, or otherwise hurt by someone within the past year? If so, by whom?: No Do you feel safe in your current relationship?: Yes Is there a partner from a previous relationship who is making you feel unsafe now?: No Advance Directives: No Advance Directives Information Provided: No Do you have thoughts of harming others: None Do you have a plan to hurt others: No Plan service: No Current occupational status: disabled Meds Allergies Allergy/AdvReac Type Severity Reaction Status Date / Time metformin [METFORMIN] Allergy Severe DIARRHEA, Verified 05/24/20 09:41 stomach intolerance lisinopril [LISINOPRIL] Allergy Intermediate COUGH Verified 05/24/20 09:41 Active Medications: Current Medications Generic Name Dose Route Start Last Admin Trade Name Freq PRN Reason Stop Dose Admin Acetaminophen 650 mg 08/16/20 17:07 08/28/20 06:28 Acetaminophen 325 Mg Tablet PO 650 mg Q6H PRN Administration Pain, Mild (Pain Scale 1-3) Amlodipine Besylate 10 mg 08/18/20 13:15 09/10/20 08:36 Amlodipine Besylate 10 Mg Tablet PO 10 mg DAILY MARTELL Administration Protocol Atorvastatin Calcium 5 mg 08/16/20 21:00 09/10/20 21:11 Atorvastatin Calcium 10 Mg Tablet PO 5 mg BEDTIME MARTELL Administration Calcium Carbonate 750 mg 08/18/20 22:04 08/30/20 08:56 Calcium Carbonate 750 Mg Tab.Chew PO 750 mg Q6H PRN Administration Heartburn Docusate Sodium 100 mg 08/16/20 17:07 08/20/20 06:26 Docusate Sodium 100 Mg Capsule PO 100 mg DAILY PRN Administration Constipation Enoxaparin Sodium 40 mg 08/29/20 09:00 09/10/20 08:37 Enoxaparin Sodium 40 Mg/0.4 Ml Syringe SUBCUT 40 mg Q24H MARTELL Administration Famotidine 40 mg 08/29/20 09:00 09/10/20 08:36 Famotidine 20 Mg Tablet PO 40 mg DAILY MARTELL Administration Fenofibrate 160 mg 08/17/20 09:00 09/10/20 08:36 Fenofibrate 160 Mg Tablet PO 160 mg DAILY MARTELL Administration Folic Acid 1 mg 09/09/20 09:00 09/10/20 08:36 Folic Acid 1 Mg Tablet PO 1 mg DAILY MARTELL Administration Gabapentin 600 mg 08/16/20 17:07 09/10/20 21:11 Gabapentin 600 Mg Tablet PO 600 mg TID MARTELL Administration Guaifenesin/Dextromethorphan 5 ml 08/29/20 20:31 09/02/20 22:00 Guaifenesin Dm 100/10/5 Ml 5 Ml Syrup PO 5 ml Q6H PRN Administration Cough Insulin Glargine 50 unit 09/09/20 21:00 09/10/20 21:11 Insulin Glargine,Hum.Rec.Anlog 100 Unit/Ml 10 Ml Vial SUBCUT 50 unit BEDTIME MARTELL Administration Insulin Human Lispro 0 unit 08/16/20 17:07 09/10/20 21:12 Insulin Lispro 100 Unit/Ml 3 Ml Vial SUBCUT 2 unit QIDACHS MARTELL Administration Protocol Lidocaine/Diphenhydr/Alum/Mg/Simeth 10 ml 09/01/20 13:02 09/08/20 17:20 Mag&Al/Sim/Diphenhyd/Lidocaine 10 Ml Oral.Susp PO 10 ml Q4H PRN Administration mouth pain Protocol Lorazepam 0.5 mg 09/09/20 09:49 09/10/20 21:10 Lorazepam 2 Mg/Ml Vial IVPUSH 0.5 mg Q6H PRN Administration anxiety/restlessness Nystatin 1 appl 08/27/20 21:00 09/10/20 22:44 Nystatin Powder 15 Gm Bottle TOPICAL 1 appl BID MARTELL Administration Ondansetron HCl 4 mg 08/16/20 17:07 09/10/20 12:58 Ondansetron Hcl 4 Mg/2 Ml Vial IVPUSH 4 mg Q8H PRN Administration Nausea and Vomiting Polyethylene Glycol 17 gm 08/31/20 11:15 09/10/20 08:37 Polyethylene Glycol 3350 17 Gm Powd.Pack PO 17 gm DAILY MARTELL Administration Prednisone 20 mg 09/08/20 12:30 09/10/20 08:36 Prednisone 20 Mg Tablet PO 20 mg DAILY MARTELL Administration Sildenafil Citrate 20 mg 09/10/20 09:45 09/10/20 21:11 Sildenafil Citrate 20 Mg Tablet PO 20 mg TID MARTELL Administration Sodium Chloride 3 ml 08/16/20 17:07 09/10/20 21:12 0.9 % Sodium Chloride Flush 3 Ml Syringe IVFLUSH 3 ml QSHIFT MARTELL Administration Home Medications Medication Instructions Recorded Confirmed Last Taken Type fenofibrate 160 mg tablet 160 mg PO DAILY 05/27/20 08/16/20 Unknown History folic acid 1 mg tablet 5 mg PO DAILY 05/27/20 08/16/20 Unknown History gabapentin 600 mg tablet 600 mg PO TID 05/27/20 08/16/20 Unknown History insulin glargine 100 unit/mL (3 60 unit SUBCUT BEDTIME ml 05/27/20 08/16/20 Unknown History mL) subcutaneous pen insulin lispro 100 unit/mL 5 unit SUBCUT TIDAC 05/27/20 08/16/20 Unknown History subcutaneous pen simvastatin 5 mg tablet 5 mg PO BEDTIME 05/27/20 08/16/20 Unknown History cyclobenzaprine 10 mg PO BID PRN 08/16/20 08/16/20 Unknown History hydroxychloroquine 200 mg PO BID 08/16/20 08/16/20 Unknown History omeprazole 20 mg PO DAILY@0630 08/16/20 08/16/20 Unknown History sulfamethoxazole-trimethoprim 1 tab PO MOWEFR@1000 08/16/20 08/16/20 Unknown History [Bactrim] Physical Exam Vital Signs: Vital Signs: Last Vital Signs Temp 97.2 F 09/10/20 23:40 Pulse 110 H 09/11/20 03:35 Resp 20 09/11/20 03:35 BP 137/79 09/11/20 03:35 Pulse Ox 97 09/11/20 03:35 Body Mass Index 32.9 Results Labs CBC & Chem 7: 09/11/20 04:01 09/11/20 04:01 Microbiology Microbiology Results: Microbiology 08/16/20 11:11 Blood - Venous Blood Culture - Final No growth after 5 days. 08/16/20 11:07 Blood - Venous Blood Culture - Final No growth after 5 days. 08/16/20 Unknown Urine clean catch - Clean Catch Midstream Urine Culture - Final Escherichia coli
--- NOTE | 2020-09-11 04:03 | PC.NURSE ---
0310 02 sats reading 69-70 on monitor.Iwent into pt's room and o2 and nonrebreather were off pt.code called.pt intubated and transfered to ICU.
[2020-09-11 04:08] LABS: MANUAL DIFF FLAG NO
[2020-09-11 04:09] LABS: Basophils Absolute Auto 0.1 X10*3/uL (0.0-0.2); Basophils Percent Auto 0.9 % (0-2); Eosinophils Percent Auto 0.3 % (0-4); Hematocrit 44.2 % (37-47); Hemoglobin 14.1 g/dl (12.0-16.0); Imm Gran Abs Auto 0.41 X10*3/uL (0.00-0.03); Lymphocytes Absolute Auto 1.7 X10*3/uL (1.2-4.9); Lymphocytes Percent Auto 16.3 % (20-40); Mean Corpuscular HGB Conc 31.9 g/dl (31.0-35.0); Mean Corpuscular Hemoglobin 27.7 pg (27.0-33.0); Mean Corpuscular Volume 86.8 fL (80-98); Mean Platelet Volume 10.9 fL (9.4-12.3); Monocytes Absolute Auto 0.6 X10*3/uL (0.1-1.2); Monocytes Percent Auto 5.8 % (2-11); NRBC Pct Auto 0.2 /100WBC (0.0-0.2); Neutrophils Absolute Auto 7.5 X10*3/uL (2.0-8.3); Neutrophils Percent Auto 72.7 % (45-73); Platelet Count 434 X10*3/uL (160-400); Red Blood Count 5.09 X10*6/uL (4.20-5.50); Red Cell Distribution Width 15.4 % (11.0-16.0); White Blood Count 10.4 X10*3/uL (4.8-10.8)
[2020-09-11 04:16] LABS: Base Excess VBG 3.7 mmol/L; HCO3 VBG 26 mmol/L; PCO2 VBG 35 mmHg; PO2 VBG 66 mmHg; pH VBG 7.42 (7.32-7.43)
[2020-09-11 04:37] LABS: Lactic Acid 3.2 mmol/L (0.5-2.0)
[2020-09-11 04:38] LABS: D Dimer 1879 NG/ML
[2020-09-11 04:46] LABS: Anion Gap 21 (12-20); Blood Urea Nitrogen 51 mg/dL (9-16); C Reactive Protein 3.49 mg/dL (< or = 0.50); Calcium 9.4 mg/dL (8.4-10.2); Carbon Dioxide 23 mmol/L (22-29); Chloride 103 mmol/L (96-108); Creatinine Clr Calc Pharmacy 75.8; Estimated Glomerular Filt Rate > 60; Glucose Random 180 mg/dL (60-115); Potassium 4.3 mmol/L (3.3-5.1); Sodium 143 mmol/L (135-145)
[2020-09-11 04:59] LABS: Ferritin 1265 ng/mL (10-250)
--- NOTE | 2020-09-11 05:12 | W.PM.CCHP ---
Procedures Date of Service Date of Service: 09/11/20
[2020-09-11 06:06] LABS: Reflex Lactate? Lactic Acid Added
[2020-09-11] MEDS: Rocuronium Bromide 50 MG/5 ML VIAL IVPUSH (06:22)
[2020-09-11] MEDS: Lactated Ringers 1,000 ML 100 ML IVCONT ×2 (06:23→16:17)
[2020-09-11] MEDS: Enoxaparin Sodium 40 MG/0.4 ML SYRINGE SUBCUT ×2 (06:25→17:13)
[2020-09-11 06:46] LABS: Procalcitonin 0.04 ng/mL
[2020-09-11 07:21] LABS: ~Lactic Acid-LAB USE ONLY 1.7 mmol/L (0.5-2.0)
[2020-09-11 07:25] LABS: Glucose, Whole Blood 159 mg/dL (60-115)
[2020-09-11] MEDS: 0.9 % Sodium Chloride Flush 3 ML SYRINGE IVFLUSH ×3 (07:55→23:44)
--- NOTE | 2020-09-11 08:08 | PC.NURSE ---
summary of events-pt found in hypoxic state with subsequent loss of pulse resulting in cardiopulmonary resuscitation-pt received etomidate 40 mg as well as rocuronium 50 mg iv for endotracheal tube insertion-pt briefly in PEA rhythm-ROSC returned after a brief period of CPR and intubation- crurrently pt is under the influences of propofol infusion for ventilatory harmony. complexion pale/sallow. skin turgor has decreased elastic rebound. pt looks dry. there are 2 stage ulcerations of each buttock. area is excoriated. pt has had increasing peak airway pressures. ventilator rate increased to 22 and vt decreased to 300 with peak airway pressures declining into the high 40s. ett suctioned for no secreations-please note the following interventions carried out since transfer 1. central venous access obtained 2. propofol infusion implement and titrated upward to 30 mcg/kg/min 3. 1 dose of rocuronium 50 mg iv given for increasing airway pressures 4. vent changes as noted above 5. whittaker catheter inserted 6. iv hydration implemented 7. cxr obtained for line placement confirmation 8. labs drawn including lactate which is elevated.
[2020-09-11] MEDS: propofoL 1,000 MG/100 ML VIAL 19.6 MG IVCONT ×4 (09:20→23:37)
[2020-09-11] MEDS: fentaNYL citrate/NS 1,000 MCG/100 ML PLAST..BAG 2.5 MCG IVCONT (10:37)
[2020-09-11 11:20] LABS: Glucose, Whole Blood 126 mg/dL (60-115)
--- NOTE | 2020-09-11 11:59 | MHC.CLN ---
PT IS INTUBATED AND SEDATED RECOMMEND TF PROMOTE AT MAX GOAL RATE 40CC/HR WITH 1 PKT PROSOURCE BID TO PROVIDE 1040KCALS (1537 WITH SEDATION; 26KCALS/KG), 90G PROTEIN (1.5G/KG), 805CC FREE WATER FROM FORMULA MONITOR TOLERANCE, RESIDUALS AND LYTES
--- NOTE | 2020-09-11 14:15 | PC.NURSE ---
This morning patient sedated on Propofol and on AC vent settings with a rate of 24, tidal volume of 300, peep 5, fio2 90% with oxygen saturation trending in the high 90s. Upon assessment patient becoming restless moving her head and raising both arms. Restraints in place for patient safety. Propofol increased, see MAR/RASS Score. BP started to trend down as low as 80/52. notified. Norepinephrine and Fentanyl drip ordered and started. BP impromevened to 121/70. Dr. Youngblood at bedside with RT. Vent settings changed to PC ipressure of 22, rate 18, peep 10, fio2 7% with min volumes trending around 6 and o2 sats 95%. Patient synchronous with vent. This afternoon patient transported for chest CT with no complications. Patient noted to have decreased urine output despite being on LR at 100 ml/hr. Notified MD Michelle to review. No BM at this time. 1400 Tube feed started, promote at 20 ml/hr. POC trending between 150s to 120s. No insulin coverage needed prior to start of tube feed. Patient's daughter Odette updated by this RN.
[2020-09-11] MEDS: methylPREDNISolone Sod Succ 500 MG in 0.9 % Sodium Chloride 50 ML 56.89 MG IV (17:11)
[2020-09-11] MEDS: Sodium Chloride 0.45 % 1,000 ML 50 ML IVCONT (17:12)
[2020-09-11 17:26] LABS: Glucose, Whole Blood 141 mg/dL (60-115)
[2020-09-11 17:31] LABS: Base Excess VBG 8.2 mmol/L; HCO3 VBG 33 mmol/L; PCO2 VBG 47 mmHg; PO2 VBG 53 mmHg; pH VBG 7.45 (7.32-7.43)
[2020-09-11 18:33] LABS: Sodium Urine Random < 20.0 mmol/L
--- NOTE | 2020-09-11 22:00 | P.ACPN_ITS ---
Advanced Care Planning Note Advanced Care Planning Note Discussed with: family member(s) ( Mr. Eulogio Donnelly) Time spent (in minutes): 45 Narrative: 1950 pm. I have been informed by nursing personnel the patient's O2 sat decrease in the concern that did tube might have moved. Upon reassessing this patient, the day previous placement of the 2 was 22 cm at the lip, currently at 24 at the lip. After suctioning, the patient's O2 sat went from the high 80s to low 90s. Still an x-ray was taken. I spoke to [facility] Dr. Macdonald who reports that the patient might have a very small apical pneumothorax but too small to consider placing a chest tube or a pigtail catheter at this point. Patient's O2 sat has not continued to decrease, I will recheck an x-ray in a couple of hours to ensure that we are either dealing with a pneumothorax versus ongoing progression of the pneumomediastinum causing these appearance. At 9:52 p.m., I had a lengthy discussion with the patient's Mr. Eulogio Donnelly about the patient's current clinical condition and poor prognosis, we also talked about the findings on her CT showing extensive pneumomediastinum and most recent chest x-ray showing possibility of a pneumothorax which if it worsens in causes further problems including worsened respiratory failure leading to cardiac arrest, he would not want her to be resuscitated as this had been her wish in the near past. He is aware the will continue with medical management and will continue with pulse steroids. At this point it is clear that she will be DNR DNI and no heroic measures, no invasive procedures including no chest tube placement and if she worsens, he would like her to be made comfortable. This information was shared and corroborated by the patient's nurse Blanca. Code status will be changed. Total time spent with this patient included discussion with the patient's decision making 45 minutes. Problems Discussed (1) COVID-19:
[2020-09-11] MEDS: Gabapentin 600 MG TABLET PO (23:35)
[2020-09-11] MEDS: Atorvastatin Calcium 10 MG TABLET 5 MG PO (23:35)
[2020-09-11] MEDS: Sildenafil Citrate 20 MG TABLET PO (23:37)
[2020-09-11] MEDS: Insulin Lispro 100 UNIT/ML 3 ML VIAL SUBCUT (23:43)
[2020-09-11 23:57] LABS: Glucose, Whole Blood 236 mg/dL (60-115)
[2020-09-12] VITALS (31 sets, daily range): BP systolic 96–123; BP diastolic 45–68; PULSE 65–79; RESP 20–21; TEMP 35.4–36.6; O2SAT 94–100
--- NOTE | 2020-09-12 03:23 | PC.NURSE ---
09/11/20 @1925 patient with o2 sat 75%. Observed patient pulling for ett and had already pulled og tube. PA and FEED CRUSHER OPERATOR notified. Fentanyl increased to 75 mcg/hr. Confirmed ETT placement with FEED CRUSHER OPERATOR, FiO2 increased to 100%. OG tube re-inserted and CXR performed to confirm placement of ETT and OG tube. CXR results called to PA for critical result (see cxr report).
[2020-09-12] MEDS: fentaNYL citrate/NS 1,000 MCG/100 ML PLAST..BAG 7.5 MCG IVCONT ×2 (04:22→17:46)
[2020-09-12] MEDS: propofoL 1,000 MG/100 ML VIAL 19.6 MG IVCONT (04:50)
[2020-09-12] MEDS: Enoxaparin Sodium 40 MG/0.4 ML SYRINGE SUBCUT ×2 (05:43→17:46)
[2020-09-12 06:00] LABS: Base Excess VBG 3.4 mmol/L; HCO3 VBG 30 mmol/L; PCO2 VBG 54 mmHg; PO2 VBG 65 mmHg; pH VBG 7.34 (7.32-7.43)
[2020-09-12 06:07] LABS: Basophils Percent Auto 0.1 % (0-2); Eosinophils Percent Auto 0.1 % (0-4); Hematocrit 36.6 % (37-47); Hemoglobin 11.7 g/dl (12.0-16.0); Imm Gran Pct Auto 2.2 % (0.0-0.4); Lymphocytes Absolute Auto 0.7 X10*3/uL (1.2-4.9); Lymphocytes Percent Auto 5.4 % (20-40); MANUAL DIFF FLAG SCAN; Mean Corpuscular Hemoglobin 27.8 pg (27.0-33.0); Mean Corpuscular Volume 86.9 fL (80-98); Mean Platelet Volume 10.7 fL (9.4-12.3); Monocytes Absolute Auto 0.3 X10*3/uL (0.1-1.2); Monocytes Percent Auto 2.1 % (2-11); NRBC Pct Auto 0.2 /100WBC (0.0-0.2); Neutrophils Absolute Auto 12.3 X10*3/uL (2.0-8.3); Neutrophils Percent Auto 90.1 % (45-73); Platelet Count 395 X10*3/uL (160-400); Red Blood Count 4.21 X10*6/uL (4.20-5.50); Red Cell Distribution Width 14.7 % (11.0-16.0); SCAN SMEAR FLAG 1; White Blood Count 13.6 X10*3/uL (4.8-10.8)
[2020-09-12 06:20] LABS: D Dimer 513 NG/ML
[2020-09-12 06:32] LABS: SLIDE REVIEW VERIFIED
[2020-09-12 06:41] LABS: Anion Gap 16 (12-20); Blood Urea Nitrogen 46 mg/dL (9-16); Calcium 8.5 mg/dL (8.4-10.2); Carbon Dioxide 28 mmol/L (22-29); Chloride 102 mmol/L (96-108); Estimated Glomerular Filt Rate > 60; Glucose Random 284 mg/dL (60-115); Potassium 4.7 mmol/L (3.3-5.1); Sodium 141 mmol/L (135-145)
[2020-09-12 06:55] LABS: Procalcitonin 0.07 ng/mL
[2020-09-12 07:01] LABS: Ferritin 401 ng/mL (10-250)
[2020-09-12 07:27] LABS: Glucose, Whole Blood 289 mg/dL (60-115)
[2020-09-12] MEDS: Famotidine 20 MG TABLET 40 MG PO (08:18)
[2020-09-12] MEDS: amLODIPine Besylate 10 MG TABLET PO (08:18)
[2020-09-12] MEDS: Insulin Lispro 100 UNIT/ML 3 ML VIAL SUBCUT (08:18)
[2020-09-12] MEDS: Folic Acid 1 MG TABLET PO (08:18)
[2020-09-12] MEDS: Fenofibrate 160 MG TABLET PO (08:18)
[2020-09-12] MEDS: Sildenafil Citrate 20 MG TABLET PO ×3 (08:18→21:38)
[2020-09-12] MEDS: Gabapentin 600 MG TABLET PO ×2 (08:18→21:38)
[2020-09-12] MEDS: 0.9 % Sodium Chloride Flush 3 ML SYRINGE IVFLUSH ×3 (08:19→22:50)
[2020-09-12] MEDS: Nystatin Powder 15 GM BOTTLE 1 APPL TOPICAL ×2 (08:23→21:57)
[2020-09-12] MEDS: methylPREDNISolone Sod Succ 500 MG in 0.9 % Sodium Chloride 50 ML 50 MG IV ×2 (08:30→22:50)
[2020-09-12] MEDS: propofoL 1,000 MG/100 ML VIAL 17.15 MG IVCONT ×3 (09:48→20:10)
[2020-09-12 11:48] LABS: Glucose, Whole Blood 338 mg/dL (60-115)
[2020-09-12] MEDS: Sodium Chloride 0.45 % 1,000 ML 50 ML IVCONT (11:54)
[2020-09-12] MEDS: Insulin Regular/NS 100 UNIT/100 ML PLAST..BAG 6 UNIT IVCONT (12:00)
--- NOTE | 2020-09-12 12:24 | P.PNCC_ITS ---
Subjective Subjective Date of Service: 09/12/20 Interval History: Mrs. No was readmitted to the ICU on Sep 10 after a near respiratory arrest on the [facility]. The patient is a 60-year-old female with history of insulin-dependent diabetes, diabetic neuropathy, fatty liver, gastroesophageal reflux disease, remote history of seizures, hypertension, hypercholesteremia, RA on hydroxychloroquine, degenerative disc disease, and surgical history of lumbar spine surgery, tonsillectomy, and tubal ligation. She had no prior history of respiratory disease. She was diagnosed with COVID-19 after a positive test on 08/11/2020 at this facility, after first becoming symptomatic on approximately August 08. She presented to the hospital on August 16 with shortness of breath and cough, with hypoxemia. Sat was 84% on room air. COVID biomarkers were mildly positive. Creatinine was 1.18. Chest CT showed bilateral ground-glass infiltrates classic for COVID pneumonia. She was admitted to Medicine and treated with Decadron. Her FiO2 requirement escalated rapidly. Remdesivir was started. She required transfer to the ICU for CPAP on Aug 18. Her steroids were increased to Solu-Medrol 80mg. She improved enough to leave the ICU after just two days, on only HFNC 60L/65%. The patient has since been on [facility] and completed a course of dexamethasone. Over the last days she was requiring HFNC 100% + NRBFM oxygen. She had developed pneumomediastinum and SQ air. Early yesterday morning the patient desaturated and was grossly hypoventilating. A code blue was called. The patient still had a pulse. The trachea was intubated by Dr. Infante. She had SR on the monitor throughout. She was tx to ICU. F/U CXR post intubation and line placement was not that much different than the previous CXR four days prior. After adjusting the ventilator yesterday, we had her on AC with 10cm peep, and on 70% FiO2 she was Sat?ing about 95%. Chest CT yesterday showed lung that looked like liver, with air bronchograms throughout both lungs, and huge pneumomediastinum both anteriorly and posteriorly. Bec of the CT findings suggesting diffuse fibrosis, we started her on pulse steroids, 1G daily x 3 days. We spoke to her and let him know the grave prognosis. He decided to change her status to DNR, no heroic measures, no chest tube. Today, she continues sedated on propofol and fentanyl. She?s also on Levophed 0.03ug and insulin @ 3u/hr. See Vital Signs below. HR 69, BP 103/45, RR is 20 on AC 20/300/75%/+10, with PIP 37, ETCO2 34, Sat 95%. CVBG this morning showed 7.34/54/+3. She remains afebrile. Expiratory phase is normal. LABORATORY DATA: As below. DDimer down to 513. Ferritin down to 401. PCT is low. MICROBIOLOGY: Screening u/a is negative. IMPRESSION: 1. Bilateral COVID pneumonia with hepatization of the lung. This is ?end stage? coronavirus pulmonary disease. The fact that she has such massive pneumomediastinum, along with the marked air bronchograms confirms how sclerotic her lungs are. 2. Hypoxemic respiratory failure. Secondary to above. I?m only surprised that her A-a gradient isn?t worse. She is developing hypercarbia however, which is the end stage of ARDS. We have her on Sidenafil which hasn?t make much of a difference. 3. Acute kidney injury. 4. Diabetes. Continue the insulin drip. 5. Anticoagulation: We have her on just bid ? dose Lovenox. Prognosis is very, very grave. Probability of survival is pretty close to nil. Critical care time: 50 min. Physical Exam Vital Signs: Vital Signs: Last Vital Signs Temp 97.0 F 09/12/20 10:00 Pulse 73 09/12/20 11:00 Resp 20 09/12/20 11:00 BP 110/52 L 09/12/20 11:00 Pulse Ox 100 09/12/20 11:00 Body Mass Index 32.9 Objective Data Labs CBC & Chem 7: 09/12/20 05:50 09/12/20 05:50 Labs: Laboratory Results - last 24 hr 09/11/20 09/11/20 09/11/20 17:11 17:18 17:46 WBC RBC Hgb Hct MCV MCH MCHC RDW Plt Count MPV Immature Gran % (Auto) Neut % (Auto) Lymph % (Auto) Brule % (Auto) Eos % (Auto) Baso % (Auto) Lymph # (Auto) Brule # (Auto) Eos # (Auto) Baso # (Auto) Abs Immat Gran (auto) Absolute Neuts (auto) Absolute Nucleated RBC Nucleated RBC % (auto) Smear Tech's Comments D-Dimer VBG pH 7.45 H VBG pCO2 47 VBG pO2 53 VBG HCO3 33 VBG O2 Saturation 79.0 VBG Base Excess 8.2 Sodium Potassium Chloride Carbon Dioxide Anion Gap BUN Creatinine Estim Creat Clear Calc Estimated GFR POC Glucose 141 H Random Glucose Calcium Ferritin C-Reactive Protein Procalcitonin Ur Random Sodium < 20.0 09/11/20 09/12/20 09/12/20 23:40 05:50 05:50 WBC 13.6 H RBC 4.21 Hgb 11.7 L Hct 36.6 L MCV 86.9 MCH 27.8 MCHC 32.0 RDW 14.7 Plt Count 395 MPV 10.7 Immature Gran % (Auto) 2.2 H Neut % (Auto) 90.1 H Lymph % (Auto) 5.4 L Brule % (Auto) 2.1 Eos % (Auto) 0.1 Baso % (Auto) 0.1 Lymph # (Auto) 0.7 L Brule # (Auto) 0.3 Eos # (Auto) 0.0 Baso # (Auto) 0.0 Abs Immat Gran (auto) 0.30 H Absolute Neuts (auto) 12.3 H Absolute Nucleated RBC 0.030 H Nucleated RBC % (auto) 0.2 Smear Tech's Comments VERIFIED D-Dimer 513 VBG pH VBG pCO2 VBG pO2 VBG HCO3 VBG O2 Saturation VBG Base Excess Sodium Potassium Chloride Carbon Dioxide Anion Gap BUN Creatinine Estim Creat Clear Calc Estimated GFR POC Glucose 236 H Random Glucose Calcium Ferritin C-Reactive Protein Procalcitonin Ur Random Sodium 09/12/20 09/12/20 09/12/20 05:50 05:50 05:50 WBC RBC Hgb Hct MCV MCH MCHC RDW Plt Count MPV Immature Gran % (Auto) Neut % (Auto) Lymph % (Auto) Brule % (Auto) Eos % (Auto) Baso % (Auto) Lymph # (Auto) Brule # (Auto) Eos # (Auto) Baso # (Auto) Abs Immat Gran (auto) Absolute Neuts (auto) Absolute Nucleated RBC Nucleated RBC % (auto) Smear Tech's Comments D-Dimer VBG pH 7.34 VBG pCO2 54 VBG pO2 65 VBG HCO3 30 VBG O2 Saturation 88.0 VBG Base Excess 3.4 Sodium 141 Potassium 4.7 Chloride 102 Carbon Dioxide 28 Anion Gap 16 BUN 46 H Creatinine 0.74 Estim Creat Clear Calc 82.0 Estimated GFR > 60 POC Glucose Random Glucose 284 H D Calcium 8.5 D Ferritin 401 H C-Reactive Protein 7.40 H Procalcitonin 0.07 Ur Random Sodium 09/12/20 09/12/20 07:22 11:44 WBC RBC Hgb Hct MCV MCH MCHC RDW Plt Count MPV Immature Gran % (Auto) Neut % (Auto) Lymph % (Auto) Brule % (Auto) Eos % (Auto) Baso % (Auto) Lymph # (Auto) Brule # (Auto) Eos # (Auto) Baso # (Auto) Abs Immat Gran (auto) Absolute Neuts (auto) Absolute Nucleated RBC Nucleated RBC % (auto) Smear Tech's Comments D-Dimer VBG pH VBG pCO2 VBG pO2 VBG HCO3 VBG O2 Saturation VBG Base Excess Sodium Potassium Chloride Carbon Dioxide Anion Gap BUN Creatinine Estim Creat Clear Calc Estimated GFR POC Glucose 289 H 338 H Random Glucose Calcium Ferritin C-Reactive Protein Procalcitonin Ur Random Sodium Microbiology Microbiology Results: Microbiology 09/11/20 16:37 Sputum - Suctioned Gram Stain - Final 09/11/20 16:37 Sputum - Suctioned Sputum Culture - Final 08/16/20 11:11 Blood - Venous Blood Culture - Final No growth after 5 days. 08/16/20 11:07 Blood - Venous Blood Culture - Final No growth after 5 days. 08/16/20 Unknown Urine clean catch - Clean Catch Midstream Urine Culture - Final Escherichia coli Progress Note: A&P Time Spent With Patient Time: Total time spent is greater than 50% in coordination of care (as documented) at patient's floor/unit and/or counseling patient: Total time spent with greater than 50% in coordination of care (as documented) at patient's floor/unit and/or counseling patient:: 0 Critical Care Time Critical Care Time (minutes): 60
[2020-09-12 12:48] LABS: Glucose Urine UA 250 MG/DL (NEG); Leukocyte Esterase Urine NEG (NEG); Nitrite Urine NEG (NEG); Specific Gravity - Urine 1.025 (1.005-1.025); Urine Blood NEG (NEG); Urine Ketones NEG (NEG); Urine Protein NEG (NEG-TRACE)
[2020-09-12 12:59] LABS: Appearance Urine CLEAR; Color Urine YELLOW
[2020-09-12 15:02] LABS: Glucose, Whole Blood 253 mg/dL (60-115)
--- NOTE | 2020-09-12 15:07 | MHC.CM.PN ---
Pt is in ICU being weaned off of ventilatory support: Original d/c plan was for a return to home with family support however, this seems unlikely given her prolonged stay with intubation and overall deconditioned physical state. Will await successful extubation and evaluation of physical status via PT/OT evals for assistance with d/c planning.
--- NOTE | 2020-09-12 17:30 | PC.NURSE ---
S/E Afebrile Sedated on Propofol gtt & Fentanyl gtt Pupils 2mm, PERRLA SR, no ectopy Dressing to R IJ TLC changed Lovenox for DVT DDimer 513, Ferritan 401 Continuing to require pressor support Bilateral neck swelling - MD aware 7 ETT, 24cm @ lip Vent settings unchanged - AC 20/300/10/75 Scant inline secretions Sputum culture negative LS dim throughout Promote maxed at 40cc/hr - tolerating well 120 water flushes POS 330's - started on Insulin gtt - titrated per MD Last BM 09/10 Urine output 50-100cc/hr Stage II bilat buttocks - wound consulted and at bedside Barrier cream, air loss bed in place Bathed, repo q2hr Family updated
--- NOTE | 2020-09-12 17:43 | P.CONWO_ITS ---
History of Present Illness Data of Consult Service Date: 09/12/20 Requesting physician: Juan Manuel Youngblood Primary Care Provider: Maria Luz Jordan MD HPI Reason for consult: skin breakdown in coccyx/sacral area The patient is a 60-year-old female with COVID positive diagnosis. She has been in the hospital for many weeks and unfortunately her respiratory status is worsening. She is currently intubated in the ICU on high oxygen support. Recently x-rays and CT scans shows new move media stat I now him and subcutaneous emphysema. She is in the hospital bed and has been noted to have more for dermatitis type peeling skin over her sacral coccyx area. Review of Systems Review of Systems: Yes unobtainable due to endotracheal tube and Unobtainable due to mental condition [facility] Medical History Degenerative disc disease, lumbar Diabetes type 2, uncontrolled Diabetic neuropathy Fatty liver GERD (gastroesophageal reflux disease) History of seizures Hypercholesterolemia Hypertension Obesity (BMI 30-39.9) Peptic ulcer disease Pulmonary hypertension Seronegative rheumatoid arthritis Vitamin D deficiency Functional capacity: independent ambulation Family History Father Diabetes Hypertension Mother Hypertension Cancer Maternal Uncle Myocardial infarction Surgical History History of lumbar surgery History of tonsillectomy History of tubal ligation Social History Household Members: Family Housing: Apartment Smoking Status: Never smoker Smoked in Last 30 Days: No Second Hand Smoke Exposure: No Use of substances other than those prescribed or required for medical reasons: No Currently Displaying Signs/Symptoms of Drug Intoxication Withdrawal: No Have you been hit, kicked, punched, or otherwise hurt by someone within the past year? If so, by whom?: No Do you feel safe in your current relationship?: Yes Is there a partner from a previous relationship who is making you feel unsafe now?: No Advance Directives: No Advance Directives Information Provided: No Do you have thoughts of harming others: None Do you have a plan to hurt others: No Plan service: No Current occupational status: disabled Meds Allergies Allergy/AdvReac Type Severity Reaction Status Date / Time metformin [METFORMIN] Allergy Severe DIARRHEA, Verified 05/24/20 09:41 stomach intolerance lisinopril [LISINOPRIL] Allergy Intermediate COUGH Verified 05/24/20 09:41 Active Medications: Current Medications Generic Name Dose Route Start Last Admin Trade Name Freq PRN Reason Stop Dose Admin Acetaminophen 650 mg 08/16/20 17:07 08/28/20 06:28 Acetaminophen 325 Mg Tablet PO 650 mg Q6H PRN Administration Pain, Mild (Pain Scale 1-3) Amlodipine Besylate 10 mg 08/18/20 13:15 09/12/20 08:18 Amlodipine Besylate 10 Mg Tablet PO 10 mg DAILY MARTELL Administration Protocol Atorvastatin Calcium 5 mg 08/16/20 21:00 09/11/20 23:35 Atorvastatin Calcium 10 Mg Tablet PO 5 mg BEDTIME MARTELL Administration Calcium Carbonate 750 mg 08/18/20 22:04 08/30/20 08:56 Calcium Carbonate 750 Mg Tab.Chew PO 750 mg Q6H PRN Administration Heartburn Docusate Sodium 100 mg 08/16/20 17:07 08/20/20 06:26 Docusate Sodium 100 Mg Capsule PO 100 mg DAILY PRN Administration Constipation Enoxaparin Sodium 40 mg 09/11/20 06:00 09/12/20 05:43 Enoxaparin Sodium 40 Mg/0.4 Ml Syringe SUBCUT 40 mg Q12H MARTELL Administration Famotidine 40 mg 08/29/20 09:00 09/12/20 08:18 Famotidine 20 Mg Tablet PO 40 mg DAILY MARTELL Administration Fenofibrate 160 mg 08/17/20 09:00 09/12/20 08:18 Fenofibrate 160 Mg Tablet PO 160 mg DAILY MARTELL Administration Fentanyl 50 mcg 09/11/20 11:24 Fentanyl Citrate/Pf 100 Mcg/2 Ml Vial IVPUSH Q5M PRN WOB Folic Acid 1 mg 09/09/20 09:00 09/12/20 08:18 Folic Acid 1 Mg Tablet PO 1 mg DAILY MARTELL Administration Gabapentin 600 mg 09/11/20 21:00 09/12/20 08:18 Gabapentin 600 Mg Tablet PO 600 mg BID MARTELL Administration Hydromorphone HCl 1 mg 09/11/20 11:24 Hydromorphone Hcl 1 Mg/Ml Syringe IVPUSH Q1H PRN WOB Propofol 1,000 mg in 100 mls @ 0 mls/hr 09/11/20 06:45 09/12/20 14:01 Diprivan IVCONT 35 mcg/kg/min .Q0M MARTELL 17.15 mls/hr Administration Protocol Per Protocol Norepinephrine Bitartrate 8 mg in 250 mls @ 0 mls/hr 09/11/20 10:30 09/12/20 16:00 Levophed IVCONT 0.03 mcg/kg/min .Q0M MARTELL 4.59 mls/hr Administration Protocol Per Protocol Fentanyl 1,000 mcg in 100 mls @ 0 mls/hr 09/11/20 10:30 09/12/20 04:22 Sublimaze/Ns IVCONT 75 mcg/hr .Q0M MARTELL 7.5 mls/hr Administration Protocol Per Protocol Sodium Chloride 1,000 mls @ 50 mls/hr 09/11/20 16:30 09/12/20 11:54 IVCONT 50 mls/hr .Q20H MARETLL Administration Methylprednisolone Sodium 50 mls @ 50 mls/hr 09/12/20 08:00 09/12/20 09:48 Succinate 500 mg/ Sodium IV 09/14/20 08:59 Infused Chloride Q12H MARTELL Infusion Insulin Human Regular 100 unit in 100 mls @ 6 mls/hr 09/12/20 15:15 09/12/20 12:00 Myxredlin IVCONT 6 unit/hr .[id number] MARTELL 6 mls/hr Administration Protocol 6 UNIT/HR Nystatin 1 appl 08/27/20 21:00 09/12/20 08:23 Nystatin Powder 15 Gm Bottle TOPICAL 1 appl BID MARTELL Administration Sildenafil Citrate 20 mg 09/10/20 09:45 09/12/20 14:01 Sildenafil Citrate 20 Mg Tablet PO 20 mg TID MARTELL Administration Sodium Chloride 3 ml 08/16/20 17:07 09/12/20 14:03 0.9 % Sodium Chloride Flush 3 Ml Syringe IVFLUSH 3 ml QSHIFT MARTELL Administration Home Medications Medication Instructions Recorded Confirmed Last Taken Type fenofibrate 160 mg tablet 160 mg PO DAILY 05/27/20 08/16/20 Unknown History folic acid 1 mg tablet 5 mg PO DAILY 05/27/20 08/16/20 Unknown History gabapentin 600 mg tablet 600 mg PO TID 05/27/20 08/16/20 Unknown History insulin glargine 100 unit/mL (3 60 unit SUBCUT BEDTIME ml 05/27/20 08/16/20 Unknown History mL) subcutaneous pen insulin lispro 100 unit/mL 5 unit SUBCUT TIDAC 05/27/20 08/16/20 Unknown History subcutaneous pen simvastatin 5 mg tablet 5 mg PO BEDTIME 05/27/20 08/16/20 Unknown History cyclobenzaprine 10 mg PO BID PRN 08/16/20 08/16/20 Unknown History hydroxychloroquine 200 mg PO BID 08/16/20 08/16/20 Unknown History omeprazole 20 mg PO DAILY@0630 08/16/20 08/16/20 Unknown History sulfamethoxazole-trimethoprim 1 tab PO MOWEFR@1000 08/16/20 08/16/20 Unknown History [Bactrim] Physical Exam Vital Signs and Narrative: Vital Signs: Last Vital Signs Temp 96.3 F L 09/12/20 16:00 Pulse 69 09/12/20 17:00 Resp 20 09/12/20 17:00 BP 102/50 L 09/12/20 17:00 Pulse Ox 95 09/12/20 17:00 Body Mass Index 32.9 Skin: Other: The patient is COVID positive on high respiratory ventilator support and pressors and discussion with the nursing staff is not stable to turn around and look at her coccyx skin area. Instead we discussed how with appeared by evaluating her picture is and it seems that just along that area there is superficial skin peeling almost like dry skin but no open skin wounds extending into the subcutaneous fatty tissue. This area is a little brought her in the coccyx sacral and buttock region and does not course pond directly with a true pressure wound. There is no evidence of infection Results Labs CBC and Chem 7: 09/12/20 05:50 09/12/20 05:50 Labs: Laboratory Results - last 24 hr 09/11/20 09/11/20 09/12/20 17:46 23:40 05:50 MCV 86.9 MCH 27.8 MCHC 32.0 RDW 14.7 Plt Count 395 MPV 10.7 Immature Gran % (Auto) 2.2 H Neut % (Auto) 90.1 H Lymph % (Auto) 5.4 L [place] % (Auto) 2.1 Eos % (Auto) 0.1 Baso % (Auto) 0.1 Lymph # (Auto) 0.7 L [place] # (Auto) 0.3 Eos # (Auto) 0.0 Baso # (Auto) 0.0 Abs Immat Gran (auto) 0.30 H Absolute Neuts (auto) 12.3 H Absolute Nucleated RBC 0.030 H Nucleated RBC % (auto) 0.2 Smear Tech's Comments VERIFIED D-Dimer VBG pH VBG pCO2 VBG pO2 VBG HCO3 VBG O2 Saturation VBG Base Excess Anion Gap Estim Creat Clear Calc Estimated GFR POC Glucose 236 H Random Glucose Calcium Ferritin C-Reactive Protein Procalcitonin Urine Color Urine Appearance Urine pH Ur Specific [place] Urine Protein Urine Glucose (UA) Urine Ketones Urine Blood Urine Nitrite Ur Leukocyte Esterase Ur Random Sodium < 20.0 09/12/20 09/12/20 09/12/20 05:50 05:50 05:50 MCV MCH MCHC RDW Plt Count MPV Immature Gran % (Auto) Neut % (Auto) Lymph % (Auto) [place] % (Auto) Eos % (Auto) Baso % (Auto) Lymph # (Auto) [place] # (Auto) Eos # (Auto) Baso # (Auto) Abs Immat Gran (auto) Absolute Neuts (auto) Absolute Nucleated RBC Nucleated RBC % (auto) Smear Tech's Comments D-Dimer 513 VBG pH VBG pCO2 VBG pO2 VBG HCO3 VBG O2 Saturation VBG Base Excess Anion Gap 16 Estim Creat Clear Calc 82.0 Estimated GFR > 60 POC Glucose Random Glucose 284 H D Calcium 8.5 D Ferritin 401 H C-Reactive Protein 7.40 H Procalcitonin 0.07 Urine Color Urine Appearance Urine pH Ur Specific [place] Urine Protein Urine Glucose (UA) Urine Ketones Urine Blood Urine Nitrite Ur Leukocyte Esterase Ur Random Sodium 09/12/20 09/12/20 09/12/20 05:50 07:22 11:44 MCV MCH MCHC RDW Plt Count MPV Immature Gran % (Auto) Neut % (Auto) Lymph % (Auto) [place] % (Auto) Eos % (Auto) Baso % (Auto) Lymph # (Auto) [place] # (Auto) Eos # (Auto) Baso # (Auto) Abs Immat Gran (auto) Absolute Neuts (auto) Absolute Nucleated RBC Nucleated RBC % (auto) Smear Tech's Comments D-Dimer VBG pH 7.34 VBG pCO2 54 VBG pO2 65 VBG HCO3 30 VBG O2 Saturation 88.0 VBG Base Excess 3.4 Anion Gap Estim Creat Clear Calc Estimated GFR POC Glucose 289 H 338 H Random Glucose Calcium Ferritin C-Reactive Protein Procalcitonin Urine Color Urine Appearance Urine pH Ur Specific [place] Urine Protein Urine Glucose (UA) Urine Ketones Urine Blood Urine Nitrite Ur Leukocyte Esterase Ur Random Sodium 09/12/20 09/12/20 12:32 14:56 MCV MCH MCHC RDW Plt Count MPV Immature Gran % (Auto) Neut % (Auto) Lymph % (Auto) [place] % (Auto) Eos % (Auto) Baso % (Auto) Lymph # (Auto) [place] # (Auto) Eos # (Auto) Baso # (Auto) Abs Immat Gran (auto) Absolute Neuts (auto) Absolute Nucleated RBC Nucleated RBC % (auto) Smear Tech's Comments D-Dimer VBG pH VBG pCO2 VBG pO2 VBG HCO3 VBG O2 Saturation VBG Base Excess Anion Gap Estim Creat Clear Calc Estimated GFR POC Glucose 253 H Random Glucose Calcium Ferritin C-Reactive Protein Procalcitonin Urine Color YELLOW Urine Appearance CLEAR Urine pH 6.0 Ur Specific [place] 1.025 Urine Protein NEG Urine Glucose (UA) 250 H Urine Ketones NEG Urine Blood NEG Urine Nitrite NEG Ur Leukocyte Esterase NEG Ur Random Sodium Imaging Radiologist's Impressions: Impressions Assessment and Plan (1) Dermatitis: Status: Acute 60-year-old unfortunate female with significant COVID respiratory issues intubated in the ICU on pressors. It seems that nursing has done a good job with offloading her buttock area etc and the wounds as determined by discussion with the nurse as well as viewing picture is is not consistent with a pressure wound but more of some dermatitis. Plan is to continue with barrier cream offloading and support. She has some significant respiratory issues and as a result is at risk for hypoxia and tissue injury. Off-loading is even more essential and good nutrition in this patient is also vital for wound healing. It seems that she has a very guarded prognosis with the extent of her respiratory function even after weeks in the hospital being treated for COVID on steroids and medication. Nothing further from the wound care perspective other than offloading positioning and proper mattress understanding that any movement of the patient may make ventilatory effort decrease precariously
[2020-09-12 18:11] LABS: Glucose, Whole Blood 183 mg/dL (60-115)
--- NOTE | 2020-09-12 20:44 | PC.RT ---
upon my arrival pt on current settings maryann well. temp is good warm to touch. all vitals are stable. no changes at this time. will continue to monitor.
[2020-09-12] MEDS: Atorvastatin Calcium 10 MG TABLET 5 MG PO (21:38)
[2020-09-12 21:52] LABS: Glucose, Whole Blood 221 mg/dL (60-115)
[2020-09-13] VITALS (32 sets, daily range): BP systolic 95–133; BP diastolic 47–64; PULSE 65–92; RESP 18–21; TEMP 35.3–37.2; O2SAT 89–96
[2020-09-13] MEDS: propofoL 1,000 MG/100 ML VIAL 17.15 MG IVCONT ×3 (00:31→10:54)
[2020-09-13 00:54] LABS: Glucose, Whole Blood 203 mg/dL (60-115)
[2020-09-13 03:04] LABS: Glucose, Whole Blood 221 mg/dL (60-115)
--- NOTE | 2020-09-13 04:43 | PC.RT ---
pt remains on current settings throughout the night, tolerating well. pts vitals are stable. will continue to monitor
[2020-09-13 05:42] LABS: Base Excess VBG 3.5 mmol/L; HCO3 VBG 30 mmol/L; PCO2 VBG 59 mmHg; PO2 VBG 56 mmHg; pH VBG 7.31 (7.32-7.43)
[2020-09-13 05:43] LABS: Basophils Percent Auto 0.1 % (0-2); Hematocrit 31.4 % (37-47); Hemoglobin 10.3 g/dl (12.0-16.0); Imm Gran Abs Auto 0.61 X10*3/uL (0.00-0.03); Imm Gran Pct Auto 4.4 % (0.0-0.4); Lymphocytes Absolute Auto 0.5 X10*3/uL (1.2-4.9); Lymphocytes Percent Auto 3.7 % (20-40); MANUAL DIFF FLAG SCAN; Mean Corpuscular HGB Conc 32.8 g/dl (31.0-35.0); Mean Corpuscular Hemoglobin 28.2 pg (27.0-33.0); Monocytes Absolute Auto 0.5 X10*3/uL (0.1-1.2); Monocytes Percent Auto 3.3 % (2-11); NRBC Pct Auto 0.1 /100WBC (0.0-0.2); Neutrophils Absolute Auto 12.3 X10*3/uL (2.0-8.3); Neutrophils Percent Auto 88.5 % (45-73); Platelet Count 309 X10*3/uL (160-400); Red Blood Count 3.65 X10*6/uL (4.20-5.50); Red Cell Distribution Width 14.2 % (11.0-16.0); SCAN SMEAR FLAG 1; White Blood Count 13.9 X10*3/uL (4.8-10.8)
[2020-09-13] MEDS: Enoxaparin Sodium 40 MG/0.4 ML SYRINGE SUBCUT ×2 (06:02→15:38)
[2020-09-13 06:04] LABS: SLIDE REVIEW VERIFIED
[2020-09-13 06:09] LABS: Magnesium 2.3 mg/dL (1.6-2.6)
[2020-09-13 06:14] LABS: Alanine Aminotransferase 87 U/L (0-31); Albumin Level 2.9 g/dL (3.5-5.0); Alkaline Phosphatase 102 U/L (39-117); Anion Gap 9 (12-20); Aspartate Amino Transferase 46 U/L (5-31); Bilirubin Total 0.8 mg/dL (0.0-1.0); Blood Urea Nitrogen 36 mg/dL (9-16); Calcium 8.3 mg/dL (8.4-10.2); Carbon Dioxide 32 mmol/L (22-29); Chloride 100 mmol/L (96-108); Creatinine Clr Calc Pharmacy 89.3; Estimated Glomerular Filt Rate > 60; Glucose Random 306 mg/dL (60-115); Potassium 4.5 mmol/L (3.3-5.1); Sodium 136 mmol/L (135-145); Total Protein 5.1 g/dL (6.5-8.0)
[2020-09-13 06:26] LABS: Glucose, Whole Blood 282 mg/dL (60-115)
[2020-09-13 06:26] LABS: Procalcitonin 0.06 ng/mL
[2020-09-13 06:27] LABS: Ferritin 418 ng/mL (10-250)
[2020-09-13 07:01] LABS: D Dimer 251 NG/ML
[2020-09-13] MEDS: Insulin Regular/NS 100 UNIT/100 ML PLAST..BAG 6 UNIT IVCONT ×2 (07:04→23:37)
[2020-09-13] MEDS: fentaNYL citrate/NS 1,000 MCG/100 ML PLAST..BAG 7.5 MCG IVCONT ×2 (07:04→20:39)
[2020-09-13 07:33] LABS: Glucose, Whole Blood 287 mg/dL (60-115)
[2020-09-13] MEDS: Fenofibrate 160 MG TABLET PO (08:06)
[2020-09-13] MEDS: Famotidine 20 MG TABLET 40 MG PO (08:06)
[2020-09-13] MEDS: Folic Acid 1 MG TABLET PO (08:06)
[2020-09-13] MEDS: amLODIPine Besylate 10 MG TABLET PO (08:06)
[2020-09-13] MEDS: Gabapentin 600 MG TABLET PO ×2 (08:06→20:39)
[2020-09-13] MEDS: Nystatin Powder 15 GM BOTTLE 1 APPL TOPICAL ×2 (08:07→20:39)
[2020-09-13] MEDS: Sildenafil Citrate 20 MG TABLET PO ×3 (08:07→20:39)
[2020-09-13] MEDS: 0.9 % Sodium Chloride Flush 3 ML SYRINGE IVFLUSH ×2 (08:07→15:38)
[2020-09-13] MEDS: Sodium Chloride 0.45 % 1,000 ML 50 ML IVCONT (08:10)
[2020-09-13 09:08] LABS: Glucose, Whole Blood 275 mg/dL (60-115)
[2020-09-13] MEDS: Lactated Ringers 500 ML 40 ML IVCONT ×2 (10:54→22:46)
[2020-09-13] MEDS: methylPREDNISolone Sod Succ 500 MG in 0.9 % Sodium Chloride 50 ML 50 MG IV ×2 (11:10→22:46)
--- NOTE | 2020-09-13 11:41 | P.PNCC_ITS ---
Subjective Subjective Date of Service: 09/13/20 Interval History: Mrs. No was readmitted to the ICU on Sep 10 after a near respiratory arrest on the [facility]. The patient is a 60-year-old female with history of insulin-dependent diabetes, diabetic neuropathy, fatty liver, gastroesophageal reflux disease, remote history of seizures, hypertension, hypercholesteremia, RA on hydroxychloroquine, degenerative disc disease, and surgical history of lumbar spine surgery, tonsillectomy, and tubal ligation. She had no prior history of respiratory disease. She was diagnosed with COVID-19 after a positive test on 08/11/2020 at this facility, after first becoming symptomatic on approximately August 08. She presented to the hospital on August 16 with shortness of breath and cough, w ith hypoxemia. Sat was 84% on room air. COVID biomarkers were mildly positive. Creatinine was 1.18. Chest CT showed bilateral ground-glass infiltrates classic for COVID pneumonia. She was admitted to Medicine and treated with Decadron. Her FiO2 requirement escalated rapidly. Remdesivir was started. She required transfer to the ICU for CPAP on Aug 18. Her steroids were increased to Solu- Medrol 80mg. She improved enough to leave the ICU after just two days, on only HFNC 60L/65%. The patient has since been on [facility] and completed a course of dexamethasone. Her course was again marked by an increasing FiO2 requirement. Over the last days she was requiring HFNC 100% + NRBFM oxygen. She had developed pneumomediastinum and SQ air. Early on Sep 11, the patient desaturated and was grossly hypoventilating. A code blue was called. The patient still had a pulse. The trachea was intubated by Dr. Infante. She had SR on the monitor throughout. She was tx to ICU. F/U CXR post intubation and line placement was not that much different than the previous CXR four days prior. After adjusting the ventilator yesterday, we had her on AC with 10cm peep, and on 70% FiO2 she was Sat?ing about 95%. Chest CT showed lung that looked like liver, with air bronchograms throughout both lungs, and huge pneumomediastinum both anteriorly and posteriorly. Bec the CT findings suggested diffuse fibrosis, we started her on pulse steroids, 1G daily x 3 days. We spoke to her and let him know the grave prognosis. He decided to change her status to DNR, no heroic measures, no chest tube. Her condition?s been steady the last two days in the ICU. Today, she continues lightly sedated on propofol and fentanyl. She?s moving around spontaneously. She?s off Levophed 0.03ug, and on insulin gtt @ 6u/hr. HR 84, BP 120/56. On AC 18/330/75%/+10, RR is 22, PIP 35, Ppl 28, ETCO2 37, Sat 91%. CVBG this morning showed 7.31/59/+3. She remains afebrile. PERRL, about 3-4 mm. Anicteric. No JVD at30?. Expiratory phase is normal. Abdomen benign. Trivial edema, if any. Neuro nonfocal; moves all 4. LABORATORY DATA: As below. MICROBIOLOGY: Sputum on 09/11: 2+ polys, polymicrobial ben. IMPRESSION: 1. Bilateral COVID pneumonia with hepatization of the lung. This is end stage coronavirus pulmonary disease. The fact that she has such massive pneumomediastinum, along with the marked air bronchograms confirms how sclerotic her lungs are. 2. Hypoxemic respiratory failure. 2? to above. I?m only surprised that her A-a gradient isn?t worse. She?s developing hypercarbia however, which is end stage ARDS. We have her on Sidenafil which hasn?t made any difference. We?re giving her a 3 day steroid pulse. 3. Acute kidney injury. Renal indices and ratio improving on low dose IV hydration. 4. Diabetes. Continue on insulin drip. 5. Anticoagulation: We have her on bid ? dose Lovenox. 6. ID: No abx. Prognosis is very grave. Probability of survival is pretty close to nil. Critical care time: 45 min. Physical Exam 2 Vital Signs: Vital Signs: Last Vital Signs Temp 97.5 F 09/13/20 11:00 Pulse 81 09/13/20 11:00 Resp 18 09/13/20 11:00 BP 113/55 L 09/13/20 11:00 Pulse Ox 94 09/13/20 11:00 Body Mass Index 32.9 Objective Data Labs CBC & Chem 7: 09/13/20 05:30 09/13/20 05:30 Labs: Laboratory Results - last 24 hr 09/12/20 09/12/20 09/12/20 11:44 12:32 14:56 WBC RBC Hgb Hct MCV MCH MCHC RDW Plt Count MPV Immature Gran % (Auto) Neut % (Auto) Lymph % (Auto) [place] % (Auto) Eos % (Auto) Baso % (Auto) Lymph # (Auto) [place] # (Auto) Eos # (Auto) Baso # (Auto) Abs Immat Gran (auto) Absolute Neuts (auto) Absolute Nucleated RBC Nucleated RBC % (auto) Smear Tech's Comments D-Dimer VBG pH VBG pCO2 VBG pO2 VBG HCO3 VBG O2 Saturation VBG Base Excess Sodium Potassium Chloride Carbon Dioxide Anion Gap BUN Creatinine Estim Creat Clear Calc Estimated GFR POC Glucose 338 H 253 H Random Glucose Calcium Phosphorus Magnesium Ferritin Total Bilirubin AST ALT Alkaline Phosphatase Total Protein Albumin Procalcitonin Urine Color YELLOW Urine Appearance CLEAR Urine pH 6.0 Ur Specific [place] 1.025 Urine Protein NEG Urine Glucose (UA) 250 H Urine Ketones NEG Urine Blood NEG Urine Nitrite NEG Ur Leukocyte Esterase NEG 09/12/20 09/12/20 09/13/20 17:54 21:41 00:20 WBC RBC Hgb Hct MCV MCH MCHC RDW Plt Count MPV Immature Gran % (Auto) Neut % (Auto) Lymph % (Auto) [place] % (Auto) Eos % (Auto) Baso % (Auto) Lymph # (Auto) [place] # (Auto) Eos # (Auto) Baso # (Auto) Abs Immat Gran (auto) Absolute Neuts (auto) Absolute Nucleated RBC Nucleated RBC % (auto) Smear Tech's Comments D-Dimer VBG pH VBG pCO2 VBG pO2 VBG HCO3 VBG O2 Saturation VBG Base Excess Sodium Potassium Chloride Carbon Dioxide Anion Gap BUN Creatinine Estim Creat Clear Calc Estimated GFR POC Glucose 183 H 221 H 203 H Random Glucose Calcium Phosphorus Magnesium Ferritin Total Bilirubin AST ALT Alkaline Phosphatase Total Protein Albumin Procalcitonin Urine Color Urine Appearance Urine pH Ur Specific [place] Urine Protein Urine Glucose (UA) Urine Ketones Urine Blood Urine Nitrite Ur Leukocyte Esterase 09/13/20 09/13/20 09/13/20 02:55 05:30 05:30 WBC RBC Hgb Hct MCV MCH MCHC RDW Plt Count MPV Immature Gran % (Auto) Neut % (Auto) Lymph % (Auto) [place] % (Auto) Eos % (Auto) Baso % (Auto) Lymph # (Auto) [place] # (Auto) Eos # (Auto) Baso # (Auto) Abs Immat Gran (auto) Absolute Neuts (auto) Absolute Nucleated RBC Nucleated RBC % (auto) Smear Tech's Comments D-Dimer VBG pH 7.31 L VBG pCO2 59 VBG pO2 56 VBG HCO3 30 VBG O2 Saturation 85.0 VBG Base Excess 3.5 Sodium 136 Potassium 4.5 Chloride 100 Carbon Dioxide 32 H Anion Gap 9 L BUN 36 H Creatinine 0.68 Estim Creat Clear Calc 89.3 Estimated GFR > 60 POC Glucose 221 H Random Glucose 306 H Calcium 8.3 L Phosphorus Magnesium Ferritin Total Bilirubin 0.8 AST 46 H D ALT 87 H Alkaline Phosphatase 102 Total Protein 5.1 L Albumin 2.9 L Procalcitonin Urine Color Urine Appearance Urine pH Ur Specific [place] Urine Protein Urine Glucose (UA) Urine Ketones Urine Blood Urine Nitrite Ur Leukocyte Esterase 09/13/20 09/13/20 09/13/20 05:30 05:30 05:30 WBC 13.9 H RBC 3.65 L Hgb 10.3 L Hct 31.4 L MCV 86.0 MCH 28.2 MCHC 32.8 RDW 14.2 Plt Count 309 MPV 11.0 Immature Gran % (Auto) 4.4 H Neut % (Auto) 88.5 H Lymph % (Auto) 3.7 L [place] % (Auto) 3.3 Eos % (Auto) 0.0 Baso % (Auto) 0.1 Lymph # (Auto) 0.5 L [place] # (Auto) 0.5 Eos # (Auto) 0.0 Baso # (Auto) 0.0 Abs Immat Gran (auto) 0.61 H Absolute Neuts (auto) 12.3 H Absolute Nucleated RBC 0.020 H Nucleated RBC % (auto) 0.1 Smear Tech's Comments VERIFIED D-Dimer 251 VBG pH VBG pCO2 VBG pO2 VBG HCO3 VBG O2 Saturation VBG Base Excess Sodium Potassium Chloride Carbon Dioxide Anion Gap BUN Creatinine Estim Creat Clear Calc Estimated GFR POC Glucose Random Glucose Calcium Phosphorus 3.0 Magnesium 2.3 Ferritin Total Bilirubin AST ALT Alkaline Phosphatase Total Protein Albumin Procalcitonin Urine Color Urine Appearance Urine pH Ur Specific [place] Urine Protein Urine Glucose (UA) Urine Ketones Urine Blood Urine Nitrite Ur Leukocyte Esterase 09/13/20 09/13/20 09/13/20 05:30 05:30 06:07 WBC RBC Hgb Hct MCV MCH MCHC RDW Plt Count MPV Immature Gran % (Auto) Neut % (Auto) Lymph % (Auto) [place] % (Auto) Eos % (Auto) Baso % (Auto) Lymph # (Auto) [place] # (Auto) Eos # (Auto) Baso # (Auto) Abs Immat Gran (auto) Absolute Neuts (auto) Absolute Nucleated RBC Nucleated RBC % (auto) Smear Tech's Comments D-Dimer VBG pH VBG pCO2 VBG pO2 VBG HCO3 VBG O2 Saturation VBG Base Excess Sodium Potassium Chloride Carbon Dioxide Anion Gap BUN Creatinine Estim Creat Clear Calc Estimated GFR POC Glucose 282 H Random Glucose Calcium Phosphorus Magnesium Ferritin 418 H Total Bilirubin AST ALT Alkaline Phosphatase Total Protein Albumin Procalcitonin 0.06 Urine Color Urine Appearance Urine pH Ur Specific [place] Urine Protein Urine Glucose (UA) Urine Ketones Urine Blood Urine Nitrite Ur Leukocyte Esterase 09/13/20 09/13/20 07:28 09:05 WBC RBC Hgb Hct MCV MCH MCHC RDW Plt Count MPV Immature Gran % (Auto) Neut % (Auto) Lymph % (Auto) [place] % (Auto) Eos % (Auto) Baso % (Auto) Lymph # (Auto) [place] # (Auto) Eos # (Auto) Baso # (Auto) Abs Immat Gran (auto) Absolute Neuts (auto) Absolute Nucleated RBC Nucleated RBC % (auto) Smear Tech's Comments D-Dimer VBG pH VBG pCO2 VBG pO2 VBG HCO3 VBG O2 Saturation VBG Base Excess Sodium Potassium Chloride Carbon Dioxide Anion Gap BUN Creatinine Estim Creat Clear Calc Estimated GFR POC Glucose 287 H 275 H Random Glucose Calcium Phosphorus Magnesium Ferritin Total Bilirubin AST ALT Alkaline Phosphatase Total Protein Albumin Procalcitonin Urine Color Urine Appearance Urine pH Ur Specific [place] Urine Protein Urine Glucose (UA) Urine Ketones Urine Blood Urine Nitrite Ur Leukocyte Esterase Microbiology Microbiology Results: Microbiology 09/11/20 16:37 Sputum - Suctioned Gram Stain - Final 09/11/20 16:37 Sputum - Suctioned Sputum Culture - Final 08/16/20 11:11 Blood - Venous Blood Culture - Final No growth after 5 days. 08/16/20 11:07 Blood - Venous Blood Culture - Final No growth after 5 days. 08/16/20 Unknown Urine clean catch - Clean Catch Midstream Urine Culture - Final Escherichia coli Progress Note: A&P Time Spent With Patient Time: Total time spent is greater than 50% in coordination of care (as documented) at patient's floor/unit and/or counseling patient: Total time spent with greater than 50% in coordination of care (as documented) at patient's floor/unit and/or counseling patient:: 0
[2020-09-13 12:52] LABS: Glucose, Whole Blood 246 mg/dL (60-115)
--- NOTE | 2020-09-13 13:14 | MHC.CLN ---
RE: CONSULT AND F/U PT RECEIVING TF PROMOTE AT MAX GOAL RATE 40CC/HR WITH 1 PKT PROSOURCE BID TO PROVIDE 1040KCALS (1473 WITH SEDATION; 24KCALS/KG), 90G PROTEIN (1.5G/KG), 1165CC FREE WATER FROM FORMULA AND FLUSHES MONITOR TOLERANCE, RESIDUALS AND LYTES
[2020-09-13] MEDS: propofoL 1,000 MG/100 ML VIAL 22.05 MG IVCONT ×2 (14:59→18:42)
[2020-09-13 17:08] LABS: Glucose, Whole Blood 238 mg/dL (60-115)
[2020-09-13] MEDS: Atorvastatin Calcium 10 MG TABLET 5 MG PO (20:39)
--- NOTE | 2020-09-13 20:49 | PC.RT ---
upon arrival pt on current settings peak pressure increased at times. i tried pt on PC pt did not tolerate, volumes dropped very low. placed pt back on VC. lavaged and suctioned the pt. no secretions. nurse will turn up sedation. will continue to monitor
[2020-09-13 21:04] LABS: Glucose, Whole Blood 161 mg/dL (60-115)
[2020-09-13] MEDS: propofoL 1,000 MG/100 ML VIAL 24.49 MG IVCONT (22:46)
[2020-09-14] VITALS (34 sets, daily range): BP systolic 91–133; BP diastolic 45–60; PULSE 79–115; RESP 17–32; TEMP 36.8–37.6; O2SAT 76–96
[2020-09-14 01:45] LABS: Glucose, Whole Blood 140 mg/dL (60-115)
[2020-09-14] MEDS: propofoL 1,000 MG/100 ML VIAL 24.49 MG IVCONT ×7 (02:12→23:33)
[2020-09-14 03:23] LABS: Glucose, Whole Blood 117 mg/dL (60-115)
[2020-09-14] MEDS: Albumin Human 25 % 100 ML IV ×2 (04:34→05:24)
[2020-09-14] MEDS: Enoxaparin Sodium 40 MG/0.4 ML SYRINGE SUBCUT ×2 (05:26→17:08)
[2020-09-14 05:30] LABS: Hematocrit 26.6 % (37-47); Hemoglobin 8.9 g/dl (12.0-16.0); Mean Corpuscular HGB Conc 33.5 g/dl (31.0-35.0); Mean Corpuscular Hemoglobin 28.9 pg (27.0-33.0); Mean Corpuscular Volume 86.4 fL (80-98); Mean Platelet Volume 10.9 fL (9.4-12.3); NRBC Pct Auto 0.3 /100WBC (0.0-0.2); Platelet Count 219 X10*3/uL (160-400); Red Blood Count 3.08 X10*6/uL (4.20-5.50); Red Cell Distribution Width 14.6 % (11.0-16.0); White Blood Count 11.5 X10*3/uL (4.8-10.8)
[2020-09-14 05:36] LABS: Base Excess VBG 9.3 mmol/L; HCO3 VBG 35 mmol/L; PCO2 VBG 61 mmHg; PO2 VBG 65 mmHg; pH VBG 7.37 (7.32-7.43)
[2020-09-14 05:44] LABS: D Dimer 243 NG/ML
[2020-09-14 05:56] LABS: Anion Gap 10 (12-20); Blood Urea Nitrogen 32 mg/dL (9-16); Calcium 8.3 mg/dL (8.4-10.2); Carbon Dioxide 31 mmol/L (22-29); Chloride 99 mmol/L (96-108); Estimated Glomerular Filt Rate > 60; Glucose Random 233 mg/dL (60-115); Potassium 5.3 mmol/L (3.3-5.1); Sodium 135 mmol/L (135-145)
[2020-09-14 06:07] LABS: Band Neutrophils Percent 2 % (3-5); Lymphocytes Absolute Manual 0.7 X10*3/uL (0.6-4.8); Lymphocytes Percent Manual 6 % (20-40); Macrocytosis 1+; Metamyelocytes Absolute 0.2 X10*3/uL; Metamyelocytes Percent 2 %; Monocytes Absolute Manual 0.3 X10*3/uL (0.0-1.2); Monocytes Percent Manual 3 % (2-11); Neutrophils Absolute Manual 10.2 X10*3/uL (2.2-7.9); Neutrophils Percent Manual 87 % (45-73); Nucleated Red Blood Cells 2 /100WBC (0-0); RBC Morphology NOTED
[2020-09-14 06:08] LABS: Basophilic Stippling 1+; Platelet Estimate NORMAL (NORMAL); Platelet Morphology Comment NORMAL
[2020-09-14 06:20] LABS: Ferritin 459 ng/mL (10-250)
[2020-09-14] MEDS: 0.9 % Sodium Chloride Flush 3 ML SYRINGE IVFLUSH ×2 (08:54→13:13)
[2020-09-14] MEDS: Gabapentin 600 MG TABLET PO ×2 (08:54→19:57)
[2020-09-14] MEDS: Folic Acid 1 MG TABLET PO (08:54)
[2020-09-14] MEDS: Fenofibrate 160 MG TABLET PO (08:54)
[2020-09-14] MEDS: fentaNYL citrate/NS 1,000 MCG/100 ML PLAST..BAG 10 MCG IVCONT ×2 (08:54→18:24)
[2020-09-14] MEDS: Sildenafil Citrate 20 MG TABLET PO ×3 (08:54→19:57)
[2020-09-14] MEDS: Famotidine 20 MG TABLET 40 MG PO (08:54)
[2020-09-14] MEDS: Lactated Ringers 500 ML 40 ML IVCONT ×2 (09:01→19:57)
[2020-09-14] MEDS: methylPREDNISolone Sod Succ 500 MG in 0.9 % Sodium Chloride 50 ML 50 MG IV (10:00)
[2020-09-14 10:15] LABS: Glucose, Whole Blood 304 mg/dL (60-115)
[2020-09-14] MEDS: Nystatin Powder 15 GM BOTTLE 1 APPL TOPICAL ×2 (10:25→19:58)
--- NOTE | 2020-09-14 10:58 | PM.CCPN ---
Subjective Subjective Date of Service: 09/14/20 Interval History: 60-year-old lady with underlying history of diabetes mellitus, rheumatoid arthritis on hydroxychloroquine, hypertension positive for coronavirus on 08/11/2020 requiring admission for dyspnea and hypoxia on 08/16/2020. Hospital course complicated by progressive hypoxic respiratory failure requiring initiation of CPAP support on 08/18/2020 and transfer to intensive care unit. She has been titrated of CPAP and transferred to general medical horn. Her further hospital course has been complicated by development of pneumomediastinum and progressive hypoxic respiratory failure resulting in a desaturation event and hyperventilation on 09/11/2020 when she was intubated on the general medical horn now and transferred to intensive care unit. Her CT chest from September 11 demonstrated progression in her pneumonias time no with from aggressive early pulmonary fibrosis. She has been treated with pulse of high-dose Solu-Medrol for 3 days with no significant improvement. Family discussion has been held and her code status has been changed to DNR/DNI. No events overnight. Physical Exam Vital Signs: Vital Signs: Last Vital Signs Temp 99.7 F 09/14/20 10:00 Pulse 101 H 09/14/20 10:00 Resp 18 09/14/20 10:00 BP 126/53 L 09/14/20 10:00 Pulse Ox 90 L 09/14/20 10:00 Body Mass Index 32.9 Const: General: no acute distress and other (Sedated on the vent) Eyes: Sclerae: sclerae normal Neck: Neck: Yes no lymphadenopathy, Yes trachea midline and Yes supple Resp: Effort & Inspection: normal respiratory effort and no respiratory distress Auscultation: crackles (Diffuse bilateral) Cardio: Rate: regular rate Rhythm: regular rhythm Heart sounds: no gallops, no murmurs and no rubs GI: Palpation (GI): Soft to palpation and Other GI palpation findings present ( Nontender) Auscultation: normal bowel sounds Extrem: General: Yes no pedal edema, No clubbing and No cyanosis Objective Data Labs CBC & Chem 7: 09/14/20 05:06 09/14/20 05:06 Labs: Laboratory Results - last 24 hr 09/13/20 09/13/20 09/13/20 12:49 17:03 20:54 WBC RBC Hgb Hct MCV MCH MCHC RDW Plt Count MPV Immature Gran % (Auto) Neut % (Auto) Lymph % (Auto) [place] % (Auto) Eos % (Auto) Baso % (Auto) Lymph # (Auto) [place] # (Auto) Eos # (Auto) Baso # (Auto) Abs Immat Gran (auto) Absolute Neuts (auto) Absolute Nucleated RBC Nucleated RBC % (auto) Neutrophils % (Manual) Band Neutrophils % Lymphocytes % (Manual) Monocytes % (Manual) Metamyelocytes % Abs Neuts (Manual) Lymphocytes # (Manual) Monocytes # (Manual) Metamyelocytes # Nucleated RBCs Platelet Estimate Plt Morphology Comment RBC Morphology Basophilic Stippling Macrocytosis D-Dimer VBG pH VBG pCO2 VBG pO2 VBG HCO3 VBG O2 Saturation VBG Base Excess Sodium Potassium Chloride Carbon Dioxide Anion Gap BUN Creatinine Estim Creat Clear Calc Estimated GFR POC Glucose 246 H 238 H 161 H Random Glucose Calcium Ferritin C-Reactive Protein 09/13/20 09/14/20 09/14/20 23:43 03:17 05:06 WBC RBC Hgb Hct MCV MCH MCHC RDW Plt Count MPV Immature Gran % (Auto) Neut % (Auto) Lymph % (Auto) [place] % (Auto) Eos % (Auto) Baso % (Auto) Lymph # (Auto) [place] # (Auto) Eos # (Auto) Baso # (Auto) Abs Immat Gran (auto) Absolute Neuts (auto) Absolute Nucleated RBC Nucleated RBC % (auto) Neutrophils % (Manual) Band Neutrophils % Lymphocytes % (Manual) Monocytes % (Manual) Metamyelocytes % Abs Neuts (Manual) Lymphocytes # (Manual) Monocytes # (Manual) Metamyelocytes # Nucleated RBCs Platelet Estimate Plt Morphology Comment RBC Morphology Basophilic Stippling Macrocytosis D-Dimer VBG pH 7.37 VBG pCO2 61 VBG pO2 65 VBG HCO3 35 VBG O2 Saturation 93.0 VBG Base Excess 9.3 Sodium Potassium Chloride Carbon Dioxide Anion Gap BUN Creatinine Estim Creat Clear Calc Estimated GFR POC Glucose 140 H 117 H Random Glucose Calcium Ferritin C-Reactive Protein 09/14/20 09/14/20 09/14/20 05:06 05:06 05:06 WBC 11.5 H RBC 3.08 L Hgb 8.9 L Hct 26.6 L MCV 86.4 MCH 28.9 MCHC 33.5 RDW 14.6 Plt Count 219 D MPV 10.9 Immature Gran % (Auto) Cancelled Neut % (Auto) Cancelled Lymph % (Auto) Cancelled [place] % (Auto) Cancelled Eos % (Auto) Cancelled Baso % (Auto) Cancelled Lymph # (Auto) Cancelled [place] # (Auto) Cancelled Eos # (Auto) Cancelled Baso # (Auto) Cancelled Abs Immat Gran (auto) Cancelled Absolute Neuts (auto) Cancelled Absolute Nucleated RBC 0.040 H Nucleated RBC % (auto) 0.3 H Neutrophils % (Manual) 87 H Band Neutrophils % 2 L Lymphocytes % (Manual) 6 L Monocytes % (Manual) 3 Metamyelocytes % 2 Abs Neuts (Manual) 10.2 H Lymphocytes # (Manual) 0.7 Monocytes # (Manual) 0.3 Metamyelocytes # 0.2 Nucleated RBCs 2 H Platelet Estimate NORMAL Plt Morphology Comment NORMAL RBC Morphology NOTED Basophilic Stippling 1+ Macrocytosis 1+ D-Dimer 243 VBG pH VBG pCO2 VBG pO2 VBG HCO3 VBG O2 Saturation VBG Base Excess Sodium 135 Potassium 5.3 H Chloride 99 Carbon Dioxide 31 H Anion Gap 10 L BUN 32 H Creatinine 0.69 Estim Creat Clear Calc 88.0 Estimated GFR > 60 POC Glucose Random Glucose 233 H Calcium 8.3 L Ferritin 459 H C-Reactive Protein 1.50 H 09/14/20 09:07 WBC RBC Hgb Hct MCV MCH MCHC RDW Plt Count MPV Immature Gran % (Auto) Neut % (Auto) Lymph % (Auto) [place] % (Auto) Eos % (Auto) Baso % (Auto) Lymph # (Auto) [place] # (Auto) Eos # (Auto) Baso # (Auto) Abs Immat Gran (auto) Absolute Neuts (auto) Absolute Nucleated RBC Nucleated RBC % (auto) Neutrophils % (Manual) Band Neutrophils % Lymphocytes % (Manual) Monocytes % (Manual) Metamyelocytes % Abs Neuts (Manual) Lymphocytes # (Manual) Monocytes # (Manual) Metamyelocytes # Nucleated RBCs Platelet Estimate Plt Morphology Comment RBC Morphology Basophilic Stippling Macrocytosis D-Dimer VBG pH VBG pCO2 VBG pO2 VBG HCO3 VBG O2 Saturation VBG Base Excess Sodium Potassium Chloride Carbon Dioxide Anion Gap BUN Creatinine Estim Creat Clear Calc Estimated GFR POC Glucose 304 H Random Glucose Calcium Ferritin C-Reactive Protein Microbiology Microbiology Results: Microbiology 09/11/20 16:37 Sputum - Suctioned Gram Stain - Final 09/11/20 16:37 Sputum - Suctioned Sputum Culture - Final 08/16/20 11:11 Blood - Venous Blood Culture - Final No growth after 5 days. 08/16/20 11:07 Blood - Venous Blood Culture - Final No growth after 5 days. 08/16/20 Unknown Urine clean catch - Clean Catch Midstream Urine Culture - Final Escherichia coli Progress Note: A&P Assessment and plan (1) ARDS (adult respiratory distress syndrome): Status: Acute Assessment and Plan: Assessment: 60-year-old lady with underlying rheumatoid arthritis on hydroxychloroquine and diabetes mellitus admitted with acute hypoxic respiratory failure secondary to COVID-19 related ARDS with hospital course complicated by development of pneumomediastinum and now requiring maximum ventilatory support. Plan: Neuro: No acute issues. Cardiac: No acute issues. Pulmonary: Acute hypoxic respiratory failure secondary to COVID-19 ARDS. Treated with systemic glucocorticoids and remdesivir. Pneumomediastinum. Continues to require ventilatory support. Overall prognosis is grim. Renal: No acute issues. Endo: No acute issues. Underlying history of diabetes mellitus. GI: No acute issues. ID: COVID-19 related viral sepsis with end-organ dysfunction present on admission. Heme/Onc: No acute issues. Psych: No acute issues. Miscellaneous: No acute issues. Prophylaxis: Lovenox Diet: Tube feeds Critical care time spent: 45 minutes (2) COVID-19: Status: Acute (3) Respiratory failure with hypoxia: Status: Acute (4) Pneumomediastinum: Status: Acute (5) Diabetes type 2, uncontrolled: Status: Acute (6) Hypertension: Status: Acute Time Spent With Patient Total time spent with greater than 50% in coordination of care (as documented) at patient's floor/unit and/or counseling patient:: 0 Critical Care Time 45
[2020-09-14 12:05] LABS: Glucose, Whole Blood 260 mg/dL (60-115)
[2020-09-14 16:05] LABS: Glucose, Whole Blood 257 mg/dL (60-115)
[2020-09-14] MEDS: Insulin Regular/NS 100 UNIT/100 ML PLAST..BAG 7 UNIT IVCONT (17:08)
[2020-09-14 17:51] LABS: Glucose, Whole Blood 265 mg/dL (60-115)
[2020-09-14] MEDS: Atorvastatin Calcium 10 MG TABLET 5 MG PO (19:57)
[2020-09-14 21:16] LABS: Glucose, Whole Blood 260 mg/dL (60-115)
[2020-09-15] VITALS (33 sets, daily range): BP systolic 115–159; BP diastolic 50–77; PULSE 81–112; RESP 16–28; TEMP 36.5–37.1; O2SAT 90–97; BMI 29.8
[2020-09-15 00:16] LABS: Glucose, Whole Blood 215 mg/dL (60-115)
[2020-09-15] MEDS: propofoL 1,000 MG/100 ML VIAL 24.49 MG IVCONT ×4 (03:24→15:32)
[2020-09-15] MEDS: fentaNYL citrate/NS 1,000 MCG/100 ML PLAST..BAG 10 MCG IVCONT ×2 (03:24→13:21)
[2020-09-15] MEDS: Insulin Regular/NS 100 UNIT/100 ML PLAST..BAG 8 UNIT IVCONT (03:24)
[2020-09-15 03:29] LABS: Glucose, Whole Blood 200 mg/dL (60-115)
[2020-09-15] MEDS: Enoxaparin Sodium 40 MG/0.4 ML SYRINGE SUBCUT ×2 (05:34→09:25)
[2020-09-15 06:01] LABS: Base Excess VBG 1.5 mmol/L; HCO3 VBG 28 mmol/L; PCO2 VBG 54 mmHg; PO2 VBG 130 mmHg; pH VBG 7.31 (7.32-7.43)
[2020-09-15 06:05] LABS: Basophils Percent Auto 0.2 % (0-2); Hematocrit 26.4 % (37-47); Hemoglobin 8.5 g/dl (12.0-16.0); Imm Gran Abs Auto 1.35 X10*3/uL (0.00-0.03); Imm Gran Pct Auto 10.1 % (0.0-0.4); Lymphocytes Absolute Auto 0.6 X10*3/uL (1.2-4.9); Lymphocytes Percent Auto 4.8 % (20-40); Mean Corpuscular HGB Conc 32.2 g/dl (31.0-35.0); Mean Corpuscular Hemoglobin 28.3 pg (27.0-33.0); Mean Platelet Volume 11.2 fL (9.4-12.3); Monocytes Absolute Auto 0.8 X10*3/uL (0.1-1.2); Monocytes Percent Auto 6.1 % (2-11); NRBC Pct Auto 0.5 /100WBC (0.0-0.2); Neutrophils Absolute Auto 10.5 X10*3/uL (2.0-8.3); Neutrophils Percent Auto 78.8 % (45-73); Platelet Count 205 X10*3/uL (160-400); Red Cell Distribution Width 15.1 % (11.0-16.0); SCAN SMEAR FLAG 1; White Blood Count 13.4 X10*3/uL (4.8-10.8)
[2020-09-15 06:30] LABS: Albumin Level 3.4 g/dL (3.5-5.0); Anion Gap 10 (12-20); Blood Urea Nitrogen 45 mg/dL (9-16); Calcium 8.3 mg/dL (8.4-10.2); Carbon Dioxide 31 mmol/L (22-29); Chloride 99 mmol/L (96-108); Creatinine Clr Calc Pharmacy 80.9; Estimated Glomerular Filt Rate > 60; Glucose Random 235 mg/dL (60-115); Magnesium 2.6 mg/dL (1.6-2.6); Phosphorus 2.4 mg/dL (2.7-4.5); Potassium 5.5 mmol/L (3.3-5.1); Sodium 134 mmol/L (135-145)
[2020-09-15 06:31] LABS: MANUAL DIFF FLAG SCAN; SLIDE REVIEW VERIFIED
[2020-09-15] MEDS: Famotidine 20 MG TABLET 40 MG PO (07:47)
[2020-09-15] MEDS: Fenofibrate 160 MG TABLET PO (07:47)
[2020-09-15] MEDS: Chlorhexidine Gluc Oral Rinse 15 ML MOUTHWASH BUCCAL ×2 (07:47→15:34)
[2020-09-15] MEDS: Folic Acid 1 MG TABLET PO (07:47)
[2020-09-15] MEDS: Sildenafil Citrate 20 MG TABLET PO (07:47)
[2020-09-15] MEDS: Lactated Ringers 500 ML 40 ML IVCONT (07:47)
[2020-09-15] MEDS: Gabapentin 600 MG TABLET PO (07:47)
[2020-09-15] MEDS: Nystatin Powder 15 GM BOTTLE 1 APPL TOPICAL (07:48)
--- NOTE | 2020-09-15 08:00 | PC.NURSE ---
Patient remains on Propofol and Fentanyl. Pupils 2 and sluggish. Positive cough and gag. Flaccid. Minimal thin clear oral and inline secretions. On AC settings Rate 18, tidal volume 330 peep 10. fio2 90 % with O2 sats trending in the low 90s minute volume around 6. Synchronous on vent. LS dim. 0815 patient noted to have ST depressions on telemetry
--- NOTE | 2020-09-15 08:10 | ECG_ITS ---
Test Reason : ST CHNAGES Blood Pressure : / mmHG Vent. Rate : 105 BPM Atrial Rate : 105 BPM P-R Int : 112 ms QRS Dur : 112 ms QT Int : 326 ms P-R-T Axes : 046 -46 159 degrees QTc Int : 430 ms Sinus tachycardia Incomplete right bundle branch block Left anterior fascicular block Left ventricular hypertrophy with repolarization abnormality Abnormal ECG No previous ECGs available Referred By: Juan Manuel Youngblood Electronically Signed By:AARON ALCOCER
[2020-09-15] MEDS: 0.9 % Sodium Chloride Flush 3 ML SYRINGE IVFLUSH ×2 (08:42→15:35)
[2020-09-15 08:46] LABS: Glucose, Whole Blood 239 mg/dL (60-115)
[2020-09-15] MEDS: Nitroglycerin 2 % Oint 1 GM Packet 2 INCH TRANSDERMA ×2 (09:26→15:33)
--- NOTE | 2020-09-15 10:08 | PC.NURSE ---
Patient remains on Propofol and Fentanyl. Pupils 2 and sluggish. Positive cough and gag. Flaccid. Minimal thin clear oral and inline secretions. On AC settings Rate 18, tidal volume 330 peep 10. fio2 90 % with O2 sats trending in the low 90s minute volume around 6. Synchronous on vent. LS dim. BS faint. Promote tube feed at max of 40 ml/hr tolerating well. POC trending in the 200s remains on insulin drip see MAR for titrations. Anders output trending 50-100 ml/hr yelllow urine. No BM noted, MD aware. Chronic stage two to bilateral buttock. Open to air. Barrier cream applied. Repo q2h. On air loss mattress and Prevalon mattress with wedges for repositioning. 0815 patient [address] to have [address] depressions on telemetry during patient care. Notified . Obtained order for EKG. EKG results reported to . Obtained TO for STAT one time dose of 40 mg subcutaneous Lovenox and STAT one time dose of [address] Youngblood aware of previous dose of Sildenafil already administer this morning, OK to override per . This was confirmed by pharmacist Gaby per telephone conversation with . Baseline SBP in the 120s, aware. Obtained TO to Discontinue scheduled Sildenafil order. Medications given per order. Will continue to monitor heart rate and rhythm, and blood pressure.
[2020-09-15 11:55] LABS: Glucose, Whole Blood 160 mg/dL (60-115)
--- NOTE | 2020-09-15 11:55 | P.PNCC_ITS ---
Subjective Subjective Date of Service: 09/15/20 Interval History: Mrs. No was readmitted to the ICU on Sep 10 after a near respiratory arrest on the [facility]. The patient is a 60-year-old female with history of insulin-dependent diabetes, diabetic neuropathy, fatty liver, gastroesophageal reflux disease, remote history of seizures, hypertension, hypercholesteremia, RA on hydroxychloroquine, degenerative disc disease, and surgical history of lumbar spine surgery, tonsillectomy, and tubal ligation. She had no prior history of respiratory disease. She was diagnosed with COVID-19 after a positive test on 08/11/2020 at this facility, after first becoming symptomatic on approximately August 08. She presented to the hospital on August 16 with shortness of breath and cough, wi th hypoxemia. Sat was 84% on room air. COVID biomarkers were mildly positive. Creatinine was 1.18. Chest CT showed bilateral ground-glass infiltrates classic for COVID pneumonia. She was admitted to Medicine and treated with Decadron. Her FiO2 requirement escalated rapidly. Remdesivir was started. She required transfer to the ICU for CPAP on Aug 18. Her steroids were increased to Solu-M edrol 80mg. She improved enough to leave the ICU after just two days, on only HFNC 60L/65%. The patient had since been on [facility] and completed a course of dexamethasone. Her course was again marked by an increasing FiO2 requirement. Over the last days prior to the current transfer, she was requiring HFNC 100% + NRBFM oxygen. She had developed pneumomediastinum and SQ air. Early on Sep 11, the patient desaturated and was grossly hypoventilating. A code blue was called. The patient still had a pulse. The trachea was intubated by Dr. Infante. She had SR on the monitor throughout. She was tx to ICU. F/U CXR post intubation and line placement was not that much different than the previous CXR four days prior. After adjusting the ventilator, we had her on AC with 10cm peep, and on 70% FiO2 she was Sat?ing about 95%. Chest CT showed lung that looked like liver, with air bronchograms throughout both lungs, and huge pneumomediastinum both anteriorly and posteriorly. Bec the CT findings suggested diffuse fibrosis, we started her on pulse steroids, 1G daily x 3 days. We spoke to her and let him know the grave prognosis. He decided to change her status to DNR, no heroic measures, no chest tube. Her condition?s been steady the last three days in the ICU except for increasing oxygen requirement. See Vital Signs below. Today, she continues sedated on propofol and fentanyl. She moves her head around a little spontaneously. She?s off Levophed, and on insulin gtt @ 9u/hr. This morning she had an unprovoked episode of ST depression on the monitor. An EKG reads IRBBB with 1-2mm lateral ST depression. A prev tracing from Aug 16, 2020 is identical but with a wider QRS that doesn?t read IRBBB, and has no ST depression. We put her on NTP and bumped her Lovenox from 40 mg bid to [address] segment depression has since mostly resolved. Currently, HR 100, BP 122/53. On AC 18/330/90%/+10, RR is 24, PIP 33, Ve 7.5L, ETCO2 40, Sat 90%. CVBG this morning showed 7.31/54/+1. She remains afebrile. Expiratory phase is normal. Abdomen benign. Trivial edema, if any. LABORATORY DATA: As below. MICROBIOLOGY: Sputum on 09/11: 2+ polys, polymicrobial ben. IMPRESSION: 1. Bilateral COVID pneumonia with hepatization of the lung. This is end stage coronavirus pulmonary disease. The fact that she has such massive pneumomediastinum, along with the marked air bronchograms confirms how sclerotic her lungs are. Recheck CXR today to r/o pneumothorax. 2. Hypoxemic respiratory failure. 2? to above. I?m only surprised that her A-a gradient isn?t worse. She?s developing hypercarbia however, which is end stage ARDS. We had her on Sidenafil which hadn?t made any difference. I stopped that when we started her on NTP this morning. We?re giving her a 3 day steroid pulse. 3. New ACS. EKG and enzyme changes. Not a candidate for cath. Changed to A torvastatin 40mg daily, added nitrates and metoprolol, increased Lovenox to full anticoagulation. If she tolerates the higher dose statin, increase to 80 mg bid maybe on or Wed. 4. Acute kidney injury. Renal indices and ratio were improving on low dose IV hydration, now ticked up to 45/0.7. Last urine sodium was < 20, I?ll recheck it today. 5. Diabetes. Continue on insulin drip. 6. ID: No abx. Prognosis is very grave. Even worse now with new ACS. Probability of survival is pretty close to nil. Critical care time: 60+ min. Physical Exam Vital Signs: Vital Signs: Last Vital Signs Temp 97.7 F 09/15/20 11:00 Pulse 100 09/15/20 11:39 Resp 18 09/15/20 11:39 BP 149/77 H 09/15/20 11:39 Pulse Ox 92 09/15/20 11:39 Body Mass Index 29.8 Objective Data Labs CBC & Chem 7: 09/15/20 05:28 09/15/20 05:28 Labs: Laboratory Results - last 24 hr 09/14/20 09/14/20 09/14/20 11:46 14:44 17:40 WBC RBC Hgb Hct MCV MCH MCHC RDW Plt Count MPV Immature Gran % (Auto) Neut % (Auto) Lymph % (Auto) [place] % (Auto) Eos % (Auto) Baso % (Auto) Lymph # (Auto) [place] # (Auto) Eos # (Auto) Baso # (Auto) Abs Immat Gran (auto) Absolute Neuts (auto) Absolute Nucleated RBC Nucleated RBC % (auto) Smear Tech's Comments VBG pH VBG pCO2 VBG pO2 VBG HCO3 VBG O2 Saturation VBG Base Excess Sodium Potassium Chloride Carbon Dioxide Anion Gap BUN Creatinine Estim Creat Clear Calc Estimated GFR POC Glucose 260 H 257 H 265 H Random Glucose Calcium Phosphorus Magnesium Albumin 09/14/20 09/14/20 09/15/20 21:04 23:38 03:20 WBC RBC Hgb Hct MCV MCH MCHC RDW Plt Count MPV Immature Gran % (Auto) Neut % (Auto) Lymph % (Auto) [place] % (Auto) Eos % (Auto) Baso % (Auto) Lymph # (Auto) [place] # (Auto) Eos # (Auto) Baso # (Auto) Abs Immat Gran (auto) Absolute Neuts (auto) Absolute Nucleated RBC Nucleated RBC % (auto) Smear Tech's Comments VBG pH VBG pCO2 VBG pO2 VBG HCO3 VBG O2 Saturation VBG Base Excess Sodium Potassium Chloride Carbon Dioxide Anion Gap BUN Creatinine Estim Creat Clear Calc Estimated GFR POC Glucose 260 H 215 H 200 H Random Glucose Calcium Phosphorus Magnesium Albumin 09/15/20 09/15/20 09/15/20 05:28 05:28 05:28 WBC 13.4 H RBC 3.00 L Hgb 8.5 L Hct 26.4 L MCV 88.0 MCH 28.3 MCHC 32.2 RDW 15.1 Plt Count 205 MPV 11.2 Immature Gran % (Auto) 10.1 H Neut % (Auto) 78.8 H Lymph % (Auto) 4.8 L [place] % (Auto) 6.1 Eos % (Auto) 0.0 Baso % (Auto) 0.2 Lymph # (Auto) 0.6 L [place] # (Auto) 0.8 Eos # (Auto) 0.0 Baso # (Auto) 0.0 Abs Immat Gran (auto) 1.35 H Absolute Neuts (auto) 10.5 H Absolute Nucleated RBC 0.070 H Nucleated RBC % (auto) 0.5 H Smear Tech's Comments VERIFIED VBG pH 7.31 L VBG pCO2 54 VBG pO2 130 VBG HCO3 28 VBG O2 Saturation 98.0 VBG Base Excess 1.5 Sodium 134 L Potassium 5.5 H Chloride 99 Carbon Dioxide 31 H Anion Gap 10 L BUN 45 H Creatinine 0.75 Estim Creat Clear Calc 80.9 Estimated GFR > 60 POC Glucose Random Glucose 235 H Calcium 8.3 L Phosphorus 2.4 L Magnesium 2.6 Albumin 3.4 L 09/15/20 08:30 WBC RBC Hgb Hct MCV MCH MCHC RDW Plt Count MPV Immature Gran % (Auto) Neut % (Auto) Lymph % (Auto) [place] % (Auto) Eos % (Auto) Baso % (Auto) Lymph # (Auto) [place] # (Auto) Eos # (Auto) Baso # (Auto) Abs Immat Gran (auto) Absolute Neuts (auto) Absolute Nucleated RBC Nucleated RBC % (auto) Smear Tech's Comments VBG pH VBG pCO2 VBG pO2 VBG HCO3 VBG O2 Saturation VBG Base Excess Sodium Potassium Chloride Carbon Dioxide Anion Gap BUN Creatinine Estim Creat Clear Calc Estimated GFR POC Glucose 239 H Random Glucose Calcium Phosphorus Magnesium Albumin Microbiology Microbiology Results: Microbiology 09/11/20 16:37 Sputum - Suctioned Gram Stain - Final 09/11/20 16:37 Sputum - Suctioned Sputum Culture - Final 08/16/20 11:11 Blood - Venous Blood Culture - Final No growth after 5 days. 08/16/20 11:07 Blood - Venous Blood Culture - Final No growth after 5 days. 08/16/20 Unknown Urine clean catch - Clean Catch Midstream Urine Culture - Final Escherichia coli Progress Note: A&P Time Spent With Patient Time: Total time spent is greater than 50% in coordination of care (as documented) at patient's floor/unit and/or counseling patient: Total time spent with greater than 50% in coordination of care (as documented) at patient's floor/unit and/or counseling patient:: 0 Critical Care Time Critical Care Time (minutes): 60
[2020-09-15 13:09] LABS: Troponin-I High Sensitivity 709.2 ng/L (<3.5-17.0)
[2020-09-15] MEDS: methylPREDNISolone Sod Succ/PF 125 MG/2 ML VIAL 80 MG IVPUSH (13:22)
[2020-09-15] MEDS: Metoprolol Tartrate 25 MG TABLET PO (13:24)
[2020-09-15] MEDS: Atorvastatin Calcium 40 MG TABLET PO (13:25)
[2020-09-15 14:05] LABS: Glucose, Whole Blood 241 mg/dL (60-115)
[2020-09-15] MEDS: Insulin Regular/NS 100 UNIT/100 ML PLAST..BAG 10 UNIT IVCONT (15:52)
[2020-09-15 16:37] LABS: Glucose, Whole Blood 277 mg/dL (60-115)
[2020-09-15 16:59] LABS: Sodium Urine Random < 20.0 mmol/L
--- NOTE | 2020-09-15 20:10 | W.MHC.ACPN ---
Advanced Care Planning Note Advanced Care Planning Note Discussed with: family member(s) ( Eulogio ) Time spent (in minutes): 20 Narrative: I spoke to the patient's over the phone, Mr. Eulogio Donnelly understands of her critical condition and the fact that she has been here for 1 month and sick for approximately 5 weeks. He has been aware of all the different changes and transition for the worse, unfortunately he understands that her current prognosis is very poor despite of any medical left for that we make. Upon discussing further goals of care, he agrees that perhaps enough is enough and he does not her to suffer, therefore we have discussed the possibility of making her comfort measures only to which he agrees, detailed explanation of what this entitles was given and the information was corroborated by the patient's nurse Blanca. At this point will withdraw every care and will simply keep her on fentanyl 25 mcg drip for comfort, we will terminally extubate the patient and allow her to past to a better life in a natural, humane and non- suffering way. All the drips except for fentanyl were shut off at 8:12 p.m., patient was extubated at 2015pm. The patient at 20 :30pm. At this time, the patient has no heartbeat, no palpable pulses, pupils are fixed at 5 mm bilaterally, overall that anterior chamber and cornea of the eyes appear glossy, no spontaneous breathing. There is no corneal reflexes bilaterally, capillary refill of the fingers and toes is significantly delayed and there is cyanosis with cool extremities. Patient was pronounced at this time and Certificate Completed. Organ Center Called by RN. Organ center was called, the patient was declined. Family informed about the patient's . certificate completed as well as discharge summary. Case was discussed in detail with Dr. Youngblood. He is aware of all the above as well as the plan of care for this patient. Total critical time with all the above discussions, plan of care 30 min Problems Discussed (1) ARDS (adult respiratory distress syndrome): (2) COVID-19: (3) Respiratory failure with hypoxia: (4) Pneumomediastinum: (5) Diabetes type 2, uncontrolled: (6) Hypertension:
[2020-09-15 21:10] LABS: Glucose, Whole Blood 207 mg/dL (60-115)
--- NOTE | 2020-09-15 21:27 | PM.DS ---
DS: Providers Provider Date of Service: 09/15/20 Date of admission: 08/16/20 14:35 Primary care physician: Maria Luz Jordan MD Consults: Admission/ Discharge diagnosis: 1. Bilateral COVID pneumonia with hepatization of the lung and pneumomediastinum 2. Hypoxemic respiratory failure. 2? to above; Hypercarbia and end stage ARDS 3. New ACS. EKG and enzyme changes. Not a candidate for cath tx with anticoagulation 4. Acute kidney injury. 5. Diabetes. 6. Terminal extubation with consent of family members in light of grim prognosis and lack of improvement. HPI/ Hospital Course: Mrs. No was readmitted to the ICU on Sep 10 after a near respiratory arrest on the [facility]. The patient is a 60-year-old female with history of insulin-dependent diabetes, diabetic neuropathy, fatty liver, gastroesophageal reflux disease, remote history of seizures, hypertension, hypercholesteremia, RA on hydroxychloroquine, degenerative disc disease, and surgical history of lumbar spine surgery, tonsillectomy, and tubal ligation. She had no prior history of respiratory disease. She was diagnosed with COVID-19 after a positive test on 08/11/2020 at this facility, after first becoming symptomatic on approximately August 08. She presented to the hospital on August 16 with shortness of breath and cough, with hypoxemia. Sat was 84% on room air. COVID biomarkers were mildly positive. Creatinine was 1.18. Chest CT showed bilateral ground-glass infiltrates classic for COVID pneumonia. She was admitted to Medicine and treated with Decadron. Her FiO2 requirement escalated rapidly. Remdesivir was started. She required transfer to the ICU for CPAP on Aug 18. Her steroids were increased to Solu-Medrol 80mg. She improved enough to leave the ICU after just two days, on only HFNC 60L/65%. The patient had since been on [facility] [place] and completed a course of dexamethasone. Her course was again marked by an increasing FiO2 requirement. Over the last days prior to the current transfer, she was requiring HFNC 100% + NRBFM oxygen. She had developed pneumomediastinum and SQ air. Early on Sep 11, the patient desaturated and was grossly hypoventilating. A code blue was called. The patient still had a pulse. The trachea was intubated by Dr. Infante. She had SR on the monitor throughout. She was tx to ICU. F/U CXR post intubation and line placement was not that much different than the previous CXR four days prior. After adjusting the ventilator, we had her on AC with 10cm peep, and on 70% FiO2 she was Sat?ing about 95%. Chest CT showed lung that looked like liver, with air bronchograms throughout both lungs, and huge pneumomediastinum both anteriorly and posteriorly. Bec the CT findings suggested diffuse fibrosis, we started her on pulse steroids, 1G daily x 3 days. We spoke to her and let him know the grave prognosis. He decided to change her status to DNR, no heroic measures, no chest tube. Her condition had been steady the last three days in the ICU except for increasing oxygen requirement. See Vital Signs below. Today, she continues sedated on propofol and fentanyl. She moves her head around a little spontaneously. She?s off Levophed, and on insulin gtt @ 9u/hr. This morning she had an unprovoked episode of ST depression on the monitor. An EKG reads IRBBB with 1-2mm lateral ST depression. A prev tracing from Aug 16, 2020 is identical but with a wider QRS that doesn?t read IRBBB, and has no ST depression. We put her on NTP and bumped her Lovenox from 40 mg bid to [address] segment depression has since mostly resolved. Today at 7 40 pm: I spoke to the patient's over the phone, Mr. pradhan understands of her critical condition and the fact that she has been here for 1 month in sick for approximately 5 weeks. He has been aware of all the different changes and transition for the worse, unfortunately he understands that her current prognosis is very poor despite of any medical left for that we make. Upon discussing further goals of care, he agrees that perhaps enough is enough and he does not her to suffer, therefore we have discussed the possibility of making her comfort measures only to which he agrees, detailed explanation of what this end-tidal was given and the information was corroborated by the patient's nurse Blanca. At this point will withdraw every care and will simply keep her on fentanyl 25 mcg drip for comfort, we will terminally extubate the patient and allow her to past to a better life in a natural, humane unknown suffering way. All the drips except for fentanyl were shut off at 8:12 p.m., patient was extubated at 2015pm. The patient at 20 :30pm. At this time, the patient has no heartbeat, no palpable pulses, pupils are fixed at 5 mm bilaterally, overall that anterior chamber and cornea of the eyes appear glossy, no spontaneous breathing. There is no corneal reflexes bilaterally, capillary refill of the fingers and toes is significantly delayed and there is cyanosis with cool extremities. Patient was pronounced at this time and Certificate Completed. Organ Center Called by RN. Organ center was called, the patient was declined. Family informed about the patient's . certificate completed as well as discharge summary. Case was discussed in detail with Dr. Youngblood. He is aware of all the above as well as the plan of care for this patient. Total critical time with all the above discussions, coordination of care, discharge summary, plan of care 60 min 08/16/20 17:07 Consult to Infectious Diseases Routine Consulting Provider: Denita Bloom Reason for consultation: covid Has provider been notified: No 08/22/20 09:15 Consult to Nephrology Routine Consulting Provider: Jeffery Kapadia Reason for consultation: met acidosis 08/26/20 17:05 Consult to Critical Care Routine Consulting Provider: Claude Bradley Reason for consultation: Acute hypoxemic respiratory failure secondary to COVID. Has provider been notified: No 08/27/20 08:31 Consult to Pulmonology Routine Consulting Provider: Puneet Lincoln Reason for consultation: Acute hypoxic respiratory failure secondary to COVID 09/12/20 14:44 Consult to Wound Care Provider Routine Consulting Provider: Fabby Hill Reason for consultation: Skin breakdown coccyx Has provider been notified: No DS: Diagnosis Discharge Diagnosis (1) ARDS (adult respiratory distress syndrome): Status: Acute (2) COVID-19: Status: Acute (3) Respiratory failure with hypoxia: Status: Acute (4) Pneumomediastinum: Status: Acute (5) Diabetes type 2, uncontrolled: Status: Acute (6) Hypertension: Status: Acute DS: Medications Discharge Medications Home Medications: Home Medications Medication Instructions Recorded Confirmed fenofibrate 160 mg tablet 160 mg PO DAILY 05/27/20 08/16/20 folic acid 1 mg tablet 5 mg PO DAILY 05/27/20 08/16/20 gabapentin 600 mg tablet 600 mg PO TID 05/27/20 08/16/20 insulin glargine 100 unit/mL (3 60 unit SUBCUT BEDTIME ml 05/27/20 08/16/20 mL) subcutaneous pen insulin lispro 100 unit/mL 5 unit SUBCUT TIDAC 05/27/20 08/16/20 subcutaneous pen simvastatin 5 mg tablet 5 mg PO BEDTIME 05/27/20 08/16/20 cyclobenzaprine 10 mg PO BID PRN 08/16/20 08/16/20 hydroxychloroquine 200 mg PO BID 08/16/20 08/16/20 omeprazole 20 mg PO DAILY@0630 08/16/20 08/16/20 sulfamethoxazole-trimethoprim 1 tab PO MOWEFR@1000 08/16/20 08/16/20 [Bactrim] Previous Rx's Medication Instructions Recorded dulaglutide 1.5 mg/0.5 mL 1.5 mg SUBCUT QWEEK 30 Days #2.5 ml 05/24/20 subcutaneous pen injector flash glucose sensor #2 ea 06/03/20 cholecalciferol (vitamin D3) 125 125 mcg PO DAILY 30 Days #30 cap 07/24/20 mcg (5,000 unit) capsule pregabalin 50 mg capsule 50 mg PO BID #60 cap 08/01/20 dexamethasone [Decadron] 6 mg PO DAILY #7 tab 08/11/20 DS: Summary Time Spent with Patient Time attestation: Total time spent providing and/or coordinating discharge services: Discharge coordination time: Greater than 30 minutes Physical Exam Vital Signs: Vital Signs: Last Vital Signs Temp 97.7 F 09/15/20 20:00 Pulse 112 H 09/15/20 20:00 Resp 21 H 09/15/20 20:00 BP 143/68 H 09/15/20 20:00 Pulse Ox 90 L 09/15/20 20:00 Body Mass Index 29.8 DS: Data Data Completed and Pending Labs on day of discharge: Laboratory Results - last 24 hr 09/14/20 09/15/20 09/15/20 23:38 03:20 05:28 WBC 13.4 H RBC 3.00 L Hgb 8.5 L Hct 26.4 L MCV 88.0 MCH 28.3 MCHC 32.2 RDW 15.1 Plt Count 205 MPV 11.2 Immature Gran % (Auto) 10.1 H Neut % (Auto) 78.8 H Lymph % (Auto) 4.8 L [place] % (Auto) 6.1 Eos % (Auto) 0.0 Baso % (Auto) 0.2 Lymph # (Auto) 0.6 L [place] # (Auto) 0.8 Eos # (Auto) 0.0 Baso # (Auto) 0.0 Abs Immat Gran (auto) 1.35 H Absolute Neuts (auto) 10.5 H Absolute Nucleated RBC 0.070 H Nucleated RBC % (auto) 0.5 H Smear Tech's Comments VERIFIED VBG pH VBG pCO2 VBG pO2 VBG HCO3 VBG O2 Saturation VBG Base Excess Sodium Potassium Chloride Carbon Dioxide Anion Gap BUN Creatinine Estim Creat Clear Calc Estimated GFR POC Glucose 215 H 200 H Random Glucose Calcium Phosphorus Magnesium Troponin I High Sens Albumin Ur Random Sodium 09/15/20 09/15/20 09/15/20 05:28 05:28 08:30 WBC RBC Hgb Hct MCV MCH MCHC RDW Plt Count MPV Immature Gran % (Auto) Neut % (Auto) Lymph % (Auto) [place] % (Auto) Eos % (Auto) Baso % (Auto) Lymph # (Auto) [place] # (Auto) Eos # (Auto) Baso # (Auto) Abs Immat Gran (auto) Absolute Neuts (auto) Absolute Nucleated RBC Nucleated RBC % (auto) Smear Tech's Comments VBG pH 7.31 L VBG pCO2 54 VBG pO2 130 VBG HCO3 28 VBG O2 Saturation 98.0 VBG Base Excess 1.5 Sodium 134 L Potassium 5.5 H Chloride 99 Carbon Dioxide 31 H Anion Gap 10 L BUN 45 H Creatinine 0.75 Estim Creat Clear Calc 80.9 Estimated GFR > 60 POC Glucose 239 H Random Glucose 235 H Calcium 8.3 L Phosphorus 2.4 L Magnesium 2.6 Troponin I High Sens Albumin 3.4 L Ur Random Sodium 09/15/20 09/15/20 09/15/20 11:44 12:26 13:56 WBC RBC Hgb Hct MCV MCH MCHC RDW Plt Count MPV Immature Gran % (Auto) Neut % (Auto) Lymph % (Auto) [place] % (Auto) Eos % (Auto) Baso % (Auto) Lymph # (Auto) [place] # (Auto) Eos # (Auto) Baso # (Auto) Abs Immat Gran (auto) Absolute Neuts (auto) Absolute Nucleated RBC Nucleated RBC % (auto) Smear Tech's Comments VBG pH VBG pCO2 VBG pO2 VBG HCO3 VBG O2 Saturation VBG Base Excess Sodium Potassium Chloride Carbon Dioxide Anion Gap BUN Creatinine Estim Creat Clear Calc Estimated GFR POC Glucose 160 H 241 H Random Glucose Calcium Phosphorus Magnesium Troponin I High Sens 709.2 H D Albumin Ur Random Sodium 09/15/20 09/15/20 09/15/20 15:46 16:20 19:20 WBC RBC Hgb Hct MCV MCH MCHC RDW Plt Count MPV Immature Gran % (Auto) Neut % (Auto) Lymph % (Auto) [place] % (Auto) Eos % (Auto) Baso % (Auto) Lymph # (Auto) [place] # (Auto) Eos # (Auto) Baso # (Auto) Abs Immat Gran (auto) Absolute Neuts (auto) Absolute Nucleated RBC Nucleated RBC % (auto) Smear Tech's Comments VBG pH VBG pCO2 VBG pO2 VBG HCO3 VBG O2 Saturation VBG Base Excess Sodium Potassium Chloride Carbon Dioxide Anion Gap BUN Creatinine Estim Creat Clear Calc Estimated GFR POC Glucose 277 H 207 H Random Glucose Calcium Phosphorus Magnesium Troponin I High Sens Albumin Ur Random Sodium < 20.0 Discharge Plan Discharge Patient Disposition: Referrals: Po,Maria Luz Nelson MD [Primary Care Provider] - Discharge Medications: No Action Trulicity 1.5 mg/0.5 mL pen injector 1.5 mg subcut QWEEK 30 Days Qty: 2.5 RF: 3 (DME) FreeStyle Yariel 14 Day Sensor Kit See Rx Instructions .MEDSUPPLY Qty: 2 RF: 6 cholecalciferol (vitamin D3) 125 mcg (5,000 unit) capsule 125 mcg PO DAILY 30 Days Qty: 30 RF: 6 pregabalin [Lyrica] 50 mg capsule 50 mg PO BID Qty: 60 RF: 5 dexamethasone [Decadron] 6 mg tablet 6 mg PO DAILY Qty: 7 RF: 0 cyclobenzaprine 10 mg Tablet 10 mg PO BID PRN (Reason: Muscle Spasm) RF: 0 sulfamethoxazole-trimethoprim [Bactrim] 400-80 mg Tablet 1 tab PO MOWEFR@1000 RF: 0 hydroxychloroquine 200 mg Tablet 200 mg PO BID RF: 0 omeprazole 20 mg capsule,delayed release(DR/EC) 20 mg PO DAILY@0630 RF: 0 folic acid 1 mg tablet 5 mg PO DAILY RF: 0 gabapentin 600 mg tablet 600 mg PO TID RF: 0 Basaglar KwikPen U-100 Insulin 100 unit/mL (3 mL) insulin pen 60 unit subcut BEDTIME RF: 0 simvastatin 5 mg tablet 5 mg PO BEDTIME RF: 0 fenofibrate 160 mg tablet 160 mg PO DAILY RF: 0 insulin lispro [Admelog SoloStar U-100 Insulin] 100 unit/mL insulin pen 5 unit subcut TIDAC RF: 0 Discharge Orders: Discharge Order (Routine); Ordered 09/15/20 Ordered By: Montana Farley
--- NOTE | 2020-09-15 23:21 | PC.NURSE ---
Patient was extubated at 2014. All drips and tube feeding were shut off at 2011 with the exception of the fentanyl drip which was titrated down to 25 mcg/hr. Fentanyl drip was turned off at 2024. Patient asystole at 2029. [facility] contacted and patient was declined. Post mortem care performed.
--- NOTE | 2020-10-03 13:32 | MHC.CDI.RETR ---
Documented by User: Juanis Gray RN 10/03/20 13:42 Retrospective Query Please clarify if you have treated a probable/suspected/likely or confirmed: COVID related Viral Sepsis with end organ dysfunction, present on admission, treated COVID related Viral Sepsis with end organ dysfunction, ruled out PLEASE DO NOT DELETE/MODIFY EXISTING CONTENT Additional information is needed in order to code to the highest accuracy and appropriate Severity of Illness (SOI). Please clarify the information noted below in your progress notes and discharge summary. Risk Factors/Clinical Indicators/Treatments 60 year old female admitted with shortness of breath, diagnosed with COVID on 08/11/20. WBC 23.5 Temperature 98.2-100.3, P 78-96, R 20 - 33 Per ICU MD progress note 08/18/20, COVID 19 related viral sepsis with end organ dysfunction present on admission. Per ICU MD progress note 09/14/20: COVID 19 related viral sepsis with end organ dysfunction present on admission. CDS: Juanis Gray RN Contact Number: [phone] Please Review the information above and exercise your independent professional judgment in responding to the query. If you concur, pleas document in the PROGRESS NOTES and DISCHARGE SUMMARY. If you do not agree with the query, please document in the query above. THIS QUERY IS PART OF THE PERMANENT MEDICAL RECORD Documented by User: Juan Manuel Youngblood 10/04/20 09:02 Retrospective Query Service Date: 10/04/20 Provider Response: Severe Sepsis YES, THIS IS A CASE OF COVID related Viral Sepsis with end organ dysfunction, PER DR. PLAZA'S PROGRESS NOTES OF 08/18 AND 09/14.
== END 2020-09-15 20:31 | disposition expired | DRG 720 ==
LOC: HO.ED 14:33 → HO.EDOVER 14:46 → HO.IMC 08-17 11:23 → HO.ICU 08-18 00:24 → HO.IMC 08-19 16:12 → HO.ICU 09-11 03:33
PROVIDERS: Family Medicine; Hospitalist; Internal Medicine; Internal Medicine Pulmonary Disease; Nurse Practitioner Primary Care; Physician Assistant Medical; Registered Nurse Community Health; Admitting Provider Internal Medicine; Emergency Provider Emergency Medicine; PCP Internal Medicine; Visit Provider Anesthesiology
DX: A41.89 Other specified sepsis (principal); U07.1 COVID-19; J80 Acute respiratory distress syndrome; E87.3 Alkalosis; J12.82 Pneumonia due to coronavirus disease 2019; N17.9 Acute kidney failure, unspecified; E11.42 Type 2 diabetes mellitus with diabetic polyneuropathy; B37.0 Candidal stomatitis; E11.649 Type 2 diabetes mellitus with hypoglycemia without coma; I27.20 Pulmonary hypertension, unspecified; J98.2 Interstitial emphysema; E78.5 Hyperlipidemia, unspecified; M06.9 Rheumatoid arthritis, unspecified; Z79.2 Long term (current) use of antibiotics; Z79.4 Long term (current) use of insulin; Z79.899 Other long term (current) drug therapy; Z66 Do not resuscitate
CPT/HCPCS: 36415; 36600; 71045; 71250; 71275; 80048; 80053; 80076; 81001; 81003; 82040; 82728; 82803; 82947; 83036; 83605; 83615; 83735; 83880; 84100; 84133; 84145; 84300; 84484; 85007; 85025; 85027; 85379; 85610; 85730; 86140; 86769; 86850; 86900; 86901; 87040; 87070; 87086; 87088; 87186; 87205; 87449; 87899; 93005; 93306; 93970; 94002; 94003; 94640; 94660; 96361; 96365; 96375; 99285; C1758; J0133; J0171; J0456; J0696; J1100; J1450; J1650; J1940; J2060; J2405; J2543; J2920; J2930; J3010; J3475; J3490; P9047; Q9967